=== PATIENT | male | born 1970 | race Caucasian/White ===

== ENCOUNTER 2021-06-11 11:45 | Inpatient (IN) | payer OTHER ==
[2021-06-11] MEDS ORDERED: SODIUM CHLORIDE 0.9% 500 ML 500 ML IV ONE (11:49)
[2021-06-11] MEDS ORDERED: DEXAMETHASONE SOD PHOSPHATE 10 MG/ML 1 ML VIAL IV STA (11:49)
--- NOTE | 2021-06-11 11:55 | ED ---
General Adult HPI - General Stated complaint: covid+, increased SOB Time Seen by Provider: 06/11/21 11:48 Source: patient, EMS, RN notes reviewed, old records reviewed - History of Present Illness Initial comments: 50-year-old male presenting with hypoxia, confusion. Patient's family members have tested positive for coronavirus. He is been sick for approximately 7 days. He was found by EMS with initial oxygenation of 50% on room air. He was cyanotic and confused. He did have improved mentation with nonrebreather during transport. Patient has not been vaccinated against coronavirus. - Related Data Allergies Allergy/AdvReac Type Severity Reaction Status Date / Time No Known Allergies Allergy Verified 06/11/21 11:56 Review of Systems ROS Statement: Those systems with pertinent positive or pertinent negative responses have been documented in the HPI. ROS Other: All systems not noted in ROS Statement are negative. General Exam General appearance: alert, in distress Head exam: Present: atraumatic, normocephalic Eye exam: Present: normal appearance, PERRL ENT exam: Present: mucous membranes dry Neck exam: Present: normal inspection. Absent: tenderness, meningismus Respiratory exam: Present: respiratory distress, rales, rhonchi, decreased breath sounds Cardiovascular Exam: Present: normal rhythm, tachycardia GI/Abdominal exam: Present: soft. Absent: distended, tenderness, guarding Extremities exam: Present: normal inspection, normal capillary refill. Absent: pedal edema Neurological exam: Present: alert, oriented X3 (slow to Respond), CN II-XII intact. Absent: motor sensory deficit Psychiatric exam: Present: anxious Skin exam: Present: warm, dry Course Vital Signs 06/11/21 06/11/21 06/11/21 11:46 11:55 12:07 Temperature 100.5 F H Pulse Rate 125 H 121 H Respiratory 36 H 36 H 36 H Rate Blood Pressure 113/63 113/76 O2 Sat by Pulse 77 L 91 L Oximetry 06/11/21 12:10 Temperature Pulse Rate 120 H Respiratory 37 H Rate Blood Pressure 113/76 O2 Sat by Pulse 93 L Oximetry EKG Findings - EKG Comments: EKG Findings:: EKG: Sinus tachycardia with PAC, LVH, rate of 126, ND interval 132, QRS duration 86, QTC 469 Medical Decision Making - Medical Decision Making 50-year-old male presenting with severe respiratory distress, hypoxia in the 50s. History is concerning for coronavirus pneumonia with hypoxia. He does test positive for coronavirus. He has lab abnormalities consistent with severe Covid. Chest x-ray showed multifocal pneumonia. He is placed on high flow nasal cannula and a nonrebreather his oxygenation does improve to 92% in the emergency department with improved work of breathing. He is evaluated by the pulmonary director process Dr. Amezcua and will be admitted to the ICU. Case discussed with the [facility] Dr. Rodriguez, who will admit. - Lab Data Result diagrams: 06/11/21 11:47 06/11/21 11:47 Lab Results 06/11/21 06/11/21 06/11/21 Range/Units 11:47 11:47 11:47 WBC 17.4 H (3.8-10.6) k/uL RBC 4.88 (4.30-5.90) m/uL Hgb 15.0 (13.0-17.5) gm/dL Hct 42.2 (39.0-53.0) % MCV 86.5 (80.0-100.0) fL MCH 30.7 (25.0-35.0) pg MCHC 35.5 (31.0-37.0) g/dL RDW 13.7 (11.5-15.5) % Plt Count 374 (150-450) k/uL MPV 8.8 Neutrophils % 91 % Lymphocytes % 3 % Monocytes % 4 % Eosinophils % 0 % Basophils % 1 % Neutrophils # 15.9 H (1.3-7.7) k/uL Lymphocytes # 0.5 L (1.0-4.8) k/uL Monocytes # 0.7 (0-1.0) k/uL Eosinophils # 0.0 (0-0.7) k/uL Basophils # 0.1 (0-0.2) k/uL Hyperchromasia Slight Sodium 130 L (137-145) mmol/L Potassium 3.6 (3.5-5.1) mmol/L Chloride 89 L (98-107) mmol/L Carbon Dioxide 28 (22-30) mmol/L Anion Gap 13 mmol/L BUN 33 H (9-20) mg/dL Creatinine 1.16 (0.66-1.25) mg/dL Est GFR (CKD-EPI)AfAm 85 (>60 ml/min/1.73 sqM) Est GFR (CKD-EPI)NonAf 73 (>60 ml/min/1.73 sqM) Glucose 208 H (74-99) mg/dL Plasma Lactic Acid Mauro 3.4 H* (0.7-2.0) mmol/L Calcium 8.3 L (8.4-10.2) mg/dL Magnesium 2.1 (1.6-2.3) mg/dL Total Bilirubin 1.0 (0.2-1.3) mg/dL AST 52 (17-59) U/L ALT 33 (4-49) U/L Alkaline Phosphatase 62 (38-126) U/L Lactate Dehydrogenase 2098 H (313-618) U/L C-Reactive Protein 20.0 H (<1.0) mg/dL Total Protein 6.2 L (6.3-8.2) g/dL Albumin 3.3 L (3.5-5.0) g/dL Coronavirus (PCR) (Not Detectd) 06/11/21 Range/Units 11:58 WBC (3.8-10.6) k/uL RBC (4.30-5.90) m/uL Hgb (13.0-17.5) gm/dL Hct (39.0-53.0) % MCV (80.0-100.0) fL MCH (25.0-35.0) pg MCHC (31.0-37.0) g/dL RDW (11.5-15.5) % Plt Count (150-450) k/uL MPV Neutrophils % % Lymphocytes % % Monocytes % % Eosinophils % % Basophils % % Neutrophils # (1.3-7.7) k/uL Lymphocytes # (1.0-4.8) k/uL Monocytes # (0-1.0) k/uL Eosinophils # (0-0.7) k/uL Basophils # (0-0.2) k/uL Hyperchromasia Sodium (137-145) mmol/L Potassium (3.5-5.1) mmol/L Chloride (98-107) mmol/L Carbon Dioxide (22-30) mmol/L Anion Gap mmol/L BUN (9-20) mg/dL Creatinine (0.66-1.25) mg/dL Est GFR (CKD-EPI)AfAm (>60 ml/min/1.73 sqM) Est GFR (CKD-EPI)NonAf (>60 ml/min/1.73 sqM) Glucose (74-99) mg/dL Plasma Lactic Acid Mauro (0.7-2.0) mmol/L Calcium (8.4-10.2) mg/dL Magnesium (1.6-2.3) mg/dL Total Bilirubin (0.2-1.3) mg/dL AST (17-59) U/L ALT (4-49) U/L Alkaline Phosphatase (38-126) U/L Lactate Dehydrogenase (313-618) U/L C-Reactive Protein (<1.0) mg/dL Total Protein (6.3-8.2) g/dL Albumin (3.5-5.0) g/dL Coronavirus (PCR) Detected A (Not Detectd) Critical Care Time Critical Care Time: Yes Total Critical Care Time: 35 Disposition Clinical Impression: Pneumonia due to COVID-19 virus, Hypoxia Disposition: ADMITTED IP TO THIS [facility] Condition: Serious Is patient prescribed a controlled substance at d/c from ED?: No Referrals: None,Stated [Primary Care Provider] - 1-2 days Decision to Admit Reason: Admit from EC Decision Date: 06/11/21 Decision Time: 12:36
[2021-06-11] MEDS ORDERED: ACETAMINOPHEN TAB 500 MG TAB PO STA (11:58)
[2021-06-11] MEDS: SODIUM CHLORIDE 0.9% 1,000 ML IV SCH ×2 (12:03→19:53)
[2021-06-11 12:06] LABS: Basophils # (A) 0.1 k/uL (0-0.2); Basophils % (A) 1 %; Eosinophils % (A) 0 %; HCT 42.2 % (39.0-53.0); Hyperchromasia Slight; Lymphocytes # (A) 0.5 k/uL (1.0-4.8); Lymphocytes % (A) 3 %; MCH 30.7 pg (25.0-35.0); MCHC 35.5 g/dL (31.0-37.0); MCV 86.5 fL (80.0-100.0); Mean Platelet Volume 8.8; Monocytes # (A) 0.7 k/uL (0-1.0); Monocytes % (A) 4 %; Neutrophils # (A) 15.9 k/uL (1.3-7.7); Neutrophils % (A) 91 %; Platelet Count 374 k/uL (150-450); RBC 4.88 m/uL (4.30-5.90); RDW 13.7 % (11.5-15.5); WBC 17.4 k/uL (3.8-10.6)
[2021-06-11 12:18] LABS: Albumin 3.3 g/dL (3.5-5.0); Calcium 8.3 mg/dL (8.4-10.2); Magnesium 2.1 mg/dL (1.6-2.3); Potassium 3.6 mmol/L (3.5-5.1); Total Protein 6.2 g/dL (6.3-8.2)
--- NOTE | 2021-06-11 12:31 | XR ---
EXAMINATION TYPE: XR chest 1V portable DATE OF EXAM: 06/11/2021 COMPARISON: NONE HISTORY: ROXI. TECHNIQUE: Single AP portable frontal view of the chest is obtained. FINDINGS: There are bilateral multifocal and confluent opacities with relative sparing of the upper lungs. Low lung volumes redemonstrated. The cardiac silhouette size is within normal limits. The o sseous structures are intact. Overlying EKG leads. IMPRESSION: Low lung volumes with bilateral multifocal and confluent opacities relatively sparing th e upper lungs consistent with suspected covid-19 infection.
[2021-06-11] MEDS ORDERED: NALOXONE 0.4 MG/ML 1 ML VIAL IV PRN (12:33)
[2021-06-11 12:37] LABS: INR 1.1 (<1.2); Prothrombin Time 11.6 sec (9.0-12.0)
[2021-06-11 12:55] LABS: Partial Thromboplastin Time 21.1 sec (22.0-30.0)
--- NOTE | 2021-06-11 13:19 | P.CNPUL ---
History of Present Illness Consult date: 06/11/21 Requesting physician: Tamir Rodriguez Reason for consult: dyspnea, cough, hypoxemia, pneumonia, abnormal CXR/CT Chief complaint: Shortness of breath. History of present illness: Pulmonary consult dated 06/11/2021. 50-year-old male, who presents to the emergency department, complaining of incr easing shortness of breath. The patient has been sick for 2 weeks. He told the ER physician 1 week, but his exit been much longer. Apparently, other family members are sick with coronavirus, and he tested positive. He has not yet been vaccinated. The patient's currently in the ER, in trauma 1 room, on AIRVO, at 60 L/m with an FiO2 of 92%, and also a nonrebreather mask. He is not getting any IV fluids. Again he is not been previously vaccinated. Chest x-ray shows diffuse bilateral right greater than left infiltrates. The patient does not have a family doctor. The patient states he takes no medications at home on a regular basis. He also denies all past medical history. I evaluate the patient and determined that he should go to the intensive care unit. I did that the charge nurse in the ICU know. White count 17.4, hemoglobin 15, hematocrit 42.2, and platelet count 374,000. PTT was 21.1. Sodium 1:30, potassium 3.6, chlorides 89, CO2 28, anion gap 13, BUN 33, and creatinine 1.16. Lactic acid was 3.4 glucose 208 LDH 2098 C-reactive protein 20 and testing for coronavirus w as positive. Review of Systems REVIEW OF SYSTEMS: CONSTITUTIONAL: Weakness. NEUROLOGIC: [ Negative.] HEENT: [ Negative.] CARDIAC: [Negative.] PULMONARY: Shortness of breath, cough, progressive in nature. Also chest congestion. GI: [Negative.] : [Negative.] RHEUMATOLOGIC: [ Negative.] IMMUNOLOGIC: [ Negative.] ENDOCRINE: [Negative. ] DERMATOLOGIC: [Negative.] Past Medical History Past Medical History: Hypertension History of Any Multi-Drug Resistant Organisms: None Reported Past Surgical History: Orthopedic Surgery Past Psychological History: No Psychological Hx Reported Smoking Status: Never smoker Past Alcohol Use History: None Reported Medications and Allergies Home Medications Medication Instructions Recorded Confirmed Type No Known Home Medications 06/11/21 06/11/21 History Allergies Allergy/AdvReac Type Severity Reaction Status Date / Time No Known Allergies Allergy Verified 06/11/21 12:43 Physical Exam Osteopathic Statement: *. No significant issues noted on an osteopathic structural exam other than those noted in the History and Physical/Consult. Vitals: Vital Signs Temp Pulse Resp BP Pulse Ox 06/11/21 12:10 120 H 37 H 113/76 93 L 06/11/21 12:07 121 H 36 H 113/76 91 L 06/11/21 11:55 36 H 06/11/21 11:46 100.5 F H 125 H 36 H 113/63 77 L Intake and Output 06/10/21 06/11/21 06/11/21 22:59 06:59 14:59 Other: Weight 117.934 kg Conversational dyspnea, with use of accessory muscles. No audible wheezing. Th e patient currently has a AIRVO and place, plus a nonrebreather mask. HEENT examination is grossly unremarkable. Neck supple. Full range of motion. No adenopathy thyromegaly or neck vein distention. Cardiovascular examination reveals regular rhythm rate. S1-S2 normal. No S3 or S4. No discernible murmur noted. Heart rate 120. Heart sounds are distant. Lungs reveal diffuse coarse rhonchi. Diffuse bilateral crackles. No wheezes. Breath sounds equal bilaterally but diminished throughout. Abdomen soft bowel sounds are heard. No masses or tenderness. Abdomen obese. Extremities are intact. No cyanosis clubbing or edema. Skin is without rash or lesion. Neurologic examination is brief but nonfocal. Results - Laboratory Findings CBC and BMP: 06/11/21 11:47 06/11/21 11:47 PT/INR, D-dimer PT 11.6 sec (9.0-12.0) 06/11/21 11:47 INR 1.1 (<1.2) 06/11/21 11:47 Abnormal lab findings: Abnormal Labs 06/11/21 06/11/21 06/11/21 11:47 11:47 11:47 WBC 17.4 H Neutrophils # 15.9 H Lymphocytes # 0.5 L APTT 21.1 L Sodium 130 L Chloride 89 L BUN 33 H Glucose 208 H Plasma Lactic Acid Mauro Calcium 8.3 L Lactate Dehydrogenase 2098 H C-Reactive Protein 20.0 H Total Protein 6.2 L Albumin 3.3 L Coronavirus (PCR) 06/11/21 06/11/21 11:47 11:58 WBC Neutrophils # Lymphocytes # APTT Sodium Chloride BUN Glucose Plasma Lactic Acid Mauro 3.4 H* Calcium Lactate Dehydrogenase C-Reactive Protein Total Protein Albumin Coronavirus (PCR) Detected A - Diagnostic Findings Chest x-ray: image reviewed Assessment and Plan Assessment: Acute hypoxemic respiratory failure secondary to coronavirus associated pneumonia. Elevated inflammatory marker secondary to coronavirus infection. Obesity. Plan: Plan dated 06/11/2021. The patient will be admitted to the intensive care unit. The patient will be placed on Lovenox, Decadron, and vitamins. He is not a candidate for REM. He is a candidate for Baricitinib. Additional recommendations and suggestions are forthcoming. The patient will have daily labs and chest x-rays. The patient may worsen and require intubation and mechanical ventilation. We will continue to follow and make recommendations where appropriate. Prognosis is guarded. Time with Patient: Greater than 30
[2021-06-11] MEDS ORDERED: LORazepam 2 MG/ML INJ IV PRN (14:34)
[2021-06-11] MEDS ORDERED: ONDANSETRON 4 MG/2 ML VIAL IVP PRN (14:34)
[2021-06-11] MEDS ORDERED: IBUPROFEN 400 MG TAB PO PRN (14:34)
[2021-06-11] MEDS ORDERED: bisacodyL 5 MG TABLET.DR PO PRN (14:34)
[2021-06-11] MEDS ORDERED: ACETAMINOPHEN TAB 325 MG TAB PO PRN (14:34)
--- NOTE | 2021-06-11 14:34 | P.HPIM ---
History of Present Illness H&P Date: 06/11/21 Chief Complaint: decreased responsiveness Patient is a 50-year-old male who presented with confusion and low oxygen status, was found to be by EMS to have an oxygen saturation of 50%. On arrival to the ER he had a temperature of 100.5, pulse 125, respirations 36, and he was satting 77% on a 15 L nonrebreather. In the ER he was found to have a white blood cell count of 17.4, sodium 130, glucose 208, lactic acid 3.4, LDH 2098, and CRP 20. His COVID test came back positive. Chest x-ray showed lateral multifocal opacities right greater than left is reviewed by myself. He was started on aerosol. He was given 1 L bolus and 10 mg of Decadron. He was seen by pulmonary critical care and arrangements were made for admission to the ICU. Patient seen and examined in the emergency department. He reports that his Covid symptoms started 10-14 days ago. His tested positive about 7 days ago. He has 3 teenage children at home, he states they're asymptomatic. He r eports cough with chest congestion, no runny, stuffy nose. He has had diarrhea 1 week. He reports low appetite with decreased oral intake. He reports easy fatigue ability. He states that he remembers going to sleep on the couch yesterday in the next thing he remembers was waking up with EMS at his side with a popsicle in his mouth. He has not been vaccinated. Pertinent positives and negatives as discussed in HPI, a complete review of systems was performed and all other systems are negative. General: non toxic, no distress, appears at stated age Derm: warm, dry Head: atraumatic, normocephalic, symmetric Eyes: EOMI, no lid lag, anicteric sclera, pupils equal round reactive to light ENT: Nose and ears atraumatic, no thrush, no pharyngeal erythema Neck: No thyromegaly, no cervical lymphadenopathy, trachea midline, supple Mouth: no lip lesion, mucus membranes moist Cardiovascular: S1S2 reg, no murmur, positive posterior tibial pulse bilateral, no edema, capillary refill less than 2 seconds Lungs: clear to ascultation bilateral, no ronchi, no rales, no wheeze, no accessory muscle use Abdominal: soft, nontender to palpation, no guarding, no appreciable organomegaly, normal bowel sounds Ext: no gross muscle atrophy, muscle strength muscle strength 5 out of 5 in all 4 extremities, no contractures Neuro: CN II-XI grossly intact, light touch intact all 4 extremities, finger to nose within normal limits, Psych: Alert, oriented, appropriate affect COVID-19 pneumonitis in an unvaccinated individual Acute hypoxic respiratory failure Altered mentation due to hypoxia, resolved - Patient is out of the for remdesivir - decadron - Vit D, Vit C, Zinc - Follow inflammatory labs - pulm hygiene Hyponatremia - careful IV fluids as currently requiring NRB and maxed out AirVo - repeat blood work in 4-6 hours. HTN - hold lisinopril - follow BP Lactic acidosis - IVF - repeat lactic acid obesity with BMI 38.4 - structured outpatient weight loss attempted to call Pat X 3 without answer. The patient is admitted with an anticipated greater than 2 midnight stay for evaluation of COVID-19 pneumonitis. Surrogate decision-maker: CODE STATUS:Full DVT prophylaxis: Lovenox Discussed with: patient, nursing, ED physicians Anticipated discharge date: undetermined Anticipated discharge place: undetermined A total of 75 minutes was spent on the care of this complex patient more than 50% of the time was spent in counseling and care coordination. Past Medical History Past Medical History: Hypertension History of Any Multi-Drug Resistant Organisms: None Reported Past Surgical History: Orthopedic Surgery Additional Past Surgical History / Comment(s): left knee scope Past Psychological History: No Psychological Hx Reported Smoking Status: Never smoker Past Alcohol Use History: None Reported Additional History: no assisstive devices - Past Family History Mother Family Medical History: No Reported History Medications and Allergies Home Medications Medication Instructions Recorded Confirmed Type No Known Home Medications 06/11/21 06/11/21 History Allergies Allergy/AdvReac Type Severity Reaction Status Date / Time No Known Allergies Allergy Verified 06/11/21 12:43 Physical Exam Osteopathic Statement: *. No significant issues noted on an osteopathic structural exam other than those noted in the History and Physical/Consult. Vitals: Vital Signs Temp Pulse Resp BP Pulse Ox 06/11/21 13:00 107 H 32 H 109/69 92 L 06/11/21 12:10 120 H 37 H 113/76 93 L 06/11/21 12:07 121 H 36 H 113/76 91 L 06/11/21 11:55 36 H 06/11/21 11:46 100.5 F H 125 H 36 H 113/63 77 L Intake and Output 06/10/21 06/11/21 06/11/21 22:59 06:59 14:59 Other: Weight 117.934 kg Results CBC & Chem 7: 06/11/21 11:47 06/11/21 11:47 Labs: Abnormal Lab Results - Last 24 Hours (Table) 06/11/21 06/11/21 06/11/21 Range/Units 11:47 11:47 11:47 WBC 17.4 H (3.8-10.6) k/uL Neutrophils # 15.9 H (1.3-7.7) k/uL Lymphocytes # 0.5 L (1.0-4.8) k/uL APTT 21.1 L (22.0-30.0) sec Sodium 130 L (137-145) mmol/L Chloride 89 L (98-107) mmol/L BUN 33 H (9-20) mg/dL Glucose 208 H (74-99) mg/dL Plasma Lactic Acid Mauro (0.7-2.0) mmol/L Calcium 8.3 L (8.4-10.2) mg/dL Lactate Dehydrogenase 2098 H (313-618) U/L C-Reactive Protein 20.0 H (<1.0) mg/dL Total Protein 6.2 L (6.3-8.2) g/dL Albumin 3.3 L (3.5-5.0) g/dL Coronavirus (PCR) (Not Detectd) 06/11/21 06/11/21 Range/Units 11:47 11:58 WBC (3.8-10.6) k/uL Neutrophils # (1.3-7.7) k/uL Lymphocytes # (1.0-4.8) k/uL APTT (22.0-30.0) sec Sodium (137-145) mmol/L Chloride (98-107) mmol/L BUN (9-20) mg/dL Glucose (74-99) mg/dL Plasma Lactic Acid Mauro 3.4 H* (0.7-2.0) mmol/L Calcium (8.4-10.2) mg/dL Lactate Dehydrogenase (313-618) U/L C-Reactive Protein (<1.0) mg/dL Total Protein (6.3-8.2) g/dL Albumin (3.5-5.0) g/dL Coronavirus (PCR) Detected A (Not Detectd)
[2021-06-11 14:39] LABS: Glucose,Whole Blood 187 mg/dL (75-99)
[2021-06-11 19:41] LABS: Glucose,Whole Blood 176 mg/dL (75-99)
[2021-06-11] MEDS: INSULIN ASPART (NovoLOG) 100 UNIT/ML VIAL SQ SCH (19:53)
[2021-06-11] MEDS: DEXMEDETOMIDINE/0.9% NACL(PMX) 400 MCG in EMPTY BAG 1 BAG IV SCH (22:39)
[2021-06-12 03:29] LABS: HGB 13.5 gm/dL (13.0-17.5); MCH 30.3 pg (25.0-35.0); MCHC 34.5 g/dL (31.0-37.0); MCV 87.9 fL (80.0-100.0); Mean Platelet Volume 8.7; Platelet Count 303 k/uL (150-450); RBC 4.44 m/uL (4.30-5.90); RDW 13.1 % (11.5-15.5); WBC 17.7 k/uL (3.8-10.6)
[2021-06-12 03:48] LABS: ALT 27 U/L (4-49); AST 44 U/L (17-59); African American GFR (CKD) >90 (>60 ml/min/1.73 sqM); Alkaline Phosphatase 73 U/L (38-126); Anion Gap 8 mmol/L; Blood Urea Nitrogen 29 mg/dL (9-20); Calcium 8.1 mg/dL (8.4-10.2); Carbon Dioxide 32 mmol/L (22-30); Chloride 95 mmol/L (98-107); Glucose 145 mg/dL (74-99); Magnesium 2.4 mg/dL (1.6-2.3); Non-African American GFR(CKD) >90 (>60 ml/min/1.73 sqM); Potassium 3.4 mmol/L (3.5-5.1); Sodium 135 mmol/L (137-145); Total Bilirubin 0.6 mg/dL (0.2-1.3); Total Protein 5.8 g/dL (6.3-8.2)
[2021-06-12 04:00] LABS: LDH 2002 U/L (313-618)
[2021-06-12] MEDS ORDERED: Potassium Replacement Protocol 1 EACH MISC MISCELLANE PRN (04:03)
[2021-06-12] MEDS: DEXMEDETOMIDINE/0.9% NACL(PMX) 400 MCG in EMPTY BAG 1 BAG IV SCH (04:38)
[2021-06-12] MEDS: POTASSIUM CHLORIDE ER 20 MEQ TAB.ER PO SCH ×2 (04:38→06:20)
[2021-06-12] MEDS: INSULIN ASPART (NovoLOG) 100 UNIT/ML VIAL SQ SCH ×3 (06:20→18:20)
[2021-06-12] MEDS ORDERED: propofoL 100 ML IV ONE (06:24)
[2021-06-12] MEDS ORDERED: CISATRACURIUM 2 MG/ML 5 ML VIAL IV ONE ×2 (06:59→07:00)
[2021-06-12] MEDS: CISATRACURIUM 200 MG in SODIUM CHLORIDE 0.9% 180 ML IV SCH ×2 (07:10→23:58)
[2021-06-12] MEDS: ARTIFICIAL TEARS-HYPROMELLOSE DROPS 15 ML BTL BOTH EYES SCH ×5 (07:11→23:59)
--- NOTE | 2021-06-12 07:28 | XR ---
EXAMINATION TYPE: XR chest 1V portable DATE OF EXAM: 06/12/2021 Comparison: 06/12/2021 Clinical History: 50-year-old male Tube placement Findings: ET and NG tubes are satisfactory. Heart borderline enlarged. Diffuse bilateral groundglass airspace d isease has become slightly more opaque. No pleural effusion. Impression: Slightly more consolidative appearance to the bilateral diffuse groundglass disease.
[2021-06-12 08:03] LABS: ABG HCO3 32 mmol/L (21-25); ABG Oxygen Saturation 86.6 % (94-97); ABG PCO2 50 mmHg (35-45); ABG PH 7.42 (7.35-7.45); ABG TCO2 34 mmol/L (19-24); Allen Test Performed? Yes
[2021-06-12 08:05] LABS: ABG PO2 56 mmHg (83-108)
--- NOTE | 2021-06-12 08:21 | XR ---
EXAMINATION TYPE: XR chest 1V portable DATE OF EXAM: 06/12/2021 HISTORY: Shortness of breath. COMPARISON: 06/12/2021 TECHNIQUE: Single view of the chest is submitted. FINDINGS: Demonstrated are scattered senescent parenchymal change. Patchy perihilar and basilar infiltrates persist although appear to be improving. Endotracheal tube a nd NG tube have been removed. The heart is stable. Hilar and mediastinal structures are within normal limits. Degenerative changes are seen of the dorsal spine. IMPRESSION: 1. Patchy perihilar and basilar infiltrates persist although appear to be improving.
[2021-06-12] MEDS: CHLORHEXIDINE GLUCONATE 15 ML CUP MUCOUS MEM SCH ×2 (08:57→19:55)
[2021-06-12] MEDS: CHOLECALCIFEROL 25 MCG (1000 IU) TABLET PO SCH (08:57)
[2021-06-12] MEDS: ASCORBIC ACID 500 MG TAB PO SCH (08:57)
[2021-06-12] MEDS: ZINC SULFATE 220 MG CAP PO SCH (08:57)
[2021-06-12] MEDS: ENOXAPARIN 100 MG/ML SYRINGE SQ SCH ×2 (08:58→21:17)
[2021-06-12] MEDS ORDERED: ENOXAPARIN 40 MG/0.4 ML SYRINGE SQ SCH (09:00)
[2021-06-12] MEDS: DEXAMETHASONE SOD PHOSPHATE 10 MG/ML 1 ML VIAL IVP SCH (09:03)
--- NOTE | 2021-06-12 10:08 | XR ---
EXAMINATION TYPE: XR chest 1V confirm line plcga DATE OF EXAM: 06/12/2021 HISTORY: Shortness of breath. COMPARISON: 06/12/2021 TECHNIQUE: Single view of the chest is submitted. FINDINGS: Endotracheal tube and NG tube are in place. Left IJ central venous line with its distal tip overlying the SVC. No evidence for pneumothorax. Patchy perihilar and basilar infiltrates. The heart is stable. Hilar and mediastinal structures are within normal limits. Degenerative changes are seen of the dorsal spine. IMPRESSION: 1. Stable pneumonia. Left IJ central venous line as noted.
--- NOTE | 2021-06-12 10:31 | PCN ---
PROCEDURE NOTE PLACEMENT OF LEFT INTERNAL JUGULAR TRIPLE-LUMEN CATHETER: OPERATORS: 1. Dr. Amezcua. 2. Dr. Hicks. PREOPERATIVE DIAGNOSIS: Administration of fluids and pressors. POSTOPERATIVE DIAGNOSIS: Administration of fluids and pressors. PROCEDURE DESCRIPTION: A time-out was completed verifying correct patient, procedure, site, positioning, and implant(s) or special equipment if applicable. The patient was placed in a dependent position appropriate for triple-lumen catheter placement based on the vein to be cannulated. The patient's left neck was prepped and draped in sterile fashion. 1% Lidocaine was used to anesthetize the surrounding skin area. A triple-lumen 9F Cordis catheter was introduced into the left internal jugular vein using Seldinger technique. We did the posterior approach. The catheter was threaded smoothly over the guide wire and appropriate blood return was obtained. There was good blood return from all 3 ports. Each lumen of the catheter was evacuated of air and flushed with sterile saline. The catheter was then sutured in place to the skin and a sterile dressing applied by a nurse. Perfusion to the extremity distal to the point of catheter insertion was checked and found to be adequate. A chest x-ray was done that showed the catheter in the area of the right atrium. The patient tolerated the procedure well. Sterile dressing was applied by the nurse. There was no immediate complication. PLACEMENT OF RIGHT RADIAL ARTERIAL LINE: PREOPERATIVE DIAGNOSIS: Frequent blood draws and blood gas monitoring. POSTOPERATIVE DIAGNOSIS: Frequent blood draws and blood gas monitoring. OPERATORS: 1. Dr. Amezcua. 2. Dr. Hicks. PROCEDURE DESCRIPTION: A time-out was completed verifying correct patient, procedure, site, positioning, and implant(s) or special equipment if applicable. Mike's test was performed to ensure adequate perfusion. The patient's right wrist was prepped and draped in sterile fashion. 1% Lidocaine was used to anesthetize the area. An 18G Arrow arterial line was introduced into the right radial artery. The catheter was threaded over the guidewire and the needle was removed with appropriate pulsatile blood return. Blood loss was minimal. The catheter was then sutured in place to the skin and a sterile dressing applied by the nurse. Perfusion to the extremity distal to the point of catheter insertion was checked and found to be adequate. The patient tolerated the procedure well and there was no immediate complication. Again, there was good blood return and waveform. MMODL / IJN: [id number] /
--- NOTE | 2021-06-12 11:12 | CT ---
EXAMINATION TYPE: CT angio chest DATE OF EXAM: 06/12/2021 COMPARISON: None HISTORY: Elev. D dimer CT DLP: 1311.4 mGycm CONTRAST: CT chest with contrast and 3D reconstruction with MIP imaging is performed with IV Contrast, patient injected with 100 mL of Isovue 370. Contrast-enhanced CT of the chest was performed through the course of the pulmonary arteries with wilton g and mediastinal window settings submitted. 3D reconstruction with MIP imaging was also performed. PULMONARY ARTERIES: Small of filling defect suggested within the right upper lobe for reference image 57 of 152 as well as 54 of 152. Small pulmonary embolism difficult to exclude. No evidence for sagit lacho component. No additional filling defects are present. LUNGS: Large areas of perihilar and basilar infiltrates with pleural effusions compatible with underl kayleigh pneumonia. Endotracheal tube is appropriately positioned. MEDIASTINUM: Thoracic aorta is of normal caliber,however, evaluation is limited given timing of the contrast bolus. If there is concern for thoracic aortic pathology consider MATTY. Correlate clinicall y . The heart is not enlarged. No evidence for mediastinal mass. No mediastinal lymph nodes greater than 1cm. HILAR STRUCTURES: No evidence for mass. No hilar lymph nodes greater than 1 cm. UPPER ABDOMEN: NG tube is seen coursing into the stomach. IMPRESSION: 1. Small pulmonary emboli right upper lobe difficult to exclude. 2. Findings compatible with the underlying pneumonia.
[2021-06-12] MEDS ORDERED: SODIUM CHLORIDE 0.9% 2,000 ML IV ONE (11:13)
--- NOTE | 2021-06-12 11:33 | P.PN ---
Subjective Progress Note Date: 06/12/21 Principal diagnosis: Respiratory failure. Pulmonary consult dated 06/11/2021. 50-year-old male, who presents to the emergency department, complaining of increasing shortness of breath. The patient has been sick for 2 weeks. He told the ER physician 1 week, but his exit been much longer. Apparently, other family members are sick with coronavirus, and he tested positive. He has not yet been vaccinated. The patient's currently in the ER, in trauma 1 room, on AIRVO, at 60 L/m with an FiO2 of 92%, and also a nonrebreather mask. He is not getting any IV fluids. Again he is not been previously vaccinated. Chest x-ray shows diffuse bilateral right greater than left infiltrates. The patient does not have a family doctor. The patient states he takes no medications at home on a regular basis. He also denies all past medical history. I evaluate the patient and determined that he should go to the intensive care unit. I did that the charge nurse in the ICU know. White count 17.4, hemoglobin 15, hematocrit 42.2, and platelet count 374,000. PTT was 21.1. Sodium 1:30, potassium 3.6, chlorides 89, CO2 28, anion gap 13, BUN 33, and creatinine 1.16. Lactic acid w as 3.4 glucose 208 LDH 2098 C-reactive protein 20 and testing for coronavirus was positive. Progress note dated 06/12/2021. 50-year-old male with no significant past medical history, that we saw in the emergency department yesterday. Patient had been sick for 2 weeks, and did test positive for coronavirus. Early this morning, for worsening hypoxemic respiratory failure, the patient was intubated and mechanically ventilated by anesthesia. Subsequent to that, we placed a right radial art line, and also a left internal jugular triple-lumen catheter. The patient remains on the ventilator. Ventilator settings include the volume assist control, rate 26, tidal volume 450, FiO2 100%, and PEEP of 10. Blood gases showed a pO2 of 56, pCO2 of 50, and a pH is 7.42. The patient's PEEP was increased to 15. In addition to the radial art line and central line, we ordered a CT angiogram, which suggested the possibility of pulmonary embolism. We also will start tube feeds, and keep the patient on saline at 75 mL an hour, propofol at 40 mics per kilogram per minute, and Nimbex at 1 mcg/kg/m. We added Dilaudid for pain when necessary. White count 17.7, hemoglobin 13.5, hematocrit 39, and platelet count 303,000. D-dimer was greater than 34.10. Sodium 135, potassium 3.4, chlorides 95, CO2 32, anion gap 8, BUN 29, and creatinine 0.83. In addition, LDH was 2002, and C-reactive protein was 18. Influenza studies were negative. Chest x- ray showed patchy bilateral infiltrates. Objective - Vital Signs Vital signs: Vital Signs Temp 98.2 F 06/12/21 08:00 Pulse 68 06/12/21 11:00 Resp 26 H 06/12/21 11:00 BP 93/68 06/12/21 11:00 Pulse Ox 92 L 06/12/21 11:00 Intake & Output 06/11/21 06/12/21 06/12/21 18:59 06:59 18:59 Intake Total 375 1081.818 213.835 Output Total 1150 650 100 Balance -775 431.818 113.835 Weight 117.934 kg 111.6 kg 111.6 kg Intake: IV 675 150 Sodium Chloride 0.9% 1, 675 150 000 ml @ 75 mls/hr IV . [id number] [facility] Rx#:[id number] Intake, IV Titration 375 286.818 63.835 Amount Dexmedetomidine/0.9% NaCl 61.818 (Pmx) 400 mcg In Empty Bag 1 bag @ 0.2 MCG/KG/HR 5.897 mls/hr IV .[id number] [facility] Rx#:[id number] Sodium Chloride 0.9% 1, 375 225 000 ml @ 75 mls/hr IV . [id number] [facility] Rx#:[id number] propofoL 1,000 mg In 63.835 Empty Bag 1 bag @ Titrate IV .Q0M [facility] Rx#: [id number] Oral 120 Output: Urine 1150 650 100 Other: Voiding Method Indwelling Catheter ABP, PAP, CO, CI - Last Documented Arterial Blood Pressure 64/40 - Exam No acute distress, sedated and paralyzed. The patient has an orally placed endotracheal tube and NG tube. HEENT examination is grossly unremarkable. Neck supple. Full range of motion. No adenopathy thyromegaly or neck vein distention. Cardiovascular examination reveals regular rhythm rate. S1-S2 normal. No S3 or S4. No discernible murmur noted. Heart sounds are distant. Heart rate 68 bpm. Lungs reveal diffuse bilateral rhonchi. No wheezes or crackles. Breath sounds are equal bilaterally. Saturations are 92%. Abdomen soft bowel sounds are heard. No masses or tenderness. Extremities are intact. No cyanosis clubbing or edema. Skin is without rash or lesion. Neurologic examination cannot be assessed at this time given the sedation and paralysis. - Labs CBC & Chem 7: 06/12/21 02:48 06/12/21 02:48 Labs: Abnormal Lab Results - Last 24 Hours (Table) 06/11/21 06/11/21 06/11/21 Range/Units 11:47 11:47 11:47 WBC 17.4 H (3.8-10.6) k/uL Neutrophils # 15.9 H (1.3-7.7) k/uL Lymphocytes # 0.5 L (1.0-4.8) k/uL APTT 21.1 L (22.0-30.0) sec D-Dimer (<0.60) mg/L FEU ABG pCO2 (35-45) mmHg ABG pO2 (83-108) mmHg ABG HCO3 (21-25) mmol/L ABG Total CO2 (19-24) mmol/L ABG O2 Saturation (94-97) % Sodium 130 L (137-145) mmol/L Potassium (3.5-5.1) mmol/L Chloride 89 L (98-107) mmol/L Carbon Dioxide (22-30) mmol/L BUN 33 H (9-20) mg/dL Glucose 208 H (74-99) mg/dL POC Glucose (mg/dL) (75-99) mg/dL Plasma Lactic Acid Mauro (0.7-2.0) mmol/L Calcium 8.3 L (8.4-10.2) mg/dL Magnesium (1.6-2.3) mg/dL Ferritin 1873.0 H (22.0-322.0) ng/mL Lactate Dehydrogenase 2098 H (313-618) U/L C-Reactive Protein 20.0 H (<1.0) mg/dL Total Protein 6.2 L (6.3-8.2) g/dL Albumin 3.3 L (3.5-5.0) g/dL Procalcitonin (0.02-0.09) ng/mL Coronavirus (PCR) (Not Detectd) 06/11/21 06/11/21 06/11/21 Range/Units 11:47 11:47 11:58 WBC (3.8-10.6) k/uL Neutrophils # (1.3-7.7) k/uL Lymphocytes # (1.0-4.8) k/uL APTT (22.0-30.0) sec D-Dimer (<0.60) mg/L FEU ABG pCO2 (35-45) mmHg ABG pO2 (83-108) mmHg ABG HCO3 (21-25) mmol/L ABG Total CO2 (19-24) mmol/L ABG O2 Saturation (94-97) % Sodium (137-145) mmol/L Potassium (3.5-5.1) mmol/L Chloride (98-107) mmol/L Carbon Dioxide (22-30) mmol/L BUN (9-20) mg/dL Glucose (74-99) mg/dL POC Glucose (mg/dL) (75-99) mg/dL Plasma Lactic Acid Mauro 3.4 H* (0.7-2.0) mmol/L Calcium (8.4-10.2) mg/dL Magnesium (1.6-2.3) mg/dL Ferritin (22.0-322.0) ng/mL Lactate Dehydrogenase (313-618) U/L C-Reactive Protein (<1.0) mg/dL Total Protein (6.3-8.2) g/dL Albumin (3.5-5.0) g/dL Procalcitonin 0.41 H (0.02-0.09) ng/mL Coronavirus (PCR) Detected A (Not Detectd) 06/11/21 06/11/21 06/12/21 Range/Units 14:37 19:40 02:48 WBC 17.7 H (3.8-10.6) k/uL Neutrophils # (1.3-7.7) k/uL Lymphocytes # (1.0-4.8) k/uL APTT (22.0-30.0) sec D-Dimer (<0.60) mg/L FEU ABG pCO2 (35-45) mmHg ABG pO2 (83-108) mmHg ABG HCO3 (21-25) mmol/L ABG Total CO2 (19-24) mmol/L ABG O2 Saturation (94-97) % Sodium (137-145) mmol/L Potassium (3.5-5.1) mmol/L Chloride (98-107) mmol/L Carbon Dioxide (22-30) mmol/L BUN (9-20) mg/dL Glucose (74-99) mg/dL POC Glucose (mg/dL) 187 H 176 H (75-99) mg/dL Plasma Lactic Acid Mauro (0.7-2.0) mmol/L Calcium (8.4-10.2) mg/dL Magnesium (1.6-2.3) mg/dL Ferritin (22.0-322.0) ng/mL Lactate Dehydrogenase (313-618) U/L C-Reactive Protein (<1.0) mg/dL Total Protein (6.3-8.2) g/dL Albumin (3.5-5.0) g/dL Procalcitonin (0.02-0.09) ng/mL Coronavirus (PCR) (Not Detectd) 06/12/21 06/12/21 06/12/21 Range/Units 02:48 02:48 07:59 WBC (3.8-10.6) k/uL Neutrophils # (1.3-7.7) k/uL Lymphocytes # (1.0-4.8) k/uL APTT (22.0-30.0) sec D-Dimer >34.10 H (<0.60) mg/L FEU ABG pCO2 50 H (35-45) mmHg ABG pO2 56 L* (83-108) mmHg ABG HCO3 32 H (21-25) mmol/L ABG Total CO2 34 H (19-24) mmol/L ABG O2 Saturation 86.6 L (94-97) % Sodium 135 L (137-145) mmol/L Potassium 3.4 L (3.5-5.1) mmol/L Chloride 95 L (98-107) mmol/L Carbon Dioxide 32 H (22-30) mmol/L BUN 29 H (9-20) mg/dL Glucose 145 H (74-99) mg/dL POC Glucose (mg/dL) (75-99) mg/dL Plasma Lactic Acid Mauro (0.7-2.0) mmol/L Calcium 8.1 L (8.4-10.2) mg/dL Magnesium 2.4 H (1.6-2.3) mg/dL Ferritin (22.0-322.0) ng/mL Lactate Dehydrogenase 2002 H (313-618) U/L C-Reactive Protein 18.0 H (<1.0) mg/dL Total Protein 5.8 L (6.3-8.2) g/dL Albumin 3.0 L (3.5-5.0) g/dL Procalcitonin (0.02-0.09) ng/mL Coronavirus (PCR) (Not Detectd) Assessment and Plan Assessment: Acute hypoxemic respiratory failure secondary to coronavirus associated pneumonia, with worsening hypoxemic respiratory failure, and need for intubation and mechanical ventilation on the morning of June 12. Elevated inflammatory marker secondary to coronavirus infection. Probable/possible pulmonary embolism, as seen on CT angiogram. Obesity. Plan: Plan dated 06/11/2021. The patient will be admitted to the intensive care unit. The patient will be placed on Lovenox, Decadron, and vitamins. He is not a candidate for REM. He is a candidate for Baricitinib. Additional recommendations and suggestions are forthcoming. The patient will have daily labs and chest x-rays. The patient m ay worsen and require intubation and mechanical ventilation. We will continue to follow and make recommendations where appropriate. Prognosis is guarded. Plan dated 06/12/2021. The patient was intubated this morning. The patient remains on the mechanical ventilator. The patient is currently on propofol and Nimbex. We will start tube feeds today. CT angiogram suggested the possibility of pulmonary embolism. The patient remains on therapeutic doses of Lovenox. In addition, a right radial art line was placed as well as a left internal jugular triple-lumen catheter. We will continue to follow and make recommendations where appropriate. The patient remains on vitamin C, vitamin D3, and zinc. In addition, the patient is on Decadron, and also should be on JEANNINE. Time with Patient: Greater than 30
[2021-06-12 12:41] LABS: Glucose,Whole Blood 131 mg/dL (75-99)
[2021-06-12] MEDS: MORPHINE SULFATE 4 MG/ML SYRINGE IV PRN (17:33)
[2021-06-12 17:47] LABS: Glucose,Whole Blood 177 mg/dL (75-99)
[2021-06-12] MEDS: SODIUM CHLORIDE 0.9% 1,000 ML IV SCH (17:54)
[2021-06-12] MEDS: CLEVIDIPINE BUTYRATE 25 MG in EMPTY BAG 1 BAG IV SCH ×2 (18:41→19:55)
[2021-06-12] MEDS: HYDROmorphone 0.5 MG/0.5 ML SYRINGE IVP PRN (19:55)
--- NOTE | 2021-06-12 20:09 | P.PN ---
Subjective Progress Note Date: 06/12/21 (delayed charting seen at 1230) Principal diagnosis: shortness of breath Patient is a 50-year-old male who presented with confusion and low oxygen status, was found to be by EMS to have an oxygen saturation of 50%. On arrival to the ER he had a temperature of 100.5, pulse 125, respirations 36, and he was satting 77% on a 15 L nonrebreather. In the ER he was found to have a white blood cell count of 17.4, sodium 130, glucose 208, lactic acid 3.4, LDH 2098, and CRP 20. His COVID test came back positive. Chest x-ray showed lateral multifocal opacities right greater than left is reviewed by myself. He was started on AirVo and NRB. He was given 1 L bolus and 10 mg of Decadron. He was seen by pulmonary critical care and arrangements were made for admission to the ICU. His breathing worsening overnight and he required intubaion on 06/12. His d-dimer was >34 and he was started on full dose lovenox. He was taken for CT chest which could not rule out right upper lobe PE. Patient seen and examined at bedside. He is sedated and Paralysed on the vent. General: ill appearing, moderate distress, appears at stated age Derm: warm, diaphoretic Head: atraumatic, normocephalic, symmetric Eyes: EOMI, no lid lag, anicteric sclera Mouth: no lip lesion, mucus membranes moist Cardiovascular: S1S2 reg, no murmur, positive posterior tibial pulse bilateral, Lungs: Course bs bilateral, no rhonchi, no rales , no accessory muscle use Abdominal: soft, nontender to palpation, no guarding, no appreciable organomegaly Ext: no gross muscle atrophy, no edema, no contractures Neuro: No withdrawal to pain, not breathing over the vent Psych: sedated on vent COVID-19 pneumonitis in an unvaccinated individual Acute hypoxic respiratory failure Toxic encephalopthy due to hypoxia, resolved Right upper lobw pulmonar embolism - decadron - Vit D, Vit C, Zinc - Follow inflammatory labs - pulm hygiene - pulm recs - Consider Sarilumab Hyponatremia, improving Hypokalemia - due to dehydration - careful IV fluids - replaced K+ and recheck HTN - hold lisinopril - follow BP Lactic acidosis, resolved obesity with BMI 38.4 - structured outpatient weight loss Updated Pat DVT prophylaxis: Lovenox Discussed with: patient, nursing Anticipated discharge date: undetermined Anticipated discharge place: undetermined A total of 35 minutes was spent on the care of this complex patient more than 50% of the time was spent in counseling and care coordination. Active Medications Generic Name Dose Route Start Last Admin Trade Name Freq PRN Reason Stop Dose Admin Artificial Tears 2 drops 06/12/21 08:00 06/12/21 19:55 Artificial Tears-Hypromellose Drops 15 Ml Btl BOTH EYES 2 drops Q4HR [facility] Administration Ascorbic Acid 1,000 mg 06/12/21 09:00 06/12/21 08:57 Ascorbic Acid 500 Mg Tab PO 1,000 mg DAILY [facility] Administration Bisacodyl 5 mg 06/11/21 14:34 Bisacodyl 5 Mg Tablet.Dr PO DAILY PRN Constipation Chlorhexidine Gluconate 15 ml 06/12/21 09:00 06/12/21 19:55 Chlorhexidine Gluconate 15 Ml Cup MUCOUS MEM 15 ml BID [facility] Administration Cholecalciferol 100 mcg 06/12/21 09:00 06/12/21 08:57 Cholecalciferol 25 Mcg (1000 Iu) Tablet PO 100 mcg DAILY [facility] Administration Dexamethasone Sodium Phosphate 6 mg 06/12/21 09:00 06/12/21 09:03 Dexamethasone Sod Phosphate 10 Mg/Ml 1 Ml Vial IVP 6 mg DAILY [facility] Administration Enoxaparin Sodium 100 mg 06/12/21 09:00 06/12/21 08:58 Enoxaparin 100 Mg/Ml Syringe SQ 100 mg Q12HR [facility] Administration Hydromorphone HCl 0.5 mg 06/12/21 09:51 06/12/21 19:55 Hydromorphone 0.5 Mg/0.5 Ml Syringe IVP 0.5 mg Q4HR PRN Administration Moderate Pain Sodium Chloride 1,000 mls @ 75 mls/hr 06/11/21 12:00 06/12/21 17:54 Saline 0.9% IV 75 mls/hr .[id number] [facility] Administration Cisatracurium Besylate 200 mg/ 200 mls @ 6.696 mls/hr 06/12/21 07:15 06/12/21 19:27 Sodium Chloride IV 1.75 mcg/kg/min .Q24H [facility] 11.718 mls/hr Titration Protocol 1 MCG/KG/MIN Propofol 1,000 mg/ IV Solution 100 mls @ 0 mls/hr 06/12/21 07:37 06/12/21 18 :41 IV 50 mcg/kg/min .Q0M [facility] 33.48 mls/hr Administration Protocol Titrate Clevidipine 25 mg/ IV Solution 50 mls @ 2 mls/hr 06/12/21 18:15 06/12/21 19:55 IV 4 mg/hr .Q24H [facility] 8 mls/hr Administration Protocol 1 MG/HR Insulin Aspart 0 unit 06/12/21 12:00 06/12/21 18:20 Insulin Aspart (Novolog) 100 Unit/Ml Vial SQ 4 unit Q6H [facility] Administration Protocol Miscellaneous Information 1 each 06/12/21 04:03 Potassium Replacement Protocol 1 Each Misc MISCELLANE DAILY PRN Per Protocol Protocol Morphine Sulfate 4 mg 06/11/21 14:34 06/12/21 17:33 Morphine Sulfate 4 Mg/Ml Syringe IV 4 mg Q4HR PRN Administration Severe Pain Naloxone HCl 0.2 mg 06/11/21 12:33 Naloxone 0.4 Mg/Ml 1 Ml Vial IV Q2M PRN Opioid Reversal Ondansetron HCl 4 mg 06/11/21 14:34 Ondansetron 4 Mg/2 Ml Vial IVP Q8HR PRN Nausea And Vomiting Zinc Sulfate 220 mg 06/12/21 09:00 06/12/21 08:57 Zinc Sulfate 220 Mg Cap PO 220 mg DAILY [facility] Administration Objective - Vital Signs Vital signs: Vital Signs Temp 98.7 F 06/12/21 16:00 Pulse 140 H 06/12/21 19:00 Resp 0 L 06/12/21 19:00 BP 111/72 06/12/21 14:00 Pulse Ox 93 L 06/12/21 19:00 Intake & Output 06/12/21 06/12/21 06/13/21 06:59 18:59 06:59 Intake Total 2338.197 9205.409 99.338 Output Total 650 1110 125 Balance 945.113 6698.409 -25.662 Weight 111.6 kg 111.6 kg Intake: IV 675 825 75 Sodium Chloride 0.9% 1, 675 825 75 000 ml @ 75 mls/hr IV . [id number] [facility] Rx#:[id number] Intake, IV Titration 371.439 6487.409 24.338 Amount Cisatracurium 200 mg In 72.345 16.405 Sodium Chloride 0.9% 180 ml @ 1 MCG/KG/MIN 6.696 mls/hr IV .Q24H [facility] Rx#: [id number] Clevidipine Butyrate 25 0.133 7.933 mg In Empty Bag 1 bag @ 1 MG/HR 2 mls/hr IV .Q24H [facility] Rx#:[id number] Dexmedetomidine/0.9% NaCl 61.818 (Pmx) 400 mcg In Empty Bag 1 bag @ 0.2 MCG/KG/HR 5.897 mls/hr IV .[id number] [facility] Rx#:[id number] Sodium Chloride 0.9% 1, 225 000 ml @ 75 mls/hr IV . [id number] [facility] Rx#:[id number] Sodium Chloride 0.9% 2, 2000 000 ml @ 999 mls/hr IV . Q2H1M [facility] Rx#:[id number] propofoL 1,000 mg In 134.931 Empty Bag 1 bag @ Titrate IV .Q0M [facility] Rx#: [id number] Oral 120 Tube Feeding 100 Other 30 Output: Urine 650 1110 125 Other: Voiding Method Indwelling Catheter ABP, PAP, CO, CI - Last Documented Arterial Blood Pressure 158/65 - Labs CBC & Chem 7: 06/12/21 02:48 06/12/21 02:48 Labs: Abnormal Lab Results - Last 24 Hours (Table) 06/11/21 06/11/21 06/12/21 Range/Units 11:47 11:47 02:48 WBC 17.7 H (3.8-10.6) k/uL D-Dimer (<0.60) mg/L FEU ABG pCO2 (35-45) mmHg ABG pO2 (83-108) mmHg ABG HCO3 (21-25) mmol/L ABG Total CO2 (19-24) mmol/L ABG O2 Saturation (94-97) % Sodium (137-145) mmol/L Potassium (3.5-5.1) mmol/L Chloride (98-107) mmol/L Carbon Dioxide (22-30) mmol/L BUN (9-20) mg/dL Glucose (74-99) mg/dL POC Glucose (mg/dL) (75-99) mg/dL Calcium (8.4-10.2) mg/dL Magnesium (1.6-2.3) mg/dL Ferritin 1873.0 H (22.0-322.0) ng/mL Lactate Dehydrogenase (313-618) U/L C-Reactive Protein (<1.0) mg/dL Total Protein (6.3-8.2) g/dL Albumin (3.5-5.0) g/dL Procalcitonin 0.41 H (0.02-0.09) ng/mL 06/12/21 06/12/21 06/12/21 Range/Units 02:48 02:48 07:59 WBC (3.8-10.6) k/uL D-Dimer >34.10 H (<0.60) mg/L FEU ABG pCO2 50 H (35-45) mmHg ABG pO2 56 L* (83-108) mmHg ABG HCO3 32 H (21-25) mmol/L ABG Total CO2 34 H (19-24) mmol/L ABG O2 Saturation 86.6 L (94-97) % Sodium 135 L (137-145) mmol/L Potassium 3.4 L (3.5-5.1) mmol/L Chloride 95 L (98-107) mmol/L Carbon Dioxide 32 H (22-30) mmol/L BUN 29 H (9-20) mg/dL Glucose 145 H (74-99) mg/dL POC Glucose (mg/dL) (75-99) mg/dL Calcium 8.1 L (8.4-10.2) mg/dL Magnesium 2.4 H (1.6-2.3) mg/dL Ferritin (22.0-322.0) ng/mL Lactate Dehydrogenase 2002 H (313-618) U/L C-Reactive Protein 18.0 H (<1.0) mg/dL Total Protein 5.8 L (6.3-8.2) g/dL Albumin 3.0 L (3.5-5.0) g/dL Procalcitonin (0.02-0.09) ng/mL 06/12/21 06/12/21 Range/Units 12:39 17:45 WBC (3.8-10.6) k/uL D-Dimer (<0.60) mg/L FEU ABG pCO2 (35-45) mmHg ABG pO2 (83-108) mmHg ABG HCO3 (21-25) mmol/L ABG Total CO2 (19-24) mmol/L ABG O2 Saturation (94-97) % Sodium (137-145) mmol/L Potassium (3.5-5.1) mmol/L Chloride (98-107) mmol/L Carbon Dioxide (22-30) mmol/L BUN (9-20) mg/dL Glucose (74-99) mg/dL POC Glucose (mg/dL) 131 H 177 H (75-99) mg/dL Calcium (8.4-10.2) mg/dL Magnesium (1.6-2.3) mg/dL Ferritin (22.0-322.0) ng/mL Lactate Dehydrogenase (313-618) U/L C-Reactive Protein (<1.0) mg/dL Total Protein (6.3-8.2) g/dL Albumin (3.5-5.0) g/dL Procalcitonin (0.02-0.09) ng/mL
[2021-06-13 00:03] LABS: Glucose,Whole Blood 203 mg/dL (75-99)
[2021-06-13] MEDS: INSULIN ASPART (NovoLOG) 100 UNIT/ML VIAL SQ SCH ×5 (00:03→23:32)
[2021-06-13] MEDS: CLEVIDIPINE BUTYRATE 25 MG in EMPTY BAG 1 BAG IV SCH ×6 (01:51→20:05)
[2021-06-13] MEDS: HYDROmorphone 0.5 MG/0.5 ML SYRINGE IVP PRN ×3 (02:50→23:32)
[2021-06-13] MEDS: SODIUM CHLORIDE 0.9% 1,000 ML IV SCH ×2 (04:13→13:43)
[2021-06-13] MEDS: ARTIFICIAL TEARS-HYPROMELLOSE DROPS 15 ML BTL BOTH EYES SCH ×6 (04:14→23:32)
[2021-06-13 04:31] LABS: HGB 13.8 gm/dL (13.0-17.5); MCH 31.9 pg (25.0-35.0); MCHC 36.3 g/dL (31.0-37.0); MCV 87.9 fL (80.0-100.0); Mean Platelet Volume 8.2; Platelet Count 291 k/uL (150-450); RBC 4.32 m/uL (4.30-5.90); RDW 13.9 % (11.5-15.5); WBC 21.5 k/uL (3.8-10.6)
[2021-06-13 04:59] LABS: ALT 27 U/L (4-49); AST 35 U/L (17-59); African American GFR (CKD) >90 (>60 ml/min/1.73 sqM); Alkaline Phosphatase 110 U/L (38-126); Anion Gap 4 mmol/L; Blood Urea Nitrogen 21 mg/dL (9-20); Calcium 8.2 mg/dL (8.4-10.2); Carbon Dioxide 35 mmol/L (22-30); Chloride 99 mmol/L (98-107); Glucose 189 mg/dL (74-99); Non-African American GFR(CKD) >90 (>60 ml/min/1.73 sqM); Potassium 3.4 mmol/L (3.5-5.1); Sodium 138 mmol/L (137-145); Total Bilirubin 0.8 mg/dL (0.2-1.3); Total Protein 5.9 g/dL (6.3-8.2)
[2021-06-13 05:42] LABS: C Reactive Protein 18.6 mg/dL (<1.0)
[2021-06-13 05:47] LABS: ABG Base Excess 12.4 mmol/L; ABG HCO3 38 mmol/L (21-25); ABG Oxygen Saturation 94.9 % (94-97); ABG PCO2 65 mmHg (35-45); ABG PH 7.37 (7.35-7.45); ABG PO2 79 mmHg (83-108); ABG TCO2 40 mmol/L (19-24)
[2021-06-13] MEDS: POTASSIUM BICARBONATE/CIT AC 20 MEQ TABLET.EFF NG-TUBE SCH ×2 (06:29→07:58)
[2021-06-13 06:31] LABS: Allen Test Performed? no
--- NOTE | 2021-06-13 07:13 | XR ---
EXAMINATION TYPE: XR chest 1V portable DATE OF EXAM: 06/13/2021 CLINICAL HISTORY: Difficulty breathing progress study. TECHNIQUE: Single AP portable semiupright view of the chest is obtained. COMPARISON: Chest x-ray and CTA chest from one day earlier. FINDINGS: Stable endotracheal and orogastric tubes. Stable left internal jugular central venous cath eter. Bilateral multifocal and confluent opacities with relative sparing of the upper lungs redemonstrated. Cardiac silhouette size stable and within normal limits. Osseous structures are intact. IMPRESSION: Bilateral multifocal and confluent opacities relatively consistent with known covid-19 in fection. No significant change from one day earlier.
[2021-06-13] MEDS: ASCORBIC ACID 500 MG TAB PO SCH (07:57)
[2021-06-13] MEDS: CHOLECALCIFEROL 25 MCG (1000 IU) TABLET PO SCH (07:57)
[2021-06-13] MEDS: CHLORHEXIDINE GLUCONATE 15 ML CUP MUCOUS MEM SCH ×2 (07:57→19:29)
[2021-06-13] MEDS: DEXAMETHASONE SOD PHOSPHATE 10 MG/ML 1 ML VIAL IVP SCH (07:58)
[2021-06-13] MEDS: ZINC SULFATE 220 MG CAP PO SCH (07:58)
[2021-06-13] MEDS: ENOXAPARIN 100 MG/ML SYRINGE SQ SCH ×2 (07:58→20:09)
--- NOTE | 2021-06-13 11:17 | P.PN ---
Subjective Progress Note Date: 06/13/21 Principal diagnosis: Respiratory failure. Pulmonary consult dated 06/11/2021. 50-year-old male, who presents to the emergency department, complaining of increasing shortness of breath. The patient has been sick for 2 weeks. He told the ER physician 1 week, but his exit been much longer. Apparently, other family members are sick with coronavirus, and he tested positive. He has not yet been vaccinated. The patient's currently in the ER, in trauma 1 room, on AIRVO, at 60 L/m with an FiO2 of 92%, and also a nonrebreather mask. He is not getting any IV fluids. Again he is not been previously vaccinated. Chest x-ray shows diffuse bilateral right greater than left infiltrates. The patient does not have a family doctor. The patient states he takes no medications at home on a regular basis. He also denies all past medical history. I evaluate the patient and determined that he should go to the intensive care unit. I did that the charge nurse in the ICU know. White count 17.4, hemoglobin 15, hematocrit 42.2, and platelet count 374,000. PTT was 21.1. Sodium 1:30, potassium 3.6, chlorides 89, CO2 28, anion gap 13, BUN 33, and creatinine 1.16. Lactic acid w as 3.4 glucose 208 LDH 2098 C-reactive protein 20 and testing for coronavirus was positive. Progress note dated 06/12/2021. 50-year-old male with no significant past medical history, that we saw in the emergency department yesterday. Patient had been sick for 2 weeks, and did test positive for coronavirus. Early this morning, for worsening hypoxemic respiratory failure, the patient was intubated and mechanically ventilated by anesthesia. Subsequent to that, we placed a right radial art line, and also a left internal jugular triple-lumen catheter. The patient remains on the ventilator. Ventilator settings include the volume assist control, rate 26, tidal volume 450, FiO2 100%, and PEEP of 10. Blood gases showed a pO2 of 56, pCO2 of 50, and a pH is 7.42. The patient's PEEP was increased to 15. In addition to the radial art line and central line, we ordered a CT angiogram, which suggested the possibility of pulmonary embolism. We also will start tube feeds, and keep the patient on saline at 75 mL an hour, propofol at 40 mics per kilogram per minute, and Nimbex at 1 mcg/kg/m. We added Dilaudid for pain when necessary. White count 17.7, hemoglobin 13.5, hematocrit 39, and platelet count 303,000. D-dimer was greater than 34.10. Sodium 135, potassium 3.4, chlorides 95, CO2 32, anion gap 8, BUN 29, and creatinine 0.83. In addition, LDH was 2002, and C-reactive protein was 18. Influenza studies were negative. Chest x- ray showed patchy bilateral infiltrates. Progress note dated 06/13/2021. 50-year-old male who is again seen in the ICU, room 266. He remains on the mechanical ventilator. He is on the volume assist control mode, rate 26, tidal volume 450, FiO2 100%, and PEEP of 15. Blood gases show a PaO2 of 79, a pCO2 of 65, and a pH of 7.37. The patient remains on propofol at 50 mcg/kg/m, saline at 75 mL an hour, Nimbex at 1 mcg/kg/m, Cleveprex at 12 mg an hour, and vital AF at 36 mL an hour, which is goal. White count 21.5, hemoglobin 13.8, and platelet count 291,000. Sodium 138, potassium 3.4, chlorides 99, CO2 35, anion gap 4, BUN 21, and creatinine 0.65. C-reactive protein is 18.6. Chest x-ray shows diffuse bilateral infiltrates, consistent with coronavirus pneumonia. Objective - Vital Signs Vital signs: Vital Signs Temp 97.9 F 06/13/21 08:00 Pulse 109 H 06/13/21 09:00 Resp 26 H 06/13/21 09:00 BP 136/81 06/13/21 07:00 Pulse Ox 93 L 06/13/21 09:00 Intake & Output 06/12/21 06/13/21 06/13/21 18:59 06:59 18:59 Intake Total 3162.409 1915.431 381.751 Output Total 1110 1965 175 Balance 2052.409 -49.569 206.751 Weight 111.6 kg Intake: IV 825 975 75 Sodium Chloride 0.9% 1, 825 975 75 000 ml @ 75 mls/hr IV . [id number] [facility] Rx#:[id number] Intake, IV Titration 2207.409 540.431 140.751 Amount Cisatracurium 200 mg In 72.345 79.096 Sodium Chloride 0.9% 180 ml @ 1 MCG/KG/MIN 6.696 mls/hr IV .Q24H [facility] Rx#: [id number] Clevidipine Butyrate 25 0.133 99.633 45.333 mg In Empty Bag 1 bag @ 1 MG/HR 2 mls/hr IV .Q24H [facility] Rx#:[id number] Sodium Chloride 0.9% 2, 2000 000 ml @ 999 mls/hr IV . Q2H1M [facility] Rx#:[id number] propofoL 1,000 mg In 134.931 361.702 95.418 Empty Bag 1 bag @ Titrate IV .Q0M [facility] Rx#: [id number] Oral 100 Tube Feeding 100 310 36 Other 30 90 30 Output: Urine 1110 1965 175 Other: Voiding Method Indwelling Catheter Indwelling Catheter ABP, PAP, CO, CI - Last Documented Arterial Blood Pressure 131/59 - Exam No acute distress, sedated and paralyzed. The patient has an orally placed endotracheal tube and NG tube. HEENT examination is grossly unremarkable. Neck supple. Full range of motion. No adenopathy thyromegaly or neck vein distention. Cardiovascular examination reveals regular rhythm rate. S1-S2 normal. No S3 or S4. No discernible murmur noted. Heart sounds are distant. Heart rate 109 bpm. Lungs reveal diffuse bilateral rhonchi. No wheezes or crackles. Breath sounds are equal bilaterally. Saturations are 94%. Abdomen soft bowel sounds are heard. No masses or tenderness. Extremities are intact. No cyanosis clubbing or edema. Skin is without rash or lesion. Neurologic examination cannot be assessed at this time given the sedation and paralysis. - Labs CBC & Chem 7: 06/13/21 04:22 06/13/21 04:22 Labs: Abnormal Lab Results - Last 24 Hours (Table) 06/12/21 06/12/21 06/13/21 Range/Units 12:39 17:45 00:01 WBC (3.8-10.6) k/uL Hct (39.0-53.0) % ABG pCO2 (35-45) mmHg ABG pO2 (83-108) mmHg ABG HCO3 (21-25) mmol/L ABG Total CO2 (19-24) mmol/L Potassium (3.5-5.1) mmol/L Carbon Dioxide (22-30) mmol/L BUN (9-20) mg/dL Creatinine (0.66-1.25) mg/dL Glucose (74-99) mg/dL POC Glucose (mg/dL) 131 H 177 H 203 H (75-99) mg/dL Calcium (8.4-10.2) mg/dL C-Reactive Protein (<1.0) mg/dL Total Protein (6.3-8.2) g/dL Albumin (3.5-5.0) g/dL 06/13/21 06/13/21 06/13/21 Range/Units 04:22 04:22 05:44 WBC 21.5 H (3.8-10.6) k/uL Hct 38.0 L (39.0-53.0) % ABG pCO2 65 H (35-45) mmHg ABG pO2 79 L (83-108) mmHg ABG HCO3 38 H (21-25) mmol/L ABG Total CO2 40 H (19-24) mmol/L Potassium 3.4 L (3.5-5.1) mmol/L Carbon Dioxide 35 H (22-30) mmol/L BUN 21 H (9-20) mg/dL Creatinine 0.65 L (0.66-1.25) mg/dL Glucose 189 H (74-99) mg/dL POC Glucose (mg/dL) (75-99) mg/dL Calcium 8.2 L (8.4-10.2) mg/dL C-Reactive Protein 18.6 H (<1.0) mg/dL Total Protein 5.9 L (6.3-8.2) g/dL Albumin 3.0 L (3.5-5.0) g/dL Microbiology - Last 24 Hours (Table) 06/12/21 12:45 Gram Stain - Preliminary Sputum Sputum Culture - Preliminary Assessment and Plan Assessment: Acute hypoxemic respiratory failure secondary to coronavirus associated pneumonia, with worsening hypoxemic respiratory failure, and need for intubation and mechanical ventilation on the morning of June 12. Elevated inflammatory marker secondary to coronavirus infection. Probable/possible pulmonary embolism, as seen on CT angiogram. Obesity. Plan: Plan dated 06/11/2021. The patient will be admitted to the intensive care unit. The patient will be placed on Lovenox, Decadron, and vitamins. He is not a candidate for REM. He is a candidate for Baricitinib. Additional recommendations and suggestions are forthcoming. The patient will have daily labs and chest x-rays. The patient may worsen and require intubation and mechanical ventilation. We will continue to follow and make recommendations where appropriate. Prognosis is guarded. Plan dated 06/12/2021. The patient was intubated this morning. The patient remains on the mechanical ventilator. The patient is currently on propofol and Nimbex. We will start tube feeds today. CT angiogram suggested the possibility of pulmonary embolism. The patient remains on therapeutic doses of Lovenox. In addition, a right radial art line was placed as well as a left internal jugular triple-lumen catheter. We will continue to follow and make recommendations where appropriate. The patient remains on vitamin C, vitamin D3, and zinc. In add ition, the patient is on Decadron, and also should be on JEANNINE. Plan dated 06/13/2021. The patient remains on the mechanical ventilator. Labs and x-rays are reviewed. I'm going to increase the PEEP up to 20, try to reduce the FiO2. The patient continues on tube feeds. He is on Cleveprex to control his blood pressure. He remains on propofol and Nimbex. He also remains on vitamin C, vitamin D3, and zinc. He remains on Decadron. He is also on therapeutic doses of Lovenox given the pulmonary embolism finding on CT angiogram. Prognosis remains guarded. We will continue to follow make recommendations where appropriate. Time with Patient: Greater than 30
[2021-06-13 13:14] LABS: Glucose,Whole Blood 202 mg/dL (75-99)
--- NOTE | 2021-06-13 17:09 | P.PN ---
Subjective Progress Note Date: 06/13/21 Principal diagnosis: shortness of breath Patient is a 50-year-old male who presented with confusion and low oxygen status, was found to be by EMS to have an oxygen saturation of 50%. On arrival to the ER he had a temperature of 100.5, pulse 125, respirations 36, and he was satting 77% on a 15 L nonrebreather. In the ER he was found to have a white blood cell count of 17.4, sodium 130, glucose 208, lactic acid 3.4, LDH 2098, and CRP 20. His COVID test came back positive. Chest x-ray showed lateral multifocal opacities right greater than left is reviewed by myself. He was started on AirVo and NRB. He was given 1 L bolus and 10 mg of Decadron. He was seen by pulmonary critical care and arrangements were made for admission to the ICU. His breathing worsening overnight and he required intubation on 06/12. His d-dimer was >34 and he was started on full dose lovenox. He was taken for CT chest which could not rule out right upper lobe PE. He did require paralytic. Patient seen and examined at bedside. He is sedated and Paralysed on the vent. General: ill appearing, moderate distress, appears at stated age Derm: warm, diaphoretic Head: atraumatic, normocephalic, symmetric Eyes: EOMI, no lid lag, anicteric sclera Mouth: no lip lesion, mucus membranes moist Cardiovascular: S1S2 reg, no murmur, positive posterior tibial pulse bilateral, Lungs: Course bs bilateral, no rhonchi, no rales , no accessory muscle use Abdominal: soft, nontender to palpation, no guarding, no appreciable organomegaly Ext: no gross muscle atrophy, no edema, no contractures Neuro: No withdrawal to pain, not breathing over the vent Psych: sedated on vent COVID-19 pneumonitis in an unvaccinated individual Acute hypoxic respiratory failure Toxic encephalopthy due to hypoxia, resolved Right upper lobe pulmonary embolism - decadron - Vit D, Vit C, Zinc - Follow inflammatory labs - pulm hygiene - pulm recs Hypokalemia - replaced K+ and recheck HTN, accelerated - on cleveprix due to HTN - resume lisinopril - follow BP obesity with BMI 38.4 - structured outpatient weight loss Hyponatremia, resolved Lactic acidosis, resolved DVT prophylaxis: Lovenox Discussed with: patient, nursing Anticipated discharge date: undetermined Anticipated discharge place: undetermined A total of 35 minutes was spent on the care of this complex patient more than 50% of the time was spent in counseling and care coordination. Objective - Vital Signs Vital signs: Vital Signs Temp 97.8 F 06/13/21 12:00 Pulse 110 H 06/13/21 15:00 Resp 7 L 06/13/21 15:00 BP 136/81 06/13/21 07:00 Pulse Ox 93 L 06/13/21 15:00 Intake & Output 06/12/21 06/13/21 06/13/21 18:59 06:59 18:59 Intake Total 3162.409 3286.701 7897.247 Output Total 1110 1965 695 Balance 2052.409 -49.569 512.247 Weight 111.6 kg Intake: IV 825 975 450 Sodium Chloride 0.9% 1, 825 975 450 000 ml @ 75 mls/hr IV . [id number] [facility] Rx#:[id number] Intake, IV Titration 2207.409 540.431 411.247 Amount Cisatracurium 200 mg In 72.345 79.096 Sodium Chloride 0.9% 180 ml @ 1 MCG/KG/MIN 6.696 mls/hr IV .Q24H [facility] Rx#: [id number] Clevidipine Butyrate 25 0.133 99.633 141.733 mg In Empty Bag 1 bag @ 1 MG/HR 2 mls/hr IV .Q24H [facility] Rx#:[id number] Sodium Chloride 0.9% 2, 2000 000 ml @ 999 mls/hr IV . Q2H1M [facility] Rx#:[id number] propofoL 1,000 mg In 134.931 361.702 269.514 Empty Bag 1 bag @ Titrate IV .Q0M [facility] Rx#: [id number] Oral 100 Tube Feeding 100 310 216 Other 30 90 30 Output: Urine 1110 1965 695 Other: Voiding Method Indwelling Catheter Indwelling Catheter Indwelling Catheter ABP, PAP, CO, CI - Last Documented Arterial Blood Pressure 110/54 - Labs CBC & Chem 7: 06/13/21 04:22 06/13/21 04:22 Labs: Abnormal Lab Results - Last 24 Hours (Table) 06/12/21 06/13/21 06/13/21 Range/Units 17:45 00:01 04:22 WBC 21.5 H (3.8-10.6) k/uL Hct 38.0 L (39.0-53.0) % ABG pCO2 (35-45) mmHg ABG pO2 (83-108) mmHg ABG HCO3 (21-25) mmol/L ABG Total CO2 (19-24) mmol/L Potassium (3.5-5.1) mmol/L Carbon Dioxide (22-30) mmol/L BUN (9-20) mg/dL Creatinine (0.66-1.25) mg/dL Glucose (74-99) mg/dL POC Glucose (mg/dL) 177 H 203 H (75-99) mg/dL Calcium (8.4-10.2) mg/dL C-Reactive Protein (<1.0) mg/dL Total Protein (6.3-8.2) g/dL Albumin (3.5-5.0) g/dL 06/13/21 06/13/21 06/13/21 Range/Units 04:22 05:44 13:11 WBC (3.8-10.6) k/uL Hct (39.0-53.0) % ABG pCO2 65 H (35-45) mmHg ABG pO2 79 L (83-108) mmHg ABG HCO3 38 H (21-25) mmol/L ABG Total CO2 40 H (19-24) mmol/L Potassium 3.4 L (3.5-5.1) mmol/L Carbon Dioxide 35 H (22-30) mmol/L BUN 21 H (9-20) mg/dL Creatinine 0.65 L (0.66-1.25) mg/dL Glucose 189 H (74-99) mg/dL POC Glucose (mg/dL) 202 H (75-99) mg/dL Calcium 8.2 L (8.4-10.2) mg/dL C-Reactive Protein 18.6 H (<1.0) mg/dL Total Protein 5.9 L (6.3-8.2) g/dL Albumin 3.0 L (3.5-5.0) g/dL Microbiology - Last 24 Hours (Table) 06/12/21 12:45 Gram Stain - Preliminary Sputum Sputum Culture - Preliminary
[2021-06-13 19:29] LABS: Glucose,Whole Blood 209 mg/dL (75-99)
[2021-06-13 23:24] LABS: Glucose,Whole Blood 186 mg/dL (75-99)
[2021-06-14] MEDS: MORPHINE SULFATE 4 MG/ML SYRINGE IV PRN ×2 (00:54→21:53)
[2021-06-14] MEDS: CLEVIDIPINE BUTYRATE 25 MG in EMPTY BAG 1 BAG IV SCH ×3 (00:55→11:58)
[2021-06-14] MEDS: HYDROmorphone 0.5 MG/0.5 ML SYRINGE IVP PRN ×2 (04:02→09:20)
[2021-06-14] MEDS: ARTIFICIAL TEARS-HYPROMELLOSE DROPS 15 ML BTL BOTH EYES SCH ×5 (04:03→19:53)
[2021-06-14 04:35] LABS: HCT 41.4 % (39.0-53.0); HGB 14.1 gm/dL (13.0-17.5); MCH 30.5 pg (25.0-35.0); MCV 89.6 fL (80.0-100.0); Mean Platelet Volume 8.3; Platelet Count 330 k/uL (150-450); RBC 4.62 m/uL (4.30-5.90); WBC 19.7 k/uL (3.8-10.6)
[2021-06-14 04:52] LABS: ALT 22 U/L (4-49); AST 23 U/L (17-59); African American GFR (CKD) >90 (>60 ml/min/1.73 sqM); Albumin 2.7 g/dL (3.5-5.0); Alkaline Phosphatase 101 U/L (38-126); Anion Gap 3 mmol/L; Blood Urea Nitrogen 26 mg/dL (9-20); Calcium 8.7 mg/dL (8.4-10.2); Carbon Dioxide 36 mmol/L (22-30); Chloride 100 mmol/L (98-107); Glucose 158 mg/dL (74-99); Magnesium 2.3 mg/dL (1.6-2.3); Non-African American GFR(CKD) >90 (>60 ml/min/1.73 sqM); Potassium 3.6 mmol/L (3.5-5.1); Sodium 139 mmol/L (137-145); Total Bilirubin 0.5 mg/dL (0.2-1.3); Total Protein 5.5 g/dL (6.3-8.2)
[2021-06-14 05:09] LABS: C Reactive Protein 14.5 mg/dL (<1.0)
[2021-06-14 05:48] LABS: Glucose,Whole Blood 172 mg/dL (75-99)
[2021-06-14 05:54] LABS: ABG Base Excess 13.8 mmol/L; ABG HCO3 38 mmol/L (21-25); ABG Oxygen Saturation 91.6 % (94-97); ABG PCO2 57 mmHg (35-45); ABG PH 7.44 (7.35-7.45); ABG PO2 61 mmHg (83-108); ABG TCO2 40 mmol/L (19-24); Allen Test Performed? Yes
[2021-06-14] MEDS: CISATRACURIUM 200 MG in SODIUM CHLORIDE 0.9% 180 ML IV SCH ×2 (05:54→22:59)
[2021-06-14] MEDS: INSULIN ASPART (NovoLOG) 100 UNIT/ML VIAL SQ SCH ×3 (05:54→18:21)
[2021-06-14] MEDS ORDERED: POTASSIUM BICARBONATE/CIT AC 20 MEQ TABLET.EFF NG-TUBE SCH (06:00)
--- NOTE | 2021-06-14 08:32 | XR ---
EXAMINATION TYPE: XR chest 1V portable DATE OF EXAM: 06/14/2021 Comparison: 06/13/2021 Clinical History: 50-year-old male Tube placement Findings: ET and NG tubes are satisfactory. Left CVC tip upper right atrium. Heart upper limits of normal in si ze. Bilateral diffuse groundglass opacities and patchy confluent opacities mid and lower lungs persis t. These have slightly worsened in the interval. Impression: Slight worsening in bilateral mid and lower lung predominant airspace disease.
[2021-06-14] MEDS: ZINC SULFATE 220 MG CAP PO SCH (09:18)
[2021-06-14] MEDS: CHOLECALCIFEROL 25 MCG (1000 IU) TABLET PO SCH (09:18)
[2021-06-14] MEDS: DEXAMETHASONE SOD PHOSPHATE 10 MG/ML 1 ML VIAL IVP SCH (09:19)
[2021-06-14] MEDS: ASCORBIC ACID 500 MG TAB PO SCH (09:19)
[2021-06-14] MEDS: CHLORHEXIDINE GLUCONATE 15 ML CUP MUCOUS MEM SCH ×2 (09:19→19:52)
[2021-06-14] MEDS: ENOXAPARIN 100 MG/ML SYRINGE SQ SCH ×2 (09:23→19:52)
[2021-06-14] MEDS: SODIUM CHLORIDE 0.9% 1,000 ML IV SCH ×2 (09:46→19:52)
--- NOTE | 2021-06-14 09:47 | P.PN ---
Subjective Progress Note Date: 06/14/21 Principal diagnosis: shortness of breath Patient is a 50-year-old male who presented with confusion and low oxygen status, was found to be by EMS to have an oxygen saturation of 50%. On arrival to the ER he had a temperature of 100.5, pulse 125, respirations 36, and he was satting 77% on a 15 L nonrebreather. In the ER he was found to have a white blood cell count of 17.4, sodium 130, glucose 208, lactic acid 3.4, LDH 2098, and CRP 20. His COVID test came back positive. Chest x-ray showed lateral multifocal opacities right greater than left is reviewed by myself. He was started on AirVo and NRB. He was given 1 L bolus and 10 mg of Decadron. He was seen by pulmonary critical care and arrangements were made for admission to the ICU. His breathing worsening overnight and he required intubation on 06/12. His d-dimer was >34 and he was started on full dose lovenox. He was taken for CT chest which could not rule out right upper lobe PE. He did require paralytic. His FiO2 was able to be decreased to 90%. Patient seen and examined at bedside. He is sedated and Paralysed on the vent. No acute events overnight. General: ill appearing, moderate distress, appears at stated age Derm: warm, diaphoretic Head: atraumatic, normocephalic, symmetric Eyes: EOMI, no lid lag, anicteric sclera Mouth: no lip lesion, mucus membranes moist Cardiovascular: S1S2 reg, no murmur, positive posterior tibial pulse bilateral, Lungs: Course bs bilateral, no rhonchi, no rales , no accessory muscle use Abdominal: soft, nontender to palpation, no guarding, no appreciable organom egaly Ext: no gross muscle atrophy, no edema, no contractures Neuro: No withdrawal to pain, not breathing over the vent Psych: sedated on vent COVID-19 pneumonitis in an unvaccinated individual Acute hypoxic respiratory failure Toxic encephalopthy due to hypoxia, resolved Right upper lobe pulmonary embolism - decadron - Vit D, Vit C, Zinc - Follow inflammatory labs - pulm hygiene - pulm recs HTN, accelerated - on cleveprix due to HTN - resume lisinopril - follow BP obesity with BMI 38.4 - structured outpatient weight loss Hyponatremia, resolved Lactic acidosis, resolved Hypokalemia, resolved DVT prophylaxis: Lovenox Discussed with: patient, nursing Anticipated discharge date: undetermined Anticipated discharge place: undetermined A total of 35 minutes was spent on the care of this complex patient more than 50% of the time was spent in counseling and care coordination. Objective - Vital Signs Vital signs: Vital Signs Temp 97.7 F 06/14/21 04:00 Pulse 114 H 06/14/21 07:00 Resp 21 06/14/21 07:00 BP 114/71 06/14/21 07:00 Pulse Ox 92 L 06/14/21 07:00 Intake & Output 06/13/21 06/14/21 06/14/21 18:59 06:59 18:59 Intake Total 0095.896 2452.063 183.54 Output Total 1220 810 100 Balance 969.973 1380.063 83.54 Weight 114 kg Intake: IV 825 900 75 Sodium Chloride 0.9% 1, 825 900 75 000 ml @ 75 mls/hr IV . [id number] [facility] Rx#:[id number] Intake, IV Titration 511.247 484.063 72.54 Amount Cisatracurium 200 mg In 181.796 Sodium Chloride 0.9% 180 ml @ 1 MCG/KG/MIN 6.696 mls/hr IV .Q24H [facility] Rx#: [id number] Clevidipine Butyrate 25 141.733 102.267 mg In Empty Bag 1 bag @ 1 MG/HR 2 mls/hr IV .Q24H [facility] Rx#:[id number] propofoL 1,000 mg In 369.514 200 72.54 Empty Bag 1 bag @ Titrate IV .Q0M [facility] Rx#: [id number] Oral 100 Tube Feeding 396 432 36 Other 30 90 Output: Urine 1220 810 100 Other: Voiding Method Indwelling Catheter Indwelling Catheter ABP, PAP, CO, CI - Last Documented Arterial Blood Pressure 146/62 - Labs CBC & Chem 7: 06/14/21 04:15 06/14/21 04:15 Labs: Abnormal Lab Results - Last 24 Hours (Table) 06/13/21 06/13/21 06/13/21 Range/Units 13:11 19:28 23:22 WBC (3.8-10.6) k/uL ABG pCO2 (35-45) mmHg ABG pO2 (83-108) mmHg ABG HCO3 (21-25) mmol/L ABG Total CO2 (19-24) mmol/L ABG O2 Saturation (94-97) % Carbon Dioxide (22-30) mmol/L BUN (9-20) mg/dL Glucose (74-99) mg/dL POC Glucose (mg/dL) 202 H 209 H 186 H (75-99) mg/dL C-Reactive Protein (<1.0) mg/dL Total Protein (6.3-8.2) g/dL Albumin (3.5-5.0) g/dL 06/14/21 06/14/21 06/14/21 Range/Units 04:15 04:15 05:46 WBC 19.7 H (3.8-10.6) k/uL ABG pCO2 (35-45) mmHg ABG pO2 (83-108) mmHg ABG HCO3 (21-25) mmol/L ABG Total CO2 (19-24) mmol/L ABG O2 Saturation (94-97) % Carbon Dioxide 36 H (22-30) mmol/L BUN 26 H (9-20) mg/dL Glucose 158 H (74-99) mg/dL POC Glucose (mg/dL) 172 H (75-99) mg/dL C-Reactive Protein 14.5 H (<1.0) mg/dL Total Protein 5.5 L (6.3-8.2) g/dL Albumin 2.7 L (3.5-5.0) g/dL 06/14/21 Range/Units 05:50 WBC (3.8-10.6) k/uL ABG pCO2 57 H (35-45) mmHg ABG pO2 61 L (83-108) mmHg ABG HCO3 38 H (21-25) mmol/L ABG Total CO2 40 H (19-24) mmol/L ABG O2 Saturation 91.6 L (94-97) % Carbon Dioxide (22-30) mmol/L BUN (9-20) mg/dL Glucose (74-99) mg/dL POC Glucose (mg/dL) (75-99) mg/dL C-Reactive Protein (<1.0) mg/dL Total Protein (6.3-8.2) g/dL Albumin (3.5-5.0) g/dL Microbiology - Last 24 Hours (Table) 06/12/21 12:45 Gram Stain - Final Sputum Sputum Culture - Final
[2021-06-14 11:33] LABS: Glucose,Whole Blood 245 mg/dL (75-99)
[2021-06-14] MEDS: HYDROmorphone 1 MG/ML 1 ML SYRINGE IVP PRN ×4 (11:48→19:52)
--- NOTE | 2021-06-14 14:09 | P.PN ---
Subjective Progress Note Date: 06/14/21 Principal diagnosis: Respiratory failure. Pulmonary consult dated 06/11/2021. 50-year-old male, who presents to the emergency department, complaining of increasing shortness of breath. The patient has been sick for 2 weeks. He told the ER physician 1 week, but his exit been much longer. Apparently, other family members are sick with coronavirus, and he tested positive. He has not yet been vaccinated. The patient's currently in the ER, in trauma 1 room, on AIRVO, at 60 L/m with an FiO2 of 92%, and also a nonrebreather mask. He is not getting any IV fluids. Again he is not been previously vaccinated. Chest x-ray shows diffuse bilateral right greater than left infiltrates. The patient does not have a family doctor. The patient states he takes no medications at home on a regular basis. He also denies all past medical history. I evaluate the patient and determined that he should go to the intensive care unit. I did that the charge nurse in the ICU know. White count 17.4, hemoglobin 15, hematocrit 42.2, and platelet count 374,000. PTT was 21.1. Sodium 1:30, potassium 3.6, chlorides 89, CO2 28, anion gap 13, BUN 33, and creatinine 1.16. Lactic acid w as 3.4 glucose 208 LDH 2098 C-reactive protein 20 and testing for coronavirus was positive. Progress note dated 06/12/2021. 50-year-old male with no significant past medical history, that we saw in the emergency department yesterday. Patient had been sick for 2 weeks, and did test positive for coronavirus. Early this morning, for worsening hypoxemic respiratory failure, the patient was intubated and mechanically ventilated by anesthesia. Subsequent to that, we placed a right radial art line, and also a left internal jugular triple-lumen catheter. The patient remains on the ventilator. Ventilator settings include the volume assist control, rate 26, tidal volume 450, FiO2 100%, and PEEP of 10. Blood gases showed a pO2 of 56, pCO2 of 50, and a pH is 7.42. The patient's PEEP was increased to 15. In addition to the radial art line and central line, we ordered a CT angiogram, which suggested the possibility of pulmonary embolism. We also will start tube feeds, and keep the patient on saline at 75 mL an hour, propofol at 40 mics per kilogram per minute, and Nimbex at 1 mcg/kg/m. We added Dilaudid for pain when necessary. White count 17.7, hemoglobin 13.5, hematocrit 39, and platelet count 303,000. D-dimer was greater than 34.10. Sodium 135, potassium 3.4, chlorides 95, CO2 32, anion gap 8, BUN 29, and creatinine 0.83. In addition, LDH was 2002, and C-reactive protein was 18. Influenza studies were negative. Chest x- ray showed patchy bilateral infiltrates. Progress note dated 06/13/2021. 50-year-old male who is again seen in the ICU, room 266. He remains on the mechanical ventilator. He is on the volume assist control mode, rate 26, tidal volume 450, FiO2 100%, and PEEP of 15. Blood gases show a PaO2 of 79, a pCO2 of 65, and a pH of 7.37. The patient remains on propofol at 50 mcg/kg/m, saline at 75 mL an hour, Nimbex at 1 mcg/kg/m, Cleveprex at 12 mg an hour, and vital AF at 36 mL an hour, which is goal. White count 21.5, hemoglobin 13.8, and platelet count 291,000. Sodium 138, potassium 3.4, chlorides 99, CO2 35, anion gap 4, BUN 21, and creatinine 0.65. C-reactive protein is 18.6. Chest x-ray shows diffuse bilateral infiltrates, consistent with coronavirus pneumonia. Progress note dated 06/14/2021. 50-year-old male seen again in the ICU, room 266. He remains on the breathing machine. He is on the volume assist control mode, rate 26, tidal volume 450, FiO2 90%, and PEEP of 15. Blood gases show a PaO2 of 61, pCO2 of 57, and pH is 7.44. The patient is currently on Nimbex at 2 mcg/kg/m, propofol at 50 mcg/kg/m, and Cleveprex at 10 mg an hour. The patient is also getting saline at 75 mL an hour, and vital AF 1.2, at 10 mL. White count 19.7, hemoglobin 14.1, hematocrit 41.4, platelet count 330,000. Sodium 139, potassium 3.6, chlorides 100, CO2 36, anion gap 3, BUN 26, and creatinine 0.71. C-reactive protein is 14.5. Chest x-ray shows a worsening of the patient's some bilateral infiltrates. Objective - Vital Signs Vital signs: Vital Signs Temp 98.6 F 06/14/21 12:00 Pulse 106 H 06/14/21 12:00 Resp 26 H 06/14/21 12:00 BP 146/76 06/14/21 12:00 Pulse Ox 88 L 06/14/21 12:00 Intake & Output 06/13/21 06/14/21 06/14/21 18:59 06:59 18:59 Intake Total 4645.134 0236.063 1001.776 Output Total 1220 810 600 Balance 891.980 4129.063 401.776 Weight 114 kg 114 kg Intake: IV 825 900 450 Sodium Chloride 0.9% 1, 825 900 450 000 ml @ 75 mls/hr IV . [id number] [facility] Rx#:[id number] Intake, IV Titration 511.247 484.063 267.776 Amount Cisatracurium 200 mg In 181.796 58.479 Sodium Chloride 0.9% 180 ml @ 1 MCG/KG/MIN 6.696 mls/hr IV .Q24H [facility] Rx#: [id number] Clevidipine Butyrate 25 141.733 102.267 50.267 mg In Empty Bag 1 bag @ 1 MG/HR 2 mls/hr IV .Q24H [facility] Rx#:[id number] propofoL 1,000 mg In 369.514 200 159.03 Empty Bag 1 bag @ Titrate IV .Q0M [facility] Rx#: [id number] Oral 100 Tube Feeding 396 432 164 Other 30 90 120 Output: Urine 1220 810 600 Other: Voiding Method Indwelling Catheter Indwelling Catheter Indwelling Catheter ABP, PAP, CO, CI - Last Documented Arterial Blood Pressure 77/40 - Exam No acute distress, sedated and paralyzed. The patient has an orally placed endotracheal tube and NG tube. HEENT examination is grossly unremarkable. Neck supple. Full range of motion. No adenopathy thyromegaly or neck vein distention. Cardiovascular examination reveals regular rhythm rate. S1-S2 normal. No S3 or S4. No discernible murmur noted. Heart sounds are distant. Heart rate 106 bpm. Lungs reveal diffuse bilateral rhonchi. No wheezes or crackles. Breath sounds are equal bilaterally. Saturations are 88 %. Abdomen soft bowel sounds are heard. No masses or tenderness. Extremities are intact. No cyanosis clubbing or edema. Skin is without rash or lesion. Neurologic examination cannot be assessed at this time given the sedation and paralysis. - Labs CBC & Chem 7: 06/14/21 04:15 06/14/21 04:15 Labs: Abnormal Lab Results - Last 24 Hours (Table) 06/13/21 06/13/21 06/14/21 Range/Units 19:28 23:22 04:15 WBC 19.7 H (3.8-10.6) k/uL ABG pCO2 (35-45) mmHg ABG pO2 (83-108) mmHg ABG HCO3 (21-25) mmol/L ABG Total CO2 (19-24) mmol/L ABG O2 Saturation (94-97) % Carbon Dioxide (22-30) mmol/L BUN (9-20) mg/dL Glucose (74-99) mg/dL POC Glucose (mg/dL) 209 H 186 H (75-99) mg/dL C-Reactive Protein (<1.0) mg/dL Total Protein (6.3-8.2) g/dL Albumin (3.5-5.0) g/dL 06/14/21 06/14/21 06/14/21 Range/Units 04:15 05:46 05:50 WBC (3.8-10.6) k/uL ABG pCO2 57 H (35-45) mmHg ABG pO2 61 L (83-108) mmHg ABG HCO3 38 H (21-25) mmol/L ABG Total CO2 40 H (19-24) mmol/L ABG O2 Saturation 91.6 L (94-97) % Carbon Dioxide 36 H (22-30) mmol/L BUN 26 H (9-20) mg/dL Glucose 158 H (74-99) mg/dL POC Glucose (mg/dL) 172 H (75-99) mg/dL C-Reactive Protein 14.5 H (<1.0) mg/dL Total Protein 5.5 L (6.3-8.2) g/dL Albumin 2.7 L (3.5-5.0) g/dL 06/14/21 Range/Units 11:31 WBC (3.8-10.6) k/uL ABG pCO2 (35-45) mmHg ABG pO2 (83-108) mmHg ABG HCO3 (21-25) mmol/L ABG Total CO2 (19-24) mmol/L ABG O2 Saturation (94-97) % Carbon Dioxide (22-30) mmol/L BUN (9-20) mg/dL Glucose (74-99) mg/dL POC Glucose (mg/dL) 245 H (75-99) mg/dL C-Reactive Protein (<1.0) mg/dL Total Protein (6.3-8.2) g/dL Albumin (3.5-5.0) g/dL Microbiology - Last 24 Hours (Table) 06/12/21 12:45 Gram Stain - Final Sputum Sputum Culture - Final Assessment and Plan Assessment: Acute hypoxemic respiratory failure secondary to coronavirus associated pneumonia, with worsening hypoxemic respiratory failure, and need for intubation and mechanical ventilation on the morning of June 12. Elevated inflammatory marker secondary to coronavirus infection. Probable/possible pulmonary embolism, as seen on CT angiogram. Obesity. Plan: Plan dated 06/11/2021. The patient will be admitted to the intensive care unit. The patient will be placed on Lovenox, Decadron, and vitamins. He is not a candidate for REM. He is a candidate for Baricitinib. Additional recommendations and suggestions are forthcoming. The patient will have daily labs and chest x-rays. The patient may worsen and require intubation and mechanical ventilation. We will continue to follow and make recommendations where appropriate. Prognosis is guarded. Plan dated 06/12/2021. The patient was intubated this morning. The patient remains on the mechanical ventilator. The patient is currently on propofol and Nimbex. We will start tube feeds today. CT angiogram suggested the possibility of pulmonary embolism. The patient remains on therapeutic doses of Lovenox. In addition, a right radial art line was placed as well as a left internal jugular triple-lumen catheter. We will continue to follow and make recommendations where appropriate. The patient remains on vitamin C, vitamin D3, and zinc. In addition, the patient is on Decadron, and also should be on JEANNINE. Plan dated 06/13/2021. The patient remains on the mechanical ventilator. Labs and x-rays are reviewed. I'm going to increase the PEEP up to 20, try to reduce the FiO2. The patient continues on tube feeds. He is on Cleveprex to control his blood pressure. He remains on propofol and Nimbex. He also remains on vitamin C, vitamin D3, and z inc. He remains on Decadron. He is also on therapeutic doses of Lovenox given the pulmonary embolism finding on CT angiogram. Prognosis remains guarded. We will continue to follow make recommendations where appropriate. Plan dated 06/14/2021. The patient remains on mechanical ventilator. The patient will have his PEEP increased to 20 cm water. We'll try to reduce the FiO2. The patient continues on tube feeds. The patient remains on Cleveprex, propofol, and Nimbex. Prognosis is guarded. The patient is also on vitamin C, vitamin D3, and zinc. In addition, the patient is on Decadron, and therapeutic doses of Lovenox, for possible pulmonary embolism. We will continue to follow the patient and make recommendations where appropriate. Time with Patient: Greater than 30
[2021-06-14 18:08] LABS: Glucose,Whole Blood 147 mg/dL (75-99)
[2021-06-15] MEDS: ARTIFICIAL TEARS-HYPROMELLOSE DROPS 15 ML BTL BOTH EYES SCH ×7 (00:05→23:52)
[2021-06-15] MEDS: INSULIN ASPART (NovoLOG) 100 UNIT/ML VIAL SQ SCH ×5 (00:18→23:52)
[2021-06-15 00:19] LABS: Glucose,Whole Blood 113 mg/dL (75-99)
[2021-06-15] MEDS: HYDROmorphone 1 MG/ML 1 ML SYRINGE IVP PRN ×8 (00:20→23:54)
[2021-06-15 04:22] LABS: HCT 39.5 % (39.0-53.0); HGB 13.1 gm/dL (13.0-17.5); MCH 30.1 pg (25.0-35.0); MCHC 33.1 g/dL (31.0-37.0); MCV 90.8 fL (80.0-100.0); Mean Platelet Volume 8.6; Platelet Count 277 k/uL (150-450); RBC 4.35 m/uL (4.30-5.90); RDW 13.8 % (11.5-15.5); WBC 24.6 k/uL (3.8-10.6)
[2021-06-15 04:46] LABS: ALT 37 U/L (4-49); AST 46 U/L (17-59); African American GFR (CKD) >90 (>60 ml/min/1.73 sqM); Albumin 2.6 g/dL (3.5-5.0); Alkaline Phosphatase 78 U/L (38-126); Anion Gap 4 mmol/L; Blood Urea Nitrogen 32 mg/dL (9-20); Calcium 8.3 mg/dL (8.4-10.2); Carbon Dioxide 35 mmol/L (22-30); Chloride 103 mmol/L (98-107); Glucose 146 mg/dL (74-99); LDH 1399 U/L (313-618); Non-African American GFR(CKD) >90 (>60 ml/min/1.73 sqM); Potassium 4.1 mmol/L (3.5-5.1); Sodium 142 mmol/L (137-145); Total Bilirubin 0.6 mg/dL (0.2-1.3); Total Protein 5.4 g/dL (6.3-8.2)
[2021-06-15 05:40] LABS: Glucose,Whole Blood 164 mg/dL (75-99)
[2021-06-15 06:14] LABS: ABG HCO3 35 mmol/L (21-25); ABG Oxygen Saturation 96.6 % (94-97); ABG PCO2 69 mmHg (35-45); ABG PH 7.33 (7.35-7.45); ABG PO2 86 mmHg (83-108)
[2021-06-15 07:07] LABS: C Reactive Protein 33.2 mg/dL (<1.0)
--- NOTE | 2021-06-15 07:10 | XR ---
EXAMINATION TYPE: XR chest 1V portable DATE OF EXAM: 06/15/2021 CLINICAL HISTORY: Difficulty breathing progress study. TECHNIQUE: Single AP portable semiupright view of the chest is obtained. COMPARISON: Chest x-ray from one day earlier and older studies FINDINGS: Stable endotracheal and orogastric tubes. Stable left internal jugular central venous cath eter. Bilateral multifocal and confluent reticulonodular opacities show interval improvement bilaterally fr om one day earlier. Cardiac silhouette size stable and within normal limits. Osseous structures are i ntact. IMPRESSION: Improving Bilateral multifocal and confluent opacities consistent with improving or resol ving covid-19 infection.
[2021-06-15] MEDS: CHOLECALCIFEROL 25 MCG (1000 IU) TABLET PO SCH (08:03)
[2021-06-15] MEDS: DEXAMETHASONE SOD PHOSPHATE 10 MG/ML 1 ML VIAL IVP SCH (08:04)
[2021-06-15] MEDS: ASCORBIC ACID 500 MG TAB PO SCH (08:04)
[2021-06-15] MEDS: CHLORHEXIDINE GLUCONATE 15 ML CUP MUCOUS MEM SCH ×2 (08:04→20:00)
[2021-06-15] MEDS: ZINC SULFATE 220 MG CAP PO SCH (08:04)
[2021-06-15] MEDS: ENOXAPARIN 100 MG/ML SYRINGE SQ SCH ×2 (08:04→20:16)
[2021-06-15] MEDS: SODIUM CHLORIDE 0.9% 1,000 ML IV SCH ×2 (09:16→20:55)
[2021-06-15 11:29] LABS: Glucose,Whole Blood 150 mg/dL (75-99)
--- NOTE | 2021-06-15 11:58 | P.PN ---
Subjective Progress Note Date: 06/15/21 Principal diagnosis: Respiratory failure. Pulmonary consult dated 06/11/2021. 50-year-old male, who presents to the emergency department, complaining of increasing shortness of breath. The patient has been sick for 2 weeks. He told the ER physician 1 week, but his exit been much longer. Apparently, other family members are sick with coronavirus, and he tested positive. He has not yet been vaccinated. The patient's currently in the ER, in trauma 1 room, on AIRVO, at 60 L/m with an FiO2 of 92%, and also a nonrebreather mask. He is not getting any IV fluids. Again he is not been previously vaccinated. Chest x-ray shows diffuse bilateral right greater than left infiltrates. The patient does not have a family doctor. The patient states he takes no medications at home on a regular basis. He also denies all past medical history. I evaluate the patient and determined that he should go to the intensive care unit. I did that the charge nurse in the ICU know. White count 17.4, hemoglobin 15, hematocrit 42.2, and platelet count 374,000. PTT was 21.1. Sodium 1:30, potassium 3.6, chlorides 89, CO2 28, anion gap 13, BUN 33, and creatinine 1.16. Lactic acid w as 3.4 glucose 208 LDH 2098 C-reactive protein 20 and testing for coronavirus was positive. Progress note dated 06/12/2021. 50-year-old male with no significant past medical history, that we saw in the emergency department yesterday. Patient had been sick for 2 weeks, and did test positive for coronavirus. Early this morning, for worsening hypoxemic respiratory failure, the patient was intubated and mechanically ventilated by anesthesia. Subsequent to that, we placed a right radial art line, and also a left internal jugular triple-lumen catheter. The patient remains on the ventilator. Ventilator settings include the volume assist control, rate 26, tidal volume 450, FiO2 100%, and PEEP of 10. Blood gases showed a pO2 of 56, pCO2 of 50, and a pH is 7.42. The patient's PEEP was increased to 15. In addition to the radial art line and central line, we ordered a CT angiogram, which suggested the possibility of pulmonary embolism. We also will start tube feeds, and keep the patient on saline at 75 mL an hour, propofol at 40 mics per kilogram per minute, and Nimbex at 1 mcg/kg/m. We added Dilaudid for pain when necessary. White count 17.7, hemoglobin 13.5, hematocrit 39, and platelet count 303,000. D-dimer was greater than 34.10. Sodium 135, potassium 3.4, chlorides 95, CO2 32, anion gap 8, BUN 29, and creatinine 0.83. In addition, LDH was 2002, and C-reactive protein was 18. Influenza studies were negative. Chest x- ray showed patchy bilateral infiltrates. Progress note dated 06/13/2021. 50-year-old male who is again seen in the ICU, room 266. He remains on the mechanical ventilator. He is on the volume assist control mode, rate 26, tidal volume 450, FiO2 100%, and PEEP of 15. Blood gases show a PaO2 of 79, a pCO2 of 65, and a pH of 7.37. The patient remains on propofol at 50 mcg/kg/m, saline at 75 mL an hour, Nimbex at 1 mcg/kg/m, Cleveprex at 12 mg an hour, and vital AF at 36 mL an hour, which is goal. White count 21.5, hemoglobin 13.8, and platelet count 291,000. Sodium 138, potassium 3.4, chlorides 99, CO2 35, anion gap 4, BUN 21, and creatinine 0.65. C-reactive protein is 18.6. Chest x-ray shows diffuse bilateral infiltrates, consistent with coronavirus pneumonia. Progress note dated 06/14/2021. 50-year-old male seen again in the ICU, room 266. He remains on the breathing machine. He is on the volume assist control mode, rate 26, tidal volume 450, FiO2 90%, and PEEP of 15. Blood gases show a PaO2 of 61, pCO2 of 57, and pH is 7.44. The patient is currently on Nimbex at 2 mcg/kg/m, propofol at 50 mcg/kg/m, and Cleveprex at 10 mg an hour. The patient is also getting saline at 75 mL an hour, and vital AF 1.2, at 10 mL. White count 19.7, hemoglobin 14.1, hematocrit 41.4, platelet count 330,000. Sodium 139, potassium 3.6, chlorides 100, CO2 36, anion gap 3, BUN 26, and creatinine 0.71. C-reactive protein is 14.5. Chest x-ray shows a worsening of the patient's some bilateral infiltrates. Progress note dated 06/15/2021. 50-year-old male, seen again in the ICU, room 266. He remains on the mechanical ventilator. He is on the volume assist control mode, rate 26, tidal volume 450, FiO2 70%, and PEEP of 20. Blood gases are PaO2 86, pCO2 69, and pH 7.33. The FiO2 will be decreased to 60%. Currently, the patient is on saline at 75 mL an hour, propofol at 50 mcg/kg/m, Nimbex at 2 mcg/kg/m, and vital 1.2 at 10 mL an hour, which is goal. Microbiology is negative. White count 24.6, hemoglobin 13.1, hematocrit 39.5, and platelet count 277,000. D-dimer is 1.78. Sodium 142, potassium 4.1, chlorides 103, CO2 35, anion gap 4, BUN 32, and creatinine 0.87. LDH is 1399. C-reactive protein is 33.2. Chest x-ray shows bilateral infiltrates, which may be a bit improved. Objective - Vital Signs Vital signs: Vital Signs Temp 98.8 F 06/15/21 08:00 Pulse 110 H 06/15/21 11:00 Resp 26 H 06/15/21 11:00 BP 93/59 06/15/21 11:00 Pulse Ox 96 06/15/21 11:00 Intake & Output 06/14/21 06/15/21 06/15/21 18:59 06:59 18:59 Intake Total 2302.498 0153.087 627.882 Output Total 860 450 220 Balance 612.309 9114.087 407.882 Weight 114 kg 115 kg Intake: IV 975 891 408 Pressure bags 66 33 Sodium Chloride 0.9% 1, 975 825 375 000 ml @ 75 mls/hr IV . [id number] [facility] Rx#:[id number] Intake, IV Titration 367.776 451.087 99.882 Amount Cisatracurium 200 mg In 58.479 80.017 Sodium Chloride 0.9% 180 ml @ 1 MCG/KG/MIN 6.696 mls/hr IV .Q24H [facility] Rx#: [id number] Clevidipine Butyrate 25 50.267 mg In Empty Bag 1 bag @ 1 MG/HR 2 mls/hr IV .Q24H [facility] Rx#:[id number] propofoL 1,000 mg In 259.03 371.070 99.882 Empty Bag 1 bag @ Titrate IV .Q0M [facility] Rx#: [id number] Tube Feeding 234 90 50 Other 150 90 70 Output: Urine 860 450 220 Other: Voiding Method Indwelling Catheter Indwelling Catheter Indwelling Catheter ABP, PAP, CO, CI - Last Documented Arterial Blood Pressure 102/55 - Exam No acute distress, sedated and paralyzed. The patient has an orally placed endotracheal tube and NG tube. HEENT examination is grossly unremarkable. Neck supple. Full range of motion. No adenopathy thyromegaly or neck vein distention. Cardiovascular examination reveals regular rhythm rate. S1-S2 normal. No S3 or S4. No discernible murmur noted. Heart sounds are distant. Heart rate 110 bpm. Lungs reveal diffuse bilateral rhonchi. No wheezes or crackles. Breath sounds are equal bilaterally. Saturations are 96 %. Abdomen soft bowel sounds are heard. No masses or tenderness. Extremities are intact. No cyanosis clubbing or edema. Skin is without rash or lesion. Neurologic examination cannot be assessed at this time given the sedation and paralysis. - Labs CBC & Chem 7: 06/15/21 04:10 06/15/21 04:10 Labs: Abnormal Lab Results - Last 24 Hours (Table) 06/14/21 06/15/21 06/15/21 Range/Units 18:06 00:17 04:10 WBC 24.6 H (3.8-10.6) k/uL D-Dimer (<0.60) mg/L FEU ABG pH (7.35-7.45) ABG pCO2 (35-45) mmHg ABG HCO3 (21-25) mmol/L Carbon Dioxide (22-30) mmol/L BUN (9-20) mg/dL Glucose (74-99) mg/dL POC Glucose (mg/dL) 147 H 113 H (75-99) mg/dL Calcium (8.4-10.2) mg/dL Lactate Dehydrogenase (313-618) U/L C-Reactive Protein (<1.0) mg/dL Total Protein (6.3-8.2) g/dL Albumin (3.5-5.0) g/dL 06/15/21 06/15/21 06/15/21 Range/Units 04:10 04:10 05:35 WBC (3.8-10.6) k/uL D-Dimer 1.78 H (<0.60) mg/L FEU ABG pH (7.35-7.45) ABG pCO2 (35-45) mmHg ABG HCO3 (21-25) mmol/L Carbon Dioxide 35 H (22-30) mmol/L BUN 32 H (9-20) mg/dL Glucose 146 H (74-99) mg/dL POC Glucose (mg/dL) 164 H (75-99) mg/dL Calcium 8.3 L (8.4-10.2) mg/dL Lactate Dehydrogenase 1399 H (313-618) U/L C-Reactive Protein 33.2 H (<1.0) mg/dL Total Protein 5.4 L (6.3-8.2) g/dL Albumin 2.6 L (3.5-5.0) g/dL 06/15/21 06/15/21 Range/Units 06:15 11:27 WBC (3.8-10.6) k/uL D-Dimer (<0.60) mg/L FEU ABG pH 7.33 L (7.35-7.45) ABG pCO2 69 H (35-45) mmHg ABG HCO3 35 H (21-25) mmol/L Carbon Dioxide (22-30) mmol/L BUN (9-20) mg/dL Glucose (74-99) mg/dL POC Glucose (mg/dL) 150 H (75-99) mg/dL Calcium (8.4-10.2) mg/dL Lactate Dehydrogenase (313-618) U/L C-Reactive Protein (<1.0) mg/dL Total Protein (6.3-8.2) g/dL Albumin (3.5-5.0) g/dL Microbiology - Last 24 Hours (Table) 06/12/21 12:45 Gram Stain - Final Sputum Sputum Culture - Final Assessment and Plan Assessment: Acute hypoxemic respiratory failure secondary to coronavirus associated pneumonia, with worsening hypoxemic respiratory failure, and need for intubation and mechanical ventilation on the morning of June 12. Elevated inflammatory marker secondary to coronavirus infection. Probable/possible pulmonary embolism, as seen on CT angiogram. Obesity. Plan: Plan dated 06/11/2021. The patient will be admitted to the intensive care unit. The patient will be placed on Lovenox, Decadron, and vitamins. He is not a candidate for REM. He is a candidate for Baricitinib. Additional recommendations and suggestions are forthcoming. The patient will have daily labs and chest x-rays. The patient may worsen and require intubation and mechanical ventilation. We will continue to follow and make recommendations where appropriate. Prognosis is guarded. Plan dated 06/12/2021. The patient was intubated this morning. The patient remains on the mechanical ventilator. The patient is currently on propofol and Nimbex. We will start tube feeds today. CT angiogram suggested the possibility of pulmonary embolism. The patient remains on therapeutic doses of Lovenox. In addition, a right radial art line was placed as well as a left internal jugular triple-lumen catheter. We will continue to follow and make recommendations where appropriate. The patient remains on vitamin C, vitamin D3, and zinc. In addition, the patient is on Decadron, and also should be on JEANNINE. Plan dated 06/13/2021. The patient remains on the mechanical ventilator. Labs and x-rays are reviewed. I'm going to increase the PEEP up to 20, try to reduce the FiO2. The patient continues on tube feeds. He is on Cleveprex to control his blood pressure. He remains on propofol and Nimbex. He also remains on vitamin C, vitamin D3, and zinc. He remains on Decadron. He is also on therapeutic doses of Lovenox given the pulmonary embolism finding on CT angiogram. Prognosis remains guarded. We will continue to follow make recommendations where appropriate. Plan dated 06/14/2021. The patient remains on mechanical ventilator. The patient will have his PEEP increased to 20 cm water. We'll try to reduce the FiO2. The patient continues on tube feeds. The patient remains on Cleveprex, propofol, and Nimbex. Prognosis is guarded. The patient is also on vitamin C, vitamin D3, and zinc. In addition, the patient is on Decadron, and therapeutic doses of Lovenox, for possible pulmonary embolism. We will continue to follow the patient and make recommendations where appropriate. Plan dated 06/15/2021. The patient remains on mechanical ventilator. The patient's FiO2 will be decreased down to 60%. The patient continues on tube feeds. The patient continues on Nimbex, and all. In addition, the patient's on vitamin C, vitamin D3, and zinc. The patient is also on Decadron, and therapeutic doses of Lovenox for possible pulmonary embolism. We will continue to follow make recommendations were appropriate. Prognosis is guarded. His chest x-ray is a bit improved. His FiO2 can be reduced to 60%. Time with Patient: Greater than 30
[2021-06-15] MEDS: CISATRACURIUM 200 MG in SODIUM CHLORIDE 0.9% 180 ML IV SCH (13:52)
--- NOTE | 2021-06-15 14:38 | P.PN ---
Subjective Progress Note Date: 06/15/21 (delayed charting seen at 1045) Patient is a 50-year-old male who presented with confusion and low oxygen status, was found to be by EMS to have an oxygen saturation of 50%. On arrival to the ER he had a temperature of 100.5, pulse 125, respirations 36, and he was satting 77% on a 15 L nonrebreather. In the ER he was found to have a white blood cell count of 17.4, sodium 130, glucose 208, lactic acid 3.4, LDH 2098, and CRP 20. His COVID test came back positive. Chest x-ray showed lateral multifocal opacities right greater than left is reviewed by myself. He was started on AirVo and NRB. He was given 1 L bolus and 10 mg of Decadron. He was seen by pulmonary critical care and arrangements were made for admission to the ICU. His breathing worsening overnight and he required intubation on 06/12. His d-dimer was >34 and he was started on full dose lovenox. He was taken for CT chest which could not rule out right upper lobe PE. He did require paralytic. His FiO2 was able to be decreased to 90%. His peep was increased and his FiO2 was weaned to 60%. Patient seen and examined at bedside. He is sedated and Paralysed on the vent. per nursing no acute events overnight. General: ill appearing, no distress, appears at stated age Derm: warm, diaphoretic Head: atraumatic, normocephalic, symmetric Eyes: EOMI, no lid lag, anicteric sclera Mouth: no lip lesion, mucus membranes moist Cardiovascular: S1S2 reg, no murmur, positive posterior tibial pulse bilateral, Lungs: Course bs bilateral, no rhonchi, no rales , no accessory muscle use Abdominal: soft, nontender to palpation, no guarding, no appreciable organomegaly Ext: no gross muscle atrophy, no edema, no contractures Neuro: No withdrawal to pain, not breathing over the vent Psych: sedated on vent COVID-19 pneumonitis in an unvaccinated individual Acute hypoxic respiratory failure Toxic encephalopthy due to hypoxia, resolved Right upper lobe pulmonary embolism - decadron - Vit D, Vit C, Zinc - Follow inflammatory labs - pulm hygiene - pulm recs - lovenox HTN - cleveprix off 06/14 - follow BP Leukocytosis - likely due to steroids - follow CBC - Monitor for fevers obesity with BMI 38.4 - structured outpatient weight loss Hyponatremia, resolved Lactic acidosis, resolved Hypokalemia, resolved DVT prophylaxis: Lovenox Discussed with: patient, nursing, over phone Anticipated discharge date: undetermined Anticipated discharge place: undetermined A total of 35 minutes was spent on the care of this complex patient more than 50% of the time was spent in counseling and care coordination. Objective - Vital Signs Vital signs: Vital Signs Temp 98.6 F 06/15/21 12:00 Pulse 111 H 06/15/21 14:00 Resp 26 H 06/15/21 14:00 BP 98/59 06/15/21 14:00 Pulse Ox 96 06/15/21 14:00 Intake & Output 06/14/21 06/15/21 06/15/21 18:59 06:59 18:59 Intake Total 0613.472 5096.087 1212.405 Output Total 860 450 340 Balance 180.518 7019.087 872.405 Weight 114 kg 115 kg Intake: IV 975 891 651 Pressure bags 66 51 Sodium Chloride 0.9% 1, 975 825 600 000 ml @ 75 mls/hr IV . [id number] [facility] Rx#:[id number] Intake, IV Titration 367.776 451.087 371.405 Amount Cisatracurium 200 mg In 58.479 80.017 182.801 Sodium Chloride 0.9% 180 ml @ 1 MCG/KG/MIN 6.696 mls/hr IV .Q24H [facility] Rx#: [id number] Clevidipine Butyrate 25 50.267 mg In Empty Bag 1 bag @ 1 MG/HR 2 mls/hr IV .Q24H [facility] Rx#:[id number] propofoL 1,000 mg In 259.03 371.070 188.604 Empty Bag 1 bag @ Titrate IV .Q0M [facility] Rx#: [id number] Tube Feeding 234 90 90 Other 150 90 100 Output: Urine 860 450 340 Other: Voiding Method Indwelling Catheter Indwelling Catheter Indwelling Catheter ABP, PAP, CO, CI - Last Documented Arterial Blood Pressure 136/69 - Labs CBC & Chem 7: 06/15/21 04:10 06/15/21 04:10 Labs: Abnormal Lab Results - Last 24 Hours (Table) 06/14/21 06/15/21 06/15/21 Range/Units 18:06 00:17 04:10 WBC 24.6 H (3.8-10.6) k/uL D-Dimer (<0.60) mg/L FEU ABG pH (7.35-7.45) ABG pCO2 (35-45) mmHg ABG HCO3 (21-25) mmol/L Carbon Dioxide (22-30) mmol/L BUN (9-20) mg/dL Glucose (74-99) mg/dL POC Glucose (mg/dL) 147 H 113 H (75-99) mg/dL Calcium (8.4-10.2) mg/dL Ferritin (22.0-322.0) ng/mL Lactate Dehydrogenase (313-618) U/L C-Reactive Protein (<1.0) mg/dL Total Protein (6.3-8.2) g/dL Albumin (3.5-5.0) g/dL 06/15/21 06/15/21 06/15/21 Range/Units 04:10 04:10 05:35 WBC (3.8-10.6) k/uL D-Dimer 1.78 H (<0.60) mg/L FEU ABG pH (7.35-7.45) ABG pCO2 (35-45) mmHg ABG HCO3 (21-25) mmol/L Carbon Dioxide 35 H (22-30) mmol/L BUN 32 H (9-20) mg/dL Glucose 146 H (74-99) mg/dL POC Glucose (mg/dL) 164 H (75-99) mg/dL Calcium 8.3 L (8.4-10.2) mg/dL Ferritin 1056.0 H (22.0-322.0) ng/mL Lactate Dehydrogenase 1399 H (313-618) U/L C-Reactive Protein 33.2 H (<1.0) mg/dL Total Protein 5.4 L (6.3-8.2) g/dL Albumin 2.6 L (3.5-5.0) g/dL 06/15/21 06/15/21 Range/Units 06:15 11:27 WBC (3.8-10.6) k/uL D-Dimer (<0.60) mg/L FEU ABG pH 7.33 L (7.35-7.45) ABG pCO2 69 H (35-45) mmHg ABG HCO3 35 H (21-25) mmol/L Carbon Dioxide (22-30) mmol/L BUN (9-20) mg/dL Glucose (74-99) mg/dL POC Glucose (mg/dL) 150 H (75-99) mg/dL Calcium (8.4-10.2) mg/dL Ferritin (22.0-322.0) ng/mL Lactate Dehydrogenase (313-618) U/L C-Reactive Protein (<1.0) mg/dL Total Protein (6.3-8.2) g/dL Albumin (3.5-5.0) g/dL
[2021-06-15 18:42] LABS: Glucose,Whole Blood 135 mg/dL (75-99)
[2021-06-15 23:50] LABS: Glucose,Whole Blood 112 mg/dL (75-99)
[2021-06-16] MEDS: MORPHINE SULFATE 4 MG/ML SYRINGE IV PRN (01:09)
[2021-06-16] MEDS: HYDROmorphone 1 MG/ML 1 ML SYRINGE IVP PRN ×6 (01:53→16:07)
[2021-06-16] MEDS: CISATRACURIUM 200 MG in SODIUM CHLORIDE 0.9% 180 ML IV SCH ×2 (03:00→15:29)
[2021-06-16] MEDS: ARTIFICIAL TEARS-HYPROMELLOSE DROPS 15 ML BTL BOTH EYES SCH ×6 (03:01→23:43)
[2021-06-16 04:39] LABS: African American GFR (CKD) >90 (>60 ml/min/1.73 sqM); Anion Gap 5 mmol/L; Blood Urea Nitrogen 39 mg/dL (9-20); Calcium 8.3 mg/dL (8.4-10.2); Carbon Dioxide 34 mmol/L (22-30); Chloride 105 mmol/L (98-107); Glucose 120 mg/dL (74-99); Magnesium 2.7 mg/dL (1.6-2.3); Non-African American GFR(CKD) 82 (>60 ml/min/1.73 sqM); Potassium 4.5 mmol/L (3.5-5.1); Sodium 144 mmol/L (137-145)
[2021-06-16 04:49] LABS: HCT 36.8 % (39.0-53.0); HGB 12.3 gm/dL (13.0-17.5); MCH 31.1 pg (25.0-35.0); MCHC 33.5 g/dL (31.0-37.0); MCV 92.9 fL (80.0-100.0); Mean Platelet Volume 8.6; Platelet Count 271 k/uL (150-450); RBC 3.97 m/uL (4.30-5.90); RDW 14.2 % (11.5-15.5); WBC 16.5 k/uL (3.8-10.6)
[2021-06-16 05:38] LABS: Glucose,Whole Blood 120 mg/dL (75-99)
[2021-06-16] MEDS: INSULIN ASPART (NovoLOG) 100 UNIT/ML VIAL SQ SCH ×3 (05:40→18:54)
[2021-06-16 06:19] LABS: ABG HCO3 37 mmol/L (21-25); ABG Oxygen Saturation 93.3 % (94-97); ABG PCO2 64 mmHg (35-45); ABG PH 7.38 (7.35-7.45); ABG PO2 68 mmHg (83-108); ABG TCO2 39 mmol/L (19-24); Allen Test Performed? Yes
[2021-06-16] MEDS: CHLORHEXIDINE GLUCONATE 15 ML CUP MUCOUS MEM SCH ×2 (08:00→21:24)
[2021-06-16] MEDS: ENOXAPARIN 100 MG/ML SYRINGE SQ SCH ×2 (08:00→21:25)
[2021-06-16] MEDS: ASCORBIC ACID 500 MG TAB PO SCH (08:00)
[2021-06-16] MEDS: DEXAMETHASONE SOD PHOSPHATE 10 MG/ML 1 ML VIAL IVP SCH (08:00)
[2021-06-16] MEDS: CHOLECALCIFEROL 25 MCG (1000 IU) TABLET PO SCH (08:01)
[2021-06-16] MEDS: ZINC SULFATE 220 MG CAP PO SCH (08:01)
[2021-06-16 08:04] LABS: Band Neutrophils % 2 %; Eosinophils # (M) 0.17 k/uL (0-0.7); Lymphocytes # (M) 1.16 k/uL (1.0-4.8); Metamyelocytes # (M) 0.17 k/uL (0); Metamyelocytes % 1 %; Monocytes # (M) 0.99 k/uL (0-1.0); Myelocytes # (M) 0.33 k/uL (0); Myelocytes % 2 %; Neutrophils % (M) 83 %; Nucleated Red Blood Cells 0 /100 WBC (0-0); Total Cells Counted 200
[2021-06-16] MEDS: SODIUM CHLORIDE 0.9% 1,000 ML IV SCH (09:06)
[2021-06-16] MEDS: ACETAMINOPHEN TAB 325 MG TAB OG-TUBE PRN (10:51)
--- NOTE | 2021-06-16 10:56 | XR ---
EXAMINATION TYPE: XR chest 1V portable DATE OF EXAM: 06/16/2021 COMPARISON: 06/15/2021 HISTORY: 50 years Male. STUDY INDICATION GIVEN: Tube placement . TECHNIQUE: AP chest radiograph IMPRESSION: Endotracheal tube, left CVC and tubes are stable in positions. Scattered bilateral left greater than right patchy and interstitial opacities are not significantly c hanged in appearance. Normal cardiomediastinal silhouette. No pneumothorax or large effusion. Stable osseous structures.
[2021-06-16 11:39] LABS: Glucose,Whole Blood 161 mg/dL (75-99)
--- NOTE | 2021-06-16 12:50 | P.PN ---
Subjective Progress Note Date: 06/16/21 Principal diagnosis: Respiratory failure. Pulmonary consult dated 06/11/2021. 50-year-old male, who presents to the emergency department, complaining of increasing shortness of breath. The patient has been sick for 2 weeks. He told the ER physician 1 week, but his exit been much longer. Apparently, other family members are sick with coronavirus, and he tested positive. He has not yet been vaccinated. The patient's currently in the ER, in trauma 1 room, on AIRVO, at 60 L/m with an FiO2 of 92%, and also a nonrebreather mask. He is not getting any IV fluids. Again he is not been previously vaccinated. Chest x-ray shows diffuse bilateral right greater than left infiltrates. The patient does not have a family doctor. The patient states he takes no medications at home on a regular basis. He also denies all past medical history. I evaluate the patient and determined that he should go to the intensive care unit. I did that the charge nurse in the ICU know. White count 17.4, hemoglobin 15, hematocrit 42.2, and platelet count 374,000. PTT was 21.1. Sodium 1:30, potassium 3.6, chlorides 89, CO2 28, anion gap 13, BUN 33, and creatinine 1.16. Lactic acid w as 3.4 glucose 208 LDH 2098 C-reactive protein 20 and testing for coronavirus was positive. Progress note dated 06/12/2021. 50-year-old male with no significant past medical history, that we saw in the emergency department yesterday. Patient had been sick for 2 weeks, and did test positive for coronavirus. Early this morning, for worsening hypoxemic respiratory failure, the patient was intubated and mechanically ventilated by anesthesia. Subsequent to that, we placed a right radial art line, and also a left internal jugular triple-lumen catheter. The patient remains on the ventilator. Ventilator settings include the volume assist control, rate 26, tidal volume 450, FiO2 100%, and PEEP of 10. Blood gases showed a pO2 of 56, pCO2 of 50, and a pH is 7.42. The patient's PEEP was increased to 15. In addition to the radial art line and central line, we ordered a CT angiogram, which suggested the possibility of pulmonary embolism. We also will start tube feeds, and keep the patient on saline at 75 mL an hour, propofol at 40 mics per kilogram per minute, and Nimbex at 1 mcg/kg/m. We added Dilaudid for pain when necessary. White count 17.7, hemoglobin 13.5, hematocrit 39, and platelet count 303,000. D-dimer was greater than 34.10. Sodium 135, potassium 3.4, chlorides 95, CO2 32, anion gap 8, BUN 29, and creatinine 0.83. In addition, LDH was 2002, and C-reactive protein was 18. Influenza studies were negative. Chest x- ray showed patchy bilateral infiltrates. Progress note dated 06/13/2021. 50-year-old male who is again seen in the ICU, room 266. He remains on the mechanical ventilator. He is on the volume assist control mode, rate 26, tidal volume 450, FiO2 100%, and PEEP of 15. Blood gases show a PaO2 of 79, a pCO2 of 65, and a pH of 7.37. The patient remains on propofol at 50 mcg/kg/m, saline at 75 mL an hour, Nimbex at 1 mcg/kg/m, Cleveprex at 12 mg an hour, and vital AF at 36 mL an hour, which is goal. White count 21.5, hemoglobin 13.8, and platelet count 291,000. Sodium 138, potassium 3.4, chlorides 99, CO2 35, anion gap 4, BUN 21, and creatinine 0.65. C-reactive protein is 18.6. Chest x-ray shows diffuse bilateral infiltrates, consistent with coronavirus pneumonia. Progress note dated 06/14/2021. 50-year-old male seen again in the ICU, room 266. He remains on the breathing machine. He is on the volume assist control mode, rate 26, tidal volume 450, FiO2 90%, and PEEP of 15. Blood gases show a PaO2 of 61, pCO2 of 57, and pH is 7.44. The patient is currently on Nimbex at 2 mcg/kg/m, propofol at 50 mcg/kg/m, and Cleveprex at 10 mg an hour. The patient is also getting saline at 75 mL an hour, and vital AF 1.2, at 10 mL. White count 19.7, hemoglobin 14.1, hematocrit 41.4, platelet count 330,000. Sodium 139, potassium 3.6, chlorides 100, CO2 36, anion gap 3, BUN 26, and creatinine 0.71. C-reactive protein is 14.5. Chest x-ray shows a worsening of the patient's some bilateral infiltrates. Progress note dated 06/15/2021. 50-year-old male, seen again in the ICU, room 266. He remains on the mechanical ventilator. He is on the volume assist control mode, rate 26, tidal volume 450, FiO2 70%, and PEEP of 20. Blood gases are PaO2 86, pCO2 69, and pH 7.33. The FiO2 will be decreased to 60%. Currently, the patient is on saline at 75 mL an hour, propofol at 50 mcg/kg/m, Nimbex at 2 mcg/kg/m, and vital 1.2 at 10 mL an hour, which is goal. Microbiology is negative. White count 24.6, hemoglobin 13.1, hematocrit 39.5, and platelet count 277,000. D-dimer is 1.78. Sodium 142, potassium 4.1, chlorides 103, CO2 35, anion gap 4, BUN 32, and creatinine 0.87. LDH is 1399. C-reactive protein is 33.2. Chest x-ray shows bilateral infiltrates, which may be a bit improved. Progress note dated 06/16/2021. 50-year-old male, again seen in the intensive care unit, room 266. He remains on the mechanical ventilator. His settings include the volume assist control mode, rate 26, tidal volume 450, FiO2 50%, and PEEP of 20. On those settings, his gases show a PaO2 of 68, pCO2 64, and pH 7.38. The patient is getting saline at 75 mL an hour, propofol at 60 mcg/kg/m, Nimbex at 2 mcg/kg/m, and vital 1.2 at 10 mL an hour, which is goal. White count 16.5, hemoglobin 12.3, hematocrit 36.8, platelet count 271,000. Sodium 144, potassium 4.5, chlorides 105, CO2 34, anion gap 5, BUN 39, creatinine 1.05. Chest x-ray shows the endotracheal tube to be in good position. There are patchy bilateral left greater than right infiltrates, unchanged. Objective - Vital Signs Vital signs: Vital Signs Temp 100.8 F H 06/16/21 12:00 Pulse 112 H 06/16/21 12:00 Resp 26 H 06/16/21 12:00 BP 118/75 06/16/21 12:00 Pulse Ox 93 L 06/16/21 12:00 Intake & Output 06/15/21 06/16/21 06/16/21 18:59 06:59 18:59 Intake Total 5073.698 4815.802 808.244 Output Total 595 820 415 Balance 1181.341 881.802 393.244 Weight 117.5 kg Intake: IV 972 972 405 Pressure bags 72 72 30 Sodium Chloride 0.9% 1, 900 900 375 000 ml @ 75 mls/hr IV . [id number] [facility] Rx#:[id number] Intake, IV Titration 534.341 509.802 233.244 Amount Cisatracurium 200 mg In 182.801 175.882 Sodium Chloride 0.9% 180 ml @ 1 MCG/KG/MIN 6.696 mls/hr IV .Q24H [facility] Rx#: [id number] propofoL 1,000 mg In 351.540 333.920 233.244 Empty Bag 1 bag @ Titrate IV .Q0M [facility] Rx#: [id number] Tube Feeding 140 130 60 Other 130 90 110 Output: Urine 595 820 415 Other: Voiding Method Indwelling Catheter Indwelling Catheter Indwelling Catheter ABP, PAP, CO, CI - Last Documented Arterial Blood Pressure 143/64 - Exam No acute distress, sedated and paralyzed. The patient has an orally placed endotracheal tube and NG tube. HEENT examination is grossly unremarkable. Neck supple. Full range of motion. No adenopathy thyromegaly or neck vein distention. Cardiovascular examination reveals regular rhythm rate. S1-S2 normal. No S3 or S4. No discernible murmur noted. Heart sounds are distant. Heart rate 112 bpm. Lungs reveal diffuse bilateral rhonchi. No wheezes or crackles. Breath sounds are equal bilaterally. Saturations are 93 %. Abdomen soft bowel sounds are heard. No masses or tenderness. Extremities are intact. No cyanosis clubbing or edema. Skin is without rash or lesion. Neurologic examination cannot be assessed at this time given the sedation and paralysis. - Labs CBC & Chem 7: 06/16/21 03:45 06/16/21 03:45 Labs: Abnormal Lab Results - Last 24 Hours (Table) 06/15/21 06/15/21 06/16/21 Range/Units 18:40 23:48 03:45 WBC 16.5 H (3.8-10.6) k/uL RBC 3.97 L (4.30-5.90) m/uL Hgb 12.3 L (13.0-17.5) gm/dL Hct 36.8 L (39.0-53.0) % Neutrophils # (Manual) 14.00 H (1.3-7.7) k/uL Metamyelocytes # (Man) 0.17 H (0) k/uL Myelocytes # (Manual) 0.33 H (0) k/uL ABG pCO2 (35-45) mmHg ABG pO2 (83-108) mmHg ABG HCO3 (21-25) mmol/L ABG Total CO2 (19-24) mmol/L ABG O2 Saturation (94-97) % Carbon Dioxide (22-30) mmol/L BUN (9-20) mg/dL Glucose (74-99) mg/dL POC Glucose (mg/dL) 135 H 112 H (75-99) mg/dL Calcium (8.4-10.2) mg/dL Magnesium (1.6-2.3) mg/dL Creatine Kinase (55-170) U/L 06/16/21 06/16/21 06/16/21 Range/Units 03:45 03:45 05:36 WBC (3.8-10.6) k/uL RBC (4.30-5.90) m/uL Hgb (13.0-17.5) gm/dL Hct (39.0-53.0) % Neutrophils # (Manual) (1.3-7.7) k/uL Metamyelocytes # (Man) (0) k/uL Myelocytes # (Manual) (0) k/uL ABG pCO2 (35-45) mmHg ABG pO2 (83-108) mmHg ABG HCO3 (21-25) mmol/L ABG Total CO2 (19-24) mmol/L ABG O2 Saturation (94-97) % Carbon Dioxide 34 H (22-30) mmol/L BUN 39 H (9-20) mg/dL Glucose 120 H (74-99) mg/dL POC Glucose (mg/dL) 120 H (75-99) mg/dL Calcium 8.3 L (8.4-10.2) mg/dL Magnesium 2.7 H (1.6-2.3) mg/dL Creatine Kinase <20 L (55-170) U/L 06/16/21 06/16/21 Range/Units 06:15 11:38 WBC (3.8-10.6) k/uL RBC (4.30-5.90) m/uL Hgb (13.0-17.5) gm/dL Hct (39.0-53.0) % Neutrophils # (Manual) (1.3-7.7) k/uL Metamyelocytes # (Man) (0) k/uL Myelocytes # (Manual) (0) k/uL ABG pCO2 64 H (35-45) mmHg ABG pO2 68 L (83-108) mmHg ABG HCO3 37 H (21-25) mmol/L ABG Total CO2 39 H (19-24) mmol/L ABG O2 Saturation 93.3 L (94-97) % Carbon Dioxide (22-30) mmol/L BUN (9-20) mg/dL Glucose (74-99) mg/dL POC Glucose (mg/dL) 161 H (75-99) mg/dL Calcium (8.4-10.2) mg/dL Magnesium (1.6-2.3) mg/dL Creatine Kinase (55-170) U/L Assessment and Plan Assessment: Acute hypoxemic respiratory failure secondary to coronavirus associated pneum onia, with worsening hypoxemic respiratory failure, and need for intubation and mechanical ventilation on the morning of June 12, 2021. Elevated inflammatory marker secondary to coronavirus infection. Probable/possible pulmonary embolism, as seen on CT angiogram. Obesity. Plan: Plan dated 06/11/2021. The patient will be admitted to the intensive care unit. The patient will be placed on Lovenox, Decadron, and vitamins. He is not a candidate for REM. He is a candidate for Baricitinib. Additional recommendations and suggestions are forthcoming. The patient will have daily labs and chest x-rays. The patient may worsen and require intubation and mechanical ventilation. We will continue to follow and make recommendations where appropriate. Prognosis is guarded. Plan dated 06/12/2021. The patient was intubated this morning. The patient remains on the mechanical ventilator. The patient is currently on propofol and Nimbex. We will start tube feeds today. CT angiogram suggested the possibility of pulmonary embolism. The patient remains on therapeutic doses of Lovenox. In addition, a right radial art line was placed as well as a left internal jugular triple-lumen catheter. We will continue to follow and make recommendations where appropriate. The patient remains on vitamin C, vitamin D3, and zinc. In addition, the patient is on Decadron, and also should be on JEANNINE. Plan dated 06/13/2021. The patient remains on the mechanical ventilator. Labs and x-rays are reviewed. I'm going to increase the PEEP up to 20, try to reduce the FiO2. The patient continues on tube feeds. He is on Cleveprex to control his blood pressure. He remains on propofol and Nimbex. He also remains on vitamin C, vitamin D3, and zinc. He remains on Decadron. He is also on therapeutic doses of Lovenox given the pulmonary embolism finding on CT angiogram. Prognosis remains guarded. We will continue to follow make recommendations where appropriate. Plan dated 06/14/2021. The patient remains on mechanical ventilator. The patient will have his PEEP increased to 20 cm water. We'll try to reduce the FiO2. The patient continues on tube feeds. The patient remains on Cleveprex, propofol, and Nimbex. Prognosis is guarded. The patient is also on vitamin C, vitamin D3, and zinc. In addition, the patient is on Decadron, and therapeutic doses of Lovenox, for possible pulmonary embolism. We will continue to follow the patient and make recommendations where appropriate. Plan dated 06/15/2021. The patient remains on mechanical ventilator. The patient's FiO2 will be decreased down to 60%. The patient continues on tube feeds. The patient continues on Nimbex, and all. In addition, the patient's on vitamin C, vitamin D3, and zinc. The patient is also on Decadron, and therapeutic doses of Lovenox for possible pulmonary embolism. We will continue to follow make recommendations were appropriate. Prognosis is guarded. His chest x-ray is a bit improved. His FiO2 can be reduced to 60%. Plan dated 06/16/2021. The patient remains on the mechanical ventilator. The patient's FiO2 is been decreased to 50%. He still on PEEP 20. We can probably start making some PEEP changes in the next day or so. The patient continues on tube feeds. The patient continues on propofol and Nimbex. The patient also is on vitamin C, vitamin D3, and zinc, as well as Decadron, and Lovenox at therapeutic doses for possible PE. We will continue to follow make recommendations where appropriate. Prognosis is guarded. Chest x-ray in my opinion is a bit improved. Time with Patient: Greater than 30
[2021-06-16 14:16] LABS: Amorphous Sediment,Urine Few /hpf; Appearance,Urine Cloudy (Clear); Bilirubin,Urine Negative (Negative); Blood,Urine Small (Negative); Color,Urine Yellow; Glucose,Urine (UA) Negative (Negative); Ketones,Urine 1+ (Negative); Leukocyte Esterase,Urine Negative (Negative); Mucus,Urine Rare /hpf; Nitrite,Urine Negative (Negative); PH, Urine 5.5 (5.0-8.0); Protein,Urine 1+ (Negative); RBC,Urine 15 /hpf (0-5); Specific Gravity,Urine 1.025 (1.001-1.035); Squamous Epithelial Cell,Urine <1 /hpf (0-4); WBC,Urine 4 /hpf (0-5)
--- NOTE | 2021-06-16 17:04 | P.PN ---
Subjective Progress Note Date: 06/16/21 (delayed charting seen at 0930) Principal diagnosis: shortness of breath Patient is a 50-year-old male who presented with confusion and low oxygen status, was found to be by EMS to have an oxygen saturation of 50%. On arrival to the ER he had a temperature of 100.5, pulse 125, respirations 36, and he was satting 77% on a 15 L nonrebreather. In the ER he was found to have a white blood cell count of 17.4, sodium 130, glucose 208, lactic acid 3.4, LDH 2098, and CRP 20. His COVID test came back positive. Chest x-ray showed lateral multifocal opacities right greater than left is reviewed by myself. He was started on AirVo and NRB. He was given 1 L bolus and 10 mg of Decadron. He was seen by pulmonary critical care and arrangements were made for admission to the ICU. His breathing worsening overnight and he required intubation on 06/12. His d-dimer was >34 and he was started on full dose lovenox. He was taken for CT chest which could not rule out right upper lobe PE. He did require paralytic. His FiO2 was able to be decreased to 90%. His peep was increased and his FiO2 was weaned. He spiked fevers on 06/16 and cultures were sent Procalcitonin remained low. Patient seen and examined at bedside. He is sedated and Paralysed on the vent. per nursing no acute events overnight. General: ill appearing, no distress, appears at stated age Derm: warm, diaphoretic Head: atraumatic, normocephalic, symmetric Eyes: no lid lesion, pupils pinpoint anicteric sclera Mouth: no lip lesion, mucus membranes dry Cardiovascular: S1S2 reg, no murmur, positive posterior tibial pulse bilateral, Lungs: Course bs bilateral, no rhonchi, no rales , no accessory muscle use Abdominal: soft, nontender to palpation, no guarding, no appreciable organomegaly Ext: no gross muscle atrophy, no edema, no contractures Neuro: No withdrawal to pain, not breathing over the vent Psych: sedated on vent COVID-19 pneumonitis in an unvaccinated individual Acute hypoxic respiratory failure Toxic encephalopthy due to hypoxia Right upper lobe pulmonary embolism - decadron - Vit D, Vit C, Zinc - Follow inflammatory labs - pulm hygiene - pulm recs - lovenox Pyrexia - follow procalcitonin - await sputum and blood cultures - UA negative. HTN - cleveprix off 06/14 - follow BP Leukocytosis - likely due to steroids - follow CBC - Monitor for fevers obesity with BMI 38.4 - structured outpatient weight loss Hyponatremia, resolved Lactic acidosis, resolved Hypokalemia, resolved DVT prophylaxis: Lovenox Discussed with: patient, nursing, over phone Anticipated discharge date: undetermined Anticipated discharge place: undetermined A total of 37 minutes was spent on the care of this complex patient more than 50% of the time was spent in counseling and care coordination. Objective - Vital Signs Vital signs: Vital Signs Temp 99.9 F H 06/16/21 15:00 Pulse 109 H 06/16/21 15:00 Resp 26 H 06/16/21 15:00 BP 118/73 06/16/21 15:00 Pulse Ox 94 L 06/16/21 15:00 Intake & Output 06/15/21 06/16/21 06/16/21 18:59 06:59 18:59 Intake Total 3535.178 0783.802 1469.280 Output Total 595 820 690 Balance 1181.341 881.802 779.280 Weight 117.5 kg Intake: IV 972 972 729 Pressure bags 72 72 54 Sodium Chloride 0.9% 1, 900 900 675 000 ml @ 75 mls/hr IV . [id number] [facility] Rx#:[id number] Intake, IV Titration 534.341 509.802 520.280 Amount Cisatracurium 200 mg In 182.801 175.882 167.177 Sodium Chloride 0.9% 180 ml @ 1 MCG/KG/MIN 6.696 mls/hr IV .Q24H [facility] Rx#: [id number] propofoL 1,000 mg In 351.540 333.920 353.103 Empty Bag 1 bag @ Titrate IV .Q0M [facility] Rx#: [id number] Tube Feeding 140 130 110 Other 130 90 110 Output: Urine 595 820 690 Other: Voiding Method Indwelling Catheter Indwelling Catheter Indwelling Catheter ABP, PAP, CO, CI - Last Documented Arterial Blood Pressure 113/59 - Labs CBC & Chem 7: 06/16/21 03:45 06/16/21 03:45 Labs: Abnormal Lab Results - Last 24 Hours (Table) 06/15/21 06/15/21 06/16/21 Range/Units 18:40 23:48 03:45 WBC 16.5 H (3.8-10.6) k/uL RBC 3.97 L (4.30-5.90) m/uL Hgb 12.3 L (13.0-17.5) gm/dL Hct 36.8 L (39.0-53.0) % Neutrophils # (Manual) 14.00 H (1.3-7.7) k/uL Metamyelocytes # (Man) 0.17 H (0) k/uL Myelocytes # (Manual) 0.33 H (0) k/uL ABG pCO2 (35-45) mmHg ABG pO2 (83-108) mmHg ABG HCO3 (21-25) mmol/L ABG Total CO2 (19-24) mmol/L ABG O2 Saturation (94-97) % Carbon Dioxide (22-30) mmol/L BUN (9-20) mg/dL Glucose (74-99) mg/dL POC Glucose (mg/dL) 135 H 112 H (75-99) mg/dL Calcium (8.4-10.2) mg/dL Magnesium (1.6-2.3) mg/dL Creatine Kinase (55-170) U/L Procalcitonin (0.02-0.09) ng/mL Urine Protein (Negative) Urine Ketones (Negative) Urine Blood (Negative) Urine RBC (0-5) /hpf Amorphous Sediment (None) /hpf Urine Mucus (None) /hpf 06/16/21 06/16/21 06/16/21 Range/Units 03:45 03:45 03:45 WBC (3.8-10.6) k/uL RBC (4.30-5.90) m/uL Hgb (13.0-17.5) gm/dL Hct (39.0-53.0) % Neutrophils # (Manual) (1.3-7.7) k/uL Metamyelocytes # (Man) (0) k/uL Myelocytes # (Manual) (0) k/uL ABG pCO2 (35-45) mmHg ABG pO2 (83-108) mmHg ABG HCO3 (21-25) mmol/L ABG Total CO2 (19-24) mmol/L ABG O2 Saturation (94-97) % Carbon Dioxide 34 H (22-30) mmol/L BUN 39 H (9-20) mg/dL Glucose 120 H (74-99) mg/dL POC Glucose (mg/dL) (75-99) mg/dL Calcium 8.3 L (8.4-10.2) mg/dL Magnesium 2.7 H (1.6-2.3) mg/dL Creatine Kinase <20 L (55-170) U/L Procalcitonin 0.78 H (0.02-0.09) ng/mL Urine Protein (Negative) Urine Ketones (Negative) Urine Blood (Negative) Urine RBC (0-5) /hpf Amorphous Sediment (None) /hpf Urine Mucus (None) /hpf 06/16/21 06/16/21 06/16/21 Range/Units 05:36 06:15 11:38 WBC (3.8-10.6) k/uL RBC (4.30-5.90) m/uL Hgb (13.0-17.5) gm/dL Hct (39.0-53.0) % Neutrophils # (Manual) (1.3-7.7) k/uL Metamyelocytes # (Man) (0) k/uL Myelocytes # (Manual) (0) k/uL ABG pCO2 64 H (35-45) mmHg ABG pO2 68 L (83-108) mmHg ABG HCO3 37 H (21-25) mmol/L ABG Total CO2 39 H (19-24) mmol/L ABG O2 Saturation 93.3 L (94-97) % Carbon Dioxide (22-30) mmol/L BUN (9-20) mg/dL Glucose (74-99) mg/dL POC Glucose (mg/dL) 120 H 161 H (75-99) mg/dL Calcium (8.4-10.2) mg/dL Magnesium (1.6-2.3) mg/dL Creatine Kinase (55-170) U/L Procalcitonin (0.02-0.09) ng/mL Urine Protein (Negative) Urine Ketones (Negative) Urine Blood (Negative) Urine RBC (0-5) /hpf Amorphous Sediment (None) /hpf Urine Mucus (None) /hpf 06/16/21 Range/Units 12:35 WBC (3.8-10.6) k/uL RBC (4.30-5.90) m/uL Hgb (13.0-17.5) gm/dL Hct (39.0-53.0) % Neutrophils # (Manual) (1.3-7.7) k/uL Metamyelocytes # (Man) (0) k/uL Myelocytes # (Manual) (0) k/uL ABG pCO2 (35-45) mmHg ABG pO2 (83-108) mmHg ABG HCO3 (21-25) mmol/L ABG Total CO2 (19-24) mmol/L ABG O2 Saturation (94-97) % Carbon Dioxide (22-30) mmol/L BUN (9-20) mg/dL Glucose (74-99) mg/dL POC Glucose (mg/dL) (75-99) mg/dL Calcium (8.4-10.2) mg/dL Magnesium (1.6-2.3) mg/dL Creatine Kinase (55-170) U/L Procalcitonin (0.02-0.09) ng/mL Urine Protein 1+ H (Negative) Urine Ketones 1+ H (Negative) Urine Blood Small H (Negative) Urine RBC 15 H (0-5) /hpf Amorphous Sediment Few H (None) /hpf Urine Mucus Rare H (None) /hpf
[2021-06-16 17:22] LABS: Glucose,Whole Blood 139 mg/dL (75-99)
[2021-06-16 23:48] LABS: Glucose,Whole Blood 117 mg/dL (75-99)
[2021-06-17] MEDS: INSULIN ASPART (NovoLOG) 100 UNIT/ML VIAL SQ SCH ×4 (00:03→18:38)
[2021-06-17] MEDS: HYDROmorphone 1 MG/ML 1 ML SYRINGE IVP PRN ×4 (01:59→10:43)
[2021-06-17 03:58] LABS: HCT 34.7 % (39.0-53.0); HGB 11.4 gm/dL (13.0-17.5); MCH 30.1 pg (25.0-35.0); MCHC 32.9 g/dL (31.0-37.0); MCV 91.6 fL (80.0-100.0); Mean Platelet Volume 8.9; Platelet Count 278 k/uL (150-450); RBC 3.79 m/uL (4.30-5.90); RDW 13.8 % (11.5-15.5); WBC 15.6 k/uL (3.8-10.6)
[2021-06-17 04:16] LABS: Band Neutrophils % 16 %; Lymphocytes # (M) 0.62 k/uL (1.0-4.8); Metamyelocytes # (M) 0.47 k/uL (0); Metamyelocytes % 3 %; Monocytes # (M) 1.25 k/uL (0-1.0); Myelocytes # (M) 0.31 k/uL (0); Myelocytes % 2 %; Neutrophils % (M) 67 %; Nucleated Red Blood Cells 0 /100 WBC (0-0)
[2021-06-17 04:17] LABS: Eosinophils # (M) 0.16 k/uL (0-0.7); Total Cells Counted 200
[2021-06-17 04:18] LABS: Toxic Granulation Present
[2021-06-17 04:46] LABS: ALT 43 U/L (4-49); AST 35 U/L (17-59); African American GFR (CKD) >90 (>60 ml/min/1.73 sqM); Albumin 2.5 g/dL (3.5-5.0); Alkaline Phosphatase 76 U/L (38-126); Anion Gap 4 mmol/L; Blood Urea Nitrogen 45 mg/dL (9-20); Calcium 8.3 mg/dL (8.4-10.2); Carbon Dioxide 32 mmol/L (22-30); Chloride 110 mmol/L (98-107); Glucose 132 mg/dL (74-99); LDH 1369 U/L (313-618); Magnesium 2.7 mg/dL (1.6-2.3); Non-African American GFR(CKD) 82 (>60 ml/min/1.73 sqM); Phosphorus 4.4 mg/dL (2.5-4.5); Potassium 4.8 mmol/L (3.5-5.1); Sodium 146 mmol/L (137-145); Total Bilirubin 0.4 mg/dL (0.2-1.3); Total Protein 5.3 g/dL (6.3-8.2)
[2021-06-17] MEDS: ARTIFICIAL TEARS-HYPROMELLOSE DROPS 15 ML BTL BOTH EYES SCH ×5 (05:02→21:00)
[2021-06-17 05:06] LABS: C Reactive Protein 24.9 mg/dL (<1.0)
[2021-06-17 06:06] LABS: ABG Base Excess 10.3 mmol/L; ABG HCO3 35 mmol/L (21-25); ABG Oxygen Saturation 95.9 % (94-97); ABG PCO2 57 mmHg (35-45); ABG PO2 79 mmHg (83-108); ABG TCO2 37 mmol/L (19-24); Allen Test Performed? Yes
[2021-06-17 06:13] LABS: Glucose,Whole Blood 130 mg/dL (75-99)
--- NOTE | 2021-06-17 08:45 | XR ---
EXAMINATION TYPE: XR chest 1V portable DATE OF EXAM: 06/17/2021 COMPARISON: 06/16/2021 INDICATION: Tube placement TECHNIQUE: Single frontal view of the chest is obtained. FINDINGS: The heart size is normal. The pulmonary vasculature is normal. Scattered mild infiltrates are present diffusely through the bilateral lung loredo. Endotracheal tube tip is above the felix. Nasogastric tube transverses the thorax. IMPRESSION: 1. Mild bilateral lung infiltrates scattered diffusely, mildly increased from comparison.
--- NOTE | 2021-06-17 09:29 | P.PN ---
Subjective Progress Note Date: 06/17/21 50-year-old male patient presented to the ED for worsening shortness of breath of 2 weeks' duration and the patient was found to be quite hypoxic. Confirmed to be COVID-19 positive with secondary pneumonia. The patient is not vaccinated. In the ED, the patient was placed on high flow oxygen at 60 L with an FiO2 of 90% in addition to a nonrebreather facemask. Chest x-ray showed diffuse bilateral pulmonary infiltrates right more than left. He did not have a family physician. LDH level was 2098 and a CRP level was 20. Within 24 hours, the patient developed worsening respiratory distress and hypoxemia and the patient had to be intubated and was placed on a mechanical ventilator and the patient has been on mechanical ventilator since 06/11/2021. For now, the patient remains sedated and paralyzed. For now, the patient is on Prop at 60 mics/kilogram per minute and the patient is also Nimbex at 2 mcg/kg per minute and the patient is quite successful mechanical ventilator. He remains an a ssist-control mode on a mechanical ventilator with a rate of 26, tidal volume of 450, FiO2 50% with a PEEP of 20. Chest x-ray showed diffuse breath pulmonary infiltrates. ET tube is in a good location. The patient special by the pulmonary infiltrates left more than right and his chest x-ray findings remain unchanged. The peak and static pressures were noted. The peak airway pressure currently is at 38. The static pressure is 36. The chest x-ray from today is showing by the pulmonary infiltrates. ET tube needs to be pushed in by around 1 cm. The patient has a left subclavian triple-lumen catheter in place. The chest x-ray was noted. The d-dimer was elevated at 34 and the patient underwent a CT angiogram on 06/12/2021 showing small filling defects in the right upper lobe suspicious for pulmonary embolism. There was large areas of perihilar and basilar pulmonary infiltrates consistent with pneumonia. Based on all this, the patient is currently on Decadron 6 mg IV every 24 hours, therapeutic dose of Lovenox 100 mg subcu every 12 hours in addition to normal saline at the rate of 75 mL an hour. Patient is also on clevidipine for blood pressure control. This morning, the patient is off the clevidipine drip. He is maintaining a decent blood pressure. The pH is at 7.4 with a pCO2 57 and pO2 of 79 on the above- mentioned ventilator setting. The LDH level is at 1369 with a CRP level of 5.3. There that fluid balance has been positive over the past several days and the p atient is +1.8 L over the past 24 hours. His weight is up by at least 6 kg. Objective - Vital Signs Vital signs: Vital Signs Temp 99.9 F H 06/17/21 04:00 Pulse 108 H 06/17/21 06:00 Resp 26 H 06/17/21 06:00 BP 156/97 06/17/21 06:00 Pulse Ox 94 L 06/17/21 06:00 Intake & Output 06/16/21 06/17/21 06/17/21 18:59 06:59 18:59 Intake Total 6513.911 5922.556 212 Output Total 875 795 275 Balance 986.293 894.556 -63 Weight 116.8 kg Intake: IV 972 972 162 Pressure bags 72 72 12 Sodium Chloride 0.9% 1, 900 900 150 000 ml @ 75 mls/hr IV . [id number] [facility] Rx#:[id number] Intake, IV Titration 599.293 507.556 Amount Cisatracurium 200 mg In 167.177 Sodium Chloride 0.9% 180 ml @ 1 MCG/KG/MIN 6.696 mls/hr IV .Q24H [facility] Rx#: [id number] propofoL 1,000 mg In 432.116 507.556 Empty Bag 1 bag @ Titrate IV .Q0M [facility] Rx#: [id number] Tube Feeding 150 120 20 Other 140 90 30 Output: Urine 875 795 275 Other: Voiding Method Indwelling Catheter Indwelling Catheter ABP, PAP, CO, CI - Last Documented Arterial Blood Pressure 176/77 - Exam Gen. appearance No acute distress, sedated and paralyzed. The patient has an orally placed endotracheal tube and NG tube. HEENT examination is grossly unremarkable. Neck supple. Full range of motion. No adenopathy thyromegaly or neck vein distention. Cardiovascular examination reveals regular rhythm rate. S1-S2 normal. No S3 or S4. No discernible murmur noted. Heart sounds are distant. Heart rate 112 bpm. Lungs reveal diffuse bilateral rhonchi. No wheezes or crackles. Breath sounds are equal bilaterally. Abdominal exam revealed normal bowel sounds. The abdomen was soft, non-tender, and without masses, organomegaly, or appreciable enlargement of the abdominal aorta. Extremities are intact. No cyanosis clubbing or edema. Examination of the skin revealed no evidence of significant rashes, suspicious appearing nevi or other concerning lesions. Neurologic examination cannot be assessed at this time given the sedation and paralysis. - Labs CBC & Chem 7: 06/17/21 03:35 06/17/21 03:35 Labs: Abnormal Lab Results - Last 24 Hours (Table) 06/16/21 06/16/21 06/16/21 Range/Units 03:45 03:45 11:38 WBC (3.8-10.6) k/uL RBC (4.30-5.90) m/uL Hgb (13.0-17.5) gm/dL Hct (39.0-53.0) % Neutrophils # (Manual) (1.3-7.7) k/uL Lymphocytes # (Manual) (1.0-4.8) k/uL Monocytes # (Manual) (0-1.0) k/uL Metamyelocytes # (Man) (0) k/uL Myelocytes # (Manual) (0) k/uL D-Dimer (<0.60) mg/L FEU ABG pCO2 (35-45) mmHg ABG pO2 (83-108) mmHg ABG HCO3 (21-25) mmol/L ABG Total CO2 (19-24) mmol/L Sodium (137-145) mmol/L Chloride (98-107) mmol/L Carbon Dioxide (22-30) mmol/L BUN (9-20) mg/dL Glucose (74-99) mg/dL POC Glucose (mg/dL) 161 H (75-99) mg/dL Calcium (8.4-10.2) mg/dL Magnesium (1.6-2.3) mg/dL Lactate Dehydrogenase (313-618) U/L Creatine Kinase <20 L (55-170) U/L C-Reactive Protein (<1.0) mg/dL Total Protein (6.3-8.2) g/dL Albumin (3.5-5.0) g/dL Procalcitonin 0.78 H (0.02-0.09) ng/mL Urine Protein (Negative) Urine Ketones (Negative) Urine Blood (Negative) Urine RBC (0-5) /hpf Amorphous Sediment (None) /hpf Urine Mucus (None) /hpf 06/16/21 06/16/21 06/16/21 Range/Units 12:35 17:20 23:46 WBC (3.8-10.6) k/uL RBC (4.30-5.90) m/uL Hgb (13.0-17.5) gm/dL Hct (39.0-53.0) % Neutrophils # (Manual) (1.3-7.7) k/uL Lymphocytes # (Manual) (1.0-4.8) k/uL Monocytes # (Manual) (0-1.0) k/uL Metamyelocytes # (Man) (0) k/uL Myelocytes # (Manual) (0) k/uL D-Dimer (<0.60) mg/L FEU ABG pCO2 (35-45) mmHg ABG pO2 (83-108) mmHg ABG HCO3 (21-25) mmol/L ABG Total CO2 (19-24) mmol/L Sodium (137-145) mmol/L Chloride (98-107) mmol/L Carbon Dioxide (22-30) mmol/L BUN (9-20) mg/dL Glucose (74-99) mg/dL POC Glucose (mg/dL) 139 H 117 H (75-99) mg/dL Calcium (8.4-10.2) mg/dL Magnesium (1.6-2.3) mg/dL Lactate Dehydrogenase (313-618) U/L Creatine Kinase (55-170) U/L C-Reactive Protein (<1.0) mg/dL Total Protein (6.3-8.2) g/dL Albumin (3.5-5.0) g/dL Procalcitonin (0.02-0.09) ng/mL Urine Protein 1+ H (Negative) Urine Ketones 1+ H (Negative) Urine Blood Small H (Negative) Urine RBC 15 H (0-5) /hpf Amorphous Sediment Few H (None) /hpf Urine Mucus Rare H (None) /hpf 06/17/21 06/17/21 06/17/21 Range/Units 03:35 03:35 03:35 WBC 15.6 H (3.8-10.6) k/uL RBC 3.79 L (4.30-5.90) m/uL Hgb 11.4 L (13.0-17.5) gm/dL Hct 34.7 L (39.0-53.0) % Neutrophils # (Manual) 12.90 H (1.3-7.7) k/uL Lymphocytes # (Manual) 0.62 L (1.0-4.8) k/uL Monocytes # (Manual) 1.25 H (0-1.0) k/uL Metamyelocytes # (Man) 0.47 H (0) k/uL Myelocytes # (Manual) 0.31 H (0) k/uL D-Dimer 1.45 H (<0.60) mg/L FEU ABG pCO2 (35-45) mmHg ABG pO2 (83-108) mmHg ABG HCO3 (21-25) mmol/L ABG Total CO2 (19-24) mmol/L Sodium 146 H (137-145) mmol/L Chloride 110 H (98-107) mmol/L Carbon Dioxide 32 H (22-30) mmol/L BUN 45 H (9-20) mg/dL Glucose 132 H (74-99) mg/dL POC Glucose (mg/dL) (75-99) mg/dL Calcium 8.3 L (8.4-10.2) mg/dL Magnesium 2.7 H (1.6-2.3) mg/dL Lactate Dehydrogenase 1369 H (313-618) U/L Creatine Kinase (55-170) U/L C-Reactive Protein 24.9 H (<1.0) mg/dL Total Protein 5.3 L (6.3-8.2) g/dL Albumin 2.5 L (3.5-5.0) g/dL Procalcitonin (0.02-0.09) ng/mL Urine Protein (Negative) Urine Ketones (Negative) Urine Blood (Negative) Urine RBC (0-5) /hpf Amorphous Sediment (None) /hpf Urine Mucus (None) /hpf 06/17/21 06/17/21 Range/Units 06:03 06:11 WBC (3.8-10.6) k/uL RBC (4.30-5.90) m/uL Hgb (13.0-17.5) gm/dL Hct (39.0-53.0) % Neutrophils # (Manual) (1.3-7.7) k/uL Lymphocytes # (Manual) (1.0-4.8) k/uL Monocytes # (Manual) (0-1.0) k/uL Metamyelocytes # (Man) (0) k/uL Myelocytes # (Manual) (0) k/uL D-Dimer (<0.60) mg/L FEU ABG pCO2 57 H (35-45) mmHg ABG pO2 79 L (83-108) mmHg ABG HCO3 35 H (21-25) mmol/L ABG Total CO2 37 H (19-24) mmol/L Sodium (137-145) mmol/L Chloride (98-107) mmol/L Carbon Dioxide (22-30) mmol/L BUN (9-20) mg/dL Glucose (74-99) mg/dL POC Glucose (mg/dL) 130 H (75-99) mg/dL Calcium (8.4-10.2) mg/dL Magnesium (1.6-2.3) mg/dL Lactate Dehydrogenase (313-618) U/L Creatine Kinase (55-170) U/L C-Reactive Protein (<1.0) mg/dL Total Protein (6.3-8.2) g/dL Albumin (3.5-5.0) g/dL Procalcitonin (0.02-0.09) ng/mL Urine Protein (Negative) Urine Ketones (Negative) Urine Blood (Negative) Urine RBC (0-5) /hpf Amorphous Sediment (None) /hpf Urine Mucus (None) /hpf Assessment and Plan Plan: 1 Acute hypoxemic respiratory failure secondary to coronavirus associated pneumonia, with worsening hypoxemic respiratory failure, and need for intubation and mechanical ventilation on the morning of 06/12/2021 and the patient has been intubated and sedated and paralyzed since. The patient that she has bilateral pulmonary infiltrates with a CT angiogram that was done showed a suspicious area pulmonary artery embolism in the right upper lobe and for that reason the patient is currently on therapeutic dose of Lovenox. The patient remains on Decadron. The chest x-ray was noted. The patient's remains on Decadron and therapeutic dose of Lovenox. Peak/ static pressure remains quite elevated. 2 acute pulmonary embolism, suspicious areas of filling defect in the right upper lobe with elevated d-dimer of above 30 for currently on Lovenox, therapeutic doses 3 ARDS with diffuse bilateral pulmonary infiltrates secondary to COVID-19 related to pneumonia 4 Elevated inflammatory marker secondary to coronavirus infection. 5 Obesity 6 hypertension currently on clevidipine drip for blood pressure control Plan: Continue ventilator support, the other tidal volume down to 400s Keep the patient Decadron 6 mg IV every 24 hours Continue therapeutic dose of Lovenox 100 mg subcu every 12 hours Keep the patient sedated with propofol Nimbex on paralytics IV fluids will be cut down to KVO, and the patient will be given a dose of Lasix Enteral feeding for nutritional support Discontinue clevidipine drip for blood pressure control Obtain Doppler of the lower extremities Monitor inflammatory markers and repeat levels in a.m. Condition is critical and this critically care evaluation was done more than 30 minutes Time with Patient: Greater than 30
[2021-06-17] MEDS ORDERED: FUROSEMIDE 10 MG/ML 4 ML VIAL IV STA (09:30)
[2021-06-17] MEDS: DEXAMETHASONE SOD PHOSPHATE 10 MG/ML 1 ML VIAL IVP SCH (10:00)
[2021-06-17] MEDS: ASCORBIC ACID 500 MG TAB PO SCH (10:01)
[2021-06-17] MEDS: CHLORHEXIDINE GLUCONATE 15 ML CUP MUCOUS MEM SCH ×2 (10:01→21:01)
[2021-06-17] MEDS: ZINC SULFATE 220 MG CAP PO SCH (10:01)
[2021-06-17] MEDS: CHOLECALCIFEROL 25 MCG (1000 IU) TABLET PO SCH (10:01)
[2021-06-17] MEDS: ENOXAPARIN 100 MG/ML SYRINGE SQ SCH ×2 (10:02→21:18)
--- NOTE | 2021-06-17 10:24 | US ---
EXAMINATION TYPE: US venous doppler duplex LE BI DATE OF EXAM: 06/17/2021 10:09 AM COMPARISON: NONE CLINICAL HISTORY: elevated d-dimer. elevated D-dimer. intubated ICU patient. COVID +. Technical limit ations due to patient's body habitus SIDE PERFORMED: Bilateral TECHNIQUE: The lower extremity deep venous system is examined utilizing real time linear array sonog jorgito with graded compression, doppler sonography and color-flow sonography. VESSELS IMAGED: Common Femoral Vein Deep Femoral Vein Greater Saphenous Vein * Femoral Vein Popliteal Vein Small Saphenous Vein * Proximal Calf Veins (* superficial vessels) Right Leg: no evidence of DVT as visualized. limited evaluation of popliteal vein, patient unable to rotate leg into adequate position Left Leg: no evidence of DVT as visualized IMPRESSION: 1. No ultrasound evidence of deep venous thrombosis. 2. There is some limitation on the right leg discussed above.
[2021-06-17] MEDS: SODIUM CHLORIDE 0.9% 1,000 ML IV SCH ×2 (10:46→11:18)
[2021-06-17] MEDS: fentaNYL (PF). 1,000 MCG in SODIUM CHLORIDE 0.9% 80 ML IV SCH ×2 (11:17→16:11)
[2021-06-17] MEDS: CISATRACURIUM 200 MG in SODIUM CHLORIDE 0.9% 180 ML IV SCH (11:21)
[2021-06-17 11:26] LABS: Glucose,Whole Blood 155 mg/dL (75-99)
[2021-06-17] MEDS ORDERED: VANCOMYCIN IV PER PHARMACY 1 EACH MISC MISCELLANE PRN (12:34)
--- NOTE | 2021-06-17 13:28 | P.PN ---
Subjective Progress Note Date: 06/17/21 Principal diagnosis: shortness of breath Patient is a 50-year-old male who presented with confusion and low oxygen status, was found to be by EMS to have an oxygen saturation of 50%. On arrival to the ER he had a temperature of 100.5, pulse 125, respirations 36, and he was satting 77% on a 15 L nonrebreather. In the ER he was found to have a white blood cell count of 17.4, sodium 130, glucose 208, lactic acid 3.4, LDH 2098, and CRP 20. His COVID test came back positive. Chest x-ray showed lateral multifocal opacities right greater than left is reviewed by myself. He was started on AirVo and NRB. He was given 1 L bolus and 10 mg of Decadron. He was seen by pulmonary critical care and arrangements were made for admission to the ICU. His breathing worsening overnight and he required intubation on 06/12. His d-dimer was >34 and he was started on full dose lovenox. He was taken for CT chest which could not rule out right upper lobe PE. He did require paralytic. His FiO2 was able to be decreased to 90%. His peep was increased and his FiO2 was weaned. He spiked fevers on 06/16 and cultures were sent Procalcitonin remained low. His blood cultures became positive on 06/17 and he was started on vanco Patient seen and examined at bedside. He is sedated and Paralysed on the vent. per nursing no acute events overnight. General: ill appearing, no distress, appears at stated age Derm: warm, diaphoretic Head: atraumatic, normocephalic, symmetric Eyes: no lid lesion, pupils pinpoint anicteric sclera Mouth: no lip lesion, mucus membranes dry Cardiovascular: S1S2 reg, no murmur, positive posterior tibial pulse bilateral, Lungs: Course bs bilateral, no rhonchi, no rales , no accessory muscle use Abdominal: soft, nontender to palpation, no guarding, no appreciable organomegaly Ext: no gross muscle atrophy, no edema, no contractures Neuro: No withdrawal to pain, not breathing over the vent Psych: sedated on vent COVID-19 pneumonitis in an unvaccinated individual Acute hypoxic respiratory failure Toxic encephalopthy due to hypoxia Right upper lobe pulmonary embolism - decadron - Vit D, Vit C, Zinc - Follow inflammatory labs - pulm hygiene - pulm recs - lovenox Gram positive bacteremia - Vanco - await final culture HTN - cleveprix off 06/14 - follow BP Leukocytosis - likely due to steroids - follow CBC - Monitor for fevers obesity with BMI 38.4 - structured outpatient weight loss Hyponatremia, resolved Lactic acidosis, resolved Hypokalemia, resolved DVT prophylaxis: Lovenox Discussed with: nursing Anticipated discharge date: undetermined Anticipated discharge place: undetermined A total of 42 minutes was spent on the care of this complex patient more than 50% of the time was spent in counseling and care coordination. Active Medications Generic Name Dose Route Start Last Admin Trade Name Freq PRN Reason Stop Dose Admin Acetaminophen 650 mg 06/16/21 10:18 06/16/21 10:51 Acetaminophen Tab 325 Mg Tab OG-TUBE 650 mg Q6HR PRN Administration Fever and/ or Pain Artificial Tears 2 drops 06/12/21 08:00 06/17/21 11:18 Artificial Tears-Hypromellose Drops 15 Ml Btl BOTH EYES 2 drops Q4HR APPLE Administration Ascorbic Acid 1,000 mg 06/12/21 09:00 06/17/21 10:01 Ascorbic Acid 500 Mg Tab PO 1,000 mg DAILY APPLE Administration Bisacodyl 5 mg 06/11/21 14:34 Bisacodyl 5 Mg Tablet.Dr PO DAILY PRN Constipation Chlorhexidine Gluconate 15 ml 06/12/21 09:00 06/17/21 10:01 Chlorhexidine Gluconate 15 Ml Cup MUCOUS MEM 15 ml BID APPLE Administration Cholecalciferol 100 mcg 06/12/21 09:00 06/17/21 10:01 Cholecalciferol 25 Mcg (1000 Iu) Tablet PO 100 mcg DAILY APPLE Administration Dexamethasone Sodium Phosphate 6 mg 06/12/21 09:00 06/17/21 10:00 Dexamethasone Sod Phosphate 10 Mg/Ml 1 Ml Vial IVP 6 mg DAILY APPLE Administration Enoxaparin Sodium 100 mg 06/12/21 09:00 06/17/21 10:02 Enoxaparin 100 Mg/Ml Syringe SQ 100 mg Q12HR APPLE Administration Hydromorphone HCl 2 mg 06/14/21 11:21 06/17/21 10:43 Hydromorphone 1 Mg/Ml 1 Ml Syringe IVP 2 mg Q2H PRN Administration Severe Pain Hydromorphone HCl 1 mg 06/14/21 11:21 06/16/21 03:53 Hydromorphone 1 Mg/Ml 1 Ml Syringe IVP 1 mg Q2H PRN Administration Moderate Pain Sodium Chloride 1,000 mls @ 20 mls/hr 06/11/21 12:00 06/17/21 11:18 Saline 0.9% IV 20 mls/hr .Q24H APPLE Administration Cisatracurium Besylate 200 mg/ 200 mls @ 6.696 mls/hr 06/12/21 07:15 06/17/21 11:21 Sodium Chloride IV 1 mcg/kg/min .Q24H APPLE 6.696 mls/hr Administration Protocol 1 MCG/KG/MIN Propofol 1,000 mg/ IV Solution 100 mls @ 0 mls/hr 06/12/21 07:37 06/17/21 10:45 IV 60 mcg/kg/min .Q0M APPLE 40.176 mls/hr Administration Protocol Titrate Clevidipine 25 mg/ IV Solution 50 mls @ 2 mls/hr 06/12/21 18:15 06/14/21 12:0 0 IV 0 mg/hr .Q24H APPLE 0 mls/hr Titration Protocol 1 MG/HR Fentanyl Citrate 1,000 mcg/ 100 mls @ 5.84 mls/hr 06/17/21 11:45 06/17/21 11:29 Sodium Chloride IV 1 mcg/kg/hr .Q17H8M APPLE 11.68 mls/hr Titration Protocol 0.5 MCG/KG/HR Vancomycin HCl 2,250 mg/ 500 mls @ 167 mls/hr 06/17/21 13:30 Sodium Chloride IVPB 06/17/21 16:29 ONCE ONE Vancomycin HCl 2,250 mg/ 500 mls @ 167 mls/hr 06/18/21 00:00 Sodium Chloride IVPB Q12H APPLE Insulin Aspart 0 unit 06/12/21 12:00 06/17/21 11:26 Insulin Aspart (Novolog) 100 Unit/Ml Vial SQ 2 unit Q6H APPLE Administration Protocol Miscellaneous Information 1 each 06/12/21 04:03 Potassium Replacement Protocol 1 Each Misc MISCELLANE DAILY PRN Per Protocol Protocol Naloxone HCl 0.2 mg 06/11/21 12:33 Naloxone 0.4 Mg/Ml 1 Ml Vial IV Q2M PRN Opioid Reversal Zinc Sulfate 220 mg 06/12/21 09:00 06/17/21 10:01 Zinc Sulfate 220 Mg Cap PO 220 mg DAILY APPLE Administration Objective - Vital Signs Vital signs: Vital Signs Temp 99.0 F 06/17/21 12:00 Pulse 130 H 06/17/21 12:00 Resp 18 06/17/21 12:00 BP 156/97 06/17/21 06:00 Pulse Ox 89 L 06/17/21 12:00 Intake & Output 06/16/21 06/17/21 06/17/21 18:59 06:59 18:59 Intake Total 8351.578 5017.556 742.168 Output Total 321 629 7710 Balance 986.293 894.556 -407.832 Weight 116.8 kg 116.8 kg Intake: IV 972 972 321 Pressure bags 72 72 36 Sodium Chloride 0.9% 1, 900 900 285 000 ml @ 20 mls/hr IV . Q24H APPLE Rx#:[id number] Intake, IV Titration 599.293 507.556 301.168 Amount Cisatracurium 200 mg In 167.177 200 Sodium Chloride 0.9% 180 ml @ 1 MCG/KG/MIN 6.696 mls/hr IV .Q24H APPLE Rx#: [id number] fentaNYL (PF). 1,000 mcg 1.168 In Sodium Chloride 0.9% 80 ml @ 0.5 MCG/KG/HR 5. 84 mls/hr IV .Q17H8M APPLE Rx#:[id number] propofoL 1,000 mg In 432.116 507.556 100 Empty Bag 1 bag @ Titrate IV .Q0M APPLE Rx#: [id number] Tube Feeding 150 120 60 Other 140 90 60 Output: Urine 950 206 1731 Other: Voiding Method Indwelling Catheter Indwelling Catheter Indwelling Catheter ABP, PAP, CO, CI - Last Documented Arterial Blood Pressure 153/70 - Labs CBC & Chem 7: 06/17/21 03:35 06/17/21 03:35 Labs: Abnormal Lab Results - Last 24 Hours (Table) 06/16/21 06/16/21 06/16/21 Range/Units 03:45 12:35 17:20 WBC (3.8-10.6) k/uL RBC (4.30-5.90) m/uL Hgb (13.0-17.5) gm/dL Hct (39.0-53.0) % Neutrophils # (Manual) (1.3-7.7) k/uL Lymphocytes # (Manual) (1.0-4.8) k/uL Monocytes # (Manual) (0-1.0) k/uL Metamyelocytes # (Man) (0) k/uL Myelocytes # (Manual) (0) k/uL D-Dimer (<0.60) mg/L FEU ABG pCO2 (35-45) mmHg ABG pO2 (83-108) mmHg ABG HCO3 (21-25) mmol/L ABG Total CO2 (19-24) mmol/L Sodium (137-145) mmol/L Chloride (98-107) mmol/L Carbon Dioxide (22-30) mmol/L BUN (9-20) mg/dL Glucose (74-99) mg/dL POC Glucose (mg/dL) 139 H (75-99) mg/dL Calcium (8.4-10.2) mg/dL Magnesium (1.6-2.3) mg/dL Ferritin (22.0-322.0) ng/mL Lactate Dehydrogenase (313-618) U/L C-Reactive Protein (<1.0) mg/dL Total Protein (6.3-8.2) g/dL Albumin (3.5-5.0) g/dL Procalcitonin 0.78 H (0.02-0.09) ng/mL Urine Protein 1+ H (Negative) Urine Ketones 1+ H (Negative) Urine Blood Small H (Negative) Urine RBC 15 H (0-5) /hpf Amorphous Sediment Few H (None) /hpf Urine Mucus Rare H (None) /hpf 06/16/21 06/17/21 06/17/21 Range/Units 23:46 03:35 03:35 WBC 15.6 H (3.8-10.6) k/uL RBC 3.79 L (4.30-5.90) m/uL Hgb 11.4 L (13.0-17.5) gm/dL Hct 34.7 L (39.0-53.0) % Neutrophils # (Manual) 12.90 H (1.3-7.7) k/uL Lymphocytes # (Manual) 0.62 L (1.0-4.8) k/uL Monocytes # (Manual) 1.25 H (0-1.0) k/uL Metamyelocytes # (Man) 0.47 H (0) k/uL Myelocytes # (Manual) 0.31 H (0) k/uL D-Dimer (<0.60) mg/L FEU ABG pCO2 (35-45) mmHg ABG pO2 (83-108) mmHg ABG HCO3 (21-25) mmol/L ABG Total CO2 (19-24) mmol/L Sodium (137-145) mmol/L Chloride (98-107) mmol/L Carbon Dioxide (22-30) mmol/L BUN (9-20) mg/dL Glucose (74-99) mg/dL POC Glucose (mg/dL) 117 H (75-99) mg/dL Calcium (8.4-10.2) mg/dL Magnesium (1.6-2.3) mg/dL Ferritin (22.0-322.0) ng/mL Lactate Dehydrogenase (313-618) U/L C-Reactive Protein (<1.0) mg/dL Total Protein (6.3-8.2) g/dL Albumin (3.5-5.0) g/dL Procalcitonin 0.80 H (0.02-0.09) ng/mL Urine Protein (Negative) Urine Ketones (Negative) Urine Blood (Negative) Urine RBC (0-5) /hpf Amorphous Sediment (None) /hpf Urine Mucus (None) /hpf 06/17/21 06/17/21 06/17/21 Range/Units 03:35 03:35 06:03 WBC (3.8-10.6) k/uL RBC (4.30-5.90) m/uL Hgb (13.0-17.5) gm/dL Hct (39.0-53.0) % Neutrophils # (Manual) (1.3-7.7) k/uL Lymphocytes # (Manual) (1.0-4.8) k/uL Monocytes # (Manual) (0-1.0) k/uL Metamyelocytes # (Man) (0) k/uL Myelocytes # (Manual) (0) k/uL D-Dimer 1.45 H (<0.60) mg/L FEU ABG pCO2 57 H (35-45) mmHg ABG pO2 79 L (83-108) mmHg ABG HCO3 35 H (21-25) mmol/L ABG Total CO2 37 H (19-24) mmol/L Sodium 146 H (137-145) mmol/L Chloride 110 H (98-107) mmol/L Carbon Dioxide 32 H (22-30) mmol/L BUN 45 H (9-20) mg/dL Glucose 132 H (74-99) mg/dL POC Glucose (mg/dL) (75-99) mg/dL Calcium 8.3 L (8.4-10.2) mg/dL Magnesium 2.7 H (1.6-2.3) mg/dL Ferritin 1300.0 H (22.0-322.0) ng/mL Lactate Dehydrogenase 1369 H (313-618) U/L C-Reactive Protein 24.9 H (<1.0) mg/dL Total Protein 5.3 L (6.3-8.2) g/dL Albumin 2.5 L (3.5-5.0) g/dL Procalcitonin (0.02-0.09) ng/mL Urine Protein (Negative) Urine Ketones (Negative) Urine Blood (Negative) Urine RBC (0-5) /hpf Amorphous Sediment (None) /hpf Urine Mucus (None) /hpf 06/17/21 06/17/21 Range/Units 06:11 11:25 WBC (3.8-10.6) k/uL RBC (4.30-5.90) m/uL Hgb (13.0-17.5) gm/dL Hct (39.0-53.0) % Neutrophils # (Manual) (1.3-7.7) k/uL Lymphocytes # (Manual) (1.0-4.8) k/uL Monocytes # (Manual) (0-1.0) k/uL Metamyelocytes # (Man) (0) k/uL Myelocytes # (Manual) (0) k/uL D-Dimer (<0.60) mg/L FEU ABG pCO2 (35-45) mmHg ABG pO2 (83-108) mmHg ABG HCO3 (21-25) mmol/L ABG Total CO2 (19-24) mmol/L Sodium (137-145) mmol/L Chloride (98-107) mmol/L Carbon Dioxide (22-30) mmol/L BUN (9-20) mg/dL Glucose (74-99) mg/dL POC Glucose (mg/dL) 130 H 155 H (75-99) mg/dL Calcium (8.4-10.2) mg/dL Magnesium (1.6-2.3) mg/dL Ferritin (22.0-322.0) ng/mL Lactate Dehydrogenase (313-618) U/L C-Reactive Protein (<1.0) mg/dL Total Protein (6.3-8.2) g/dL Albumin (3.5-5.0) g/dL Procalcitonin (0.02-0.09) ng/mL Urine Protein (Negative) Urine Ketones (Negative) Urine Blood (Negative) Urine RBC (0-5) /hpf Amorphous Sediment (None) /hpf Urine Mucus (None) /hpf Microbiology - Last 24 Hours (Table) 06/16/21 19:04 Blood Culture Gram Stain - Preliminary Blood 06/16/21 19:04 Blood Culture - Final Blood
[2021-06-17] MEDS: VANCOMYCIN 2,250 MG in SODIUM CHLORIDE 0.9% 500 ML 500 ML IVPB ONE ×2 (14:30→15:05)
[2021-06-17 18:36] LABS: Glucose,Whole Blood 180 mg/dL (75-99)
[2021-06-17] MEDS: CLEVIDIPINE BUTYRATE 25 MG in EMPTY BAG 1 BAG IV SCH (18:51)
[2021-06-17] MEDS: fentaNYL (PF) 2,500 MCG in SODIUM CHLORIDE 0.9% 200 ML IV SCH (19:58)
[2021-06-18] MEDS ORDERED: VANCOMYCIN 2,250 MG in SODIUM CHLORIDE 0.9% 500 ML 500 ML IVPB SCH ×2
[2021-06-18 00:40] LABS: Glucose,Whole Blood 140 mg/dL (75-99)
[2021-06-18] MEDS: INSULIN ASPART (NovoLOG) 100 UNIT/ML VIAL SQ SCH ×4 (00:44→17:54)
[2021-06-18] MEDS: ARTIFICIAL TEARS-HYPROMELLOSE DROPS 15 ML BTL BOTH EYES SCH ×7 (00:44→23:39)
[2021-06-18] MEDS: fentaNYL (PF) 2,500 MCG in SODIUM CHLORIDE 0.9% 200 ML IV SCH ×4 (01:29→18:45)
[2021-06-18 05:04] LABS: ABG Base Excess 8.5 mmol/L; ABG HCO3 36 mmol/L (21-25); ABG Oxygen Saturation 92.7 % (94-97); ABG PH 7.24 (7.35-7.45); ABG PO2 71 mmHg (83-108); ABG TCO2 38 mmol/L (19-24)
[2021-06-18 05:21] LABS: Glucose,Whole Blood 155 mg/dL (75-99)
[2021-06-18 05:26] LABS: ABG PCO2 83 mmHg (35-45); Allen Test Performed? no
[2021-06-18 05:41] LABS: HCT 37.3 % (39.0-53.0); HGB 11.9 gm/dL (13.0-17.5); Hypochromasia Slight; MCH 30.2 pg (25.0-35.0); MCV 94.3 fL (80.0-100.0); Mean Platelet Volume 8.6; Platelet Count 327 k/uL (150-450); RBC 3.96 m/uL (4.30-5.90); WBC 29.1 k/uL (3.8-10.6)
[2021-06-18 06:24] LABS: Albumin 2.5 g/dL (3.5-5.0); Calcium 8.5 mg/dL (8.4-10.2); Potassium 5.2 mmol/L (3.5-5.1); Total Bilirubin 0.7 mg/dL (0.2-1.3); Total Protein 5.6 g/dL (6.3-8.2)
--- NOTE | 2021-06-18 07:44 | XR ---
EXAMINATION TYPE: XR chest 1V portable DATE OF EXAM: 06/18/2021 CLINICAL HISTORY: Difficulty breathing progress study. TECHNIQUE: Single AP portable semiupright view of the chest is obtained. COMPARISON: Chest x-ray from one day earlier and older studies FINDINGS: Stable endotracheal and orogastric tubes. Stable left internal jugular central venous cath eter. Bilateral multifocal and confluent reticulonodular opacities redemonstrated. Bilateral perihilar cons olidations. Cardiac silhouette size stable and within normal limits. Osseous structures are intact. IMPRESSION: Bilateral multifocal and confluent opacities consistent with covid-19 infection. No signi ficant change from one day earlier.
[2021-06-18] MEDS ORDERED: ACETAMINOPHEN IV (For NPO) 1,000 MG in EMPTY BAG 1 BAG IVPB STA (08:00)
[2021-06-18] MEDS: DEXAMETHASONE SOD PHOSPHATE 10 MG/ML 1 ML VIAL IVP SCH (08:08)
[2021-06-18] MEDS: CHLORHEXIDINE GLUCONATE 15 ML CUP MUCOUS MEM SCH ×2 (08:10→20:39)
[2021-06-18] MEDS: CHOLECALCIFEROL 25 MCG (1000 IU) TABLET PO SCH (08:11)
[2021-06-18] MEDS: ZINC SULFATE 220 MG CAP PO SCH (08:11)
[2021-06-18] MEDS: ASCORBIC ACID 500 MG TAB PO SCH (08:11)
[2021-06-18] MEDS: ENOXAPARIN 100 MG/ML SYRINGE SQ SCH ×2 (09:02→20:42)
[2021-06-18] MEDS ORDERED: DEXTROSE 5% IN WATER 1,000 ML IV ONE (10:17)
--- NOTE | 2021-06-18 10:17 | P.PN ---
Subjective Progress Note Date: 06/18/21 50-year-old male patient presented to the ED for worsening shortness of breath of 2 weeks' duration and the patient was found to be quite hypoxic. Confirmed to be COVID-19 positive with secondary pneumonia. The patient is not vaccinated. In the ED, the patient was placed on high flow oxygen at 60 L with an FiO2 of 90% in addition to a nonrebreather facemask. Chest x-ray showed diffuse bilateral pulmonary infiltrates right more than left. He did not have a family physician. LDH level was 2098 and a CRP level was 20. Within 24 hours, the patient developed worsening respiratory distress and hypoxemia and the patient had to be intubated and was placed on a mechanical ventilator and the patient has been on mechanical ventilator since 06/11/2021. For now, the patient remains sedated and paralyzed. For now, the patient is on Prop at 60 mics/kilogram per minute and the patient is also Nimbex at 2 mcg/kg per minute and the patient is quite successful mechanical ventilator. He remains an a ssist-control mode on a mechanical ventilator with a rate of 26, tidal volume of 450, FiO2 50% with a PEEP of 20. Chest x-ray showed diffuse breath pulmonary infiltrates. ET tube is in a good location. The patient special by the pulmonary infiltrates left more than right and his chest x-ray findings remain unchanged. The peak and static pressures were noted. The peak airway pressure currently is at 38. The static pressure is 36. The chest x-ray from today is showing by the pulmonary infiltrates. ET tube needs to be pushed in by around 1 cm. The patient has a left subclavian triple-lumen catheter in place. The chest x-ray was noted. The d-dimer was elevated at 34 and the patient underwent a CT angiogram on 06/12/2021 showing small filling defects in the right upper lobe suspicious for pulmonary embolism. There was large areas of perihilar and basilar pulmonary infiltrates consistent with pneumonia. Based on all this, the patient is currently on Decadron 6 mg IV every 24 hours, therapeutic dose of Lovenox 100 mg subcu every 12 hours in addition to normal saline at the rate of 75 mL an hour. Patient is also on clevidipine for blood pressure control. This morning, the patient is off the clevidipine drip. He is maintaining a decent blood pressure. The pH is at 7.4 with a pCO2 57 and pO2 of 79 on the above- mentioned ventilator setting. The LDH level is at 1369 with a CRP level of 5.3. There that fluid balance has been positive over the past several days and the p atient is +1.8 L over the past 24 hours. His weight is up by at least 6 kg. On today's evaluation of 06/18/2021, the patient is being seen for a follow-up. The patient is a subcortical-related pneumonia with secondary respiratory failure, currently intubated on a mechanical ventilator. The patient remains sedated and paralyzed. The patient was intubated on 06/11/2021. For now, the patient is on propofol running at 60 mcg/kg per minute and the patient is also sent and are running at 4 mcg/kg/h and Nimbex running at 1 mcg/kg per minute. The patient remains on a mechanical ventilator. The patient remains on assist control mode at a rate of 26, tidal volume of 400, FiO2 of 50% with a PEEP of 20. The peak airway pressure is 36. The diet The chest x-ray from today shows right perihilar and lower lobe pulmonary infiltrate. There is also a left lower lobe pulmonary infiltrate. ET tube is in a good location. Comparing this chest x-ray to the one that was done yesterday showed interval worsening of the pulmonary infiltrates especially on the right. Meanwhile, the patient has deve loped some leukocytosis. White cell count is up to 29. The pro-calcitonin level was minimally elevated at 0.8 from yesterday. The patient is febrile with a temperature of 103 max and currently is running a temperature 102.7. The patient was given a dose of vancomycin for the staph epidermidis in his blood culture which is probably a contaminant. This was only present in 1 out of 2 blood cultures. Nevertheless, the concern for an infection. Infection is highly likely knowing that the patient is still afebrile and the patient is developing new infiltration of the right lower lobe. The same time, the patient developed an acute kidney injury. Creatinine is up to 1.6 which is higher comp ared to yesterday. Potassium level is up to 5.2 and the sodium level is at 146. Note that the patient was given Lasix yesterday for significant fluid overload. He did have a adequate urine output and his negative fluid balance as mentioned negative over the past 24 hours. Nevertheless, his overall body weight is still up and the patient continues to be edematous in all 4 extremities. The patient is receiving enteral feeding for nutritional support. Currently is on vital AF at the rate of 28 mL an hour. The inflammatory markers were not checked today. Levels from yesterday was noted. The patient remains on Decadron 6 mg IV every 24 hours. Objective - Vital Signs Vital signs: Vital Signs Temp 102.7 F H 06/18/21 09:00 Pulse 131 H 06/18/21 09:00 Resp 26 H 06/18/21 09:00 BP 96/61 06/18/21 09:00 Pulse Ox 90 L 06/18/21 09:00 Intake & Output 06/17/21 06/18/21 06/18/21 18:59 06:59 18:59 Intake Total 8259.276 4289.979 197.808 Output Total 2900 950 45 Balance -8670.506 9443.979 152.808 Weight 116.8 kg 120 kg Intake: IV 503 616 46 Pressure bags 78 36 6 Sodium Chloride 0.9% 1, 425 80 40 000 ml @ 20 mls/hr IV . Q24H [facility] Rx#:[id number] Vancomycin 2,250 mg In 500 Sodium Chloride 0.9% 500 ml 500 ml @ 167 mls/hr IVPB Q12H [facility] Rx#: [id number] Intake, IV Titration 912.123 3034.979 95.808 Amount Cisatracurium 200 mg In 231.136 Sodium Chloride 0.9% 180 ml @ 1 MCG/KG/MIN 6.696 mls/hr IV .Q24H [facility] Rx#: [id number] fentaNYL (PF) 2,500 mcg 482.821 In Sodium Chloride 0.9% 200 ml @ 3 MCG/KG/HR 35. 04 mls/hr IV .Q7H9M [facility] Rx#:[id number] fentaNYL (PF). 1,000 mcg 56.843 78.645 In Sodium Chloride 0.9% 80 ml @ 0.5 MCG/KG/HR 5. 84 mls/hr IV .Q17H8M [facility] Rx#:[id number] propofoL 1,000 mg In 300 447.513 95.808 Empty Bag 1 bag @ Titrate IV .Q0M [facility] Rx#: [id number] Tube Feeding 202 336 56 Other 90 90 Output: Urine 2900 950 45 Other: Voiding Method Indwelling Catheter Indwelling Catheter ABP, PAP, CO, CI - Last Documented Arterial Blood Pressure 119/53 - Exam Gen. appearance No acute distress, sedated and paralyzed. The patient has an orally placed endotracheal tube and NG tube. HEENT examination is grossly unremarkable. Neck supple. Full range of motion. No adenopathy thyromegaly or neck vein distention. Cardiovascular examination reveals regular rhythm rate. S1-S2 normal. No S3 or S4. No discernible murmur noted. Heart sounds are distant. Heart rate 112 bpm. Lungs reveal diffuse bilateral rhonchi. No wheezes or crackles. Breath sounds are equal bilaterally. Abdominal exam revealed normal bowel sounds. The abdomen was soft, non-tender, and without masses, organomegaly, or appreciable enlargement of the abdominal aorta. Extremities are intact. No cyanosis clubbing or edema. Examination of the skin revealed no evidence of significant rashes, suspicious appearing nevi or other concerning lesions. Neurologic examination cannot be assessed at this time given the sedation and paralysis. - Labs CBC & Chem 7: 06/18/21 05:20 06/18/21 05:20 Labs: Abnormal Lab Results - Last 24 Hours (Table) 06/17/21 06/17/21 06/17/21 Range/Units 03:35 03:35 11:25 WBC (3.8-10.6) k/uL RBC (4.30-5.90) m/uL Hgb (13.0-17.5) gm/dL Hct (39.0-53.0) % ABG pH (7.35-7.45) ABG pCO2 (35-45) mmHg ABG pO2 (83-108) mmHg ABG HCO3 (21-25) mmol/L ABG Total CO2 (19-24) mmol/L ABG O2 Saturation (94-97) % Sodium (137-145) mmol/L Potassium (3.5-5.1) mmol/L Chloride (98-107) mmol/L Carbon Dioxide (22-30) mmol/L BUN (9-20) mg/dL Creatinine (0.66-1.25) mg/dL Glucose (74-99) mg/dL POC Glucose (mg/dL) 155 H (75-99) mg/dL Ferritin 1300.0 H (22.0-322.0) ng/mL Total Protein (6.3-8.2) g/dL Albumin (3.5-5.0) g/dL Procalcitonin 0.80 H (0.02-0.09) ng/mL 06/17/21 06/18/21 06/18/21 Range/Units 18:34 00:38 05:00 WBC (3.8-10.6) k/uL RBC (4.30-5.90) m/uL Hgb (13.0-17.5) gm/dL Hct (39.0-53.0) % ABG pH 7.24 L (7.35-7.45) ABG pCO2 83 H* (35-45) mmHg ABG pO2 71 L (83-108) mmHg ABG HCO3 36 H (21-25) mmol/L ABG Total CO2 38 H (19-24) mmol/L ABG O2 Saturation 92.7 L (94-97) % Sodium (137-145) mmol/L Potassium (3.5-5.1) mmol/L Chloride (98-107) mmol/L Carbon Dioxide (22-30) mmol/L BUN (9-20) mg/dL Creatinine (0.66-1.25) mg/dL Glucose (74-99) mg/dL POC Glucose (mg/dL) 180 H 140 H (75-99) mg/dL Ferritin (22.0-322.0) ng/mL Total Protein (6.3-8.2) g/dL Albumin (3.5-5.0) g/dL Procalcitonin (0.02-0.09) ng/mL 06/18/21 06/18/21 06/18/21 Range/Units 05:20 05:20 05:20 WBC 29.1 H (3.8-10.6) k/uL RBC 3.96 L (4.30-5.90) m/uL Hgb 11.9 L (13.0-17.5) gm/dL Hct 37.3 L (39.0-53.0) % ABG pH (7.35-7.45) ABG pCO2 (35-45) mmHg ABG pO2 (83-108) mmHg ABG HCO3 (21-25) mmol/L ABG Total CO2 (19-24) mmol/L ABG O2 Saturation (94-97) % Sodium 146 H (137-145) mmol/L Potassium 5.2 H (3.5-5.1) mmol/L Chloride 109 H (98-107) mmol/L Carbon Dioxide 35 H (22-30) mmol/L BUN 50 H (9-20) mg/dL Creatinine 1.68 H (0.66-1.25) mg/dL Glucose 160 H (74-99) mg/dL POC Glucose (mg/dL) 155 H (75-99) mg/dL Ferritin (22.0-322.0) ng/mL Total Protein 5.6 L (6.3-8.2) g/dL Albumin 2.5 L (3.5-5.0) g/dL Procalcitonin (0.02-0.09) ng/mL Microbiology - Last 24 Hours (Table) 06/16/21 19:04 Blood Culture Gram Stain - Preliminary Blood Blood Culture - Preliminary Staphylococcus epidermidis 06/16/21 19:04 Blood Culture - Final Blood Assessment and Plan Plan: 1 Acute hypoxemic respiratory failure secondary to coronavirus associated pneumonia, with worsening hypoxemic respiratory failure, and need for intubation and mechanical ventilation on the morning of 06/12/2021 and the patient has been intubated and sedated and paralyzed since. The patient that she has bilateral pulmonary infiltrates with a CT angiogram that was done showed a suspicious area pulmonary artery embolism in the right upper lobe and for that reason the patient is currently on therapeutic dose of Lovenox. The patient remains on Decadron. The chest x-ray was noted. The patient's remains on Decadron and therapeutic dose of Lovenox. Peak/ static pressure remains quite elevated. The patient continues to be in the same condition as of yesterday. Chest x-ray from today and the blood gases was noted. There is obviously a concern of a right lower lobe pneumonia. The patient is developing fever and new infiltration of the right lower lobe in Addition to leukocytosis. As such, the patient will be covered with empiric antibiotics. 2 acute pulmonary embolism, suspicious areas of filling defect in the right upper lobe with elevated d-dimer of above 30 for currently on Lovenox, therapeutic doses 3 ARDS with diffuse bilateral pulmonary infiltrates secondary to COVID-19 related to pneumonia 4 Elevated inflammatory marker secondary to coronavirus infection. 5 Obesity 6 hypertension currently off clevidipine drip 7 acute leukocytosis 8 fever 9 staph epidermidis in the blood, likely contaminant 10 acute kidney injury 11 hypernatremia Plan: Continue ventilator support, no ventilator changes for today, currently on a combination of propofol and fentanyl for sedation and Nimbex for paralytics. *The patient on D5 water at the rate of 75 Yasmin hour. Noted some mild hypernatremia and acute kidney injury Sputum Gram stain and culture Repeat another set of blood cultures Cover the patient with IV cefepime 2 g every 12 hours and keep the vancomycin on hold Monitor renal function and avoid diuretics today Keep the patient Decadron 6 mg IV every 24 hours Continue therapeutic dose of Lovenox 100 mg subcu every 12 hours Keep the patient sedated with propofol Nimbex on paralytics IV fluids will be cut down to KVO, and the patient will be given a dose of Lasix Enteral feeding for nutritional support Obtain Doppler of the lower extremities was completed and was negative for DVT Monitor inflammatory markers and repeat levels in a.m. Condition is critical and this critically care evaluation was done more than 30 minutes Time with Patient: Greater than 30 Time with Patient: Greater than 30
[2021-06-18] MEDS ORDERED: bisacodyL 10 MG SUPP RECTAL STA (10:20)
[2021-06-18] MEDS ORDERED: CEFEPIME 2 GM in SODIUM CHLORIDE 0.9% 100 ML IVPB ONE (10:45)
[2021-06-18 11:32] LABS: Glucose,Whole Blood 184 mg/dL (75-99)
--- NOTE | 2021-06-18 12:10 | P.PN ---
Subjective Progress Note Date: 06/18/21 Principal diagnosis: shortness of breath Patient is a 50-year-old male who presented with confusion and low oxygen status, was found to be by EMS to have an oxygen saturation of 50%. On arrival to the ER he had a temperature of 100.5, pulse 125, respirations 36, and he was satting 77% on a 15 L nonrebreather. In the ER he was found to have a white blood cell count of 17.4, sodium 130, glucose 208, lactic acid 3.4, LDH 2098, and CRP 20. His COVID test came back positive. Chest x-ray showed lateral multifocal opacities right greater than left is reviewed by myself. He was started on AirVo and NRB. He was given 1 L bolus and 10 mg of Decadron. He was seen by pulmonary critical care and arrangements were made for admission to the ICU. His breathing worsening overnight and he required intubation on 06/12. His d-dimer was >34 and he was started on full dose lovenox. He was taken for CT chest which could not rule out right upper lobe PE. He did require paralytic. His FiO2 was able to be decreased to 90%. His peep was increased and his FiO2 was weaned. He spiked fevers on 06/16 and cultures were sent Procalcitonin remained low. His blood cultures became positive on 06/17 and he was started on vanco, culture came back staph epi and vanco was discontinued. He continued to spike fevers and was started on cefepime and hensley culture was ordered X 2 on 05/21 and 06/18 when fevers had not abated. Patient seen and examined at bedside. He is sedated and Paralysed on the vent. + Worsening fevers overnight. General: ill appearing, no distress, appears at stated age Derm: warm, diaphoretic Head: atraumatic, normocephalic, symmetric Eyes: no lid lesion, pupils pinpoint anicteric sclera Mouth: no lip lesion, mucus membranes dry Cardiovascular: S1S2 reg, no murmur, positive posterior tibial pulse bilateral, Lungs: Course bs bilateral, no rhonchi, no rales , no accessory muscle use Abdominal: soft, nontender to palpation, no guarding, no appreciable organomegaly Ext: no gross muscle atrophy, no edema, no contractures Neuro: No withdrawal to pain, not breathing over the vent Psych: sedated on vent COVID-19 pneumonitis in an unvaccinated individual Acute hypoxic respiratory failure Toxic encephalopthy due to hypoxia Right upper lobe pulmonary embolism - decadron - Vit D, Vit C, Zinc - Follow inflammatory labs - pulm hygiene - pulm recs - lovenox Staph epi on blood culture - likely contaminant - repeat blood cultures HTN - cleveprix off 06/14 - follow BP Leukocytosis with pyrexia - UA neg on 06/16, repeat - Sputum culture ordered 06/16 and unable to collect due to no secretions. - Cefepime - Less likely MH- check UA and CPK obesity with BMI 38.4 - structured outpatient weight loss Hyponatremia, resolved Lactic acidosis, resolved Hypokalemia, resolved updated over the phone DVT prophylaxis: Lovenox Discussed with: nursing Anticipated discharge date: undetermined Anticipated discharge place: undetermined A total of 36 minutes was spent on the care of this complex patient more than 50% of the time was spent in counseling and care coordination. Objective - Vital Signs Vital signs: Vital Signs Temp 102.7 F H 06/18/21 09:00 Pulse 126 H 06/18/21 10:00 Resp 26 H 06/18/21 10:00 BP 96/61 06/18/21 09:00 Pulse Ox 89 L 06/18/21 10:00 Intake & Output 06/17/21 06/18/21 06/18/21 18:59 06:59 18:59 Intake Total 4286.985 2524.979 347.239 Output Total 2900 950 55 Balance -7862.023 6319.979 292.239 Weight 116.8 kg 120 kg Intake: IV 503 616 69 Pressure bags 78 36 9 Sodium Chloride 0.9% 1, 425 80 60 000 ml @ 20 mls/hr IV . Q24H [facility] Rx#:[id number] Vancomycin 2,250 mg In 500 Sodium Chloride 0.9% 500 ml 500 ml @ 167 mls/hr IVPB Q12H [facility] Rx#: [id number] Intake, IV Titration 335.594 4694.979 194.239 Amount Cisatracurium 200 mg In 231.136 Sodium Chloride 0.9% 180 ml @ 1 MCG/KG/MIN 6.696 mls/hr IV .Q24H [facility] Rx#: [id number] fentaNYL (PF) 2,500 mcg 482.821 In Sodium Chloride 0.9% 200 ml @ 3 MCG/KG/HR 35. 04 mls/hr IV .Q7H9M [facility] Rx#:[id number] fentaNYL (PF). 1,000 mcg 56.843 78.645 In Sodium Chloride 0.9% 80 ml @ 0.5 MCG/KG/HR 5. 84 mls/hr IV .Q17H8M [facility] Rx#:[id number] propofoL 1,000 mg In 300 447.513 194.239 Empty Bag 1 bag @ Titrate IV .Q0M [facility] Rx#: [id number] Tube Feeding 202 336 84 Other 90 90 Output: Urine 2900 950 55 Other: Voiding Method Indwelling Catheter Indwelling Catheter ABP, PAP, CO, CI - Last Documented Arterial Blood Pressure 119/55 - Labs CBC & Chem 7: 06/18/21 05:20 06/18/21 05:20 Labs: Abnormal Lab Results - Last 24 Hours (Table) 06/17/21 06/18/21 06/18/21 Range/Units 18:34 00:38 05:00 WBC (3.8-10.6) k/uL RBC (4.30-5.90) m/uL Hgb (13.0-17.5) gm/dL Hct (39.0-53.0) % ABG pH 7.24 L (7.35-7.45) ABG pCO2 83 H* (35-45) mmHg ABG pO2 71 L (83-108) mmHg ABG HCO3 36 H (21-25) mmol/L ABG Total CO2 38 H (19-24) mmol/L ABG O2 Saturation 92.7 L (94-97) % Sodium (137-145) mmol/L Potassium (3.5-5.1) mmol/L Chloride (98-107) mmol/L Carbon Dioxide (22-30) mmol/L BUN (9-20) mg/dL Creatinine (0.66-1.25) mg/dL Glucose (74-99) mg/dL POC Glucose (mg/dL) 180 H 140 H (75-99) mg/dL Total Protein (6.3-8.2) g/dL Albumin (3.5-5.0) g/dL 06/18/21 06/18/2106/18/21 Range/Units 05:20 05:20 05:20 WBC 29.1 H (3.8-10.6) k/uL RBC 3.96 L (4.30-5.90) m/uL Hgb 11.9 L (13.0-17.5) gm/dL Hct 37.3 L (39.0-53.0) % ABG pH (7.35-7.45) ABG pCO2 (35-45) mmHg ABG pO2 (83-108) mmHg ABG HCO3 (21-25) mmol/L ABG Total CO2 (19-24) mmol/L ABG O2 Saturation (94-97) % Sodium 146 H (137-145) mmol/L Potassium 5.2 H (3.5-5.1) mmol/L Chloride 109 H (98-107) mmol/L Carbon Dioxide 35 H (22-30) mmol/L BUN 50 H (9-20) mg/dL Creatinine 1.68 H (0.66-1.25) mg/dL Glucose 160 H (74-99) mg/dL POC Glucose (mg/dL) 155 H (75-99) mg/dL Total Protein 5.6 L (6.3-8.2) g/dL Albumin 2.5 L (3.5-5.0) g/dL 06/18/21 Range/Units 11:30 WBC (3.8-10.6) k/uL RBC (4.30-5.90) m/uL Hgb (13.0-17.5) gm/dL Hct (39.0-53.0) % ABG pH (7.35-7.45) ABG pCO2 (35-45) mmHg ABG pO2 (83-108) mmHg ABG HCO3 (21-25) mmol/L ABG Total CO2 (19-24) mmol/L ABG O2 Saturation (94-97) % Sodium (137-145) mmol/L Potassium (3.5-5.1) mmol/L Chloride (98-107) mmol/L Carbon Dioxide (22-30) mmol/L BUN (9-20) mg/dL Creatinine (0.66-1.25) mg/dL Glucose (74-99) mg/dL POC Glucose (mg/dL) 184 H (75-99) mg/dL Total Protein (6.3-8.2) g/dL Albumin (3.5-5.0) g/dL Microbiology - Last 24 Hours (Table) 06/16/21 19:04 Blood Culture Gram Stain - Preliminary Blood Blood Culture - Preliminary Staphylococcus epidermidis 06/16/21 19:04 Blood Culture - Final Blood
[2021-06-18] MEDS: ACETAMINOPHEN TAB 325 MG TAB OG-TUBE PRN (13:12)
[2021-06-18 16:25] LABS: Glucose,Whole Blood 163 mg/dL (75-99)
[2021-06-18 17:36] LABS: Glucose,Whole Blood 145 mg/dL (75-99)
[2021-06-18] MEDS: CLEVIDIPINE BUTYRATE 25 MG in EMPTY BAG 1 BAG IV SCH (17:57)
[2021-06-18] MEDS: CISATRACURIUM 200 MG in SODIUM CHLORIDE 0.9% 180 ML IV SCH (20:21)
[2021-06-18] MEDS: CEFEPIME 2 GM in SODIUM CHLORIDE 0.9% 100 ML IVPB SCH (20:40)
[2021-06-18 22:28] LABS: Albumin 2.4 g/dL (3.5-5.0); Calcium 8.3 mg/dL (8.4-10.2); Potassium 5.5 mmol/L (3.5-5.1); Total Protein 5.5 g/dL (6.3-8.2)
[2021-06-18 22:37] LABS: Total Bilirubin 0.4 mg/dL (0.2-1.3)
[2021-06-18] MEDS ORDERED: SODIUM BICARB 8.4% 50 ML SYR (1 MEQ/ML) IV STA (23:13)
[2021-06-19 00:12] LABS: Glucose,Whole Blood 109 mg/dL (75-99)
[2021-06-19] MEDS: INSULIN ASPART (NovoLOG) 100 UNIT/ML VIAL SQ SCH ×4 (00:53→19:00)
[2021-06-19] MEDS: fentaNYL (PF) 2,500 MCG in SODIUM CHLORIDE 0.9% 200 ML IV SCH ×3 (03:00→18:59)
[2021-06-19] MEDS: ARTIFICIAL TEARS-HYPROMELLOSE DROPS 15 ML BTL BOTH EYES SCH ×4 (04:37→15:34)
[2021-06-19 05:00] LABS: HCT 30.5 % (39.0-53.0); HGB 10.5 gm/dL (13.0-17.5); MCH 32.6 pg (25.0-35.0); MCHC 34.6 g/dL (31.0-37.0); MCV 94.4 fL (80.0-100.0); Mean Platelet Volume 8.7; Platelet Count 287 k/uL (150-450); RBC 3.23 m/uL (4.30-5.90); RDW 14.6 % (11.5-15.5); WBC 24.3 k/uL (3.8-10.6)
[2021-06-19 06:04] LABS: Albumin 2.3 g/dL (3.5-5.0); Calcium 8.9 mg/dL (8.4-10.2); Potassium 5.8 mmol/L (3.5-5.1); Total Bilirubin 0.5 mg/dL (0.2-1.3); Total Protein 5.2 g/dL (6.3-8.2)
[2021-06-19 06:09] LABS: Glucose,Whole Blood 127 mg/dL (75-99)
[2021-06-19 06:24] LABS: ABG Base Excess 6.9 mmol/L; ABG HCO3 34 mmol/L (21-25); ABG PH 7.27 (7.35-7.45); ABG PO2 81 mmHg (83-108); ABG TCO2 36 mmol/L (19-24)
[2021-06-19 06:27] LABS: ABG PCO2 73 mmHg (35-45); Allen Test Performed? no
[2021-06-19] MEDS ORDERED: INSULIN REGULAR 100 UNIT/ML VIAL (IV) IV ONE (08:50)
[2021-06-19] MEDS ORDERED: DEXTROSE 50% SYRINGE 50 ML IVP STA (08:50)
[2021-06-19] MEDS ORDERED: SODIUM CHLORIDE 0.9% 500 ML 500 ML IV ONE (08:50)
[2021-06-19] MEDS ORDERED: SODIUM CHLORIDE 0.9% 500 ML 1,000 ML IV ONE (09:05)
[2021-06-19] MEDS ORDERED: HEPARIN SODIUM 1,000 UN/ML (10ML VL) IV PRN (09:06)
[2021-06-19 09:09] LABS: C Reactive Protein 25.9 mg/dL (<1.0)
--- NOTE | 2021-06-19 09:25 | P.PN ---
Subjective Progress Note Date: 06/19/21 50-year-old male patient presented to the ED for worsening shortness of breath of 2 weeks' duration and the patient was found to be quite hypoxic. Confirmed to be COVID-19 positive with secondary pneumonia. The patient is not vaccinated. In the ED, the patient was placed on high flow oxygen at 60 L with an FiO2 of 90% in addition to a nonrebreather facemask. Chest x-ray showed diffuse bilateral pulmonary infiltrates right more than left. He did not have a family physician. LDH level was 2098 and a CRP level was 20. Within 24 hours, the patient developed worsening respiratory distress and hypoxemia and the patient had to be intubated and was placed on a mechanical ventilator and the patient has been on mechanical ventilator since 06/11/2021. For now, the patient remains sedated and paralyzed. For now, the patient is on Prop at 60 mics/kilogram per minute and the patient is also Nimbex at 2 mcg/kg per minute and the patient is quite successful mechanical ventilator. He remains an ass ist-control mode on a mechanical ventilator with a rate of 26, tidal volume of 450, FiO2 50% with a PEEP of 20. Chest x-ray showed diffuse breath pulmonary infiltrates. ET tube is in a good location. The patient special by the pulmonary infiltrates left more than right and his chest x-ray findings remain unchanged. The peak and static pressures were noted. The peak airway pressure currently is at 38. The static pressure is 36. The chest x-ray from today is showing by the pulmonary infiltrates. ET tube needs to be pushed in by around 1 cm. The patient has a left subclavian triple-lumen catheter in place. The chest x-ray was noted. The d-dimer was elevated at 34 and the patient underwent a CT angiogram on 06/12/2021 showing small filling defects in the right upper lobe suspicious for pulmonary embolism. There was large areas of perihilar and basilar pulmonary infiltrates consistent with pneumonia. Based on all this, the patient is currently on Decadron 6 mg IV every 24 hours, therapeutic dose of Lovenox 100 mg subcu every 12 hours in addition to normal saline at the rate of 75 mL an hour. Patient is also on clevidipine for blood pressure control. This morning, the patient is off the clevidipine drip. He is maintaining a decent blood pressure. The pH is at 7.4 with a pCO2 57 and pO2 of 79 on the above- mentioned ventilator setting. The LDH level is at 1369 with a CRP level of 5.3. There that fluid balance has been positive over the past several days and the patient is +1.8 L over the past 24 hours. His weight is up by at least 6 kg. On today's evaluation of 06/18/2021, the patient is being seen for a follow-up. The patient is a subcortical-related pneumonia with secondary respiratory failure, currently intubated on a mechanical ventilator. The patient remains sedated and paralyzed. The patient was intubated on 06/11/2021. For now, the patient is on propofol running at 60 mcg/kg per minute and the patient is also sent and are running at 4 mcg/kg/h and Nimbex running at 1 mcg/kg per minute. The patient remains on a mechanical ventilator. The patient remains on assist control mode at a rate of 26, tidal volume of 400, FiO2 of 50% with a PEEP of 20. The peak airway pressure is 36. The diet The chest x-ray from today shows right perihilar and lower lobe pulmonary infiltrate. There is also a left lower lobe pulmonary infiltrate. ET tube is in a good location. Comparing this chest x-ray to the one that was done yesterday showed interval worsening of the pulmonary infiltrates especially on the right. Meanwhile, the patient has developed some leukocytosis. White cell count is up to 29. The pro-calcitonin level was minimally elevated at 0.8 from yesterday. The patient is febrile with a temperature of 103 max and currently is running a temperature 102.7. The patient was given a dose of vancomycin for the staph epidermidis in his blood culture which is probably a contaminant. This was only present in 1 out of 2 blood cultures. Nevertheless, the concern for an infection. Infection is highly likely knowing that the patient is still afebrile and the patient is developing new infiltration of the right lower lobe. The same time, the patient developed an acute kidney injury. Creatinine is up to 1.6 which is higher compared to yesterday. Potassium level is up to 5.2 and the sodium level is at 146. Note that the patient was given Lasix yesterday for significant fluid overload. He did have a adequate urine output and his negative fluid balance as mentioned negative over the past 24 hours. Nevertheless, his overall body weight is still up and the patient continues to be edematous in all 4 extremities. The patient is receiving enteral feeding for nutritional support. Currently is on vital AF at the rate of 28 mL an hour. The inflammatory markers were not checked today. Levels from yesterday was noted. The patient remains on Decadron 6 mg IV every 24 hours. On 06/19/2021 patient seen in follow-up in the intensive care unit. He remains sedated and paralyzed and intubated on mechanical ventilator, current vent settings are assist control with a rate of 26, tidal 400, FiO2 of 50% and PEEP of 20, this morning's blood gas shows pO2 of 81, pCO2 of 73, and pH is 7.27, this was done on above-mentioned vent settings and FiO2 of 50%, O2 saturations are at 93%. Peak airway pressure is 33, and plateau pressure is 32. Hemodynamically patient is stable, not requiring any vasopressor support, he is currently on Diprivan at 40 mics per kilo per minute, sentinel is at 3 mics per kilo per minute, Nimbex is at 2 mics per kilo per minute, and maintenance IV fluids with D5W at 75 ML per hour, in sinus mechanism, slightly tachycardic with a rate of 107 BPM. Patient is tolerating tube feedings, currently on vital AF at a rate of 21 with a goal of 21, and standard water flushes with 30 mL every 4 hours, his labs 7 reviewed, white blood cell count slightly improved and is down to 24.3, hemoglobin is 10.5, d-dimer is 1.76, patient was found to have a new acute pulmonary embolism in the right upper lobe, and is currently on therapeutic doses of Lovenox at 100 mg twice daily, serum sodium has normalized and is down to 144, potassium is 5.8, chloride is 108, CO2 is 31, renal function has worsened, BUN is 70 and creatinine is up to 3.9 to LFTs are within normal limits, inflammatory markers are relatively stable, LDH is 1335, not if, changed since yesterday his last CRP was improving couple days ago and was down to 24.9, his pro-calcitonin level on yesterday's labs was at 1.48, and there was a susp icion for underlying bacterial infection and patient was covered with a combination of cefepime and vancomycin. In addition patient was developing a new airspace disease in the right lower lobe with the possibility of bacterial infection. Baricitinib was discontinued. Patient continues on Decadron 6 mg daily Blood culture from 06/18/2021 showed Staphylococcus epidermidis, urine culture was sent and is pending, urinalysis showed no clear evidence of infection. Sputum culture is yet to be sent. Overnight patient's urine output has dropped to 10-15 ML per hour, nephrology has been consulted. Objective - Vital Signs Vital signs: Vital Signs Temp 98.9 F 06/19/21 08:00 Pulse 107 H 06/19/21 09:00 Resp 27 H 06/19/21 09:00 BP 117/61 06/18/21 21:00 Pulse Ox 94 L 06/19/21 09:00 Intake & Output 06/18/21 06/19/21 06/19/21 18:59 06:59 18:59 Intake Total 2156.959 2021.578 326 Output Total 190 170 35 Balance 3360.062 5416.578 291 Weight 120 kg 120.5 kg Intake: IV 93 1042 284 Cefepime 2 gm In Sodium 100 Chloride 0.9% 100 ml @ 25 mls/hr IVPB Q12HR [facility] Rx #:[id number] Dextrose 5% in Water 1, 825 225 000 ml @ 75 mls/hr IV . [id number] [facility] Rx#:[id number] Pressure bags 33 36 9 Sodium Chloride 0.9% 1, 60 81 50 000 ml @ 20 mls/hr IV . Q24H [facility] Rx#:[id number] Intake, IV Titration 1751.959 607.578 Amount Cefepime 2 gm In Sodium 100 Chloride 0.9% 100 ml @ 200 mls/hr IVPB ONCE [facility] Rx#:[id number] Cisatracurium 200 mg In 168.864 Sodium Chloride 0.9% 180 ml @ 1 MCG/KG/MIN 6.696 mls/hr IV .Q24H [facility] Rx#: [id number] Dextrose 5% in Water 1, 600 75 000 ml @ 75 mls/hr IV . [id number] [facility] Rx#:[id number] fentaNYL (PF) 2,500 mcg 488.856 250 In Sodium Chloride 0.9% 200 ml @ 3 MCG/KG/HR 35. 04 mls/hr IV .Q7H9M [facility] Rx#:[id number] propofoL 1,000 mg In 394.239 282.578 Empty Bag 1 bag @ Titrate IV .Q0M [facility] Rx#: [id number] Tube Feeding 252 252 42 Other 60 120 Output: Urine 190 170 35 Other: Voiding Method Indwelling Catheter Indwelling Catheter ABP, PAP, CO, CI - Last Documented Arterial Blood Pressure 132/55 - Exam GENERAL EXAM: Sedated, intubated, paralyzed, obese 50-year-old white male, on assist control mode of ventilation with FiO2 of 50% and PEEP of 20, comfortable in no apparent distress. HEAD: Normocephalic/atraumatic. EYES: Normal reaction of pupils, equal size. Conjunctiva pink, sclera white. NOSE: Clear with pink turbinates. THROAT: No erythema or exudates. NECK: No masses, no JVD, no thyroid enlargement, no adenopathy. CHEST: No chest wall deformity. Symmetrical expansion. LUNGS: Equal air entry with no crackles, wheeze, rhonchi or dullness. CVS: Regular rate and rhythm, normal S1 and S2, no gallops, no murmurs, no rubs ABDOMEN: Soft, obese, nontender. No hepatosplenomegaly, normal bowel sounds, no guarding or rigidity. EXTREMITIES: No clubbing, no edema, no cyanosis, 2+ pulses and upper and lower extremities. MUSCULOSKELETAL: Muscle strength and tone normal. SPINE: No scoliosis or deformity SKIN: No rashes CENTRAL NERVOUS SYSTEM: Sedated, paralyzed and intubated No focal deficits, tone is normal in all 4 extremities. - Labs CBC & Chem 7: 06/19/21 04:15 06/19/21 04:15 Labs: Abnormal Lab Results - Last 24 Hours (Table) 06/18/21 06/18/21 06/18/21 Range/Units 05:20 11: 16:23 WBC (3.8-10.6) k/uL RBC (4.30-5.90) m/uL Hgb (13.0-17.5) gm/dL Hct (39.0-53.0) % D-Dimer (<0.60) mg/L FEU ABG pH (7.35-7.45) ABG pCO2 (35-45) mmHg ABG pO2 (83-108) mmHg ABG HCO3 (21-25) mmol/L ABG Total CO2 (19-24) mmol/L Potassium (3.5-5.1) mmol/L Chloride (98-107) mmol/L Carbon Dioxide (22-30) mmol/L BUN (9-20) mg/dL Creatinine (0.66-1.25) mg/dL Glucose (74-99) mg/dL POC Glucose (mg/dL) 184 H 163 H (75-99) mg/dL Calcium (8.4-10.2) mg/dL Lactate Dehydrogenase (313-618) U/L Creatine Kinase (55-170) U/L C-Reactive Protein (<1.0) mg/dL Total Protein (6.3-8.2) g/dL Albumin (3.5-5.0) g/dL Procalcitonin 1.48 H (0.02-0.09) ng/mL 06/18/21 06/18/21 06/18/21 Range/Units 17:33 21:15 21:15 WBC (3.8-10.6) k/uL RBC (4.30-5.90) m/uL Hgb (13.0-17.5) gm/dL Hct (39.0-53.0) % D-Dimer (<0.60) mg/L FEU ABG pH (7.35-7.45) ABG pCO2 (35-45) mmHg ABG pO2 (83-108) mmHg ABG HCO3 (21-25) mmol/L ABG Total CO2 (19-24) mmol/L Potassium 5.5 H (3.5-5.1) mmol/L Chloride (98-107) mmol/L Carbon Dioxide (22-30) mmol/L BUN 67 H (9-20) mg/dL Creatinine 3.30 H (0.66-1.25) mg/dL Glucose 132 H (74-99) mg/dL POC Glucose (mg/dL) 145 H (75-99) mg/dL Calcium 8.3 L (8.4-10.2) mg/dL Lactate Dehydrogenase (313-618) U/L Creatine Kinase <20 L (55-170) U/L C-Reactive Protein (<1.0) mg/dL Total Protein 5.5 L (6.3-8.2) g/dL Albumin 2.4 L (3.5-5.0) g/dL Procalcitonin (0.02-0.09) ng/mL 06/19/21 06/19/21 06/19/21 Range/Units 00:10 04:15 04:15 WBC 24.3 H (3.8-10.6) k/uL RBC 3.23 L (4.30-5.90) m/uL Hgb 10.5 L (13.0-17.5) gm/dL Hct 30.5 L (39.0-53.0) % D-Dimer 1.76 H (<0.60) mg/L FEU ABG pH (7.35-7.45) ABG pCO2 (35-45) mmHg ABG pO2 (83-108) mmHg ABG HCO3 (21-25) mmol/L ABG Total CO2 (19-24) mmol/L Potassium (3.5-5.1) mmol/L Chloride (98-107) mmol/L Carbon Dioxide (22-30) mmol/L BUN (9-20) mg/dL Creatinine (0.66-1.25) mg/dL Glucose (74-99) mg/dL POC Glucose (mg/dL) 109 H (75-99) mg/dL Calcium (8.4-10.2) mg/dL Lactate Dehydrogenase (313-618) U/L Creatine Kinase (55-170) U/L C-Reactive Protein (<1.0) mg/dL Total Protein (6.3-8.2) g/dL Albumin (3.5-5.0) g/dL Procalcitonin (0.02-0.09) ng/mL 06/19/21 06/19/21 06/19/21 Range/Units 04:15 06:08 06:21 WBC (3.8-10.6) k/uL RBC (4.30-5.90) m/uL Hgb (13.0-17.5) gm/dL Hct (39.0-53.0) % D-Dimer (<0.60) mg/L FEU ABG pH 7.27 L (7.35-7.45) ABG pCO2 73 H* (35-45) mmHg ABG pO2 81 L (83-108) mmHg ABG HCO3 34 H (21-25) mmol/L ABG Total CO2 36 H (19-24) mmol/L Potassium 5.8 H (3.5-5.1) mmol/L Chloride 108 H (98-107) mmol/L Carbon Dioxide 31 H (22-30) mmol/L BUN 70 H (9-20) mg/dL Creatinine 3.92 H (0.66-1.25) mg/dL Glucose 133 H (74-99) mg/dL POC Glucose (mg/dL) 127 H (75-99) mg/dL Calcium (8.4-10.2) mg/dL Lactate Dehydrogenase 1335 H (313-618) U/L Creatine Kinase (55-170) U/L C-Reactive Protein 25.9 H (<1.0) mg/dL Total Protein 5.2 L (6.3-8.2) g/dL Albumin 2.3 L (3.5-5.0) g/dL Procalcitonin (0.02-0.09) ng/mL Microbiology - Last 24 Hours (Table) 06/18/21 13:00 Urine Culture - Preliminary Urine,Catheterized Assessment and Plan Plan: #1. Acute hypoxemic respiratory failure secondary to coronavirus associated pneumonia, with worsening hypoxemic respiratory failure, and need for intubation and mechanical ventilation on the morning of 06/12/2021 and the patient has been intubated and sedated and paralyzed since. The patient that she has bilateral pulmonary infiltrates with a CT angiogram that was done showed a suspicious area pulmonary artery embolism in the right upper lobe and for that reason the patient is currently on therapeutic dose of Lovenox. The patient remains on Decadron. The chest x-ray was noted. The patient's remains on Decadron and therapeutic dose of Lovenox. Peak/ static pressure remains quite elevated. The patient continues to be in the same condition as of yesterday. Chest x-ray from today and the blood gases was noted. There is obviously a concern of a right lower lobe pneumonia. The patient is developing fever and new infiltration of the right lower lobe in Addition to leukocytosis. As such, the patient will be covered with empiric antibiotics, on combination of cefepime and vancomycin #2. Acute pulmonary embolism, suspicious areas of filling defect in the right upper lobe with elevated d-dimer of above 30 for currently on Lovenox, therapeutic doses #3. ARDS with diffuse bilateral pulmonary infiltrates secondary to COVID-19 related to pneumonia #4. Elevated inflammatory marker secondary to coronavirus infection. #5. Obesity #6. Hypertension currently off clevidipine drip #7. Acute leukocytosis, #8. Fever #9. Staph epidermidis in the blood, likely contaminant #10. Acute kidney injury, worsened #11. Hypernatremia, resolved Plan: Continue same ventilator settings We will attempt paralytic holiday today Continue Diprivan and fentanyl infusions Kidney function continues to worsen Nephrology has been consulted The patient 1 L IV fluid bolus, changed IV fluids 0.9 normal saline at a rate of 75 ML per hour, obtain CVP reading, send lactate level If no improvement in the urine outputs will give a dose of IV Lasix 60 mg Patient will likely need hemodialysis catheter insertion Switch Lovenox to IV heparin for newly diagnosed pulmonary embolism Continue current antibiotic coverage We'll send follow blood cultures and sputum culture Urinalysis shows no clear evidence of infection Today's chest x-ray is still pending Continue Decadron Baricitinib has been discontinued Continue tube feeding for nutritional support Overall prognosis is guarded I performed a history & physical examination of the patient and discussed their management with my nurse practitioner, Robyn Luciano. I reviewed the nurse practitioner's note and agree with the documented findings and plan of care. Lung sounds are positive for diminished breath sounds throughout the lung loredo. The findings and the impression was discussed with the patient. I attest to the documentation by the nurse practitioner. Time with Patient: Greater than 30
--- NOTE | 2021-06-19 09:45 | XR ---
EXAMINATION TYPE: XR chest 1V DATE OF EXAM: 06/19/2021 COMPARISON: 06/18/21 HISTORY: SOB, Follow Up FINDINGS: Indwelling tubes and catheters are unchanged. Diffuse bilateral infiltrates persist unchanged. Stable appearance of the cardio-mediastinal structures at this time. Pleural effusion unchanged. IMPRESSION: 1. Diffuse bilateral infiltrates persist unchanged. Clinical correlation and follow up until resolu tion is recommended.
[2021-06-19] MEDS: CHLORHEXIDINE GLUCONATE 15 ML CUP MUCOUS MEM SCH ×2 (10:01→22:10)
[2021-06-19] MEDS: ZINC SULFATE 220 MG CAP PO SCH (10:01)
[2021-06-19] MEDS: CHOLECALCIFEROL 25 MCG (1000 IU) TABLET PO SCH (10:01)
[2021-06-19] MEDS: ASCORBIC ACID 500 MG TAB PO SCH (10:01)
[2021-06-19] MEDS: CEFEPIME 2 GM in SODIUM CHLORIDE 0.9% 100 ML IVPB SCH (10:02)
[2021-06-19] MEDS: DEXAMETHASONE SOD PHOSPHATE 10 MG/ML 1 ML VIAL IVP SCH (10:02)
[2021-06-19] MEDS: SODIUM CHLORIDE 0.9% 1,000 ML IV SCH (10:03)
[2021-06-19 10:23] LABS: INR 0.9 (<1.2); Partial Thromboplastin Time 29.5 sec (22.0-30.0); Prothrombin Time 10.2 sec (9.0-12.0)
[2021-06-19 12:21] LABS: Glucose,Whole Blood 138 mg/dL (75-99)
[2021-06-19] MEDS: PANTOPRAZOLE 40 MG/10 ML VIAL IVP SCH (15:34)
--- NOTE | 2021-06-19 16:27 | CONS ---
CONSULTATION REASON FOR CONSULT: Renal failure, hyperkalemia. HISTORY OF PRESENT ILLNESS: The patient is a 50-year-old male who is being treated for Covid pneumonia. He was initially admitted on June 11 with decreased responsiveness and acute hypoxic respiratory failure. The patient has been on the vent. His renal function has deteriorated over the last 2-3 days with serum creatinine going up from around 1.0 on June 17 to 3.92 today. Blood pressure was low initially on admission, especially on 06/18/2021, but most recently it has not been low with systolic around 120-130 mmHg. Heart rate about 117-108 per minute. Patient did receive IV contrast for chest CTA on 06/12/2021. He had small pulmonary emboli in the right upper lobe. Urine output dropped to about 15 to 0 mL an hour last night. The patient was given 500 mL bolus and another 500 mL bolus this morning and his urine output seems to have picked up now. He did receive Lasix about 2 days ago. Chest x-ray shows mostly pneumonia. Patient's FiO2 is at main is maintained at 50% and he has been fairly stable. Potassium was 5.8, CO2 was 31 today. PAST MEDICAL HISTORY: Significant for hypertension. PAST SURGICAL HISTORY: Left knee arthroscopy. SOCIAL HISTORY: Negative for smoking, drug abuse or alcohol abuse. MEDICATIONS: Medications at home none. ALLERGIES: None. EXAMINATION: Patient is currently sedated. He is on the vent. Blood pressure 98/50. Heart rate 108 per minute. He is afebrile. Examination shows trace edema bilaterally. Abdomen is soft, nontender. Lungs and heart are not examined. [employer] exam cannot be performed as patient is sedated. LAB: Show sodium 144, potassium 5.8, chloride 108, CO2 is 31, BUN 70, creatinine 3.9, hemoglobin 10.5 g/dL. ASSESSMENT: 1. Acute kidney injury, acute tubular necrosis, currently oliguric, but with improved urine output post fluid bolus. We will continue with the IV hydration for now. 2. Hyperkalemia associated with acute kidney injury. Expect improvement with improved urine output. We will treat with IV glucose and insulin for now. Adjust tube feeds to Nepro. 3. Acute hypoxic respiratory failure secondary to COVID pneumonia. 4. Coivd pneumonia, maintained on treatment. Also being treated for possible superimposed bacterial pneumonia. His blood cultures grew Staph epi. PLAN: Repeat potassium later on today. Continue with IV hydration. Avoid nephrotoxic agents. MMODL / IJN: [id number] /
[2021-06-19] MEDS: HEPARIN SOD,PORK IN 0.45% NACL 25,000 UNIT in 0.45% NACL 1 250ML.BAG IV SCH (17:20)
[2021-06-19 17:25] LABS: Glucose,Whole Blood 169 mg/dL (75-99)
--- NOTE | 2021-06-19 18:02 | P.PN ---
Subjective Progress Note Date: 06/19/21 Patient is a 50-year-old male who presented with confusion and low oxygen status, was found to be by EMS to have an oxygen saturation of 50%. On arrival to the ER he had a temperature of 100.5, pulse 125, respirations 36, and he was satting 77% on a 15 L nonrebreather. In the ER he was found to have a white blood cell count of 17.4, sodium 130, glucose 208, lactic acid 3.4, LDH 2098, and CRP 20. His COVID test came back positive. Chest x-ray showed lateral multifocal opacities right greater than left is reviewed by myself. He was started on AirVo and NRB. He was given 1 L bolus and 10 mg of Decadron. He was seen by pulmonary critical care and arrangements were made for admission to the ICU. His breathing worsening overnight and he required intubation on 06/12. His d-dimer was >34 and he was started on full dose lovenox. He was taken for CT chest which could not rule out right upper lobe PE. He did require paralytic. His FiO2 was able to be decreased to 90%. His peep was increased and his FiO2 was weaned. He spiked fevers on 06/16 and cultures were sent Procalcitonin remained low. His blood cultures became positive on 06/17 and he was started on vanco, culture came back staph epi and vanco was discontinued. He continued to spike fevers and was started on cefepime and hensley culture was ordered X 2 on 06/16 and 06/18 when fevers had not abated. Patient remains intubated and sedated. Patient's renal function is worsening. Objective - Vital Signs Vital signs: Vital Signs Temp 98.9 F 06/19/21 16:00 Pulse 101 H 06/19/21 17:00 Resp 16 06/19/21 17:00 BP 117/61 06/18/21 21:00 Pulse Ox 95 06/19/21 17:00 Intake & Output 06/18/21 06/19/21 06/19/21 18:59 06:59 18:59 Intake Total 2156.959 2021.578 1589.2 Output Total 190 170 160 Balance 5614.835 4723.578 1429.2 Weight 120 kg 120.5 kg Intake: IV 93 1042 1178 Cefepime 2 gm In Sodium 100 Chloride 0.9% 100 ml @ 25 mls/hr IVPB Q12HR [facility] Rx #:[id number] Dextrose 5% in Water 1, 825 375 000 ml @ 75 mls/hr IV . [id number] [facility] Rx#:[id number] Pressure bags 33 36 33 Sodium Chloride 0.9% 1, 60 81 770 000 ml @ 20 mls/hr IV . Q24H [facility] Rx#:[id number] Intake, IV Titration 1751.959 607.578 248.2 Amount Cefepime 2 gm In Sodium 100 Chloride 0.9% 100 ml @ 200 mls/hr IVPB [facility] Rx#:[id number] Cisatracurium 200 mg In 168.864 Sodium Chloride 0.9% 180 ml @ 1 MCG/KG/MIN 6.696 mls/hr IV .Q24H [facility] Rx#: [id number] Dextrose 5% in Water 1, 600 75 000 ml @ 75 mls/hr IV . [id number] [facility] Rx#:[id number] fentaNYL (PF) 2,500 mcg 488.856 250 248.2 In Sodium Chloride 0.9% 200 ml @ 3 MCG/KG/HR 35. 04 mls/hr IV .Q7H9M [facility] Rx#:[id number] propofoL 1,000 mg In 394.239 282.578 Empty Bag 1 bag @ Titrate IV .Q0M [facility] Rx#: [id number] Oral 100 Tube Feeding 252 252 63 Other 60 120 Output: Urine 190 170 160 Other: Voiding Method Indwelling Catheter Indwelling Catheter Indwelling Catheter ABP, PAP, CO, CI - Last Documented Arterial Blood Pressure 147/60 - Exam General examination - intubated and sedated Heart - + S1S2 no murmurs Lungs - diminished breath sounds Abdomen soft NT ND +ve BS Extremities - +2 pitting edema in bilateral lower extremities [employer]IST - unable to assess Psych - unable to assess - Labs CBC & Chem 7: 06/19/21 04:15 06/19/21 13:11 Labs: Abnormal Lab Results - Last 24 Hours (Table) 06/18/21 06/18/21 06/19/21 Range/Units 21:15 21:15 00:10 WBC (3.8-10.6) k/uL RBC (4.30-5.90) m/uL Hgb (13.0-17.5) gm/dL Hct (39.0-53.0) % D-Dimer (<0.60) mg/L FEU ABG pH (7.35-7.45) ABG pCO2 (35-45) mmHg ABG pO2 (83-108) mmHg ABG HCO3 (21-25) mmol/L ABG Total CO2 (19-24) mmol/L ABG Lactic Acid (0.5-1.6) mmol/L Potassium 5.5 H (3.5-5.1) mmol/L Chloride (98-107) mmol/L Carbon Dioxide (22-30) mmol/L BUN 67 H (9-20) mg/dL Creatinine 3.30 H (0.66-1.25) mg/dL Glucose 132 H (74-99) mg/dL POC Glucose (mg/dL) 109 H (75-99) mg/dL Calcium 8.3 L (8.4-10.2) mg/dL Lactate Dehydrogenase (313-618) U/L Creatine Kinase <20 L (55-170) U/L C-Reactive Protein (<1.0) mg/dL Total Protein 5.5 L (6.3-8.2) g/dL Albumin 2.4 L (3.5-5.0) g/dL 06/19/21 06/19/21 06/19/21 Range/Units 04:15 04:15 04:15 WBC 24.3 H (3.8-10.6) k/uL RBC 3.23 L (4.30-5.90) m/uL Hgb 10.5 L (13.0-17.5) gm/dL Hct 30.5 L (39.0-53.0) % D-Dimer 1.76 H (<0.60) mg/L FEU ABG pH (7.35-7.45) ABG pCO2 (35-45) mmHg ABG pO2 (83-108) mmHg ABG HCO3 (21-25) mmol/L ABG Total CO2 (19-24) mmol/L ABG Lactic Acid (0.5-1.6) mmol/L Potassium 5.8 H (3.5-5.1) mmol/L Chloride 108 H (98-107) mmol/L Carbon Dioxide 31 H (22-30) mmol/L BUN 70 H (9-20) mg/dL Creatinine 3.92 H (0.66-1.25) mg/dL Glucose 133 H (74-99) mg/dL POC Glucose (mg/dL) (75-99) mg/dL Calcium (8.4-10.2) mg/dL Lactate Dehydrogenase 1335 H (313-618) U/L Creatine Kinase (55-170) U/L C-Reactive Protein 25.9 H (<1.0) mg/dL Total Protein 5.2 L (6.3-8.2) g/dL Albumin 2.3 L (3.5-5.0) g/dL 06/19/21 06/19/21 06/19/21 Range/Units 06:08 06:21 08:54 WBC (3.8-10.6) k/uL RBC (4.30-5.90) m/uL Hgb (13.0-17.5) gm/dL Hct (39.0-53.0) % D-Dimer (<0.60) mg/L FEU ABG pH 7.27 L (7.35-7.45) ABG pCO2 73 H* (35-45) mmHg ABG pO2 81 L (83-108) mmHg ABG HCO3 34 H (21-25) mmol/L ABG Total CO2 36 H (19-24) mmol/L ABG Lactic Acid <0.5 L (0.5-1.6) mmol/L Potassium (3.5-5.1) mmol/L Chloride (98-107) mmol/L Carbon Dioxide (22-30) mmol/L BUN (9-20) mg/dL Creatinine (0.66-1.25) mg/dL Glucose (74-99) mg/dL POC Glucose (mg/dL) 127 H (75-99) mg/dL Calcium (8.4-10.2) mg/dL Lactate Dehydrogenase (313-618) U/L Creatine Kinase (55-170) U/L C-Reactive Protein (<1.0) mg/dL Total Protein (6.3-8.2) g/dL Albumin (3.5-5.0) g/dL 06/19/21 06/19/2121 Range/Units 12:19 13:11 17:24 WBC (3.8-10.6) k/uL RBC (4.30-5.90) m/uL Hgb (13.0-17.5) gm/dL Hct (39.0-53.0) % D-Dimer (<0.60) mg/L FEU ABG pH (7.35-7.45) ABG pCO2 (35-45) mmHg ABG pO2 (83-108) mmHg ABG HCO3 (21-25) mmol/L ABG Total CO2 (19-24) mmol/L ABG Lactic Acid (0.5-1.6) mmol/L Potassium 5.4 H (3.5-5.1) mmol/L Chloride (98-107) mmol/L Carbon Dioxide (22-30) mmol/L BUN (9-20) mg/dL Creatinine (0.66-1.25) mg/dL Glucose (74-99) mg/dL POC Glucose (mg/dL) 138 H 169 H (75-99) mg/dL Calcium (8.4-10.2) mg/dL Lactate Dehydrogenase (313-618) U/L Creatine Kinase (55-170) U/L C-Reactive Protein (<1.0) mg/dL Total Protein (6.3-8.2) g/dL Albumin (3.5-5.0) g/dL Microbiology - Last 24 Hours (Table) 06/18/21 13:00 Urine Culture - Final Urine,Catheterized 06/18/21 13:00 Blood Culture - Preliminary Blood No Growth after 24 hours 06/16/21 19:04 Blood Culture Gram Stain - Final Blood Blood Culture - Final Staphylococcus epidermidis Coagulase Negative Staph Assessment and Plan Assessment: COVID-19 pneumonitis in an unvaccinated individual Acute hypoxic respiratory failure Toxic encephalopthy due to hypoxia Right upper lobe pulmonary embolism Right lower lobe pneumonia - decadron - Vit D, Vit C, Zinc - Follow inflammatory labs - pulm hygiene - pulm recs - lovenox -Patient started on vancomycin and cefepime Acute kidney injury -Nephrology consult Staph epi on blood culture - likely contaminant - repeat blood cultures HTN - cleveprix off 06/14 - follow BP obesity with BMI 38.4 - structured outpatient weight loss Hyponatremia, resolved Lactic acidosis, resolved Hypokalemia, resolved Prognosis is guarded DVT prophylaxis: Lovenox Discussed with: nursing Anticipated discharge date: undetermined Anticipated discharge place: undetermined
[2021-06-19] MEDS ORDERED: FUROSEMIDE 10 MG/ML 10 ML VIAL IV STA (18:54)
[2021-06-19] MEDS: CEFEPIME 1 GM in SODIUM CHLORIDE 0.9% 50 ML IVPB SCH (22:10)
[2021-06-19 23:42] LABS: Glucose,Whole Blood 108 mg/dL (75-99)
[2021-06-20] MEDS: INSULIN ASPART (NovoLOG) 100 UNIT/ML VIAL SQ SCH ×4 (00:07→18:09)
[2021-06-20] MEDS: ARTIFICIAL TEARS-HYPROMELLOSE DROPS 15 ML BTL BOTH EYES SCH ×7 (00:08→21:13)
[2021-06-20] MEDS: fentaNYL (PF) 2,500 MCG in SODIUM CHLORIDE 0.9% 200 ML IV SCH ×3 (01:28→18:55)
[2021-06-20] MEDS: HEPARIN SOD,PORK IN 0.45% NACL 25,000 UNIT in 0.45% NACL 1 250ML.BAG IV SCH ×2 (01:29→15:04)
[2021-06-20 05:16] LABS: Glucose,Whole Blood 110 mg/dL (75-99)
[2021-06-20 05:28] LABS: Basophils # (A) 0.1 k/uL (0-0.2); Basophils % (A) 0 %; Eosinophils # (A) 0.3 k/uL (0-0.7); Eosinophils % (A) 1 %; HCT 31.7 % (39.0-53.0); HGB 10.3 gm/dL (13.0-17.5); Lymphocytes # (A) 0.7 k/uL (1.0-4.8); Lymphocytes % (A) 3 %; MCH 30.1 pg (25.0-35.0); MCHC 32.5 g/dL (31.0-37.0); MCV 92.4 fL (80.0-100.0); Mean Platelet Volume 9.3; Monocytes # (A) 0.8 k/uL (0-1.0); Monocytes % (A) 4 %; Neutrophils # (A) 21.3 k/uL (1.3-7.7); Neutrophils % (A) 91 %; Platelet Count 253 k/uL (150-450); RBC 3.43 m/uL (4.30-5.90); WBC 23.4 k/uL (3.8-10.6)
[2021-06-20 05:35] LABS: ABG Base Excess 2.2 mmol/L; ABG HCO3 29 mmol/L (21-25); ABG Oxygen Saturation 96.9 % (94-97); ABG PCO2 58 mmHg (35-45); ABG PO2 89 mmHg (83-108); ABG TCO2 30 mmol/L (19-24); Allen Test Performed? Yes
[2021-06-20 06:36] LABS: Albumin 2.5 g/dL (3.5-5.0); Calcium 8.5 mg/dL (8.4-10.2); Potassium 5.2 mmol/L (3.5-5.1); Total Bilirubin 0.5 mg/dL (0.2-1.3); Total Protein 5.6 g/dL (6.3-8.2)
--- NOTE | 2021-06-20 06:49 | XR ---
EXAMINATION TYPE: XR chest 1V DATE OF EXAM: 06/20/2021 CLINICAL HISTORY: Difficulty breathing and covid progress study. TECHNIQUE: Single AP portable semiupright view of the chest is obtained. COMPARISON: Chest x-ray from one day earlier and older studies. FINDINGS: Stable endotracheal and orogastric tubes. Stable left internal jugular central venous cath eter. Bilateral multifocal and confluent reticulonodular opacities redemonstrated. Bilateral perihilar cons olidations. Cardiac silhouette size stable and within normal limits. Osseous structures are intact. IMPRESSION: Bilateral multifocal and confluent opacities consistent with covid-19 infection. No signi ficant change from one day earlier.
[2021-06-20 06:52] LABS: C Reactive Protein 18.9 mg/dL (<1.0)
[2021-06-20] MEDS: CHOLECALCIFEROL 25 MCG (1000 IU) TABLET PO SCH (08:47)
[2021-06-20] MEDS: ASCORBIC ACID 500 MG TAB PO SCH (08:47)
[2021-06-20] MEDS: CHLORHEXIDINE GLUCONATE 15 ML CUP MUCOUS MEM SCH ×2 (08:47→21:27)
[2021-06-20] MEDS: DEXAMETHASONE SOD PHOSPHATE 10 MG/ML 1 ML VIAL IVP SCH (08:49)
[2021-06-20] MEDS: PANTOPRAZOLE 40 MG/10 ML VIAL IVP SCH (08:49)
[2021-06-20] MEDS: ZINC SULFATE 220 MG CAP PO SCH (08:50)
--- NOTE | 2021-06-20 10:26 | P.PN ---
Subjective Progress Note Date: 06/20/21 50-year-old male patient presented to the ED for worsening shortness of breath of 2 weeks' duration and the patient was found to be quite hypoxic. Confirmed to be COVID-19 positive with secondary pneumonia. 06/20/2021, the patient is being seen for a follow-up. This is a topical with activities pneumonia with pulmonary embolism and secondary respiratory failure. For now, the patient is off paralytics. The patient was also taken off the fentanyl drip this morning. Propofol still running at the rate of 50 mcg/kg per minute. Patient remains on a mechanical ventilator. On today's evaluation, he remains on a PEEP of 20 with an FiO2 of 50% tidal volume of 400 with refills any 6. PH is at 7.3 with a pCO2 of 58 and pO2 of 89. Peak airway pressure was around 34. I dropped his PEEP down to 18. The chest x-ray still showing bilateral lower lobe pulmonary infiltrates, stable, probably slightly improved compared to yesterday. He is afebrile. The blood cultures resulted in to staph epidermidis and the patient is currently hemodynamically stable on no pressors. Urine output is in order of 30 mL an hour. Creatinine today is at 5.66 and the potassium level is currently at 5.2. As such, no plans for dialysis at this point in time. The patient is on no pressors for now. Afebrile. He is on enteral feeding with the vital AF at the rate of 28 mL an hour which is goal. He remains on Decadron. Blood work from today shows a white cell count of 23 with a hemoglobin of 10.3 and a platelet count of 253. Rest of the blood work shows a d-dimer level of 1.76, PTT therapeutic at 40.8 while being on IV heparin. BUN of 84 with a creatinine of 5.6. Serum bicarb is a 27. As far as inflammatory markers, the LDH level is at 1406 and a CRP level is at 18.9. He remains on IV cefepime and this is an empiric antibiotic coverage due to concern of superinfection. Objective - Vital Signs Vital signs: Vital Signs Temp 98.9 F 06/20/21 04:00 Pulse 104 H 06/20/21 07:00 Resp 262 H 06/20/21 07:00 BP 117/61 06/18/21 21:00 Pulse Ox 92 L 06/20/21 07:00 Intake & Output 06/19/21 06/20/21 06/20/21 18:59 06:59 18:59 Intake Total 2042.2 2690.075 234 Output Total 175 540 30 Balance 1867.2 2150.075 204 Weight 123 kg Intake: IV 1281 1591 113 Cefepime 1 gm In Sodium 50 Chloride 0.9% 50 ml @ 12. 5 mls/hr IVPB Q12HR [facility] Rx#:[id number] Dextrose 5% in Water 1, 375 225 000 ml @ 75 mls/hr IV . [id number] [facility] Rx#:[id number] Pressure bags 36 36 3 Sodium Chloride 0.9% 1, 1160 110 000 ml @ 125 mls/hr IV . Q8H [facility] Rx#:[id number] Sodium Chloride 0.9% 1, 870 120 000 ml @ 20 mls/hr IV . Q24H [facility] Rx#:[id number] Intake, IV Titration 598.2 757.075 100 Amount Heparin Sod,Pork in 0.45% 281.248 NaCl 25,000 unit In 0.45 % NaCl 1 250ml.bag @ 18 UNITS/KG/HR 21.69 mls/hr IV .[id number] [facility] Rx#: [id number] fentaNYL (PF) 2,500 mcg 498.2 227.176 In Sodium Chloride 0.9% 200 ml @ 3 MCG/KG/HR 35. 04 mls/hr IV .Q7H9M [facility] Rx#:[id number] propofoL 1,000 mg In 100 248.651 100 Empty Bag 1 bag @ Titrate IV .Q0M [facility] Rx#: [id number] Oral 100 Tube Feeding 63 252 21 Other 90 Output: Urine 175 540 30 Other: Voiding Method Indwelling Catheter Indwelling Catheter ABP, PAP, CO, CI - Last Documented Arterial Blood Pressure 168/64 - Exam Gen. appearance No acute distress, sedated and paralyzed. The patient has an o rally placed endotracheal tube and NG tube. HEENT examination is grossly unremarkable. Neck supple. Full range of motion. No adenopathy thyromegaly or neck vein distention. Cardiovascular examination reveals regular rhythm rate. S1-S2 normal. No S3 or S4. No discernible murmur noted. Heart sounds are distant. Heart rate 112 bpm. Lungs reveal diffuse bilateral rhonchi. No wheezes or crackles. Breath sounds are equal bilaterally. Abdominal exam revealed normal bowel sounds. The abdomen was soft, non-tender, and without masses, organomegaly, or appreciable enlargement of the abdominal aorta. Extremities are intact. No cyanosis clubbing or edema. Examination of the skin revealed no evidence of significant rashes, suspicious appearing nevi or other concerning lesions. Neurologic examination cannot be assessed at this time given the sedation and paralysis. - Labs CBC & Chem 7: 06/20/21 05:00 06/20/21 05:00 Labs: Abnormal Lab Results - Last 24 Hours (Table) 06/19/21 06/19/21 06/19/21 Range/Units 12:19 13:11 17:24 WBC (3.8-10.6) k/uL RBC (4.30-5.90) m/uL Hgb (13.0-17.5) gm/dL Hct (39.0-53.0) % Neutrophils # (1.3-7.7) k/uL Lymphocytes # (1.0-4.8) k/uL APTT (22.0-30.0) sec ABG pH (7.35-7.45) ABG pCO2 (35-45) mmHg ABG HCO3 (21-25) mmol/L ABG Total CO2 (19-24) mmol/L Potassium 5.4 H (3.5-5.1) mmol/L BUN (9-20) mg/dL Creatinine (0.66-1.25) mg/dL Glucose (74-99) mg/dL POC Glucose (mg/dL) 138 H 169 H (75-99) mg/dL Lactate Dehydrogenase (313-618) U/L C-Reactive Protein (<1.0) mg/dL Total Protein (6.3-8.2) g/dL Albumin (3.5-5.0) g/dL Procalcitonin (0.02-0.09) ng/mL 06/19/21 06/19/21 06/20/21 Range/Units 23:35 23:40 05:00 WBC (3.8-10.6) k/uL RBC (4.30-5.90) m/uL Hgb (13.0-17.5) gm/dL Hct (39.0-53.0) % Neutrophils # (1.3-7.7) k/uL Lymphocytes # (1.0-4.8) k/uL APTT 45.2 H (22.0-30.0) sec ABG pH (7.35-7.45) ABG pCO2 (35-45) mmHg ABG HCO3 (21-25) mmol/L ABG Total CO2 (19-24) mmol/L Potassium (3.5-5.1) mmol/L BUN (9-20) mg/dL Creatinine (0.66-1.25) mg/dL Glucose (74-99) mg/dL POC Glucose (mg/dL) 108 H (75-99) mg/dL Lactate Dehydrogenase (313-618) U/L C-Reactive Protein (<1.0) mg/dL Total Protein (6.3-8.2) g/dL Albumin (3.5-5.0) g/dL Procalcitonin 2.38 H (0.02-0.09) ng/mL 06/20/21 06/20/21 06/20/21 Range/Units 05:00 05:00 05:00 WBC 23.4 H (3.8-10.6) k/uL RBC 3.43 L (4.30-5.90) m/uL Hgb 10.3 L (13.0-17.5) gm/dL Hct 31.7 L (39.0-53.0) % Neutrophils # 21.3 H (1.3-7.7) k/uL Lymphocytes # 0.7 L (1.0-4.8) k/uL APTT 40.8 H (22.0-30.0) sec ABG pH (7.35-7.45) ABG pCO2 (35-45) mmHg ABG HCO3 (21-25) mmol/L ABG Total CO2 (19-24) mmol/L Potassium 5.2 H (3.5-5.1) mmol/L BUN 84 H (9-20) mg/dL Creatinine 5.66 H (0.66-1.25) mg/dL Glucose 104 H (74-99) mg/dL POC Glucose (mg/dL) (75-99) mg/dL Lactate Dehydrogenase 1416 H (313-618) U/L C-Reactive Protein 18.9 H (<1.0) mg/dL Total Protein 5.6 L (6.3-8.2) g/dL Albumin 2.5 L (3.5-5.0) g/dL Procalcitonin (0.02-0.09) ng/mL 06/20/21 06/20/21 Range/Units 05:14 05:33 WBC (3.8-10.6) k/uL RBC (4.30-5.90) m/uL Hgb (13.0-17.5) gm/dL Hct (39.0-53.0) % Neutrophils # (1.3-7.7) k/uL Lymphocytes # (1.0-4.8) k/uL APTT (22.0-30.0) sec ABG pH 7.30 L (7.35-7.45) ABG pCO2 58 H (35-45) mmHg ABG HCO3 29 H (21-25) mmol/L ABG Total CO2 30 H (19-24) mmol/L Potassium (3.5-5.1) mmol/L BUN (9-20) mg/dL Creatinine (0.66-1.25) mg/dL Glucose (74-99) mg/dL POC Glucose (mg/dL) 110 H (75-99) mg/dL Lactate Dehydrogenase (313-618) U/L C-Reactive Protein (<1.0) mg/dL Total Protein (6.3-8.2) g/dL Albumin (3.5-5.0) g/dL Procalcitonin (0.02-0.09) ng/mL Microbiology - Last 24 Hours (Table) 06/16/21 19:04 Blood Culture Gram Stain - Final Blood Blood Culture - Final Staphylococcus epidermidis Coagulase Negative Staph 06/20/21 03:38 Sputum Culture - Preliminary Sputum 06/18/21 13:00 Urine Culture - Final Urine,Catheterized 06/18/21 13:00 Blood Culture - Preliminary Blood No Growth after 24 hours Assessment and Plan Plan: 1 Acute hypoxemic respiratory failure secondary to coronavirus associated pneumonia, with worsening hypoxemic respiratory failure, and need for intubation and mechanical ventilation on the morning of 06/12/2021 and the patient has been intubated and sedated and paralyzed since. The patient that she has bilateral pulmonary infiltrates with a CT angiogram that was done showed a suspicious area pulmonary artery embolism in the right upper lobe and for that reason the patient is currently on therapeutic dose of Lovenox. The patient remains on Decadron. The chest x-ray was noted. The patient's remains on Decadron and therapeutic dose of Lovenox. Peak/ static pressure remains quite elevated. The patient continues to be in the same condition as of yesterday. Chest x-ray from today and the blood gases was noted. There is obviously a concern of a right lower lobe pneumonia. The patient is developing fever and new infiltration of the right lower lobe in Addition to leukocytosis. As such, the patient will be covered with empiric antibiotics. For now, the patient is on IV cefepime. White cell count remains elevated. Hemodynamically stable on no pressors. Blood culture came back positive for staph epidermidis. 2 acute pulmonary embolism, suspicious areas of filling defect in the right upper lobe with elevated d-dimer of above 30 for currently on Lovenox, th erapeutic doses note that the patient d-dimer is improved and the patient remains on IV heparin. 3 ARDS with diffuse bilateral pulmonary infiltrates secondary to COVID-19 related to pneumonia 4 Elevated inflammatory marker secondary to coronavirus infection. 5 Obesity 6 hypertension currently off clevidipine drip 7 acute leukocytosis 8 fever 9 staph epidermidis in the blood, likely contaminant 10 acute kidney injury, and the creatinine is up to 5.66. The patient received a dose of Lasix 80 mg IV and the urine output improved slightly with subsequent drop. Nephrology is on the case.Her acidosis. No significant electrode disturbance and the potassium level is at 5.2 Plan: Continue ventilator support, drop PEEP to 18 and change to VC plus mode, TV 375 Sputum Gram stain and culture , pending Repeat another set of blood cultures, pending IV cefepime 2 g every 12 hours and keep the vancomycin on hold Monitor renal function Keep the patient Decadron 6 mg IV every 24 hours Continue IV heparin Keep the patient sedated with propofol, off fentanul and off Nimbex IV fluids will be cut down to KVO Enteral feeding for nutritional support Obtain Doppler of the lower extremities was completed and was negative for DVT Monitor inflammatory markers and repeat levels in a.m. Condition is critical and this critically care evaluation was done more than 30 minutes Time with Patient: Greater than 30 Time with Patient: Greater than 30
--- NOTE | 2021-06-20 11:11 | P.PN ---
Subjective Progress Note Date: 06/20/21 Patient is having good urine output. There is no plans for dialysis today. Patient also has maroon-colored urine output. His hemoglobin is stable this morning. Patient is not on any pressors. He remains intubated and sedated. He is on FiO2 of 50%. Objective - Vital Signs Vital signs: Vital Signs Temp 98.9 F 06/20/21 04:00 Pulse 104 H 06/20/21 07:00 Resp 262 H 06/20/21 07:00 BP 117/61 06/18/21 21:00 Pulse Ox 92 L 06/20/21 07:00 Intake & Output 06/19/21 06/20/21 06/20/21 18:59 06:59 18:59 Intake Total 2042.2 2690.075 234 Output Total 175 540 30 Balance 1867.2 2150.075 204 Weight 123 kg Intake: IV 1281 1591 113 Cefepime 1 gm In Sodium 50 Chloride 0.9% 50 ml @ 12. 5 mls/hr IVPB Q12HR COUNT INCLUDES THE [facility] Rx#:[id number] Dextrose 5% in Water 1, 375 225 000 ml @ 75 mls/hr IV . [id number] [facility] Rx#:[id number] Pressure bags 36 36 3 Sodium Chloride 0.9% 1, 1160 110 000 ml @ 125 mls/hr IV . Q8H COUNT INCLUDES THE [facility] Rx#:[id number] Sodium Chloride 0.9% 1, 870 120 000 ml @ 20 mls/hr IV . Q24H COUNT INCLUDES THE [facility] Rx#:[id number] Intake, IV Titration 598.2 757.075 100 Amount Heparin Sod,Pork in 0.45% 281.248 NaCl 25,000 unit In 0.45 % NaCl 1 250ml.bag @ 18 UNITS/KG/HR 21.69 mls/hr IV .[id number] [facility] Rx#: [id number] fentaNYL (PF) 2,500 mcg 498.2 227.176 In Sodium Chloride 0.9% 200 ml @ 3 MCG/KG/HR 35. 04 mls/hr IV .Q7H9M COUNT INCLUDES THE [facility] Rx#:[id number] propofoL 1,000 mg In 100 248.651 100 Empty Bag 1 bag @ Titrate IV .Q0M COUNT INCLUDES THE [facility] Rx#: [id number] Oral 100 Tube Feeding 63 252 21 Other 90 Output: Urine 175 540 30 Other: Voiding Method Indwelling Catheter Indwelling Catheter ABP, PAP, CO, CI - Last Documented Arterial Blood Pressure 168/64 - Exam General examination - intubated and sedated Heart - + S1S2 no murmurs Lungs - diminished breath sounds Abdomen soft NT ND +ve BS Extremities - +2 pitting edema in bilateral lower extremities 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 Psych - unable to assess - Labs CBC & Chem 7: 06/20/21 05:00 06/20/21 05:00 Labs: Abnormal Lab Results - Last 24 Hours (Table) 06/19/21 06/19/21 06/19/21 Range/Units 12:19 13:11 17:24 WBC (3.8-10.6) k/uL RBC (4.30-5.90) m/uL Hgb (13.0-17.5) gm/dL Hct (39.0-53.0) % Neutrophils # (1.3-7.7) k/uL Lymphocytes # (1.0-4.8) k/uL APTT (22.0-30.0) sec ABG pH (7.35-7.45) ABG pCO2 (35-45) mmHg ABG HCO3 (21-25) mmol/L ABG Total CO2 (19-24) mmol/L Potassium 5.4 H (3.5-5.1) mmol/L BUN (9-20) mg/dL Creatinine (0.66-1.25) mg/dL Glucose (74-99) mg/dL POC Glucose (mg/dL) 138 H 169 H (75-99) mg/dL Lactate Dehydrogenase (313-618) U/L C-Reactive Protein (<1.0) mg/dL Total Protein (6.3-8.2) g/dL Albumin (3.5-5.0) g/dL Procalcitonin (0.02-0.09) ng/mL 06/19/21 06/19/21 06/20/21 Range/Units 23:35 23:40 05:00 WBC (3.8-10.6) k/uL RBC (4.30-5.90) m/uL Hgb (13.0-17.5) gm/dL Hct (39.0-53.0) % Neutrophils # (1.3-7.7) k/uL Lymphocytes # (1.0-4.8) k/uL APTT 45.2 H (22.0-30.0) sec ABG pH (7.35-7.45) ABG pCO2 (35-45) mmHg ABG HCO3 (21-25) mmol/L ABG Total CO2 (19-24) mmol/L Potassium (3.5-5.1) mmol/L BUN (9-20) mg/dL Creatinine (0.66-1.25) mg/dL Glucose (74-99) mg/dL POC Glucose (mg/dL) 108 H (75-99) mg/dL Lactate Dehydrogenase (313-618) U/L C-Reactive Protein (<1.0) mg/dL Total Protein (6.3-8.2) g/dL Albumin (3.5-5.0) g/dL Procalcitonin 2.38 H (0.02-0.09) ng/mL 06/20/21 06/20/21 06/20/21 Range/Units 05:00 05:00 05:00 WBC 23.4 H (3.8-10.6) k/uL RBC 3.43 L (4.30-5.90) m/uL Hgb 10.3 L (13.0-17.5) gm/dL Hct 31.7 L (39.0-53.0) % Neutrophils # 21.3 H (1.3-7.7) k/uL Lymphocytes # 0.7 L (1.0-4.8) k/uL APTT 40.8 H (22.0-30.0) sec ABG pH (7.35-7.45) ABG pCO2 (35-45) mmHg ABG HCO3 (21-25) mmol/L ABG Total CO2 (19-24) mmol/L Potassium 5.2 H (3.5-5.1) mmol/L BUN 84 H (9-20) mg/dL Creatinine 5.66 H (0.66-1.25) mg/dL Glucose 104 H (74-99) mg/dL POC Glucose (mg/dL) (75-99) mg/dL Lactate Dehydrogenase 1416 H (313-618) U/L C-Reactive Protein 18.9 H (<1.0) mg/dL Total Protein 5.6 L (6.3-8.2) g/dL Albumin 2.5 L (3.5-5.0) g/dL Procalcitonin (0.02-0.09) ng/mL 06/20/21 06/20/21 Range/Units 05:14 05:33 WBC (3.8-10.6) k/uL RBC (4.30-5.90) m/uL Hgb (13.0-17.5) gm/dL Hct (39.0-53.0) % Neutrophils # (1.3-7.7) k/uL Lymphocytes # (1.0-4.8) k/uL APTT (22.0-30.0) sec ABG pH 7.30 L (7.35-7.45) ABG pCO2 58 H (35-45) mmHg ABG HCO3 29 H (21-25) mmol/L ABG Total CO2 30 H (19-24) mmol/L Potassium (3.5-5.1) mmol/L BUN (9-20) mg/dL Creatinine (0.66-1.25) mg/dL Glucose (74-99) mg/dL POC Glucose (mg/dL) 110 H (75-99) mg/dL Lactate Dehydrogenase (313-618) U/L C-Reactive Protein (<1.0) mg/dL Total Protein (6.3-8.2) g/dL Albumin (3.5-5.0) g/dL Procalcitonin (0.02-0.09) ng/mL Microbiology - Last 24 Hours (Table) 06/16/21 19:04 Blood Culture Gram Stain - Final Blood Blood Culture - Final Staphylococcus epidermidis Coagulase Negative Staph 06/20/21 03:38 Sputum Culture - Preliminary Sputum 06/18/21 13:00 Urine Culture - Final Urine,Catheterized 06/18/21 13:00 Blood Culture - Preliminary Blood No Growth after 24 hours Assessment and Plan Assessment: COVID-19 pneumonitis in an unvaccinated individual Acute hypoxic respiratory failure/ventilator dependent respiratory failure Toxic encephalopthy due to hypoxia Right upper lobe pulmonary embolism Right lower lobe pneumonia - decadron - Vit D, Vit C, Zinc - Follow inflammatory labs - pulm hygiene - pulm recs - Heparin drip -Pie Icer Machine to manage vent -Patient started on vancomycin and cefepime Hematuria -Resume heparin drip for now. Monitor hemoglobin closely. Acute kidney injury -Nephrology consult Staph epi on blood culture - likely contaminant - repeat blood cultures -> blood cultures from 06/18 are negative to date HTN - cleveprix off 06/14 - follow BP obesity with BMI 38.4 - structured outpatient weight loss Hyponatremia, resolved Lactic acidosis, resolved Hypokalemia, resolved Prognosis is guarded DVT prophylaxis: Lovenox Discussed with: nursing Anticipated discharge date: undetermined Anticipated discharge place: undetermined
[2021-06-20] MEDS: CEFEPIME 1 GM in SODIUM CHLORIDE 0.9% 50 ML IVPB SCH ×2 (11:20→21:27)
[2021-06-20] MEDS: SODIUM CHLORIDE 0.9% 1,000 ML IV SCH ×2 (11:50→18:01)
[2021-06-20] MEDS: HYDROmorphone 1 MG/ML 1 ML SYRINGE IVP PRN ×4 (11:51→23:18)
[2021-06-20] MEDS: CLEVIDIPINE BUTYRATE 25 MG in EMPTY BAG 1 BAG IV SCH ×3 (12:45→21:07)
[2021-06-20 13:17] LABS: Glucose,Whole Blood 154 mg/dL (75-99)
--- NOTE | 2021-06-20 14:42 | PN ---
PROGRESS NOTE Patient is seen for followup for acute kidney injury and hyperkalemia. The patient's serum creatinine has worsened to about 5.6 today. His urine output is staying at about 20-30 mL an hour. Patient remains on the vent. FiO2 is at 50%. Given the significant jump in his serum creatinine, he will likely need renal replacement therapy in the next 1-2 days. We will proceed with placement of dialysis catheter. On examination today, the patient the vital signs are reviewed. Blood pressure 168/64, heart rate 104 per minute. Patient is not examined, discussed with the nursing staff. FiO2 is at 50%. Urine output 30-40 mL an hour. The patient is being started on Cleviprex drip as his blood pressure is high. He is maintained on propofol. LABS: Reviewed. Sodium 141, potassium 5.2, chloride 106, BUN 84, creatinine 5.6, hemoglobin 10.3. ASSESSMENT: 1. Acute kidney injury, ATN, currently nonoliguric but given the significant increase in his creatinine since yesterday, patient will likely need renal replacement therapy in the next 24-48 hours. We will proceed with dialysis catheter placement. 2. Hyperkalemia associated with acute kidney injury. Continue to monitor for now. Potassium is 5.2 today. 3. Acute hypoxic respiratory failure. 4. COVID pneumonia maintained on the vent, FiO2 at 50%. O2 sats 92-95%. 5. Hypertension, being started on Cleviprex drip. PLAN: Proceed with dialysis catheter placement. Will repeat labs in a.m. Possible dialysis tomorrow based on labs. MMODL / IJN: [id number] /
--- NOTE | 2021-06-20 16:47 | P.GSCN ---
History of Present Illness History of present illness: 50-year-old white male, patient was seen and to square unit patient has been intubated with covert positive I was consulted. For placement of dialysis catheter. Patient began is 84 creatinine 5.6 potassium 5.2 on examination patient has been intubated Neck is supple chest crackles bilateral Abdomen protuberant no peritoneal sign Femorals are palpable bilateral plan is placement dialysis catheter risk and complication discussed Past Medical History Past Medical History: Hypertension History of Any Multi-Drug Resistant Organisms: None Reported Past Surgical History: Orthopedic Surgery Additional Past Surgical History / Comment(s): left knee scope Past Anesthesia/Blood Transfusion Reactions: No Reported Reaction Past Psychological History: No Psychological Hx Reported Smoking Status: Never smoker Past Alcohol Use History: None Reported - Past Family History Mother Family Medical History: No Reported History Medications and Allergies Home Medications Medication Instructions Recorded Confirmed Type No Known Home Medications 06/11/21 06/11/21 History Allergies Allergy/AdvReac Type Severity Reaction Status Date / Time No Known Allergies Allergy Verified 06/11/21 12:43 Surgical - Exam Vital Signs Temp Pulse Resp BP Pulse Ox 100.5 F H 125 H 36 H 113/63 77 L 06/11/21 11:46 06/11/21 11:46 06/11/21 11:46 06/11/21 11:46 06/11/21 11:46 Results - Labs 06/20/21 05:00 06/20/21 05:00 Abnormal Lab Results - Last 24 Hours (Table) 06/19/21 06/19/21 06/19/21 Range/Units 13:11 17:24 23:35 WBC (3.8-10.6) k/uL RBC (4.30-5.90) m/uL Hgb (13.0-17.5) gm/dL Hct (39.0-53.0) % Neutrophils # (1.3-7.7) k/uL Lymphocytes # (1.0-4.8) k/uL APTT 45.2 H (22.0-30.0) sec ABG pH (7.35-7.45) ABG pCO2 (35-45) mmHg ABG HCO3 (21-25) mmol/L ABG Total CO2 (19-24) mmol/L Potassium 5.4 H (3.5-5.1) mmol/L BUN (9-20) mg/dL Creatinine (0.66-1.25) mg/dL Glucose (74-99) mg/dL POC Glucose (mg/dL) 169 H (75-99) mg/dL Lactate Dehydrogenase (313-618) U/L C-Reactive Protein (<1.0) mg/dL Total Protein (6.3-8.2) g/dL Albumin (3.5-5.0) g/dL Procalcitonin (0.02-0.09) ng/mL 06/19/21 06/20/21 06/20/21 Range/Units 23:40 05:00 05:00 WBC (3.8-10.6) k/uL RBC (4.30-5.90) m/uL Hgb (13.0-17.5) gm/dL Hct (39.0-53.0) % Neutrophils # (1.3-7.7) k/uL Lymphocytes # (1.0-4.8) k/uL APTT (22.0-30.0) sec ABG pH (7.35-7.45) ABG pCO2 (35-45) mmHg ABG HCO3 (21-25) mmol/L ABG Total CO2 (19-24) mmol/L Potassium 5.2 H (3.5-5.1) mmol/L BUN 84 H (9-20) mg/dL Creatinine 5.66 H (0.66-1.25) mg/dL Glucose 104 H (74-99) mg/dL POC Glucose (mg/dL) 108 H (75-99) mg/dL Lactate Dehydrogenase 1416 H (313-618) U/L C-Reactive Protein 18.9 H (<1.0) mg/dL Total Protein 5.6 L (6.3-8.2) g/dL Albumin 2.5 L (3.5-5.0) g/dL Procalcitonin 2.38 H (0.02-0.09) ng/mL 06/20/21 06/20/21 06/20/21 Range/Units 05:00 05:00 05:14 WBC 23.4 H (3.8-10.6) k/uL RBC 3.43 L (4.30-5.90) m/uL Hgb 10.3 L (13.0-17.5) gm/dL Hct 31.7 L (39.0-53.0) % Neutrophils # 21.3 H (1.3-7.7) k/uL Lymphocytes # 0.7 L (1.0-4.8) k/uL APTT 40.8 H (22.0-30.0) sec ABG pH (7.35-7.45) ABG pCO2 (35-45) mmHg ABG HCO3 (21-25) mmol/L ABG Total CO2 (19-24) mmol/L Potassium (3.5-5.1) mmol/L BUN (9-20) mg/dL Creatinine (0.66-1.25) mg/dL Glucose (74-99) mg/dL POC Glucose (mg/dL) 110 H (75-99) mg/dL Lactate Dehydrogenase (313-618) U/L C-Reactive Protein (<1.0) mg/dL Total Protein (6.3-8.2) g/dL Albumin (3.5-5.0) g/dL Procalcitonin (0.02-0.09) ng/mL 06/20/21 06/20/21 06/20/21 Range/Units 05:33 12:30 13:16 WBC (3.8-10.6) k/uL RBC (4.30-5.90) m/uL Hgb (13.0-17.5) gm/dL Hct (39.0-53.0) % Neutrophils # (1.3-7.7) k/uL Lymphocytes # (1.0-4.8) k/uL APTT 54.2 H (22.0-30.0) sec ABG pH 7.30 L (7.35-7.45) ABG pCO2 58 H (35-45) mmHg ABG HCO3 29 H (21-25) mmol/L ABG Total CO2 30 H (19-24) mmol/L Potassium (3.5-5.1) mmol/L BUN (9-20) mg/dL Creatinine (0.66-1.25) mg/dL Glucose (74-99) mg/dL POC Glucose (mg/dL) 154 H (75-99) mg/dL Lactate Dehydrogenase (313-618) U/L C-Reactive Protein (<1.0) mg/dL Total Protein (6.3-8.2) g/dL Albumin (3.5-5.0) g/dL Procalcitonin (0.02-0.09) ng/mL Microbiology - Last 24 Hours (Table) 06/18/21 13:00 Blood Culture - Preliminary Blood No Growth after 48 hours 06/19/21 09:31 Blood Culture - Preliminary Blood No Growth after 24 hours 06/19/21 09:31 Blood Culture - Preliminary Blood No Growth after 24 hours 06/16/21 19:04 Blood Culture Gram Stain - Final Blood Blood Culture - Final Staphylococcus epidermidis Coagulase Negative Staph 06/20/21 03:38 Sputum Culture - Preliminary Sputum 06/18/21 13:00 Urine Culture - Final Urine,Catheterized Diabetes panel 06/19/21 06/20/21 Range/Units 13:11 05:00 Sodium 141 (137-145) mmol/L Potassium 5.4 H 5.2 H (3.5-5.1) mmol/L Chloride 106 (98-107) mmol/L Carbon Dioxide 27 (22-30) mmol/L BUN 84 H (9-20) mg/dL Creatinine 5.66 H (0.66-1.25) mg/dL Glucose 104 H (74-99) mg/dL Calcium 8.5 (8.4-10.2) mg/dL AST 29 (17-59) U/L ALT 26 (4-49) U/L Alkaline Phosphatase 104 (38-126) U/L Total Protein 5.6 L (6.3-8.2) g/dL Albumin 2.5 L (3.5-5.0) g/dL Calcium panel 06/20/21 Range/Units 05:00 Calcium 8.5 (8.4-10.2) mg/dL Albumin 2.5 L (3.5-5.0) g/dL Pituitary panel 06/19/21 06/20/21 Range/Units 13:11 05:00 Sodium 141 (137-145) mmol/L Potassium 5.4 H 5.2 H (3.5-5.1) mmol/L Chloride 106 (98-107) mmol/L Carbon Dioxide 27 (22-30) mmol/L BUN 84 H (9-20) mg/dL Creatinine 5.66 H (0.66-1.25) mg/dL Glucose 104 H (74-99) mg/dL Calcium 8.5 (8.4-10.2) mg/dL Adrenal panel 06/19/21 06/20/21 Range/Units 13:11 05:00 Sodium 141 (137-145) mmol/L Potassium 5.4 H 5.2 H (3.5-5.1) mmol/L Chloride 106 (98-107) mmol/L Carbon Dioxide 27 (22-30) mmol/L BUN 84 H (9-20) mg/dL Creatinine 5.66 H (0.66-1.25) mg/dL Glucose 104 H (74-99) mg/dL Calcium 8.5 (8.4-10.2) mg/dL Total Bilirubin 0.5 (0.2-1.3) mg/dL AST 29 (17-59) U/L ALT 26 (4-49) U/L Alkaline Phosphatase 104 (38-126) U/L Total Protein 5.6 L (6.3-8.2) g/dL Albumin 2.5 L (3.5-5.0) g/dL
--- NOTE | 2021-06-20 16:48 | P.PCN ---
Description of Procedure: Preoperative diagnoses acute renal failure potassium is 5.2 and creatinine 5.6. An 84: Positive intubated Posterior same Procedure right groin was prepped and draped applied sterile manner ultrasound- guided micropuncture and the right femoral vein micropuncture guidewire was passed. And 4-[place] dilator advanced. The guidewire. We placed a regular guidewire without any resistance dilator was advanced on the top the guidewire then we placed a dialysis catheter on the top the guidewire flushed with heparin saline and Hep-Lock secured with 3-0 nylon dressing applied patient are to the procedure well
[2021-06-20 18:08] LABS: Glucose,Whole Blood 135 mg/dL (75-99)
[2021-06-20] MEDS ORDERED: DEXMEDETOMIDINE/0.9% NACL(PMX) 400 MCG in EMPTY BAG 1 BAG IV SCH (20:35)
--- NOTE | 2021-06-20 22:37 | XR ---
EXAMINATION TYPE: XR chest 1V portable DATE OF EXAM: 06/20/2021 COMPARISON: Today HISTORY: Respiratory failure TECHNIQUE: FINDINGS: There is endotracheal tube 4.5 cm from the felix. There is nasogastric tube in the stomach . There is bilateral patchy pulmonary airspace edema. There is left jugular catheter with tip in the superior vena cava. There are chest leads. No pneumothorax. Heart size is normal. IMPRESSION: There is pulmonary interstitial and airspace edema without change compared to exam this sally castellano.
[2021-06-20] MEDS: CISATRACURIUM 200 MG in SODIUM CHLORIDE 0.9% 180 ML IV SCH (23:05)
[2021-06-20 23:43] LABS: Glucose,Whole Blood 112 mg/dL (75-99)
[2021-06-21] MEDS: ARTIFICIAL TEARS-HYPROMELLOSE DROPS 15 ML BTL BOTH EYES SCH ×7 (00:55→23:44)
[2021-06-21] MEDS: INSULIN ASPART (NovoLOG) 100 UNIT/ML VIAL SQ SCH ×4 (02:22→18:51)
[2021-06-21] MEDS: HEPARIN SOD,PORK IN 0.45% NACL 25,000 UNIT in 0.45% NACL 1 250ML.BAG IV SCH ×3 (02:23→21:40)
[2021-06-21] MEDS: fentaNYL (PF) 2,500 MCG in SODIUM CHLORIDE 0.9% 200 ML IV SCH ×3 (02:26→14:03)
[2021-06-21] MEDS ORDERED: SODIUM CHLORIDE 0.9% 500 ML 250 ML IV ONE (04:00)
[2021-06-21 04:28] LABS: Basophils # (A) 0.3 k/uL (0-0.2); Basophils % (A) 1 %; Eosinophils # (A) 0.1 k/uL (0-0.7); Eosinophils % (A) 0 %; HCT 37.6 % (39.0-53.0); HGB 12.1 gm/dL (13.0-17.5); Lymphocytes # (A) 0.2 k/uL (1.0-4.8); Lymphocytes % (A) 0 %; MCH 30.7 pg (25.0-35.0); MCHC 32.2 g/dL (31.0-37.0); MCV 95.2 fL (80.0-100.0); Mean Platelet Volume 9.1; Monocytes # (A) 0.8 k/uL (0-1.0); Monocytes % (A) 2 %; Neutrophils # (A) 40.2 k/uL (1.3-7.7); Neutrophils % (A) 96 %; Platelet Count 399 k/uL (150-450); RBC 3.94 m/uL (4.30-5.90); RDW 14.2 % (11.5-15.5); WBC 41.8 k/uL (3.8-10.6)
[2021-06-21 05:10] LABS: Albumin 2.5 g/dL (3.5-5.0); Potassium 5.7 mmol/L (3.5-5.1); Total Bilirubin 0.5 mg/dL (0.2-1.3); Total Protein 5.6 g/dL (6.3-8.2)
[2021-06-21] MEDS: NOREPINEPHRINE 8 MG in SODIUM CHLORIDE 0.9% 250 ML IV SCH (05:20)
[2021-06-21 05:40] LABS: Glucose,Whole Blood 159 mg/dL (75-99)
[2021-06-21 05:51] LABS: ABG Base Excess -4.1 mmol/L; ABG HCO3 26 mmol/L (21-25); ABG Oxygen Saturation 91.3 % (94-97); ABG PO2 78 mmHg (83-108); ABG TCO2 29 mmol/L (19-24); Allen Test Performed? Yes
[2021-06-21 05:53] LABS: ABG PCO2 87 mmHg (35-45); ABG PH 7.08 (7.35-7.45)
[2021-06-21] MEDS ORDERED: INSULIN REGULAR 100 UNIT/ML VIAL (IV) IV ONE (07:01)
[2021-06-21] MEDS ORDERED: DEXTROSE 50% SYRINGE 50 ML IVP ONE (07:01)
--- NOTE | 2021-06-21 07:44 | XR ---
EXAMINATION TYPE: XR chest 1V DATE OF EXAM: 06/21/2021 COMPARISON: 06/20/2021 INDICATION: Covid TECHNIQUE: Single frontal view of the chest is obtained. FINDINGS: The heart size is normal. The pulmonary vasculature is normal. Diffuse patchy infiltrate is present through the bilateral lung loredo Endotracheal tube tip is above the felix. Nasogastric tube transverses the thorax left central venou s catheter tips in the proximal right atrium. IMPRESSION: 1. Worsening bilateral patchy infiltrates and BE compatible with atypical pneumonia.
[2021-06-21] MEDS: PANTOPRAZOLE 40 MG/10 ML VIAL IVP SCH (08:01)
[2021-06-21] MEDS: CHLORHEXIDINE GLUCONATE 15 ML CUP MUCOUS MEM SCH ×2 (08:01→21:33)
[2021-06-21] MEDS: ASCORBIC ACID 500 MG TAB PO SCH (08:01)
[2021-06-21] MEDS: CHOLECALCIFEROL 25 MCG (1000 IU) TABLET PO SCH (08:01)
[2021-06-21] MEDS: CEFEPIME 1 GM in SODIUM CHLORIDE 0.9% 50 ML IVPB SCH (08:02)
[2021-06-21] MEDS: DEXAMETHASONE SOD PHOSPHATE 10 MG/ML 1 ML VIAL IVP SCH (08:02)
[2021-06-21] MEDS: ZINC SULFATE 220 MG CAP PO SCH (08:02)
--- NOTE | 2021-06-21 09:42 | P.PN ---
Subjective Progress Note Date: 06/21/21 Patient remains intubated and sedated. Patient also on pressors. Objective - Vital Signs Vital signs: Vital Signs Temp 97.7 F 06/21/21 04:00 Pulse 103 H 06/21/21 07:00 Resp 26 H 06/21/21 07:00 BP 91/56 06/21/21 06:15 Pulse Ox 91 L 06/21/21 07:00 Intake & Output 06/20/21 06/21/21 06/21/21 18:59 06:59 18:59 Intake Total 174.470 2935.105 135.495 Output Total 375 210 5 Balance 419.426 923.105 130.495 Weight 123 kg Intake: IV 346 276 23 Pressure bags 36 36 3 Sodium Chloride 0.9% 1, 310 240 20 000 ml @ 20 mls/hr IV . Q24H [facility] Rx#:[id number] Intake, IV Titration 385.426 815.105 112.495 Amount Cisatracurium 200 mg In 23.985 Sodium Chloride 0.9% 180 ml @ 1 MCG/KG/MIN 7.38 mls/hr IV .Q24H [facility] Rx#: [id number] Clevidipine Butyrate 25 39.9 67.500 mg In Empty Bag 1 bag @ 1 MG/HR 2 mls/hr IV .Q24H [facility] Rx#:[id number] Dexmedetomidine/0.9% NaCl 2.768 (Pmx) 400 mcg In Empty Bag 1 bag @ 0.2 MCG/KG/HR 6.15 mls/hr IV .[id number] [facility] Rx#:[id number] Heparin Sod,Pork in 0.45% 145.526 250 NaCl 25,000 unit In 0.45 % NaCl 1 250ml.bag @ 18 UNITS/KG/HR 21.69 mls/hr IV .[id number] [facility] Rx#: [id number] Norepinephrine 8 mg In 11.940 12.495 Sodium Chloride 0.9% 250 ml @ 0.05 MCG/KG/MIN 11.9 mls/hr IV .[id number] [facility] Rx#:[id number] propofoL 1,000 mg In 200 458.912 100 Empty Bag 1 bag @ Titrate IV .Q0M [facility] Rx#: [id number] Tube Feeding 63 42 Output: Urine 375 210 5 Other: Voiding Method Indwelling Catheter Indwelling Catheter ABP, PAP, CO, CI - Last Documented Arterial Blood Pressure 105/46 - Exam General examination - intubated and sedated Heart - + S1S2 no murmurs Lungs - diminished breath sounds Abdomen soft NT ND +ve BS Extremities - +2 pitting edema in bilateral lower extremities 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 - unable to assess Psych - unable to assess - Labs CBC & Chem 7: 06/21/21 03:49 06/21/21 03:49 Labs: Abnormal Lab Results - Last 24 Hours (Table) 06/20/21 06/20/21 06/20/21 Range/Units 05:00 12:30 13:16 WBC (3.8-10.6) k/uL RBC (4.30-5.90) m/uL Hgb (13.0-17.5) gm/dL Hct (39.0-53.0) % Neutrophils # (1.3-7.7) k/uL Lymphocytes # (1.0-4.8) k/uL Basophils # (0-0.2) k/uL APTT 54.2 H (22.0-30.0) sec ABG pH (7.35-7.45) ABG pCO2 (35-45) mmHg ABG pO2 (83-108) mmHg ABG HCO3 (21-25) mmol/L ABG Total CO2 (19-24) mmol/L ABG O2 Saturation (94-97) % Potassium (3.5-5.1) mmol/L Carbon Dioxide (22-30) mmol/L BUN (9-20) mg/dL Creatinine (0.66-1.25) mg/dL Glucose (74-99) mg/dL POC Glucose (mg/dL) 154 H (75-99) mg/dL Calcium (8.4-10.2) mg/dL Total Protein (6.3-8.2) g/dL Albumin (3.5-5.0) g/dL Procalcitonin 2.38 H (0.02-0.09) ng/mL 06/20/21 06/20/21 06/21/21 Range/Units 18:06 23:41 03:49 WBC 41.8 H (3.8-10.6) k/uL RBC 3.94 L (4.30-5.90) m/uL Hgb 12.1 L (13.0-17.5) gm/dL Hct 37.6 L (39.0-53.0) % Neutrophils # 40.2 H (1.3-7.7) k/uL Lymphocytes # 0.2 L (1.0-4.8) k/uL Basophils # 0.3 H (0-0.2) k/uL APTT (22.0-30.0) sec ABG pH (7.35-7.45) ABG pCO2 (35-45) mmHg ABG pO2 (83-108) mmHg ABG HCO3 (21-25) mmol/L ABG Total CO2 (19-24) mmol/L ABG O2 Saturation (94-97) % Potassium (3.5-5.1) mmol/L Carbon Dioxide (22-30) mmol/L BUN (9-20) mg/dL Creatinine (0.66-1.25) mg/dL Glucose (74-99) mg/dL POC Glucose (mg/dL) 135 H 112 H (75-99) mg/dL Calcium (8.4-10.2) mg/dL Total Protein (6.3-8.2) g/dL Albumin (3.5-5.0) g/dL Procalcitonin (0.02-0.09) ng/mL 06/21/21 06/21/21 06/21/21 Range/Units 03:49 03:49 05:38 WBC (3.8-10.6) k/uL RBC (4.30-5.90) m/uL Hgb (13.0-17.5) gm/dL Hct (39.0-53.0) % Neutrophils # (1.3-7.7) k/uL Lymphocytes # (1.0-4.8) k/uL Basophils # (0-0.2) k/uL APTT 48.0 H (22.0-30.0) sec ABG pH (7.35-7.45) ABG pCO2 (35-45) mmHg ABG pO2 (83-108) mmHg ABG HCO3 (21-25) mmol/L ABG Total CO2 (19-24) mmol/L ABG O2 Saturation (94-97) % Potassium 5.7 H (3.5-5.1) mmol/L Carbon Dioxide 21 L (22-30) mmol/L BUN 94 H (9-20) mg/dL Creatinine 6.08 H (0.66-1.25) mg/dL Glucose 159 H (74-99) mg/dL POC Glucose (mg/dL) 159 H (75-99) mg/dL Calcium 8.0 L (8.4-10.2) mg/dL Total Protein 5.6 L (6.3-8.2) g/dL Albumin 2.5 L (3.5-5.0) g/dL Procalcitonin (0.02-0.09) ng/mL 06/21/21 Range/Units 05:48 WBC (3.8-10.6) k/uL RBC (4.30-5.90) m/uL Hgb (13.0-17.5) gm/dL Hct (39.0-53.0) % Neutrophils # (1.3-7.7) k/uL Lymphocytes # (1.0-4.8) k/uL Basophils # (0-0.2) k/uL APTT (22.0-30.0) sec ABG pH 7.08 L* (7.35-7.45) ABG pCO2 87 H* (35-45) mmHg ABG pO2 78 L (83-108) mmHg ABG HCO3 26 H (21-25) mmol/L ABG Total CO2 29 H (19-24) mmol/L ABG O2 Saturation 91.3 L (94-97) % Potassium (3.5-5.1) mmol/L Carbon Dioxide (22-30) mmol/L BUN (9-20) mg/dL Creatinine (0.66-1.25) mg/dL Glucose (74-99) mg/dL POC Glucose (mg/dL) (75-99) mg/dL Calcium (8.4-10.2) mg/dL Total Protein (6.3-8.2) g/dL Albumin (3.5-5.0) g/dL Procalcitonin (0.02-0.09) ng/mL Microbiology - Last 24 Hours (Table) 06/20/21 03:38 Gram Stain - Preliminary Sputum Sputum Culture - Preliminary 06/18/21 13:00 Blood Culture - Preliminary Blood No Growth after 48 hours 06/19/21 09:31 Blood Culture - Preliminary Blood No Growth after 24 hours 06/19/21 09:31 Blood Culture - Preliminary Blood No Growth after 24 hours 06/16/21 19:04 Blood Culture Gram Stain - Final Blood Blood Culture - Final Staphylococcus epidermidis Coagulase Negative Staph Assessment and Plan Assessment: COVID-19 pneumonitis in an unvaccinated individual Acute hypoxic respiratory failure/ventilator dependent respiratory failure Toxic encephalopthy due to hypoxia Right upper lobe pulmonary embolism Right lower lobe pneumonia - decadron - Vit D, Vit C, Zinc - Follow inflammatory labs - pulm hygiene - pulm recs - Heparin drip -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
[2021-06-21] MEDS ORDERED: VANCOMYCIN IV PER PHARMACY 1 EACH MISC MISCELLANE PRN (10:02)
--- NOTE | 2021-06-21 10:05 | CDI ---
Documentation Clarification Form Date: 06/25/2021 09:43:51 AM From: Otilia Lynch RN CCDS Admit Date: 06/11/2021 12:33:00 PM Patient Name: Stevo Flores Visit Number: [id number] Discharge Date: ATTENTION: The Clinical Documentation Specialists (CDI) and [facility] Coding Staff appreciate your assistance in clarifying documentation. Please respond to the clarification below the line at the bottom and electronically sign. The CDI & [facility] Coding staff will review the response and follow-up if needed. Please note: Queries are made part of the Legal Health Record. If you have any questions, please contact the author of this message via ITS. Dr. Anne Jolley MD The patient presented with the following clinical indicators. Additional clarification regarding the etiology/cause of the clinical indicators is requested. History/Risk Factors: 50-year-old male presents to the ED via EMS the patient had an oxygen saturation of 50%. The patient is positive for COVID. Medical history: HTN. 06/11 / H&P. Clinical Indicators: WBC: 06/11 17.4 Lactic acid: 06/11 3.4 LDH: 06/11 2098; CRP: 20.0; Procalcitonin 0.41; Coronavirus PCR: Detected A CXR: 06/11 Low lung volumes with bilateral and confluent opacities relatively sparing the upper lungs. Vitals signs: 06/11 B/P 113/63, HR 125, Temp 100.5 F Oral, RR 36, SpO2 77% 15L Non rebreather. Pulmonary Progress Note 06/21 thru 06/23: HTN currently hypotensive secondary to sepsis. Acute leukocytosis on pressors, secondary to hypotension, sepsis. Nephrology Progress notes 06/24 -06/25: "Acute kidney injury secondary to ATN secondary to septic shock and cardiopulmonary arrest." Treatment: 06/11 Decadron 10mg IV x 1, 06/12 to current Vitamin C 1,000mg po daily, 06/12 to current Vitamin D3 100mcg po daily, 06/12 to current Decadron 6mg IVP Daily Pulmonary Consult: Acute hypoxic resp failure secondary to coronavirus associated pneumonia. Elevated inflammatory marker secondary to coronavirus infection. IV Bolus: 06/11 0.9NS 500cc bolus x 1, 06/12 0.9NS 2L bolus x 1. In your professional opinion, please clarify if these findings signify one of the following conditions: [ ] Sepsis POA [ X ] Sepsis Not POA [ ] SIRS, without underlying infectious process [ ] Other, please specify [ ] Unable to determine SIRS Criteria: 2 or more of the following may indicate SIRS -Temperature < 96.8F (36C) or > 101.0F (38.3C) -Heart Rate > 90 bpm -Respiratory Rate > 20 breaths/min or PaCO2 < 32 mmHg -White Blood Cell Count > 12,000 or < 4,000 cells/mm3 or > 10% bands (Template Last Reviewed: August 2020) [ X ] Sepsis Not POA MTDD
--- NOTE | 2021-06-21 10:06 | P.PN ---
Subjective Progress Note Date: 06/21/21 50-year-old male patient presented to the ED for worsening shortness of breath of 2 weeks' duration and the patient was found to be quite hypoxic. Confirmed to be COVID-19 positive with secondary pneumonia. 06/20/2021, the patient is being seen for a follow-up. This is a topical with activities pneumonia with pulmonary embolism and secondary respiratory failure. For now, the patient is off paralytics. The patient was also taken off the fentanyl drip this morning. Propofol still running at the rate of 50 mcg/kg per minute. Patient remains on a mechanical ventilator. On today's evaluation, he remains on a PEEP of 20 with an FiO2 of 50% tidal volume of 400 with refills any 6. PH is at 7.3 with a pCO2 of 58 and pO2 of 89. Peak airway pressure was around 34. I dropped his PEEP down to 18. The chest x-ray still showing bilateral lower lobe pulmonary infiltrates, stable, probably slightly improved compared to yesterday. He is afebrile. The blood cultures resulted in to staph epidermidis and the patient is currently hemodynamically stable on no pressors. Urine output is in order of 30 mL an hour. Creatinine today is at 5.66 and the potassium level is currently at 5.2. As such, no plans for dialysis at this point in time. The patient is on no pressors for now. Afebrile. He is on enteral feeding with the vital AF at the rate of 28 mL an hour which is goal. He remains on Decadron. Blood work from today shows a white cell count of 23 with a hemoglobin of 10.3 and a platelet count of 253. Rest of the blood work shows a d-dimer level of 1.76, PTT therapeutic at 40.8 while being on IV heparin. BUN of 84 with a creatinine of 5.6. Serum bicarb is a 27. As far as inflammatory markers, the LDH level is at 1406 and a CRP level is at 18.9. He remains on IV cefepime and this is an empiric antibiotic coverage due to concern of superinfection. 06/21/2021, the patient is being seen for follow-up. The patient's condition is progressively deteriorating and this worsening occurred over the past 24-48 hours. I do suspect that the patient is getting a superinfection with bilateral pneumonia development of tolerance overnight he related pneumonia. For now, the patient is on a combination of sedation and paralytics. The patient is on propofol running at 50 mcg/kg per minute and the patient is also Nimbex at 1.5 mcg/kg per minute. He is adequately sedated and paralyzed. He remains on a mechanical ventilator. He is an assist-control mode of mechanical ventilation with a tidal volume of 375, FiO2 of 80%, PEEP of 18 with a respiratory rate of 28. Peak airway pressure is 34. Static pressure is 31. Chest x-ray showing diffuse bilateral pulmonary infiltrates and consolidation consistent with pneumonia and there is progressive interval worsening in his chest x-ray findings. This was noted and the patient was getting progressively more septic. His white cell count was on the rise and the white cell count is currently up to 41. The patient has already received 2 sets of blood cultures both negative. He was placed on IV cefepime on 06/19/2021. This sputum cultures still pending. The blood culture on 06/16/2021 showed staph epidermidis. At the same time, the patient has become hypotensive. He was given IV fluids yesterday and the patient is currently on pressors with confusion running 0.08 mcg/kg per minute. At the same time, the patient has developed an acute kidney injury. Urine output is low and order of 5 mL an hour and the patient is having a rise in the creatinine. Creatinine is up to 6.08. Potassium level is up to 5.7. His dialysis catheter was inserted yesterday and it will be started today and the patient will receive his first session of hemodialysis. At the same time, the patient remains on IV heparin for inflammatory markers, the patient's LDH level was 1416 from yesterday with a CRP level of 18.6. His overall net fluid balance over the past 24 hours has been in the order of 4 L positive. The patient is receiving enteral feeding for nutritional support. Currently is on vital AF at the rate of 21 mL an hour which is goal. Note that the Doppler of the lower extremities were negative. He has a dialysis catheter currently in his right femoral vein. He also has a triple catheter in the left subclavian t hat was inserted on 06/12/2021. Objective - Vital Signs Vital signs: Vital Signs Temp 97.7 F 06/21/21 04:00 Pulse 103 H 06/21/21 07:00 Resp 26 H 06/21/21 07:00 BP 91/56 06/21/21 06:15 Pulse Ox 91 L 06/21/21 07:00 Intake & Output 06/20/21 06/21/21 06/21/21 18:59 06:59 18:59 Intake Total 569.142 8800.105 388.495 Output Total 375 210 5 Balance 419.426 923.105 383.495 Weight 123 kg Intake: IV 346 276 74.0 Cefepime 1 gm In Sodium 25.0 Chloride 0.9% 50 ml @ 12. 5 mls/hr IVPB Q12HR [facility] Rx#:[id number] Pressure bags 36 36 9 Sodium Chloride 0.9% 1, 310 240 40 000 ml @ 20 mls/hr IV . Q24H [facility] Rx#:[id number] Intake, IV Titration 385.426 815.105 112.495 Amount Cisatracurium 200 mg In 23.985 Sodium Chloride 0.9% 180 ml @ 1 MCG/KG/MIN 7.38 mls/hr IV .Q24H [facility] Rx#: [id number] Clevidipine Butyrate 25 39.9 67.500 mg In Empty Bag 1 bag @ 1 MG/HR 2 mls/hr IV .Q24H [facility] Rx#:[id number] Dexmedetomidine/0.9% NaCl 2.768 (Pmx) 400 mcg In Empty Bag 1 bag @ 0.2 MCG/KG/HR 6.15 mls/hr IV .[id number] [facility] Rx#:[id number] Heparin Sod,Pork in 0.45% 145.526 250 NaCl 25,000 unit In 0.45 % NaCl 1 250ml.bag @ 18 UNITS/KG/HR 21.69 mls/hr IV .[id number] [facility] Rx#: [id number] Norepinephrine 8 mg In 11.940 12.495 Sodium Chloride 0.9% 250 ml @ 0.05 MCG/KG/MIN 11.9 mls/hr IV .[id number] [facility] Rx#:[id number] propofoL 1,000 mg In 200 458.912 100 Empty Bag 1 bag @ Titrate IV .Q0M [facility] Rx#: [id number] Oral 100 Tube Feeding 63 42 42 Other 60 Output: Urine 375 210 5 Other: Voiding Method Indwelling Catheter Indwelling Catheter ABP, PAP, CO, CI - Last Documented Arterial Blood Pressure 105/46 - Exam Gen. appearance No acute distress, sedated and paralyzed. The patient has an orally placed endotracheal tube and NG tube. HEENT examination is grossly unremarkable. Neck supple. Full range of motion. No adenopathy thyromegaly or neck vein distention. Cardiovascular examination reveals regular rhythm rate. S1-S2 normal. No S3 or S4. No discernible murmur noted. Heart sounds are distant. Lungs reveal diffuse bilateral rhonchi. No wheezes or crackles. Breath sounds are equal bilaterally. Abdominal exam revealed normal bowel sounds. The abdomen was soft, non-tender, and without masses, organomegaly, or appreciable enlargement of the abdominal aorta. Extremities are intact. No cyanosis clubbing or edema. Examination of the skin revealed no evidence of significant rashes, suspicious appearing nevi or other concerning lesions. Neurologic examination cannot be assessed at this time given the sedation and paralysis. - Labs CBC & Chem 7: 06/21/21 03:49 06/21/21 03:49 Labs: Abnormal Lab Results - Last 24 Hours (Table) 06/20/21 06/20/21 06/20/21 Range/Units 05:00 12:30 13:16 WBC (3.8-10.6) k/uL RBC (4.30-5.90) m/uL Hgb (13.0-17.5) gm/dL Hct (39.0-53.0) % Neutrophils # (1.3-7.7) k/uL Lymphocytes # (1.0-4.8) k/uL Basophils # (0-0.2) k/uL APTT 54.2 H (22.0-30.0) sec ABG pH (7.35-7.45) ABG pCO2 (35-45) mmHg ABG pO2 (83-108) mmHg ABG HCO3 (21-25) mmol/L ABG Total CO2 (19-24) mmol/L ABG O2 Saturation (94-97) % Potassium (3.5-5.1) mmol/L Carbon Dioxide (22-30) mmol/L BUN (9-20) mg/dL Creatinine (0.66-1.25) mg/dL Glucose (74-99) mg/dL POC Glucose (mg/dL) 154 H (75-99) mg/dL Calcium (8.4-10.2) mg/dL Total Protein (6.3-8.2) g/dL Albumin (3.5-5.0) g/dL Procalcitonin 2.38 H (0.02-0.09) ng/mL 06/20/21 06/20/21 06/21/21 Range/Units 18:06 23:41 03:49 WBC 41.8 H (3.8-10.6) k/uL RBC 3.94 L (4.30-5.90) m/uL Hgb 12.1 L (13.0-17.5) gm/dL Hct 37.6 L (39.0-53.0) % Neutrophils # 40.2 H (1.3-7.7) k/uL Lymphocytes # 0.2 L (1.0-4.8) k/uL Basophils # 0.3 H (0-0.2) k/uL APTT (22.0-30.0) sec ABG pH (7.35-7.45) ABG pCO2 (35-45) mmHg ABG pO2 (83-108) mmHg ABG HCO3 (21-25) mmol/L ABG Total CO2 (19-24) mmol/L ABG O2 Saturation (94-97) % Potassium (3.5-5.1) mmol/L Carbon Dioxide (22-30) mmol/L BUN (9-20) mg/dL Creatinine (0.66-1.25) mg/dL Glucose (74-99) mg/dL POC Glucose (mg/dL) 135 H 112 H (75-99) mg/dL Calcium (8.4-10.2) mg/dL Total Protein (6.3-8.2) g/dL Albumin (3.5-5.0) g/dL Procalcitonin (0.02-0.09) ng/mL 06/21/21 06/21/21 06/21/21 Range/Units 03:49 03:49 05:38 WBC (3.8-10.6) k/uL RBC (4.30-5.90) m/uL Hgb (13.0-17.5) gm/dL Hct (39.0-53.0) % Neutrophils # (1.3-7.7) k/uL Lymphocytes # (1.0-4.8) k/uL Basophils # (0-0.2) k/uL APTT 48.0 H (22.0-30.0) sec ABG pH (7.35-7.45) ABG pCO2 (35-45) mmHg ABG pO2 (83-108) mmHg ABG HCO3 (21-25) mmol/L ABG Total CO2 (19-24) mmol/L ABG O2 Saturation (94-97) % Potassium 5.7 H (3.5-5.1) mmol/L Carbon Dioxide 21 L (22-30) mmol/L BUN 94 H (9-20) mg/dL Creatinine 6.08 H (0.66-1.25) mg/dL Glucose 159 H (74-99) mg/dL POC Glucose (mg/dL) 159 H (75-99) mg/dL Calcium 8.0 L (8.4-10.2) mg/dL Total Protein 5.6 L (6.3-8.2) g/dL Albumin 2.5 L (3.5-5.0) g/dL Procalcitonin (0.02-0.09) ng/mL 06/21/21 Range/Units 05:48 WBC (3.8-10.6) k/uL RBC (4.30-5.90) m/uL Hgb (13.0-17.5) gm/dL Hct (39.0-53.0) % Neutrophils # (1.3-7.7) k/uL Lymphocytes # (1.0-4.8) k/uL Basophils # (0-0.2) k/uL APTT (22.0-30.0) sec ABG pH 7.08 L* (7.35-7.45) ABG pCO2 87 H* (35-45) mmHg ABG pO2 78 L (83-108) mmHg ABG HCO3 26 H (21-25) mmol/L ABG Total CO2 29 H (19-24) mmol/L ABG O2 Saturation 91.3 L (94-97) % Potassium (3.5-5.1) mmol/L Carbon Dioxide (22-30) mmol/L BUN (9-20) mg/dL Creatinine (0.66-1.25) mg/dL Glucose (74-99) mg/dL POC Glucose (mg/dL) (75-99) mg/dL Calcium (8.4-10.2) mg/dL Total Protein (6.3-8.2) g/dL Albumin (3.5-5.0) g/dL Procalcitonin (0.02-0.09) ng/mL Microbiology - Last 24 Hours (Table) 06/20/21 03:38 Gram Stain - Preliminary Sputum Sputum Culture - Preliminary 06/18/21 13:00 Blood Culture - Preliminary Blood No Growth after 48 hours 06/19/21 09:31 Blood Culture - Preliminary Blood No Growth after 24 hours 06/19/21 09:31 Blood Culture - Preliminary Blood No Growth after 24 hours 06/16/21 19:04 Blood Culture Gram Stain - Final Blood Blood Culture - Final Staphylococcus epidermidis Coagulase Negative Staph Assessment and Plan Plan: 1 Acute hypoxemic respiratory failure secondary to coronavirus associated pneumonia, with worsening hypoxemic respiratory failure, and need for intubation and mechanical ventilation on the morning of 06/12/2021 and the patient has been intubated and sedated and paralyzed since. The patient that she has bilateral pulmonary infiltrates with a CT angiogram that was done showed a suspicious area pulmonary artery embolism in the right upper lobe and for that reason the patient is currently on therapeutic dose of Lovenox. The patient remains on Decadron. The chest x-ray was noted. The patient's remains on Decadron and therapeutic dose of Lovenox. Peak/ static pressure remains quite elevated. The patient continues to be in the same condition as of yesterday. Chest x-ray from today and the blood gases was noted. There is obviously a concern of a superinfection as the patient has developed worsening in bilateral pulmonary infiltrates and pneumonia has involved in this patient. In addition the patient developed leukocytosis and fever and hypotension. 2 acute pulmonary embolism, suspicious areas of filling defect in the right upper lobe with elevated d-dimer of above 30 for currently on Lovenox, therapeutic doses note that the patient d-dimer is improved and the patient remains on IV heparin. 3 ARDS with diffuse bilateral pulmonary infiltrates secondary to COVID-19 related to pneumonia 4 Elevated inflammatory marker secondary to coronavirus infection. 5 acute bilateral pneumonia with interval worsening in the pulmonary consolidat ion, consider superinfection on a ventilator associated pneumonia. The patient has become hypotensive, he has developed leukocytosis and fever and worsening in the bilateral pulmonary infiltrates and the patient was covered empirically with IV cefepime. The blood culture was positive for staph epidermidis. His pro- calcitonin level was higher at 2.38. The patient is currently running at a lower 6 hypertension currently hypotensive secondary to sepsis 7 acute leukocytosis goes pressors., Secondary to above, sepsis 8 fever 9 staph epidermidis in the blood, likely contaminant 10 acute kidney injury, and the creatinine is up to 6.08, in addition to potassium of 5.7 and the patient will need hemodialysis and he has been in a positive fluid balance of 4 L over the past 24 hours Plan: Continue ventilator support, drop PEEP to 18 and VC plus mode, TV 375, Fio2 80 Sputum Gram stain and culture , pending Repeat another set of blood cultures, pending IV he will be discontinued and the patient will placed on a combination of meropenem and vancomycin on empiric basis for now. Wean off pressors if possible. Proceed with hemodialysis today. Monitor renal function Keep the patient Decadron 6 mg IV every 24 hours Continue IV heparin Keep the patient sedated with propofol, off fentanul and continue Nimbex for now and keep the patient's paralyzed IV fluids will be cut down to KVO Enteral feeding for nutritional support Monitor inflammatory markers and repeat levels in a.m. Condition is critical and this critically care evaluation was done more than 30 minutes Time with Patient: Greater than 30 Time with Patient: Greater than 30
[2021-06-21] MEDS ORDERED: VANCOMYCIN 2,000 MG in SODIUM CHLORIDE 0.9% 500 ML 500 ML IVPB ONE (11:00)
[2021-06-21] MEDS: MEROPENEM 1 GM in SODIUM CHLORIDE 0.9% 100 ML IVPB SCH ×2 (11:14→21:33)
[2021-06-21 11:37] LABS: Glucose,Whole Blood 189 mg/dL (75-99)
[2021-06-21 14:09] LABS: Hepatitis B Surface Antibody Reactive (Nonreactive); Hepatitis B Surface Antigen Nonreactive (Nonreactive)
[2021-06-21] MEDS ORDERED: MEROPENEM 2 GM in SODIUM CHLORIDE 0.9% 100 ML IVPB SCH (16:00)
[2021-06-21] MEDS: CISATRACURIUM 200 MG in SODIUM CHLORIDE 0.9% 180 ML IV SCH (17:08)
[2021-06-21 17:32] LABS: Glucose,Whole Blood 169 mg/dL (75-99)
--- NOTE | 2021-06-21 18:27 | PN ---
PROGRESS NOTE The patient is seen for followup for acute kidney injury. The patient's renal function has deteriorated with significantly poor urine output and serum creatinine up to 6.0 this morning. His potassium was also elevated at 5.7. He is scheduled for hemodialysis today. The dialysis catheter was placed by Dr. Gaxiola yesterday. On examination today, the patient's case is discussed with nursing staff. Blood pressure this morning was 125/58, heart rate of 105 per minute. he is afebrile. Patient remains on the vent. FiO2 is at 80%. O2 sats about 94-95%. ASSESSMENT: 1. Acute kidney injury, acute tubular necrosis, associated with hypotension, COVID pneumonia, started on hemodialysis today secondary to worsening renal failure, poor urine output and hyperkalemia. 2. Hyperkalemia associated with acute kidney injury. 3. Acute hypoxic respiratory failure secondary to COVID pneumonia. 4. COVID pneumonia maintained on the vent and on steroids. 5. Hypertension. The patient was on Cleviprex drip, currently off. PLAN: Hemodialysis today and then repeat in a.m. MMODL / IJN: [id number] /
[2021-06-21 23:22] LABS: Glucose,Whole Blood 126 mg/dL (75-99)
[2021-06-21] MEDS: SODIUM CHLORIDE 0.9% 1,000 ML IV SCH (23:45)
[2021-06-22] MEDS: INSULIN ASPART (NovoLOG) 100 UNIT/ML VIAL SQ SCH ×5 (01:31→23:53)
[2021-06-22 03:05] LABS: Basophils # (A) 0.1 k/uL (0-0.2); Basophils % (A) 1 %; Eosinophils # (A) 0.1 k/uL (0-0.7); Eosinophils % (A) 0 %; HCT 33.6 % (39.0-53.0); HGB 10.5 gm/dL (13.0-17.5); Hypochromasia Slight; Lymphocytes # (A) 0.8 k/uL (1.0-4.8); Lymphocytes % (A) 3 %; MCH 29.6 pg (25.0-35.0); MCHC 31.3 g/dL (31.0-37.0); MCV 94.7 fL (80.0-100.0); Monocytes # (A) 0.9 k/uL (0-1.0); Monocytes % (A) 3 %; Neutrophils # (A) 25.6 k/uL (1.3-7.7); Neutrophils % (A) 92 %; Platelet Count 317 k/uL (150-450); RBC 3.55 m/uL (4.30-5.90); RDW 13.9 % (11.5-15.5); WBC 27.8 k/uL (3.8-10.6)
[2021-06-22 03:15] LABS: Albumin 2.8 g/dL (3.5-5.0); Calcium 8.2 mg/dL (8.4-10.2); Potassium 5.5 mmol/L (3.5-5.1); Total Bilirubin 0.4 mg/dL (0.2-1.3); Total Protein 6.3 g/dL (6.3-8.2)
[2021-06-22 03:20] LABS: Vancomycin,Random 33.9 ug/mL
[2021-06-22 05:34] LABS: ABG Base Excess -5.4 mmol/L; ABG HCO3 24 mmol/L (21-25); ABG Oxygen Saturation 96.8 % (94-97); ABG PO2 105 mmHg (83-108); ABG TCO2 27 mmol/L (19-24); Allen Test Performed? Yes
[2021-06-22 05:37] LABS: ABG PCO2 80 mmHg (35-45); ABG PH 7.09 (7.35-7.45)
[2021-06-22 06:12] LABS: Glucose,Whole Blood 143 mg/dL (75-99)
--- NOTE | 2021-06-22 07:29 | XR ---
EXAMINATION TYPE: XR chest 1V DATE OF EXAM: 06/22/2021 COMPARISON: 06/21/2021 HISTORY: Covid TECHNIQUE: Single frontal view of the chest is obtained. FINDINGS: There is an ET tube 4.7 cm above the felix. There is a central venous catheter terminatin g in the SVC/R junction. An NG tube within stomach. Diffuse partially consolidative infiltrates are unchanged. There is a probable small left pleural eff usion. There is no pneumothorax. IMPRESSION: Acute cardiopulmonary disease with no significant interval change.
[2021-06-22] MEDS: fentaNYL (PF) 2,500 MCG in SODIUM CHLORIDE 0.9% 200 ML IV SCH ×2 (08:15→15:19)
[2021-06-22] MEDS: ARTIFICIAL TEARS-HYPROMELLOSE DROPS 15 ML BTL BOTH EYES SCH ×6 (08:17→23:40)
[2021-06-22] MEDS: CHLORHEXIDINE GLUCONATE 15 ML CUP MUCOUS MEM SCH ×2 (08:39→21:08)
[2021-06-22] MEDS: PANTOPRAZOLE 40 MG/10 ML VIAL IVP SCH (08:39)
[2021-06-22] MEDS: HEPARIN SOD,PORK IN 0.45% NACL 25,000 UNIT in 0.45% NACL 1 250ML.BAG IV SCH ×2 (08:40→15:43)
[2021-06-22] MEDS: ZINC SULFATE 220 MG CAP PO SCH (08:40)
[2021-06-22] MEDS: CHOLECALCIFEROL 25 MCG (1000 IU) TABLET PO SCH (08:40)
[2021-06-22] MEDS: ASCORBIC ACID 500 MG TAB PO SCH (08:40)
[2021-06-22] MEDS: NOREPINEPHRINE 32 MG in SODIUM CHLORIDE 0.9% 218 ML IV SCH (08:51)
[2021-06-22] MEDS: MEROPENEM 1 GM in SODIUM CHLORIDE 0.9% 100 ML IVPB SCH ×2 (08:51→21:08)
[2021-06-22] MEDS: DEXAMETHASONE SOD PHOSPHATE 10 MG/ML 1 ML VIAL IVP SCH (08:52)
[2021-06-22] MEDS ORDERED: SODIUM BICARB 8.4% 50 ML SYR (1 MEQ/ML) IV STA (10:07)
--- NOTE | 2021-06-22 10:16 | P.PN ---
Subjective Progress Note Date: 06/22/21 50-year-old male patient presented to the ED for worsening shortness of breath of 2 weeks' duration and the patient was found to be quite hypoxic. Confirmed to be COVID-19 positive with secondary pneumonia. 06/20/2021, the patient is being seen for a follow-up. This is a topical with activities pneumonia with pulmonary embolism and secondary respiratory failure. For now, the patient is off paralytics. The patient was also taken off the fentanyl drip this morning. Propofol still running at the rate of 50 mcg/kg per minute. Patient remains on a mechanical ventilator. On today's evaluation, he remains on a PEEP of 20 with an FiO2 of 50% tidal volume of 400 with refills any 6. PH is at 7.3 with a pCO2 of 58 and pO2 of 89. Peak airway pressure was around 34. I dropped his PEEP down to 18. The chest x-ray still showing bilateral lower lobe pulmonary infiltrates, stable, probably slightly improved compared to yesterday. He is afebrile. The blood cultures resulted in to staph epidermidis and the patient is currently hemodynamically stable on no pressors. Urine output is in order of 30 mL an hour. Creatinine today is at 5.66 and the potassium level is currently at 5.2. As such, no plans for dialysis at this point in time. The patient is on no pressors for now. Afebrile. He is on enteral feeding with the vital AF at the rate of 28 mL an hour which is goal. He remains on Decadron. Blood work from today shows a white cell count of 23 with a hemoglobin of 10.3 and a platelet count of 253. Rest of the blood work shows a d-dimer level of 1.76, PTT therapeutic at 40.8 while being on IV heparin. BUN of 84 with a creatinine of 5.6. Serum bicarb is a 27. As far as inflammatory markers, the LDH level is at 1406 and a CRP level is at 18.9. He remains on IV cefepime and this is an empiric antibiotic coverage due to concern of superinfection. 06/21/2021, the patient is being seen for follow-up. The patient's condition is progressively deteriorating and this worsening occurred over the past 24-48 hours. I do suspect that the patient is getting a superinfection with bilateral pneumonia development of tolerance overnight he related pneumonia. For now, the patient is on a combination of sedation and paralytics. The patient is on propofol running at 50 mcg/kg per minute and the patient is also Nimbex at 1.5 mcg/kg per minute. He is adequately sedated and paralyzed. He remains on a mechanical ventilator. He is an assist-control mode of mechanical ventilation with a tidal volume of 375, FiO2 of 80%, PEEP of 18 with a respiratory rate of 28. Peak airway pressure is 34. Static pressure is 31. Chest x-ray showing diffuse bilateral pulmonary infiltrates and consolidation consistent with pneumonia and there is progressive interval worsening in his chest x-ray findings. This was noted and the patient was getting progressively more septic. His white cell count was on the rise and the white cell count is currently up to 41. The patient has already received 2 sets of blood cultures both negative. He was placed on IV cefepime on 06/19/2021. This sputum cultures still pending. The blood culture on 06/16/2021 showed staph epidermidis. At the same time, the patient has become hypotensive. He was given IV fluids yesterday and the patient is currently on pressors with confusion running 0.08 mcg/kg per minute. At the same time, the patient has developed an acute kidney injury. Urine output is low and order of 5 mL an hour and the patient is having a rise in the creatinine. Creatinine is up to 6.08. Potassium level is up to 5.7. His dialysis catheter was inserted yesterday and it will be started today and the patient will receive his first session of hemodialysis. At the same time, the patient remains on IV heparin for inflammatory markers, the patient's LDH level was 1416 from yesterday with a CRP level of 18.6. His overall net fluid balance over the past 24 hours has been in the order of 4 L positive. The patient is receiving enteral feeding for nutritional support. Currently is on vital AF at the rate of 21 mL an hour which is goal. Note that the Doppler of the lower extremities were negative. He has a dialysis catheter currently in his right femoral vein. He also has a triple catheter in the left subclavian t hat was inserted on 06/12/2021. 4. On , the patient remains sedated and paralyzed on a mechanical ventilator. On today's evaluation, the patient remains on propofol which is running at 50 mcg/kg per minute and the patient is also on Nimbex at 1.5 mcg/kg per minute. He is adequately sedated and paralyzed. Active issues for now is as hypoxic respiratory failure and renal failure. Hypoxic respiratory failure is related to COVID 19 related pneumonia with a superinfection with gram-negative and aureus is these microorganisms are being cultured in his sputum. He remains also on IV heparin for a suspected pulmonary embolism. He is currently on IV meropenem. Hemodynamically, the patient is on norepinephrine which is currently running at 0.11 mcg/kg/m. His white cell count is improved compared to yesterday. His white cell count was at as high as 41 and currently is down to 27. The blood cultures are still negative for now. He did have one blood culture that came back positive staph epidermidis. Meanwhile, the patient remains on a mechanical ventilator. On today's evaluation, he is an assist- control mode at the rate of 28 with a tidal volume of 375 and his FiO2 is currently at 80% with a PEEP of 13. The blood gases from today showing significant respiratory acidosis, he states is at 7.09 with a pCO2 of 80 and pO2 of 109. His peak airway pressure is 36. Chest x-ray from today is showing adequate positioning of the ET tube. There is obvious right lower lobe consolidation which is improved and there is also left lower lobe consolidation which remains essentially stable probably somewhat improved. The ET tube is sitting approximately 4 cm above the felix. The position is adequate for now. The patient also has a left subclavian triple-lumen catheter in place. In terms of his blood work, the patient's LDH was as high as 1416, on today's blood work, his inflammatory markers have not been checked. Nevertheless, his potassium level is at 5.5, creatinine is at 5.6, liver function tests are within normal limits. As mentioned, his white cell count is improving. The patient is receiving vital AF for enteral feeding and nutritional support. Doppler of the lower extremities have been negative. Objective - Vital Signs Vital signs: Vital Signs Temp 98.1 F 06/22/21 04:00 Pulse 115 H 06/22/21 07:00 Resp 26 H 06/22/21 07:00 BP 91/56 06/22/21 03:15 Pulse Ox 96 06/22/21 07:00 Intake & Output 1206/22/21 06/22/21 18:59 06:59 18:59 Intake Total 2186.267 1536.436 312 Output Total 35 1030 0 Balance 2151.267 506.436 312 Weight 123 kg Intake: IV 826.99 156 13 Cefepime 1 gm In Sodium 50.0 Chloride 0.9% 50 ml @ 12. 5 mls/hr IVPB Q12HR [facility] Rx#:[id number] Meropenem 1 gm In Sodium 99.99 Chloride 0.9% 100 ml @ 33 .333 mls/hr IVPB Q12HR [facility] Rx#:[id number] Pressure bags 36 36 3 Sodium Chloride 0.9% 1, 140 120 10 000 ml @ 20 mls/hr IV . Q24H [facility] Rx#:[id number] Vancomycin 2,000 mg In 501 Sodium Chloride 0.9% 500 ml 500 ml @ 167 mls/hr IVPB ONCE ONE Rx#: [id number] Intake, IV Titration 941.277 852.436 270 Amount Cisatracurium 200 mg In 163.836 Sodium Chloride 0.9% 180 ml @ 1 MCG/KG/MIN 7.38 mls/hr IV .Q24H [facility] Rx#: [id number] Heparin Sod,Pork in 0.45% 243.812 220.917 250 NaCl 25,000 unit In 0.45 % NaCl 1 250ml.bag @ 18 UNITS/KG/HR 21.69 mls/hr IV .[id number] [facility] Rx#: [id number] Norepinephrine 8 mg In 127.727 118.333 Sodium Chloride 0.9% 250 ml @ 0.05 MCG/KG/MIN 11.9 mls/hr IV .[id number] [facility] Rx#:[id number] Sodium Chloride 0.9% 1, 220 20 000 ml @ 20 mls/hr IV . Q24H [facility] Rx#:[id number] propofoL 1,000 mg In 405.902 293.186 Empty Bag 1 bag @ Titrate IV .Q0M [facility] Rx#: [id number] Oral 100 Tube Feeding 258 348 29 Other 60 180 Output: Urine 35 30 0 Hemodialysis 1000 Other: Voiding Method Indwelling Catheter Indwelling Catheter ABP, PAP, CO, CI - Last Documented Arterial Blood Pressure 131/51 - Exam Gen. appearance No acute distress, sedated and paralyzed. The patient has an orally placed endotracheal tube and NG tube. HEENT examination is grossly unremarkable. Neck supple. Full range of motion. No adenopathy thyromegaly or neck vein distention. Cardiovascular examination reveals regular rhythm rate. S1-S2 normal. No S3 or S4. No discernible murmur noted. Heart sounds are distant. Lungs reveal diffuse bilateral rhonchi. No wheezes or crackles. Breath sounds are equal bilaterally. Abdominal exam revealed normal bowel sounds. The abdomen was soft, non-tender, and without masses, organomegaly, or appreciable enlargement of the abdominal aorta. Extremities are intact. No cyanosis clubbing The patient has a right femoral dialysis catheter in place. He has developed some increased edema and third spacing in all 4 extremities. Examination of the skin revealed no evidence of significant rashes, suspicious appearing nevi or other concerning lesions. Neurologic examination cannot be assessed at this time given the sedation and paralysis. - Labs CBC & Chem 7: 06/22/21 02:50 06/22/21 02:50 Labs: Abnormal Lab Results - Last 24 Hours (Table) 06/20/21 06/21/21 06/21/21 Range/Units 11:44 03:49 11:35 WBC (3.8-10.6) k/uL RBC (4.30-5.90) m/uL Hgb (13.0-17.5) gm/dL Hct (39.0-53.0) % Neutrophils # (1.3-7.7) k/uL Lymphocytes # (1.0-4.8) k/uL APTT (22.0-30.0) sec ABG pH (7.35-7.45) ABG pCO2 (35-45) mmHg ABG Total CO2 (19-24) mmol/L Potassium (3.5-5.1) mmol/L BUN (9-20) mg/dL Creatinine (0.66-1.25) mg/dL Glucose (74-99) mg/dL POC Glucose (mg/dL) 189 H (75-99) mg/dL Calcium (8.4-10.2) mg/dL Albumin (3.5-5.0) g/dL Procalcitonin 4.96 H (0.02-0.09) ng/mL Hep Bs Antibody Reactive A (Nonreactive) 12/10/0706/21/21 06/22/21 Range/Units 17:31 23:19 02:50 WBC (3.8-10.6) k/uL RBC (4.30-5.90) m/uL Hgb (13.0-17.5) gm/dL Hct (39.0-53.0) % Neutrophils # (1.3-7.7) k/uL Lymphocytes # (1.0-4.8) k/uL APTT (22.0-30.0) sec ABG pH (7.35-7.45) ABG pCO2 (35-45) mmHg ABG Total CO2 (19-24) mmol/L Potassium 5.5 H (3.5-5.1) mmol/L BUN 78 H (9-20) mg/dL Creatinine 5.66 H (0.66-1.25) mg/dL Glucose 119 H (74-99) mg/dL POC Glucose (mg/dL) 169 H 126 H (75-99) mg/dL Calcium 8.2 L (8.4-10.2) mg/dL Albumin 2.8 L (3.5-5.0) g/dL Procalcitonin (0.02-0.09) ng/mL Hep Bs Antibody (Nonreactive) 06/22/21 06/22/21 06/22/21 Range/Units 02:50 03:00 05:29 WBC 27.8 H (3.8-10.6) k/uL RBC 3.55 L (4.30-5.90) m/uL Hgb 10.5 L (13.0-17.5) gm/dL Hct 33.6 L (39.0-53.0) % Neutrophils # 25.6 H (1.3-7.7) k/uL Lymphocytes # 0.8 L (1.0-4.8) k/uL APTT 49.4 H (22.0-30.0) sec ABG pH 7.09 L* (7.35-7.45) ABG pCO2 80 H* (35-45) mmHg ABG Total CO2 27 H (19-24) mmol/L Potassium (3.5-5.1) mmol/L BUN (9-20) mg/dL Creatinine (0.66-1.25) mg/dL Glucose (74-99) mg/dL POC Glucose (mg/dL) (75-99) mg/dL Calcium (8.4-10.2) mg/dL Albumin (3.5-5.0) g/dL Procalcitonin (0.02-0.09) ng/mL Hep Bs Antibody (Nonreactive) 06/22/21 Range/Units 06:11 WBC (3.8-10.6) k/uL RBC (4.30-5.90) m/uL Hgb (13.0-17.5) gm/dL Hct (39.0-53.0) % Neutrophils # (1.3-7.7) k/uL Lymphocytes # (1.0-4.8) k/uL APTT (22.0-30.0) sec ABG pH (7.35-7.45) ABG pCO2 (35-45) mmHg ABG Total CO2 (19-24) mmol/L Potassium (3.5-5.1) mmol/L BUN (9-20) mg/dL Creatinine (0.66-1.25) mg/dL Glucose (74-99) mg/dL POC Glucose (mg/dL) 143 H (75-99) mg/dL Calcium (8.4-10.2) mg/dL Albumin (3.5-5.0) g/dL Procalcitonin (0.02-0.09) ng/mL Hep Bs Antibody (Nonreactive) Microbiology - Last 24 Hours (Table) 06/18/21 13:00 Blood Culture - Preliminary Blood No Growth after 72 hours 06/20/21 03:38 Gram Stain - Preliminary Sputum Sputum Culture - Preliminary Presumptive Staph aureus Gram Neg Bacilli 06/19/21 09:31 Blood Culture - Preliminary Blood No Growth after 48 hours 06/19/21 09:31 Blood Culture - Preliminary Blood No Growth after 48 hours Assessment and Plan Plan: 1 Acute hypoxemic respiratory failure secondary to coronavirus associated pneumonia, with worsening hypoxemic respiratory failure, and need for intubation and mechanical ventilation on the morning of 06/12/2021 and the patient has been intubated and sedated and paralyzed since. The patient that she has bilateral pulmonary infiltrates with a CT angiogram that was done showed a suspicious area pulmonary artery embolism in the right upper lobe and for that reason the pat ient is currently on therapeutic dose of Lovenox. The patient remains on Decadron. The chest x-ray was noted. The patient's remains on Decadron and therapeutic dose of Lovenox. Peak/ static pressure remains quite elevated. The patient continues to be in the same condition as of yesterday. Chest x-ray from today and the blood gases was noted. There is an obvious consented for a superinfection and pneumonia. The patient developed worsening in consolidation of the lung bases and the patient was becoming hypotensive at one point with increased leukocytosis all indicating bilateral pneumonia and sepsis. The sputum Gram stain and cultures showing staph aureus and gram-negative bacteria. The patient is currently on IV meropenem. Vancomycin will be added. The blood gases from today showing respiratory acidosis. Will continue with permissive hypercapnia. We had bicarb. His pro-calcitonin level is at 4.9. 2 acute pulmonary embolism, suspicious areas of filling defect in the right upper lobe with elevated d-dimer of above 30 for currently on Lovenox, therapeutic doses note that the patient d-dimer is improved and the patient remains on IV heparin. 3 ARDS with diffuse bilateral pulmonary infiltrates secondary to COVID-19 related to pneumonia 4 Elevated inflammatory marker secondary to coronavirus infection. 5 acute bilateral pneumonia with interval worsening in the pulmonary consolidation, consider superinfection on a ventilator associated pneumonia. The patient has become hypotensive, he has developed leukocytosis and fever and worsening in the bilateral pulmonary infiltrates and the patient was covered empirically with IV cefepime. The blood culture was positive for staph epidermidis. His pro-calcitonin level was higher at 4.9 and the patient is growing staph aureus in his sputum in addition to gram-negative bacillus. 6 hypertension currently hypotensive secondary to sepsis 7 acute leukocytosis goes pressors., Secondary to above, sepsis, improving 8 fever 9 staph epidermidis in the blood, likely contaminant 10 acute kidney injury, and the creatinine is up to 6.08, in addition to potassium of 5.5 and the patient will need hemodialysis and he has been in a positive fluid balance of 2.6 L over the past 24 hours Plan: Continue ventilator support, drop PEEP to 18 and VC plus mode, TV 375, Fio2 80 Continue permissive hypercapnia and add bicarb. Give a total of 100 mEq of bicarb IV push and start maintenance with 100 mEq at the rate of 50 finalized the sputum cultures Continue IV meropenem and vancomycin Wean off pressors Proceed with hemodialysis today. Monitor renal function Keep the patient Decadron 6 mg IV every 24 hours Continue IV heparin Keep the patient sedated with propofol, off fentanul and continue Nimbex for now and keep the patient's paralyzed IV fluids will be cut down to KVO Enteral feeding for nutritional support Monitor inflammatory markers and repeat levels in a.m. Condition is critical and this critically care evaluation was done more than 30 minutes Time with Patient: Greater than 30 Time with Patient: Greater than 30
[2021-06-22] MEDS ORDERED: SODIUM BICARB 8.4% 50 ML SYR (1 MEQ/ML) ONE (11:23)
[2021-06-22 11:24] LABS: Glucose,Whole Blood 142 mg/dL (75-99)
[2021-06-22] MEDS: DEXTROSE 5% IN WATER 1,000 ML with SODIUM BICARB (1 MEQ/ML) 150 ML IV SCH ×2 (11:27→23:41)
--- NOTE | 2021-06-22 12:17 | P.PN ---
Subjective Progress Note Date: 06/22/21 Patient currently on FiO2 of 80% and PEEP of 18. He is also on Levothroid. He is also on Nimbex drip. Patient's WBC trended down from 41-27. His sputum culture is growing staph aureus and gram-negative bacilli. Patient was started on meropenem and vancomycin yesterday. Objective - Vital Signs Vital signs: Vital Signs Temp 99.2 F 06/22/21 12:00 Pulse 112 H 06/22/21 12:00 Resp 26 H 06/22/21 12:00 BP 91/56 06/22/21 03:15 Pulse Ox 92 L 06/22/21 12:00 Intake & Output 06/21/21 06/22/21 06/22/21 18:59 06:59 18:59 Intake Total 2186.267 1536.436 312 Output Total 35 1030 0 Balance 2151.267 506.436 312 Weight 123 kg Intake: IV 826.99 156 13 Cefepime 1 gm In Sodium 50.0 Chloride 0.9% 50 ml @ 12. 5 mls/hr IVPB Q12HR [facility] Rx#:[id number] Meropenem 1 gm In Sodium 99.99 Chloride 0.9% 100 ml @ 33 .333 mls/hr IVPB Q12HR [facility] Rx#:[id number] Pressure bags 36 36 3 Sodium Chloride 0.9% 1, 140 120 10 000 ml @ 20 mls/hr IV . Q24H [facility] Rx#:[id number] Vancomycin 2,000 mg In 501 Sodium Chloride 0.9% 500 ml 500 ml @ 167 mls/hr IVPB ONCE ONE Rx#: [id number] Intake, IV Titration 941.277 852.436 270 Amount Cisatracurium 200 mg In 163.836 Sodium Chloride 0.9% 180 ml @ 1 MCG/KG/MIN 7.38 mls/hr IV .Q24H [facility] Rx#: [id number] Heparin Sod,Pork in 0.45% 243.812 220.917 250 NaCl 25,000 unit In 0.45 % NaCl 1 250ml.bag @ 18 UNITS/KG/HR 21.69 mls/hr IV .[id number] [facility] Rx#: [id number] Norepinephrine 8 mg In 127.727 118.333 Sodium Chloride 0.9% 250 ml @ 0.05 MCG/KG/MIN 11.9 mls/hr IV .[id number] [facility] Rx#:[id number] Sodium Chloride 0.9% 1, 220 20 000 ml @ 20 mls/hr IV . Q24H [facility] Rx#:[id number] propofoL 1,000 mg In 405.902 293.186 Empty Bag 1 bag @ Titrate IV .Q0M [facility] Rx#: [id number] Oral 100 Tube Feeding 258 348 29 Other 60 180 Output: Urine 35 30 0 Hemodialysis 1000 Other: Voiding Method Indwelling Catheter Indwelling Catheter ABP, PAP, CO, CI - Last Documented Arterial Blood Pressure 100/37 - Exam General examination - intubated and sedated Heart - + S1S2 no murmurs Lungs - diminished breath sounds Abdomen soft NT ND +ve BS Extremities - +2 pitting edema in bilateral lower extremities DISCOVERY GUIDE - unable to assess Psych - unable to assess - Labs CBC & Chem 7: 06/22/21 02:50 06/22/21 02:50 Labs: Abnormal Lab Results - Last 24 Hours (Table) 06/20/21 06/21/21 06/21/21 Range/Units 11:44 03:49 17:31 WBC (3.8-10.6) k/uL RBC (4.30-5.90) m/uL Hgb (13.0-17.5) gm/dL Hct (39.0-53.0) % Neutrophils # (1.3-7.7) k/uL Lymphocytes # (1.0-4.8) k/uL APTT (22.0-30.0) sec ABG pH (7.35-7.45) ABG pCO2 (35-45) mmHg ABG Total CO2 (19-24) mmol/L Potassium (3.5-5.1) mmol/L BUN (9-20) mg/dL Creatinine (0.66-1.25) mg/dL Glucose (74-99) mg/dL POC Glucose (mg/dL) 169 H (75-99) mg/dL Calcium (8.4-10.2) mg/dL Albumin (3.5-5.0) g/dL Procalcitonin 4.96 H (0.02-0.09) ng/mL Hep Bs Antibody Reactive A (Nonreactive) 06/21/21 06/22/2106/22/21 Range/Units 23:19 02:50 02:50 WBC 27.8 H (3.8-10.6) k/uL RBC 3.55 L (4.30-5.90) m/uL Hgb 10.5 L (13.0-17.5) gm/dL Hct 33.6 L (39.0-53.0) % Neutrophils # 25.6 H (1.3-7.7) k/uL Lymphocytes # 0.8 L (1.0-4.8) k/uL APTT (22.0-30.0) sec ABG pH (7.35-7.45) ABG pCO2 (35-45) mmHg ABG Total CO2 (19-24) mmol/L Potassium 5.5 H (3.5-5.1) mmol/L BUN 78 H (9-20) mg/dL Creatinine 5.66 H (0.66-1.25) mg/dL Glucose 119 H (74-99) mg/dL POC Glucose (mg/dL) 126 H (75-99) mg/dL Calcium 8.2 L (8.4-10.2) mg/dL Albumin 2.8 L (3.5-5.0) g/dL Procalcitonin (0.02-0.09) ng/mL Hep Bs Antibody (Nonreactive) 06/22/21 06/22/21 06/22/21 Range/Units 03:00 05:29 06:11 WBC (3.8-10.6) k/uL RBC (4.30-5.90) m/uL Hgb (13.0-17.5) gm/dL Hct (39.0-53.0) % Neutrophils # (1.3-7.7) k/uL Lymphocytes # (1.0-4.8) k/uL APTT 49.4 H (22.0-30.0) sec ABG pH 7.09 L* (7.35-7.45) ABG pCO2 80 H* (35-45) mmHg ABG Total CO2 27 H (19-24) mmol/L Potassium (3.5-5.1) mmol/L BUN (9-20) mg/dL Creatinine (0.66-1.25) mg/dL Glucose (74-99) mg/dL POC Glucose (mg/dL) 143 H (75-99) mg/dL Calcium (8.4-10.2) mg/dL Albumin (3.5-5.0) g/dL Procalcitonin (0.02-0.09) ng/mL Hep Bs Antibody (Nonreactive) 06/22/21 Range/Units 11:23 WBC (3.8-10.6) k/uL RBC (4.30-5.90) m/uL Hgb (13.0-17.5) gm/dL Hct (39.0-53.0) % Neutrophils # (1.3-7.7) k/uL Lymphocytes # (1.0-4.8) k/uL APTT (22.0-30.0) sec ABG pH (7.35-7.45) ABG pCO2 (35-45) mmHg ABG Total CO2 (19-24) mmol/L Potassium (3.5-5.1) mmol/L BUN (9-20) mg/dL Creatinine (0.66-1.25) mg/dL Glucose (74-99) mg/dL POC Glucose (mg/dL) 142 H (75-99) mg/dL Calcium (8.4-10.2) mg/dL Albumin (3.5-5.0) g/dL Procalcitonin (0.02-0.09) ng/mL Hep Bs Antibody (Nonreactive) Microbiology - Last 24 Hours (Table) 06/19/21 09:31 Blood Culture - Preliminary Blood No Growth after 72 hours 06/19/21 09:31 Blood Culture - Preliminary Blood No Growth after 72 hours 06/18/21 13:00 Blood Culture - Preliminary Blood No Growth after 72 hours 06/20/21 03:38 Gram Stain - Preliminary Sputum Sputum Culture - Preliminary Presumptive Staph aureus Gram Neg Bacilli Assessment and Plan Assessment: COVID-19 pneumonitis in an unvaccinated individual Acute hypoxic respiratory failure/ventilator dependent respiratory failure Toxic encephalopthy due to hypoxia Right upper lobe pulmonary embolism Staph aureus and gram-negative pneumonia - decadron - Vit D, Vit C, Zinc - Follow inflammatory labs - pulm hygiene - pulm recs - Heparin drip -Technical Photographer to manage vent -Resume vancomycin and meropenem -Trend CBC-> trending down Acute kidney injury -Nephrology consult -Nephrology to manage dialysis Staph epi on blood culture - likely contaminant - repeat blood cultures -> blood cultures from 06/18 are negative to date to date HTN - cleveprix off 06/14 - follow BP obesity with BMI 38.4 - structured outpatient weight loss Hyponatremia, resolved Lactic acidosis, resolved Hypokalemia, resolved Prognosis is guarded DVT prophylaxis: Lovenox Discussed with: nursing Anticipated discharge date: undetermined Anticipated discharge place: undetermined
--- NOTE | 2021-06-22 12:22 | PN ---
PROGRESS NOTE The patient is seen for followup for acute kidney injury. Patient has been started on dialysis. Today is his second treatment. Renal function has worsened quite progressively and rapidly with creatinine up to 6.0 yesterday before dialysis. This morning, potassium is 5.5. The patient is maintained on a bicarb drip, which is running at 50 mL an hour. He had been on Cleviprex, which is now off. On examination today, blood pressure 116/51, heart rate 112 per minute. Patient is afebrile. The patient is not examined. Case discussed with nursing staff. LAB: Show sodium 139, potassium 5.5, chloride 103, BUN 78, serum creatinine 5.6. ASSESSMENT: 1. Acute kidney injury acute tubular necrosis associated with Covid infection, currently oliguric with no urine output, maintained on dialysis. We will reevaluate for need for dialysis again tomorrow. 2. Hyperkalemia associated with acute kidney injury. 3. Metabolic acidosis associated with renal failure, maintained on bicarb drip which we can discontinue. PLAN: DC vancomycin. Hemodialysis today. DC bicarb drip. Plan for possible dialysis again tomorrow based on labs. MMODL / IJN: [id number] /
[2021-06-22] MEDS: SODIUM CHLORIDE 0.9% 1,000 ML IV SCH (15:19)
[2021-06-22] MEDS: CISATRACURIUM 200 MG in SODIUM CHLORIDE 0.9% 180 ML IV SCH ×2 (16:06→23:42)
[2021-06-22 16:56] LABS: Glucose,Whole Blood 121 mg/dL (75-99)
[2021-06-22 23:51] LABS: Glucose,Whole Blood 137 mg/dL (75-99)
[2021-06-23] MEDS ORDERED: EPINEPHrine 10 ML SYRINGE (0.1 MG/ML) ONE (01:00)
[2021-06-23] MEDS ORDERED: SODIUM BICARB 8.4% 50 ML SYR (1 MEQ/ML) ONE (01:00)
--- NOTE | 2021-06-23 01:51 | XR ---
EXAMINATION TYPE: XR chest 1V portable DATE OF EXAM: 06/23/2021 COMPARISON: Yesterday HISTORY: Respiratory failure TECHNIQUE: Single view FINDINGS: Endotracheal tube is 3.5 cm from the felix. There is left side central venous catheter wit h tip in the right atrium. There is nasogastric tube in the stomach. There are chest leads. There is pulmonary interstitial and airspace edema. IMPRESSION: Pulmonary edema not changed compared to yesterday.
[2021-06-23 02:25] LABS: Basophils # (A) 0.4 k/uL (0-0.2); Basophils % (A) 1 %; Eosinophils # (A) 0.6 k/uL (0-0.7); Eosinophils % (A) 1 %; HCT 34.4 % (39.0-53.0); HGB 10.7 gm/dL (13.0-17.5); Hypochromasia Slight; Lymphocytes # (A) 0.4 k/uL (1.0-4.8); Lymphocytes % (A) 1 %; MCH 29.3 pg (25.0-35.0); MCHC 31.1 g/dL (31.0-37.0); MCV 94.3 fL (80.0-100.0); Mean Platelet Volume 8.7; Monocytes # (A) 1.4 k/uL (0-1.0); Monocytes % (A) 4 %; Neutrophils # (A) 36.3 k/uL (1.3-7.7); Neutrophils % (A) 92 %; Platelet Count 436 k/uL (150-450); RBC 3.65 m/uL (4.30-5.90); RDW 14.4 % (11.5-15.5); WBC 39.2 k/uL (3.8-10.6)
[2021-06-23] MEDS: HEPARIN SOD,PORK IN 0.45% NACL 25,000 UNIT in 0.45% NACL 1 250ML.BAG IV SCH ×2 (03:04→16:56)
[2021-06-23 04:07] LABS: Albumin 2.9 g/dL (3.5-5.0); Total Bilirubin 0.7 mg/dL (0.2-1.3); Total Protein 6.3 g/dL (6.3-8.2)
[2021-06-23 04:10] LABS: Vancomycin,Random 20.8 ug/mL
[2021-06-23 04:33] LABS: C Reactive Protein 17.8 mg/dL (<1.0)
[2021-06-23 05:12] LABS: Glucose,Whole Blood 150 mg/dL (75-99)
[2021-06-23] MEDS: INSULIN ASPART (NovoLOG) 100 UNIT/ML VIAL SQ SCH ×3 (05:17→17:14)
--- NOTE | 2021-06-23 05:48 | P.EN ---
Code Blue Note Activated at 1:00 AM. Arrived at the scene shortly after. The patient was undergoing CPR. Reviewed the chart and discussed the case with RN. The patient is admitted to the hospital for COVID-19 pneumonia with hypoxic respiratory failure and had developed PEA. The patient was given epinephrine IV push 1 and sodium bicarbonate IV push 1 with subsequent ROSC with sinus tachycardia at 1:05 am. The primary team was notified by the RN. Please refer to the code sheet for further details.
[2021-06-23 06:18] LABS: ABG Base Excess -4.2 mmol/L; ABG HCO3 24 mmol/L (21-25); ABG Oxygen Saturation 91.1 % (94-97); ABG PCO2 66 mmHg (35-45); ABG PO2 70 mmHg (83-108); ABG TCO2 26 mmol/L (19-24); Allen Test Performed? Yes
[2021-06-23 06:22] LABS: ABG PH 7.18 (7.35-7.45)
[2021-06-23] MEDS: ARTIFICIAL TEARS-HYPROMELLOSE DROPS 15 ML BTL BOTH EYES SCH ×6 (06:46→23:25)
[2021-06-23] MEDS: NOREPINEPHRINE 32 MG in SODIUM CHLORIDE 0.9% 218 ML IV SCH (06:47)
[2021-06-23] MEDS: fentaNYL (PF) 2,500 MCG in SODIUM CHLORIDE 0.9% 200 ML IV SCH ×3 (08:14→17:15)
[2021-06-23] MEDS: CLEVIDIPINE BUTYRATE 25 MG in EMPTY BAG 1 BAG IV SCH (08:16)
[2021-06-23] MEDS: CHOLECALCIFEROL 25 MCG (1000 IU) TABLET PO SCH (08:38)
[2021-06-23] MEDS: MEROPENEM 1 GM in SODIUM CHLORIDE 0.9% 100 ML IVPB SCH ×2 (08:38→21:25)
[2021-06-23] MEDS: DEXAMETHASONE SOD PHOSPHATE 10 MG/ML 1 ML VIAL IVP SCH (08:39)
[2021-06-23] MEDS: ASCORBIC ACID 500 MG TAB PO SCH (08:39)
[2021-06-23] MEDS: ZINC SULFATE 220 MG CAP PO SCH (08:39)
[2021-06-23] MEDS: PANTOPRAZOLE 40 MG/10 ML VIAL IVP SCH (08:39)
[2021-06-23] MEDS: CHLORHEXIDINE GLUCONATE 15 ML CUP MUCOUS MEM SCH ×2 (08:40→20:35)
--- NOTE | 2021-06-23 10:30 | P.PN ---
Subjective Progress Note Date: 06/23/21 50-year-old male patient presented to the ED for worsening shortness of breath of 2 weeks' duration and the patient was found to be quite hypoxic. Confirmed to be COVID-19 positive with secondary pneumonia. 06/20/2021, the patient is being seen for a follow-up. This is a topical with activities pneumonia with pulmonary embolism and secondary respiratory failure. For now, the patient is off paralytics. The patient was also taken off the fentanyl drip this morning. Propofol still running at the rate of 50 mcg/kg per minute. Patient remains on a mechanical ventilator. On today's evaluation, he remains on a PEEP of 20 with an FiO2 of 50% tidal volume of 400 with refills any 6. PH is at 7.3 with a pCO2 of 58 and pO2 of 89. Peak airway pressure was around 34. I dropped his PEEP down to 18. The chest x-ray still showing bilateral lower lobe pulmonary infiltrates, stable, probably slightly improved compared to yesterday. He is afebrile. The blood cultures resulted in to staph epidermidis and the patient is currently hemodynamically stable on no pressors. Urine output is in order of 30 mL an hour. Creatinine today is at 5.66 and the potassium level is currently at 5.2. As such, no plans for dialysis at this point in time. The patient is on no pressors for now. Afebrile. He is on enteral feeding with the vital AF at the rate of 28 mL an hour which is goal. He remains on Decadron. Blood work from today shows a white cell count of 23 with a hemoglobin of 10.3 and a platelet count of 253. Rest of the blood work shows a d-dimer level of 1.76, PTT therapeutic at 40.8 while being on IV heparin. BUN of 84 with a creatinine of 5.6. Serum bicarb is a 27. As far as inflammatory markers, the LDH level is at 1406 and a CRP level is at 18.9. He remains on IV cefepime and this is an empiric antibiotic coverage due to concern of superinfection. 06/21/2021, the patient is being seen for follow-up. The patient's condition is progressively deteriorating and this worsening occurred over the past 24-48 hours. I do suspect that the patient is getting a superinfection with bilateral pneumonia development of tolerance overnight he related pneumonia. For now, the patient is on a combination of sedation and paralytics. The patient is on propofol running at 50 mcg/kg per minute and the patient is also Nimbex at 1.5 mcg/kg per minute. He is adequately sedated and paralyzed. He remains on a mechanical ventilator. He is an assist-control mode of mechanical ventilation with a tidal volume of 375, FiO2 of 80%, PEEP of 18 with a respiratory rate of 28. Peak airway pressure is 34. Static pressure is 31. Chest x-ray showing diffuse bilateral pulmonary infiltrates and consolidation consistent with pneumonia and there is progressive interval worsening in his chest x-ray findings. This was noted and the patient was getting progressively more septic. His white cell count was on the rise and the white cell count is currently up to 41. The patient has already received 2 sets of blood cultures both negative. He was placed on IV cefepime on 06/19/2021. This sputum cultures still pending. The blood culture on 06/16/2021 showed staph epidermidis. At the same time, the patient has become hypotensive. He was given IV fluids yesterday and the patient is currently on pressors with confusion running 0.08 mcg/kg per minute. At the same time, the patient has developed an acute kidney injury. Urine output is low and order of 5 mL an hour and the patient is having a rise in the creatinine. Creatinine is up to 6.08. Potassium level is up to 5.7. His dialysis catheter was inserted yesterday and it will be started today and the patient will receive his first session of hemodialysis. At the same time, the patient remains on IV heparin for inflammatory markers, the patient's LDH level was 1416 from yesterday with a CRP level of 18.6. His overall net fluid balance over the past 24 hours has been in the order of 4 L positive. The patient is receiving enteral feeding for nutritional support. Currently is on vital AF at the rate of 21 mL an hour which is goal. Note that the Doppler of the lower extremities were negative. He has a dialysis catheter currently in his right femoral vein. He also has a triple catheter in the left subclavian t hat was inserted on 06/12/2021. 06/22/21, the patient remains sedated and paralyzed on a mechanical ventilator. On today's evaluation, the patient remains on propofol which is running at 50 mcg/kg per minute and the patient is also on Nimbex at 1.5 mcg/kg per minute. He is adequately sedated and paralyzed. Active issues for now is as hypoxic respiratory failure and renal failure. Hypoxic respiratory failure is related to COVID 19 related pneumonia with a superinfection with gram-negative and aureus is these microorganisms are being cultured in his sputum. He remains also on IV heparin for a suspected pulmonary embolism. He is currently on IV meropenem. Hemodynamically, the patient is on norepinephrine which is currently running at 0.11 mcg/kg/m. His white cell count is improved compared to yesterday. His white cell count was at as high as 41 and currently is down to 27. The blood cultures are still negative for now. He did have one blood culture that came back positive staph epidermidis. Meanwhile, the patient remains on a mechanical ventilator. On today's evaluation, he is an assist- control mode at the rate of 28 with a tidal volume of 375 and his FiO2 is currently at 80% with a PEEP of 13. The blood gases from today showing significant respiratory acidosis, he states is at 7.09 with a pCO2 of 80 and pO2 of 109. His peak airway pressure is 36. Chest x-ray from today is showing adequate positioning of the ET tube. There is obvious right lower lobe consolidation which is improved and there is also left lower lobe consolidation which remains essentially stable probably somewhat improved. The ET tube is sitting approximately 4 cm above the felix. The position is adequate for now. The patient also has a left subclavian triple-lumen catheter in place. In terms of his blood work, the patient's LDH was as high as 1416, on today's blood work, his inflammatory markers have not been checked. Nevertheless, his potassium level is at 5.5, creatinine is at 5.6, liver function tests are within normal limits. As mentioned, his white cell count is improving. The patient is receiving vital AF for enteral feeding and nutritional support. Doppler of the lower extremities have been negative. 06/23/2021, the patient remains intubated on a mechanical ventilator. He is critically ill. Events from yesterday was noted. The patient had a CODE BLUE at around 1 AM in the morning. He was in a PEA rhythm. At that point, CPR was initiated. He was given a dose of epinephrine and bicarb and there was return of spontaneous circulation following that. This morning, he remains sedated and paralyzed. The patient is on propofol currently running at 50 mcg/kg per minute is also on Nimbex running at 1.5 mcg/kg per minute. The patient is adequately sedated. He remains on a mechanical ventilator, he is on assist control of 26, tidal volume of 375, FiO2 is currently at 100% with a PEEP of 18. The chest x- ray from today showing worsening in the bilateral pulmonary infiltrates. ET tube is in a good location. No evidence of any pneumothorax. The blood gases from today is showing a pH of 7.18 with a pCO2 of 66 and pO2 of 70. The peak airway pressure is 44. Static pressures around 41. The patient is still being treated for COVID 19 related pneumonia. He remains on Decadron at a dose of 6 mg IV every 24 hours. He is also on IV heparin due to a suspected pulmonary embolism based on a CT angiogram that was done earlier. Meanwhile, there was a concern for pneumonia superinfection. The patient had gram-negative and staph aureus in his sputum. For that reason, the patient was covered with antibiotics and he was placed on IV meropenem. On today clock cultures, the patient was found to have Klebsiella in the sputum which has been essentially sensitive microorganism and the patient was also found to have staph aureus, MSSA. I think IV metoprolol and is adequate for now. Hemodynamically, the patient is on norepinephrine infusion which is currently running at 0.38 mcg/kg per minute. He is on IV fluids in the form of the bicarb infusion at the rate of 50 mL an hour. Urine output is minimal at this point in time. He is afebrile. His blood work is showing a white cell count of 39, hemoglobin is at 10.7, PTT is therapeutic, creatinine is at 5.3 with a BUN of 66, sodium is at 138, his LDH level is up to 4574, CRP is at 17.8, he has also a component of hepatic dysfunction and there is significant elevation in the LFTs including an AST of 355 and ALT of 281. Note that the patient was given vancomycin initially. His most recent vancomycin level was down to 20.8. His last bout of hemodialysis was yesterday and I think nephrology opted not to do any dialysis for today.. The patient is still receiving enteral feeding for nutritional support and the patient is on vital AF. Doppler of the lower extremities have been negative. Objective - Vital Signs Vital signs: Vital Signs Temp 99.8 F H 06/23/21 08:00 Pulse 122 H 06/23/21 09:15 Resp 26 H 06/23/21 09:15 BP 184/88 06/23/21 06:15 Pulse Ox 88 L 06/23/21 09:15 Intake & Output 06/22/21 06/23/21 06/23/21 18:59 06:59 18:59 Intake Total 996.094 7686.156 153.135 Output Total 0 15 Balance 669.797 3367.156 153.135 Intake: IV 49 33 Pressure bags 39 33 Sodium Chloride 0.9% 1, 10 000 ml @ 20 mls/hr IV . Q24H [facility] Rx#:[id number] Intake, IV Titration 374.329 1765.156 153.135 Amount Cisatracurium 200 mg In 200 140.22 153.135 Sodium Chloride 0.9% 180 ml @ 1 MCG/KG/MIN 7.38 mls/hr IV .Q24H [facility] Rx#: [id number] Dextrose 5% in Water 1, 550 000 ml @ 50 mls/hr IV . Q23H [facility] with Sodium Bicarb (1 Meq/ml) 150 ml Rx#:[id number] Heparin Sod,Pork in 0.45% 419.905 250 NaCl 25,000 unit In 0.45 % NaCl 1 250ml.bag @ 18 UNITS/KG/HR 21.69 mls/hr IV .[id number] [facility] Rx#: [id number] Norepinephrine 32 mg In 155.562 Sodium Chloride 0.9% 218 ml @ 0.12 MCG/KG/MIN 6. 919 mls/hr IV .Q24H [facility] Rx#:[id number] Sodium Chloride 0.9% 1, 20 000 ml @ 20 mls/hr IV . Q24H [facility] Rx#:[id number] propofoL 1,000 mg In 100 185.374 Empty Bag 1 bag @ Titrate IV .Q0M [facility] Rx#: [id number] Tube Feeding 58 232 Other 120 Output: Urine 0 15 Other: Voiding Method Indwelling Catheter Indwelling Catheter # Bowel Movements 1 ABP, PAP, CO, CI - Last Documented Arterial Blood Pressure 119/48 - Exam Gen. appearance No acute distress, sedated and paralyzed. The patient has an orally placed endotracheal tube and NG tube. HEENT examination is grossly unremarkable. Neck supple. Full range of motion. No adenopathy thyromegaly or neck vein distention. Cardiovascular examination reveals regular rhythm rate. S1-S2 normal. No S3 or S4. No discernible murmur noted. Heart sounds are distant. Lungs reveal diffuse bilateral rhonchi. No wheezes or crackles. Breath sounds are equal bilaterally. Abdominal exam revealed normal bowel sounds. The abdomen was soft, non-tender, and without masses, organomegaly, or appreciable enlargement of the abdominal aorta. Extremities are intact. No cyanosis clubbing The patient has a right femoral dialysis catheter in place. He has developed some increased edema and third spacing in all 4 extremities. Examination of the skin revealed no evidence of significant rashes, suspicious appearing nevi or other concerning lesions. Neurologic examination cannot be assessed at this time given the sedation and paralysis. - Labs CBC & Chem 7: 06/23/21 02:10 06/23/21 02:10 Labs: Abnormal Lab Results - Last 24 Hours (Table) 06/22/21 06/22/21 06/22/21 Range/Units 11:23 16:55 23:49 WBC (3.8-10.6) k/uL RBC (4.30-5.90) m/uL Hgb (13.0-17.5) gm/dL Hct (39.0-53.0) % Neutrophils # (1.3-7.7) k/uL Lymphocytes # (1.0-4.8) k/uL Monocytes # (0-1.0) k/uL Basophils # (0-0.2) k/uL APTT (22.0-30.0) sec ABG pH (7.35-7.45) ABG pCO2 (35-45) mmHg ABG pO2 (83-108) mmHg ABG Total CO2 (19-24) mmol/L ABG O2 Saturation (94-97) % BUN (9-20) mg/dL Creatinine (0.66-1.25) mg/dL Glucose (74-99) mg/dL POC Glucose (mg/dL) 142 H 121 H 137 H (75-99) mg/dL AST (17-59) U/L ALT (4-49) U/L Alkaline Phosphatase (38-126) U/L Lactate Dehydrogenase (313-618) U/L C-Reactive Protein (<1.0) mg/dL Albumin (3.5-5.0) g/dL 06/23/21 06/23/21 06/23/21 Range/Units 02:10 02:10 05:10 WBC 39.2 H (3.8-10.6) k/uL RBC 3.65 L (4.30-5.90) m/uL Hgb 10.7 L (13.0-17.5) gm/dL Hct 34.4 L (39.0-53.0) % Neutrophils # 36.3 H (1.3-7.7) k/uL Lymphocytes # 0.4 L (1.0-4.8) k/uL Monocytes # 1.4 H (0-1.0) k/uL Basophils # 0.4 H (0-0.2) k/uL APTT (22.0-30.0) sec ABG pH (7.35-7.45) ABG pCO2 (35-45) mmHg ABG pO2 (83-108) mmHg ABG Total CO2 (19-24) mmol/L ABG O2 Saturation (94-97) % BUN 66 H (9-20) mg/dL Creatinine 5.39 H (0.66-1.25) mg/dL Glucose 152 H (74-99) mg/dL POC Glucose (mg/dL) 150 H (75-99) mg/dL AST 355 H (17-59) U/L ALT 281 H (4-49) U/L Alkaline Phosphatase 201 H (38-126) U/L Lactate Dehydrogenase 4574 H (313-618) U/L C-Reactive Protein 17.8 H (<1.0) mg/dL Albumin 2.9 L (3.5-5.0) g/dL 06/23/21 06/23/21 Range/Units 05:40 06:12 WBC (3.8-10.6) k/uL RBC (4.30-5.90) m/uL Hgb (13.0-17.5) gm/dL Hct (39.0-53.0) % Neutrophils # (1.3-7.7) k/uL Lymphocytes # (1.0-4.8) k/uL Monocytes # (0-1.0) k/uL Basophils # (0-0.2) k/uL APTT 50.3 H (22.0-30.0) sec ABG pH 7.18 L* (7.35-7.45) ABG pCO2 66 H (35-45) mmHg ABG pO2 70 L (83-108) mmHg ABG Total CO2 26 H (19-24) mmol/L ABG O2 Saturation 91.1 L (94-97) % BUN (9-20) mg/dL Creatinine (0.66-1.25) mg/dL Glucose (74-99) mg/dL POC Glucose (mg/dL) (75-99) mg/dL AST (17-59) U/L ALT (4-49) U/L Alkaline Phosphatase (38-126) U/L Lactate Dehydrogenase (313-618) U/L C-Reactive Protein (<1.0) mg/dL Albumin (3.5-5.0) g/dL Microbiology - Last 24 Hours (Table) 06/18/21 13:00 Blood Culture - Preliminary Blood No Growth after 96 hours 06/20/21 03:38 Gram Stain - Final Sputum Sputum Culture - Final Staphylococcus aureus Klebsiella oxytoca 06/19/21 09:31 Blood Culture - Preliminary Blood No Growth after 72 hours 06/19/21 09:31 Blood Culture - Preliminary Blood No Growth after 72 hours Assessment and Plan Plan: 1 Acute hypoxemic respiratory failure secondary to coronavirus associated pn eum[place], with worsening hypoxemic respiratory failure, and need for intubation and mechanical ventilation on the morning of 06/12/2021 and the patient has been intubated and sedated and paralyzed since. The patient that she has bilateral pulmonary infiltrates with a CT angiogram that was done showed a suspicious area pulmonary artery embolism in the right upper lobe and for that reason the patien t is currently on therapeutic dose of Lovenox. The patient remains on Decadron. The chest x-ray was noted. The patient's remains on Decadron and therapeutic dose of Lovenox. Peak/ static pressure remains quite elevated. The patient continues to be in the same condition as of yesterday. Chest x-ray from today and the blood gases was noted. There is an obvious worsening for a superinfection and pneumonia. The patient developed worsening in consolidation of the lung bases and the patient was becoming hypotensive at one point with increased leukocytosis all indicating bilateral pneumonia and sepsis. The sputum Gram stain and cultures showing staph aureus and Klebsiella bacteria. The patient is currently on IV meropenem. Vancomycin will be DC The blood gases from today showing respiratory acidosis. Will continue with permissive hypercapnia. We had bicarb. His pro-calcitonin level is at 4.9. Unfortunately, the patient's chest x-ray from today showing interval worsening of the bilateral pulmonary infiltrates. This could be related to the pneumonia based on the above-mentioned microorganism. It could be also potentially a COVID 19 progression as the patient's LDH and CRP are quite elevated on today's blood work. I separate note, the patient also can have worsening of his ARDS seconds above-mentioned processes. 2 acute pulmonary embolism, suspicious areas of filling defect in the right upper lobe with elevated d-dimer of above 30 for currently on Lovenox, therapeu tic doses note that the patient d-dimer is improved and the patient remains on IV heparin. 3 ARDS with diffuse bilateral pulmonary infiltrates secondary to COVID-19 related to pneumonia 4 Elevated inflammatory marker secondary to coronavirus infection. 5 acute bilateral pneumonia with interval worsening in the pulmonary consolidation, consider superinfection on a ventilator associated pneumonia. The patient has become hypotensive, he has developed leukocytosis and fever and worsening in the bilateral pulmonary infiltrates and the patient was covered empirically with IV meropenem for now. The most recent culture showed Klebsiella and MSSA. 6 hypertension currently hypotensive secondary to sepsis, the patient is currently on pressors for septic shock 7 acute leukocytosis goes pressors., Secondary to above, sepsis, and a white cell count is currently up to 39 8 fever 9 staph epidermidis in the blood, likely contaminant 10 acute kidney injury, and the creatinine is still elevated and the patient is less hemodialysis was yesterday. No plans for hemodialysis today 11 brief cardiopulmonary arrest with PEA rhythm with a current occurred yesterday. The patient received resuscitation, CPR, epinephrine, bicarb and subsequently there was a tetanus with his circulation. 12 Abnormal LFTs Plan: Continue ventilator support, drop PEEP to 18 and VC plus mode, TV 375, Fio2 100, no changes for today Continue permissive hypercapnia and add bicarb. and he is on Bicarb infusion DC vanco Continue IV meropenem Wean off pressors No hemodialysis today. Repeat labs at 1600 Monitor renal function Keep the patient Decadron 6 mg IV every 24 hours Continue IV heparin Keep the patient sedated with propofol, off fentanyl and continue Nimbex for now and keep the patient's paralyzed Enteral feeding for nutritional support Monitor inflammatory markers and repeat levels in a.m. US of the RUQ in am Condition is critical and this critically care evaluation was done more than 30 minutes Time with Patient: Greater than 30 Time with Patient: Greater than 30
--- NOTE | 2021-06-23 10:58 | P.PN ---
Subjective Progress Note Date: 06/23/21 Patient had a CODE BLUE called last night. ROSC was achieved. Patient currently on FiO2 of 100% and PEEP of 18. He is also on norepinephrine, heparin drip and nimbex ggt. Patient's sputum culture finalized which grew staph aureus, MSSA and Klebsiella. Patient's antibiotics have been D escalated to me ropenem. Objective - Vital Signs Vital signs: Vital Signs Temp 99.8 F H 06/23/21 08:00 Pulse 122 H 06/23/21 09:15 Resp 26 H 06/23/21 09:15 BP 184/88 06/23/21 06:15 Pulse Ox 88 L 06/23/21 09:15 Intake & Output 06/22/21 06/23/21 06/23/21 18:59 06:59 18:59 Intake Total 739.377 8166.156 153.135 Output Total 0 15 Balance 954.109 2767.156 153.135 Intake: IV 49 33 Pressure bags 39 33 Sodium Chloride 0.9% 1, 10 000 ml @ 20 mls/hr IV . Q24H [facility] Rx#:[id number] Intake, IV Titration 398.885 4906.156 153.135 Amount Cisatracurium 200 mg In 200 140.22 153.135 Sodium Chloride 0.9% 180 ml @ 1 MCG/KG/MIN 7.38 mls/hr IV .Q24H [facility] Rx#: [id number] Dextrose 5% in Water 1, 550 000 ml @ 50 mls/hr IV . Q23H [facility] with Sodium Bicarb (1 Meq/ml) 150 ml Rx#:[id number] Heparin Sod,Pork in 0.45% 419.905 250 NaCl 25,000 unit In 0.45 % NaCl 1 250ml.bag @ 18 UNITS/KG/HR 21.69 mls/hr IV .[id number] [facility] Rx#: [id number] Norepinephrine 32 mg In 155.562 Sodium Chloride 0.9% 218 ml @ 0.12 MCG/KG/MIN 6. 919 mls/hr IV .Q24H [facility] Rx#:[id number] Sodium Chloride 0.9% 1, 20 000 ml @ 20 mls/hr IV . 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 Psych - unable to assess - Labs CBC & Chem 7: 06/23/21 02:10 06/23/21 02:10 Labs: Abnormal Lab Results - Last 24 Hours (Table) 06/22/21 06/22/21 06/22/21 Range/Units 11:23 16:55 23:49 WBC (3.8-10.6) k/uL RBC (4.30-5.90) m/uL Hgb (13.0-17.5) gm/dL Hct (39.0-53.0) % Neutrophils # (1.3-7.7) k/uL Lymphocytes # (1.0-4.8) k/uL Monocytes # (0-1.0) k/uL Basophils # (0-0.2) k/uL APTT (22.0-30.0) sec ABG pH (7.35-7.45) ABG pCO2 (35-45) mmHg ABG pO2 (83-108) mmHg ABG Total CO2 (19-24) mmol/L ABG O2 Saturation (94-97) % BUN (9-20) mg/dL Creatinine (0.66-1.25) mg/dL Glucose (74-99) mg/dL POC Glucose (mg/dL) 142 H 121 H 137 H (75-99) mg/dL AST (17-59) U/L ALT (4-49) U/L Alkaline Phosphatase (38-126) U/L Lactate Dehydrogenase (313-618) U/L C-Reactive Protein (<1.0) mg/dL Albumin (3.5-5.0) g/dL 06/23/21 06/23/21 06/23/21 Range/Units 02:10 02:10 05:10 WBC 39.2 H (3.8-10.6) k/uL RBC 3.65 L (4.30-5.90) m/uL Hgb 10.7 L (13.0-17.5) gm/dL Hct 34.4 L (39.0-53.0) % Neutrophils # 36.3 H (1.3-7.7) k/uL Lymphocytes # 0.4 L (1.0-4.8) k/uL Monocytes # 1.4 H (0-1.0) k/uL Basophils # 0.4 H (0-0.2) k/uL APTT (22.0-30.0) sec ABG pH (7.35-7.45) ABG pCO2 (35-45) mmHg ABG pO2 (83-108) mmHg ABG Total CO2 (19-24) mmol/L ABG O2 Saturation (94-97) % BUN 66 H (9-20) mg/dL Creatinine 5.39 H (0.66-1.25) mg/dL Glucose 152 H (74-99) mg/dL POC Glucose (mg/dL) 150 H (75-99) mg/dL AST 355 H (17-59) U/L ALT 281 H (4-49) U/L Alkaline Phosphatase 201 H (38-126) U/L Lactate Dehydrogenase 4574 H (313-618) U/L C-Reactive Protein 17.8 H (<1.0) mg/dL Albumin 2.9 L (3.5-5.0) g/dL 06/23/21 06/23/21 Range/Units 05:40 06:12 WBC (3.8-10.6) k/uL RBC (4.30-5.90) m/uL Hgb (13.0-17.5) gm/dL Hct (39.0-53.0) % Neutrophils # (1.3-7.7) k/uL Lymphocytes # (1.0-4.8) k/uL Monocytes # (0-1.0) k/uL Basophils # (0-0.2) k/uL APTT 50.3 H (22.0-30.0) sec ABG pH 7.18 L* (7.35-7.45) ABG pCO2 66 H (35-45) mmHg ABG pO2 70 L (83-108) mmHg ABG Total CO2 26 H (19-24) mmol/L ABG O2 Saturation 91.1 L (94-97) % BUN (9-20) mg/dL Creatinine (0.66-1.25) mg/dL Glucose (74-99) mg/dL POC Glucose (mg/dL) (75-99) mg/dL AST (17-59) U/L ALT (4-49) U/L Alkaline Phosphatase (38-126) U/L Lactate Dehydrogenase (313-618) U/L C-Reactive Protein (<1.0) mg/dL Albumin (3.5-5.0) g/dL Microbiology - Last 24 Hours (Table) 06/18/21 13:00 Blood Culture - Preliminary Blood No Growth after 96 hours 06/20/21 03:38 Gram Stain - Final Sputum Sputum Culture - Final Staphylococcus aureus Klebsiella oxytoca 06/19/21 09:31 Blood Culture - Preliminary Blood No Growth after 72 hours 06/19/21 09:31 Blood Culture - Preliminary Blood No Growth after 72 hours Assessment and Plan Assessment: PEA arrest s/p ROSC on 06/23/2021 -We'll need to continue discuss goals of care with family -Currently family wants patient to be full code. 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
--- NOTE | 2021-06-23 11:51 | PN ---
PROGRESS NOTE Patient is seen for followup for acute kidney injury associated with COVID pneumonia, hypotension. Patient also has a component of vancomycin toxicity. He has Staph aureus in his sputum and we are limited with choices for antibiotics, as Zyvox interacts with fentanyl, which is being used for sedation. Level today is down to 20. Patient has no significant urine output. He was started on dialysis on 06/21/2021. He has had two treatments thus far and will be having his third treatment tomorrow. Patient had a cardiac arrest yesterday. His FiO2 is now up to 100%. He had PEA while he was being turned and had a bowel movement. Case is discussed with nursing staff. Blood pressure 119/48, heart rate 122 per minute. He is on close to 50 mcg of Levophed with no urine output. Labs are reviewed. Sodium 138, potassium 5.0, BUN 66, creatinine 5.39, hemoglobin 10.7. ASSESSMENT: 1. Acute kidney injury, acute tubular necrosis, oliguric secondary to sepsis, hypotension, COVID pneumonia, maintained on dialysis. Will plan for a treatment tomorrow if patient is hemodynamically stable. He is currently requiring large amount of pressors. Overall prognosis is guarded. 2. Acute hypoxic respiratory failure, maintained on the vent. 3. COVID pneumonia. 4. Status post cardiac arrest yesterday. 5. Severe metabolic acidosis, status post bicarb drip. PLAN: Hemodialysis in a.m. Will discontinue bicarb drip tomorrow after dialysis. Overall prognosis is guarded. MMODL / IJN: [id number] /
[2021-06-23 13:25] LABS: Glucose,Whole Blood 159 mg/dL (75-99)
[2021-06-23] MEDS: SODIUM CHLORIDE 0.9% 1,000 ML IV SCH (16:01)
[2021-06-23 16:57] LABS: Glucose,Whole Blood 150 mg/dL (75-99)
[2021-06-23 17:42] LABS: Magnesium 2.6 mg/dL (1.6-2.3); Potassium 5.1 mmol/L (3.5-5.1)
[2021-06-23 18:08] LABS: Glucose,Whole Blood 152 mg/dL (75-99)
[2021-06-23 18:20] LABS: Phosphorus 10.7 mg/dL (2.5-4.5)
[2021-06-23 23:32] LABS: Glucose,Whole Blood 158 mg/dL (75-99)
[2021-06-24] MEDS: INSULIN ASPART (NovoLOG) 100 UNIT/ML VIAL SQ SCH ×5 (00:25→23:54)
[2021-06-24] MEDS: NOREPINEPHRINE 32 MG in SODIUM CHLORIDE 0.9% 218 ML IV SCH ×4 (01:24→20:51)
[2021-06-24] MEDS: fentaNYL (PF) 2,500 MCG in SODIUM CHLORIDE 0.9% 200 ML IV SCH ×2 (01:26→14:11)
[2021-06-24] MEDS: CISATRACURIUM 200 MG in SODIUM CHLORIDE 0.9% 180 ML IV SCH ×2 (04:14→20:51)
[2021-06-24] MEDS: HEPARIN SOD,PORK IN 0.45% NACL 25,000 UNIT in 0.45% NACL 1 250ML.BAG IV SCH ×2 (04:14→14:01)
[2021-06-24] MEDS: ARTIFICIAL TEARS-HYPROMELLOSE DROPS 15 ML BTL BOTH EYES SCH ×6 (04:15→23:54)
[2021-06-24 05:06] LABS: HCT 29.6 % (39.0-53.0); HGB 9.5 gm/dL (13.0-17.5); Hypochromasia Slight; MCV 93.7 fL (80.0-100.0); Mean Platelet Volume 9.2; Platelet Count 325 k/uL (150-450); RBC 3.16 m/uL (4.30-5.90); RDW 14.5 % (11.5-15.5); WBC 25.1 k/uL (3.8-10.6)
[2021-06-24 05:08] LABS: ABG HCO3 25 mmol/L (21-25); ABG Oxygen Saturation 95.5 % (94-97); ABG PO2 97 mmHg (83-108); ABG TCO2 28 mmol/L (19-24)
[2021-06-24 05:11] LABS: ABG PH 7.08 (7.35-7.45)
[2021-06-24 05:12] LABS: ABG PCO2 85 mmHg (35-45); Allen Test Performed? no
[2021-06-24 05:36] LABS: Partial Thromboplastin Time 69.7 sec (22.0-30.0)
[2021-06-24 06:35] LABS: Band Neutrophils % 8 %; Eosinophils # (M) 0.25 k/uL (0-0.7); Metamyelocytes # (M) 1.51 k/uL (0); Metamyelocytes % 6 %; Myelocytes % 2 %; Neutrophils % (M) 81 %; Nucleated Red Blood Cells 0 /100 WBC (0-0); Total Cells Counted 100
--- NOTE | 2021-06-24 06:38 | XR ---
EXAMINATION TYPE: XR chest 1V DATE OF EXAM: 06/24/2021 CLINICAL HISTORY: Difficulty breathing progress study. TECHNIQUE: Single AP portable semiupright view of the chest is obtained. COMPARISON: Chest x-ray from one day earlier and older studies. FINDINGS: Stable endotracheal and orogastric tubes. Stable left internal jugular central venous cath eter. Bilateral multifocal and confluent opacities greatest in the lower lungs redemonstrated. Cardiac silh ouette size stable and within normal limits. Osseous structures are intact. IMPRESSION: Bilateral multifocal and confluent opacities consistent with covid-19 infection and/or de veloping ARDS. No significant change from one day earlier.
[2021-06-24 07:17] LABS: Glucose,Whole Blood 166 mg/dL (75-99)
--- NOTE | 2021-06-24 08:11 | US ---
EXAMINATION TYPE: US gallbladder DATE OF EXAM: 06/24/2021 COMPARISON: CT abdomen and pelvis June 17, 2010. CLINICAL HISTORY: CoVID, elevated LFTs. Intubated ICU patient with elevated LFT. EXAM MEASUREMENTS: Liver Length: 25.8 cm Gallbladder Wall: 0.7 cm CBD: 0.6 cm Right Kidney: 13.1 x 7.1 x 7.2 cm Pancreas: hyperechoic Liver: Prominent at least upper limits of normal, hyperechoic and attenuated posteriorly which sugges ts fatty liver, Gallbladder: abnormally thickened wall Evidence for sonographic Pereira's sign: no CBD: Upper limits of normal. Right Kidney: No hydronephrosis or masses seen Tiny Right pleural effusion noted on images #[id number] and #[id number]. Visualized pancreas is slightly heterogeneous. Visualized liver markedly heterogeneously hyperechoic. Evaluation for focal masses suboptimal due to the heterogeneity. No surrounding ascites. Gallbladder poorly distended with nonspecific mild/moderate abnormal wall thickening up to 7 mm. No intraluminal shadowing gallstones. Sonographic Pereira sign negative. No surrounding ascites. No right-sided hydro nephrosis. IMPRESSION: Heterogeneous hyperechoic appearance of liver consistent with diffuse fatty infiltration and/or underlying hepatocellular disease. Finding likely accounts for the gallbladder wall thickening .
[2021-06-24 08:19] LABS: Albumin 2.6 g/dL (3.5-5.0); Calcium 7.7 mg/dL (8.4-10.2); Potassium 5.3 mmol/L (3.5-5.1); Total Bilirubin 0.5 mg/dL (0.2-1.3); Total Protein 5.4 g/dL (6.3-8.2)
[2021-06-24 08:49] LABS: C Reactive Protein 18.5 mg/dL (<1.0)
[2021-06-24] MEDS: ASCORBIC ACID 500 MG TAB PO SCH (09:35)
[2021-06-24] MEDS: ZINC SULFATE 220 MG CAP PO SCH (09:36)
[2021-06-24] MEDS: CHOLECALCIFEROL 25 MCG (1000 IU) TABLET PO SCH (09:36)
[2021-06-24] MEDS: PANTOPRAZOLE 40 MG/10 ML VIAL IVP SCH (09:37)
[2021-06-24] MEDS: DEXAMETHASONE SOD PHOSPHATE 10 MG/ML 1 ML VIAL IVP SCH (09:37)
[2021-06-24] MEDS: CHLORHEXIDINE GLUCONATE 15 ML CUP MUCOUS MEM SCH ×2 (09:37→20:41)
[2021-06-24] MEDS: MEROPENEM 1 GM in SODIUM CHLORIDE 0.9% 100 ML IVPB SCH ×2 (09:37→21:24)
--- NOTE | 2021-06-24 10:24 | P.PN ---
Subjective Progress Note Date: 06/24/21 Patient remains intubated and sedated. He is currently on FiO2 of 80% and PEEP of 14. He is also on propofol and Levophed. Patient also on nimbex ggt. case was discussed with ICU nurse. Objective - Vital Signs Vital signs: Vital Signs Temp 100.7 F H 06/24/21 04:00 Pulse 124 H 06/24/21 07:00 Resp 26 H 06/24/21 07:00 BP 117/59 06/24/21 07:00 Pulse Ox 93 L 06/24/21 07:00 Intake & Output 06/23/21 06/24/21 06/24/21 18:59 06:59 18:59 Intake Total 2002.900 1765.100 255.907 Output Total 0 0 0 Balance 1765.100 255.907 Weight 124 kg Intake: IV 735.9 636 53 Dextrose 5% in Water 1, 600 600 50 000 ml @ 50 mls/hr IV . Q23H [facility] with Sodium Bicarb (1 Meq/ml) 150 ml Rx#:[id number] Meropenem 1 gm In Sodium 99.9 Chloride 0.9% 100 ml @ 33 .333 mls/hr IVPB Q12HR [facility] Rx#:[id number] Pressure bags 36 36 3 Intake, IV Titration 800.000 601.100 173.907 Amount Cisatracurium 200 mg In 200.000 Sodium Chloride 0.9% 180 ml @ 1 MCG/KG/MIN 7.38 mls/hr IV .Q24H [facility] Rx#: [id number] Heparin Sod,Pork in 0.45% 250 250 73.907 NaCl 25,000 unit In 0.45 % NaCl 1 250ml.bag @ 18 UNITS/KG/HR 21.69 mls/hr IV .[id number] [facility] Rx#: [id number] Norepinephrine 32 mg In 250.000 Sodium Chloride 0.9% 218 ml @ 0.12 MCG/KG/MIN 6. 919 mls/hr IV .Q24H [facility] Rx#:[id number] propofoL 1,000 mg In 100 351.100 100 Empty Bag 1 bag @ Titrate IV .Q0M [facility] Rx#: [id number] Tube Feeding 348 348 29 Other 120 180 Output: Urine 0 0 0 Other: Voiding Method Indwelling Catheter Indwelling Catheter ABP, PAP, CO, CI - Last Documented Arterial Blood Pressure 116/48 - Exam General examination - intubated and sedated Heart - + S1S2 no murmurs Lungs - diminished breath sounds Abdomen soft NT ND +ve BS Extremities - +2 pitting edema in bilateral lower extremities [employer] - unable to assess Psych - unable to assess - Labs CBC & Chem 7: 06/24/21 04:55 06/24/21 04:55 Labs: Abnormal Lab Results - Last 24 Hours (Table) 06/23/21 06/23/21 06/23/21 Range/Units 02:10 13:23 16:55 WBC (3.8-10.6) k/uL RBC (4.30-5.90) m/uL Hgb (13.0-17.5) gm/dL Hct (39.0-53.0) % Neutrophils # (Manual) (1.3-7.7) k/uL Metamyelocytes # (Man) (0) k/uL Myelocytes # (Manual) (0) k/uL APTT (22.0-30.0) sec D-Dimer (<0.60) mg/L FEU ABG pH (7.35-7.45) ABG pCO2 (35-45) mmHg ABG Total CO2 (19-24) mmol/L Sodium (137-145) mmol/L Potassium (3.5-5.1) mmol/L Chloride 97 L (98-107) mmol/L Carbon Dioxide (22-30) mmol/L BUN 76 H (9-20) mg/dL Creatinine 6.13 H (0.66-1.25) mg/dL Glucose 139 H (74-99) mg/dL POC Glucose (mg/dL) 159 H (75-99) mg/dL Calcium 8.0 L (8.4-10.2) mg/dL Phosphorus 10.7 H* (2.5-4.5) mg/dL Magnesium 2.6 H (1.6-2.3) mg/dL AST (17-59) U/L ALT (4-49) U/L Alkaline Phosphatase (38-126) U/L Lactate Dehydrogenase (313-618) U/L C-Reactive Protein (<1.0) mg/dL Total Protein (6.3-8.2) g/dL Albumin (3.5-5.0) g/dL Procalcitonin 6.99 H (0.02-0.09) ng/mL 06/23/21 06/23/21 06/23/21 Range/Units 16:55 18:06 23:31 WBC (3.8-10.6) k/uL RBC (4.30-5.90) m/uL Hgb (13.0-17.5) gm/dL Hct (39.0-53.0) % Neutrophils # (Manual) (1.3-7.7) k/uL Metamyelocytes # (Man) (0) k/uL Myelocytes # (Manual) (0) k/uL APTT (22.0-30.0) sec D-Dimer (<0.60) mg/L FEU ABG pH (7.35-7.45) ABG pCO2 (35-45) mmHg ABG Total CO2 (19-24) mmol/L Sodium (137-145) mmol/L Potassium (3.5-5.1) mmol/L Chloride (98-107) mmol/L Carbon Dioxide (22-30) mmol/L BUN (9-20) mg/dL Creatinine (0.66-1.25) mg/dL Glucose (74-99) mg/dL POC Glucose (mg/dL) 150 H 152 H 158 H (75-99) mg/dL Calcium (8.4-10.2) mg/dL Phosphorus (2.5-4.5) mg/dL Magnesium (1.6-2.3) mg/dL AST (17-59) U/L ALT (4-49) U/L Alkaline Phosphatase (38-126) U/L Lactate Dehydrogenase (313-618) U/L C-Reactive Protein (<1.0) mg/dL Total Protein (6.3-8.2) g/dL Albumin (3.5-5.0) g/dL Procalcitonin (0.02-0.09) ng/mL 06/24/21 06/24/21 06/24/21 Range/Units 04:55 04:55 04:55 WBC 25.1 H (3.8-10.6) k/uL RBC 3.16 L (4.30-5.90) m/uL Hgb 9.5 L (13.0-17.5) gm/dL Hct 29.6 L (39.0-53.0) % Neutrophils # (Manual) 22.30 H (1.3-7.7) k/uL Metamyelocytes # (Man) 1.51 H (0) k/uL Myelocytes # (Manual) 0.50 H (0) k/uL APTT 69.7 H (22.0-30.0) sec D-Dimer 4.88 H (<0.60) mg/L FEU ABG pH (7.35-7.45) ABG pCO2 (35-45) mmHg ABG Total CO2 (19-24) mmol/L Sodium 136 L (137-145) mmol/L Potassium 5.3 H (3.5-5.1) mmol/L Chloride (98-107) mmol/L Carbon Dioxide 20 L (22-30) mmol/L BUN 79 H (9-20) mg/dL Creatinine 6.78 H (0.66-1.25) mg/dL Glucose 152 H (74-99) mg/dL POC Glucose (mg/dL) (75-99) mg/dL Calcium 7.7 L (8.4-10.2) mg/dL Phosphorus (2.5-4.5) mg/dL Magnesium (1.6-2.3) mg/dL AST 122 H (17-59) U/L ALT 169 H (4-49) U/L Alkaline Phosphatase 197 H (38-126) U/L Lactate Dehydrogenase 2864 H (313-618) U/L C-Reactive Protein 18.5 H (<1.0) mg/dL Total Protein 5.4 L (6.3-8.2) g/dL Albumin 2.6 L (3.5-5.0) g/dL Procalcitonin (0.02-0.09) ng/mL 06/24/21 06/24/21 Range/Units 05:05 07:16 WBC (3.8-10.6) k/uL RBC (4.30-5.90) m/uL Hgb (13.0-17.5) gm/dL Hct (39.0-53.0) % Neutrophils # (Manual) (1.3-7.7) k/uL Metamyelocytes # (Man) (0) k/uL Myelocytes # (Manual) (0) k/uL APTT (22.0-30.0) sec D-Dimer (<0.60) mg/L FEU ABG pH 7.08 L* (7.35-7.45) ABG pCO2 85 H* (35-45) mmHg ABG Total CO2 28 H (19-24) mmol/L Sodium (137-145) mmol/L Potassium (3.5-5.1) mmol/L Chloride (98-107) mmol/L Carbon Dioxide (22-30) mmol/L BUN (9-20) mg/dL Creatinine (0.66-1.25) mg/dL Glucose (74-99) mg/dL POC Glucose (mg/dL) 166 H (75-99) mg/dL Calcium (8.4-10.2) mg/dL Phosphorus (2.5-4.5) mg/dL Magnesium (1.6-2.3) mg/dL AST (17-59) U/L ALT (4-49) U/L Alkaline Phosphatase (38-126) U/L Lactate Dehydrogenase (313-618) U/L C-Reactive Protein (<1.0) mg/dL Total Protein (6.3-8.2) g/dL Albumin (3.5-5.0) g/dL Procalcitonin (0.02-0.09) ng/mL Microbiology - Last 24 Hours (Table) 06/18/21 13:00 Blood Culture - Preliminary Blood No Growth after 120 hours 06/19/21 09:31 Blood Culture - Preliminary Blood No Growth after 96 hours 06/19/21 09:31 Blood Culture - Preliminary Blood No Growth after 96 hours Assessment and Plan Assessment: PEA arrest s/p ROSC on 06/23/2021 -We'll need to continue discuss goals of care with family -Currently family wants patient to be full code. COVID-19 pneumonitis in an unvaccinated individual Acute hypoxic respiratory failure/ventilator dependent respiratory failure Toxic encephalopthy due to hypoxia Right upper lobe pulmonary embolism Staph aureus, MSSA and Klebsiella pneumonia - decadron - Vit D, Vit C, Zinc - Follow inflammatory labs - pulm hygiene - pulm recs - Heparin drip -Finance Admin to manage vent -Resume meropenam -Trend CBC Acute kidney injury -Nephrology to manage dialysis Staph epi on blood culture - likely contaminant - repeat blood cultures -> blood cultures from 06/18 are negative to date HTN - cleveprix off 06/14 - follow BP obesity with BMI 38.4 - structured outpatient weight loss Hyponatremia, resolved Lactic acidosis, resolved Hypokalemia, resolved Prognosis is guarded DVT prophylaxis: Lovenox Discussed with: nursing Anticipated discharge date: undetermined Anticipated discharge place: undetermined
--- NOTE | 2021-06-24 10:29 | P.PN ---
Subjective Patient is seen in follow-up for acute kidney injury. Currently hemodialysis dependent. Patient is a cardiac arrest yesterday with about 5 minute downtime. Currently maintained on bicarb drip. Also on vasopressor support. Oliguric. Receiving tube feeds. Vital signs are stable. on vasopressor support. Tachycardic. HEENT: intubated. LUNGS: Breath sounds decreased. HEART: Tachycardic. ABDOMEN: soft, no distention. EXTREMITITES: 1+ edema. Objective - Vital Signs Vital signs: Vital Signs Temp 100.7 F H 06/24/21 04:00 Pulse 124 H 06/24/21 07:00 Resp 26 H 06/24/21 07:00 BP 117/59 06/24/21 07:00 Pulse Ox 93 L 06/24/21 07:00 Intake & Output 06/23/21 06/24/21 06/24/21 18:59 06:59 18:59 Intake Total 2002.900 1765.100 255.907 Output Total 0 0 0 Balance 2002.900 1765.100 255.907 Weight 124 kg Intake: IV 735.9 636 53 Dextrose 5% in Water 1, 600 600 50 000 ml @ 50 mls/hr IV . Q23H [facility] with Sodium Bicarb (1 Meq/ml) 150 ml Rx#:[id number] Meropenem 1 gm In Sodium 99.9 Chloride 0.9% 100 ml @ 33 .333 mls/hr IVPB Q12HR [facility] Rx#:[id number] Pressure bags 36 36 3 Intake, IV Titration 800.000 601.100 173.907 Amount Cisatracurium 200 mg In 200.000 Sodium Chloride 0.9% 180 ml @ 1 MCG/KG/MIN 7.38 mls/hr IV .Q24H [facility] Rx#: [id number] Heparin Sod,Pork in 0.45% 250 250 73.907 NaCl 25,000 unit In 0.45 % NaCl 1 250ml.bag @ 18 UNITS/KG/HR 21.69 mls/hr IV .[id number] [facility] Rx#: [id number] Norepinephrine 32 mg In 250.000 Sodium Chloride 0.9% 218 ml @ 0.12 MCG/KG/MIN 6. 919 mls/hr IV .Q24H [facility] Rx#:[id number] propofoL 1,000 mg In 100 351.100 100 Empty Bag 1 bag @ Titrate IV .Q0M [facility] Rx#: [id number] Tube Feeding 348 348 29 Other 120 180 Output: Urine 0 0 0 Other: Voiding Method Indwelling Catheter Indwelling Catheter ABP, PAP, CO, CI - Last Documented Arterial Blood Pressure 116/48 - Labs CBC & Chem 7: 06/24/21 04:55 06/24/21 04:55 Labs: Abnormal Lab Results - Last 24 Hours (Table) 06/23/21 06/23/21 06/23/21 Range/Units 02:10 13:23 16:55 WBC (3.8-10.6) k/uL RBC (4.30-5.90) m/uL Hgb (13.0-17.5) gm/dL Hct (39.0-53.0) % Neutrophils # (Manual) (1.3-7.7) k/uL Metamyelocytes # (Man) (0) k/uL Myelocytes # (Manual) (0) k/uL APTT (22.0-30.0) sec D-Dimer (<0.60) mg/L FEU ABG pH (7.35-7.45) ABG pCO2 (35-45) mmHg ABG Total CO2 (19-24) mmol/L Sodium (137-145) mmol/L Potassium (3.5-5.1) mmol/L Chloride 97 L (98-107) mmol/L Carbon Dioxide (22-30) mmol/L BUN 76 H (9-20) mg/dL Creatinine 6.13 H (0.66-1.25) mg/dL Glucose 139 H (74-99) mg/dL POC Glucose (mg/dL) 159 H (75-99) mg/dL Calcium 8.0 L (8.4-10.2) mg/dL Phosphorus 10.7 H* (2.5-4.5) mg/dL Magnesium 2.6 H (1.6-2.3) mg/dL AST (17-59) U/L ALT (4-49) U/L Alkaline Phosphatase (38-126) U/L Lactate Dehydrogenase (313-618) U/L C-Reactive Protein (<1.0) mg/dL Total Protein (6.3-8.2) g/dL Albumin (3.5-5.0) g/dL Procalcitonin 6.99 H (0.02-0.09) ng/mL 06/23/21 06/23/21 06/23/21 Range/Units 16:55 18:06 23:31 WBC (3.8-10.6) k/uL RBC (4.30-5.90) m/uL Hgb (13.0-17.5) gm/dL Hct (39.0-53.0) % Neutrophils # (Manual) (1.3-7.7) k/uL Metamyelocytes # (Man) (0) k/uL Myelocytes # (Manual) (0) k/uL APTT (22.0-30.0) sec D-Dimer (<0.60) mg/L FEU ABG pH (7.35-7.45) ABG pCO2 (35-45) mmHg ABG Total CO2 (19-24) mmol/L Sodium (137-145) mmol/L Potassium (3.5-5.1) mmol/L Chloride (98-107) mmol/L Carbon Dioxide (22-30) mmol/L BUN (9-20) mg/dL Creatinine (0.66-1.25) mg/dL Glucose (74-99) mg/dL POC Glucose (mg/dL) 150 H 152 H 158 H (75-99) mg/dL Calcium (8.4-10.2) mg/dL Phosphorus (2.5-4.5) mg/dL Magnesium (1.6-2.3) mg/dL AST (17-59) U/L ALT (4-49) U/L Alkaline Phosphatase (38-126) U/L Lactate Dehydrogenase (313-618) U/L C-Reactive Protein (<1.0) mg/dL Total Protein (6.3-8.2) g/dL Albumin (3.5-5.0) g/dL Procalcitonin (0.02-0.09) ng/mL 06/24/21 06/24/21 06/24/21 Range/Units 04:55 04:55 04:55 WBC 25.1 H (3.8-10.6) k/uL RBC 3.16 L (4.30-5.90) m/uL Hgb 9.5 L (13.0-17.5) gm/dL Hct 29.6 L (39.0-53.0) % Neutrophils # (Manual) 22.30 H (1.3-7.7) k/uL Metamyelocytes # (Man) 1.51 H (0) k/uL Myelocytes # (Manual) 0.50 H (0) k/uL APTT 69.7 H (22.0-30.0) sec D-Dimer 4.88 H (<0.60) mg/L FEU ABG pH (7.35-7.45) ABG pCO2 (35-45) mmHg ABG Total CO2 (19-24) mmol/L Sodium 136 L (137-145) mmol/L Potassium 5.3 H (3.5-5.1) mmol/L Chloride (98-107) mmol/L Carbon Dioxide 20 L (22-30) mmol/L BUN 79 H (9-20) mg/dL Creatinine 6.78 H (0.66-1.25) mg/dL Glucose 152 H (74-99) mg/dL POC Glucose (mg/dL) (75-99) mg/dL Calcium 7.7 L (8.4-10.2) mg/dL Phosphorus (2.5-4.5) mg/dL Magnesium (1.6-2.3) mg/dL AST 122 H (17-59) U/L ALT 169 H (4-49) U/L Alkaline Phosphatase 197 H (38-126) U/L Lactate Dehydrogenase 2864 H (313-618) U/L C-Reactive Protein 18.5 H (<1.0) mg/dL Total Protein 5.4 L (6.3-8.2) g/dL Albumin 2.6 L (3.5-5.0) g/dL Procalcitonin (0.02-0.09) ng/mL 06/24/21 06/24/21 Range/Units 05:05 07:16 WBC (3.8-10.6) k/uL RBC (4.30-5.90) m/uL Hgb (13.0-17.5) gm/dL Hct (39.0-53.0) % Neutrophils # (Manual) (1.3-7.7) k/uL Metamyelocytes # (Man) (0) k/uL Myelocytes # (Manual) (0) k/uL APTT (22.0-30.0) sec D-Dimer (<0.60) mg/L FEU ABG pH 7.08 L* (7.35-7.45) ABG pCO2 85 H* (35-45) mmHg ABG Total CO2 28 H (19-24) mmol/L Sodium (137-145) mmol/L Potassium (3.5-5.1) mmol/L Chloride (98-107) mmol/L Carbon Dioxide (22-30) mmol/L BUN (9-20) mg/dL Creatinine (0.66-1.25) mg/dL Glucose (74-99) mg/dL POC Glucose (mg/dL) 166 H (75-99) mg/dL Calcium (8.4-10.2) mg/dL Phosphorus (2.5-4.5) mg/dL Magnesium (1.6-2.3) mg/dL AST (17-59) U/L ALT (4-49) U/L Alkaline Phosphatase (38-126) U/L Lactate Dehydrogenase (313-618) U/L C-Reactive Protein (<1.0) mg/dL Total Protein (6.3-8.2) g/dL Albumin (3.5-5.0) g/dL Procalcitonin (0.02-0.09) ng/mL Microbiology - Last 24 Hours (Table) 06/18/21 13:00 Blood Culture - Preliminary Blood No Growth after 120 hours 06/19/21 09:31 Blood Culture - Preliminary Blood No Growth after 96 hours 06/19/21 09:31 Blood Culture - Preliminary Blood No Growth after 96 hours Assessment and Plan Plan: Assessment: 1. Acute kidney injury secondary to ATN secondary to septic shock and cardiopulmonary arrest. Baseline creatinine near 1. Currently hemodialysis dependent. Oliguric. 2. Metabolic acidosis secondary to acute kidney injury. Also has respiratory acidosis. 3. Status post cardiac arrest on 06/23/2021. 4. Septic shock on vasopressors support. 5. Hyperkalemia secondary to acute kidney injury and metabolic acidosis. 6. Lower extremity edema. Plan: Hemodialysis today. Plan for another treatment tomorrow. Maintain bicarb drip. Maintain tube feeds. Wean FiO2 and vasopressors. Continue to monitor renal function and urine output. Check phosphorus level.
[2021-06-24] MEDS: DEXTROSE 5% IN WATER 1,000 ML with SODIUM BICARB (1 MEQ/ML) 150 ML IV SCH ×3 (10:52→20:50)
--- NOTE | 2021-06-24 12:33 | P.PN ---
Subjective Progress Note Date: 06/24/21 50-year-old male patient presented to the ED for worsening shortness of breath of 2 weeks' duration and the patient was found to be quite hypoxic. Confirmed to be COVID-19 positive with secondary pneumonia. The patient is not vaccinated. In the ED, the patient was placed on high flow oxygen at 60 L with an FiO2 of 90% in addition to a nonrebreather facemask. Chest x-ray showed diffuse bilateral pulmonary infiltrates right more than left. He did not have a family physician. LDH level was 2098 and a CRP level was 20. Within 24 hours, the patient developed worsening respiratory distress and hypoxemia and the patient had to be intubated and was placed on a mechanical ventilator and the patient has been on mechanical ventilator since 06/11/2021. For now, the patient remains sedated and paralyzed. For now, the patient is on Prop at 60 mics/kilogram per minute and the patient is also Nimbex at 2 mcg/kg per minute and the patient is quite successful mechanical ventilator. He remains an ass ist-control mode on a mechanical ventilator with a rate of 26, tidal volume of 450, FiO2 50% with a PEEP of 20. Chest x-ray showed diffuse breath pulmonary infiltrates. ET tube is in a good location. The patient special by the pulmonary infiltrates left more than right and his chest x-ray findings remain unchanged. The peak and static pressures were noted. The peak airway pressure currently is at 38. The static pressure is 36. The chest x-ray from today is showing by the pulmonary infiltrates. ET tube needs to be pushed in by around 1 cm. The patient has a left subclavian triple-lumen catheter in place. The chest x-ray was noted. The d-dimer was elevated at 34 and the patient underwent a CT angiogram on 06/12/2021 showing small filling defects in the right upper lobe suspicious for pulmonary embolism. There was large areas of perihilar and basilar pulmonary infiltrates consistent with pneumonia. Based on all this, the patient is currently on Decadron 6 mg IV every 24 hours, therapeutic dose of Lovenox 100 mg subcu every 12 hours in addition to normal saline at the rate of 75 mL an hour. Patient is also on clevidipine for blood pressure control. This morning, the patient is off the clevidipine drip. He is maintaining a decent blood pressure. The pH is at 7.4 with a pCO2 57 and pO2 of 79 on the above- mentioned ventilator setting. The LDH level is at 1369 with a CRP level of 5.3. There that fluid balance has been positive over the past several days and the patient is +1.8 L over the past 24 hours. His weight is up by at least 6 kg. On today's evaluation of 06/18/2021, the patient is being seen for a follow-up. The patient is a subcortical-related pneumonia with secondary respiratory failure, currently intubated on a mechanical ventilator. The patient remains sedated and paralyzed. The patient was intubated on 06/11/2021. For now, the patient is on propofol running at 60 mcg/kg per minute and the patient is also sent and are running at 4 mcg/kg/h and Nimbex running at 1 mcg/kg per minute. The patient remains on a mechanical ventilator. The patient remains on assist control mode at a rate of 26, tidal volume of 400, FiO2 of 50% with a PEEP of 20. The peak airway pressure is 36. The diet The chest x-ray from today shows right perihilar and lower lobe pulmonary infiltrate. There is also a left lower lobe pulmonary infiltrate. ET tube is in a good location. Comparing this chest x-ray to the one that was done yesterday showed interval worsening of the pulmonary infiltrates especially on the right. Meanwhile, the patient has developed some leukocytosis. White cell count is up to 29. The pro-calcitonin level was minimally elevated at 0.8 from yesterday. The patient is febrile with a temperature of 103 max and currently is running a temperature 102.7. The patient was given a dose of vancomycin for the staph epidermidis in his blood culture which is probably a contaminant. This was only present in 1 out of 2 blood cultures. Nevertheless, the concern for an infection. Infection is highly likely knowing that the patient is still afebrile and the patient is developing new infiltration of the right lower lobe. The same time, the patient developed an acute kidney injury. Creatinine is up to 1.6 which is higher compared to yesterday. Potassium level is up to 5.2 and the sodium level is at 146. Note that the patient was given Lasix yesterday for significant fluid overload. He did have a adequate urine output and his negative fluid balance as mentioned negative over the past 24 hours. Nevertheless, his overall body weight is still up and the patient continues to be edematous in all 4 extremities. The patient is receiving enteral feeding for nutritional support. Currently is on vital AF at the rate of 28 mL an hour. The inflammatory markers were not checked today. Levels from yesterday was noted. The patient remains on Decadron 6 mg IV every 24 hours. On 06/19/2021 patient seen in follow-up in the intensive care unit. He remains sedated and paralyzed and intubated on mechanical ventilator, current vent settings are assist control with a rate of 26, tidal 400, FiO2 of 50% and PEEP of 20, this morning's blood gas shows pO2 of 81, pCO2 of 73, and pH is 7.27, this was done on above-mentioned vent settings and FiO2 of 50%, O2 saturations are at 93%. Peak airway pressure is 33, and plateau pressure is 32. Hemodynamically patient is stable, not requiring any vasopressor support, he is currently on Diprivan at 40 mics per kilo per minute, sentinel is at 3 mics per kilo per minute, Nimbex is at 2 mics per kilo per minute, and maintenance IV fluids with D5W at 75 ML per hour, in sinus mechanism, slightly tachycardic with a rate of 107 BPM. Patient is tolerating tube feedings, currently on vital AF at a rate of 21 with a goal of 21, and standard water flushes with 30 mL every 4 hours, his labs 7 reviewed, white blood cell count slightly improved and is down to 24.3, hemoglobin is 10.5, d-dimer is 1.76, patient was found to have a new acute pulmonary embolism in the right upper lobe, and is currently on therapeutic doses of Lovenox at 100 mg twice daily, serum sodium has normalized and is down to 144, potassium is 5.8, chloride is 108, CO2 is 31, renal function has worsened, BUN is 70 and creatinine is up to 3.9 to LFTs are within normal limits, inflammatory markers are relatively stable, LDH is 1335, not if, changed since yesterday his last CRP was improving couple days ago and was down to 24.9, his pro-calcitonin level on yesterday's labs was at 1.48, and there was a susp icion for underlying bacterial infection and patient was covered with a combination of cefepime and vancomycin. In addition patient was developing a new airspace disease in the right lower lobe with the possibility of bacterial infection. Baricitinib was discontinued. Patient continues on Decadron 6 mg daily Blood culture from 06/18/2021 showed Staphylococcus epidermidis, urine culture was sent and is pending, urinalysis showed no clear evidence of infection. Sputum culture is yet to be sent. Overnight patient's urine output has dropped to 10-15 ML per hour, nephrology has been consulted. On 06/24/2021 patient seen in follow-up in the intensive care unit, he remains intubated, sedated, and paralyzed, on VC plus mode of ventilation with a rate of 26, tidal vital 375, FiO2 100% and PEEP of 18, this might blood gas shows pO2 of 97, pCO2 of 85, and pH of 7.08, this was done on the above-mentioned vent settings. His peak pressure was 38, and plateau pressure was 36. He is currently on D5 W with 3 A of bicarbonate at a rate of 50 ML per hour, heparin infusion per weight-based protocol, Nimbex is at 1.5 mics per kilo per minute, Diprivan is currently at 50 mics per kilo per minute, and Levophed is at 0.43 mics per kilo per minute. 2 feedings are with vital AF at 28 with a goal of 28 and standard water flushes. Patient has been intubated since 06/13/2021, he has suffered a cardiac arrest on 06/23/2021 with PEA arrest requiring ACLS intervention, and the total estimated down time per nursing report was around 5 minutes. Today's chest x-ray with bilateral multifocal confluent opacities consistent with COVID-19 infection and/or developing ARDS, without significant change from the day before. His labs have been reviewed, his morbid cell count is improving and is down to 25.1, hemoglobin is 9.5, his d-dimer is 4.88 which is an increase from 1.78 from his previous value, sodium is 136, potassium is 5.3, chloride is 98, BUN of 79, creatinine 6.78, AST is improving and is down to 122, ALT is down to 169, alk phos is 197, also improved, his LDH from today is 2864, improving, and CRP is relatively stable at 18.5. His pro-calcitonin level on yesterday's labs was elevated at 6.99 suggesting underlying bacterial infection, and his sputum culture was positive for MSSA, and Klebsiella oxytoca, his blood culture from 06/08/2021 was positive for Staphylococcus epidermidis and coagulase-negative staph. Current antibiotic coverage meropenem and vancomycin. Patient has been febrile overnight, with a T-max of 101F. Urine output has been 0, and patient received hemodialysis on 06/21/2021 with removal of 1 L of fluid Objective - Vital Signs Vital signs: Vital Signs Temp 100.7 F H 06/24/21 04:00 Pulse 110 H 06/24/21 11:45 Resp 26 H 06/24/21 11:45 BP 113/57 06/24/21 11:15 Pulse Ox 99 06/24/21 11:45 Intake & Output 06/23/21 06/24/21 06/24/21 18:59 06:59 18:59 Intake Total 2002.900 1765.100 805.246 Output Total 0 0 0 Balance 2002.900 1765.100 805.246 Weight 124 kg 124 kg Intake: IV 735.9 636 303 Dextrose 5% in Water 1, 600 600 300 000 ml @ 75 mls/hr IV . [id number] APPLE with Sodium Bicarb (1 Meq/ml) 150 ml Rx#:[id number] Meropenem 1 gm In Sodium 99.9 Chloride 0.9% 100 ml @ 33 .333 mls/hr IVPB Q12HR [facility] Rx#:[id number] Pressure bags 36 36 3 Intake, IV Titration 800.000 601.100 473.246 Amount Cisatracurium 200 mg In 200.000 Sodium Chloride 0.9% 180 ml @ 1 MCG/KG/MIN 7.38 mls/hr IV .Q24H [facility] Rx#: [id number] Heparin Sod,Pork in 0.45% 250 250 73.907 NaCl 25,000 unit In 0.45 % NaCl 1 250ml.bag @ 18 UNITS/KG/HR 21.69 mls/hr IV .[id number] [facility] Rx#: [id number] Norepinephrine 32 mg In 250.000 215.639 Sodium Chloride 0.9% 218 ml @ 0.12 MCG/KG/MIN 6. 919 mls/hr IV .Q24H [facility] Rx#:[id number] propofoL 1,000 mg In 100 351.100 183.7 Empty Bag 1 bag @ Titrate IV .Q0M AP[facility] Rx#: [id number] Tube Feeding 348 348 29 Other 120 180 Output: Urine 0 0 0 Other: Voiding Method Indwelling Catheter Indwelling Catheter Indwelling Catheter ABP, PAP, CO, CI - Last Documented Arterial Blood Pressure 110/52 - Exam GENERAL EXAM: Sedated, intubated, paralyzed, obese 50-year-old white male, on volume plus mode of ventilation with FiO2 of 100% and PEEP of 18, comfortable in no apparent distress. HEAD: Normocephalic/atraumatic. EYES: Normal reaction of pupils, equal size. Conjunctiva pink, sclera white. NOSE: Clear with pink turbinates. THROAT: No erythema or exudates. NECK: No masses, no JVD, no thyroid enlargement, no adenopathy. CHEST: No chest wall deformity. Symmetrical expansion. LUNGS: Equal air entry with no crackles, wheeze, rhonchi or dullness. CVS: Regular rate and rhythm, normal S1 and S2, no gallops, no murmurs, no rubs ABDOMEN: Soft, obese, nontender. No hepatosplenomegaly, normal bowel sounds, no guarding or rigidity. EXTREMITIES: No clubbing, no edema, no cyanosis, 2+ pulses and upper and lower extremities. MUSCULOSKELETAL: Muscle strength and tone normal. SPINE: No scoliosis or deformity SKIN: No rashes CENTRAL NERVOUS SYSTEM: Sedated, paralyzed and intubated No focal deficits, tone is normal in all 4 extremities. - Labs CBC & Chem 7: 06/24/21 04:55 06/24/21 04:55 Labs: Abnormal Lab Results - Last 24 Hours (Table) 06/23/21 06/23/21 06/23/21 Range/Units 02:10 13:23 16:55 WBC (3.8-10.6) k/uL RBC (4.30-5.90) m/uL Hgb (13.0-17.5) gm/dL Hct (39.0-53.0) % Neutrophils # (Manual) (1.3-7.7) k/uL Metamyelocytes # (Man) (0) k/uL Myelocytes # (Manual) (0) k/uL APTT (22.0-30.0) sec D-Dimer (<0.60) mg/L FEU ABG pH (7.35-7.45) ABG pCO2 (35-45) mmHg ABG Total CO2 (19-24) mmol/L Sodium (137-145) mmol/L Potassium (3.5-5.1) mmol/L Chloride 97 L (98-107) mmol/L Carbon Dioxide (22-30) mmol/L BUN 76 H (9-20) mg/dL Creatinine 6.13 H (0.66-1.25) mg/dL Glucose 139 H (74-99) mg/dL POC Glucose (mg/dL) 159 H (75-99) mg/dL Calcium 8.0 L (8.4-10.2) mg/dL Phosphorus 10.7 H* (2.5-4.5) mg/dL Magnesium 2.6 H (1.6-2.3) mg/dL AST (17-59) U/L ALT (4-49) U/L Alkaline Phosphatase (38-126) U/L Lactate Dehydrogenase (313-618) U/L C-Reactive Protein (<1.0) mg/dL Total Protein (6.3-8.2) g/dL Albumin (3.5-5.0) g/dL Procalcitonin 6.99 H (0.02-0.09) ng/mL 06/23/21 06/23/21 06/23/21 Range/Units 16:55 18:06 23:31 WBC (3.8-10.6) k/uL RBC (4.30-5.90) m/uL Hgb (13.0-17.5) gm/dL Hct (39.0-53.0) % Neutrophils # (Manual) (1.3-7.7) k/uL Metamyelocytes # (Man) (0) k/uL Myelocytes # (Manual) (0) k/uL APTT (22.0-30.0) sec D-Dimer (<0.60) mg/L FEU ABG pH (7.35-7.45) ABG pCO2 (35-45) mmHg ABG Total CO2 (19-24) mmol/L Sodium (137-145) mmol/L Potassium (3.5-5.1) mmol/L Chloride (98-107) mmol/L Carbon Dioxide (22-30) mmol/L BUN (9-20) mg/dL Creatinine (0.66-1.25) mg/dL Glucose (74-99) mg/dL POC Glucose (mg/dL) 150 H 152 H 158 H (75-99) mg/dL Calcium (8.4-10.2) mg/dL Phosphorus (2.5-4.5) mg/dL Magnesium (1.6-2.3) mg/dL AST (17-59) U/L ALT (4-49) U/L Alkaline Phosphatase (38-126) U/L Lactate Dehydrogenase (313-618) U/L C-Reactive Protein (<1.0) mg/dL Total Protein (6.3-8.2) g/dL Albumin (3.5-5.0) g/dL Procalcitonin (0.02-0.09) ng/mL 06/24/21 06/24/21 06/24/21 Range/Units 04:55 04:55 04:55 WBC 25.1 H (3.8-10.6) k/uL RBC 3.16 L (4.30-5.90) m/uL Hgb 9.5 L (13.0-17.5) gm/dL Hct 29.6 L (39.0-53.0) % Neutrophils # (Manual) 22.30 H (1.3-7.7) k/uL Metamyelocytes # (Man) 1.51 H (0) k/uL Myelocytes # (Manual) 0.50 H (0) k/uL APTT 69.7 H (22.0-30.0) sec D-Dimer 4.88 H (<0.60) mg/L FEU ABG pH (7.35-7.45) ABG pCO2 (35-45) mmHg ABG Total CO2 (19-24) mmol/L Sodium 136 L (137-145) mmol/L Potassium 5.3 H (3.5-5.1) mmol/L Chloride (98-107) mmol/L Carbon Dioxide 20 L (22-30) mmol/L BUN 79 H (9-20) mg/dL Creatinine 6.78 H (0.66-1.25) mg/dL Glucose 152 H (74-99) mg/dL POC Glucose (mg/dL) (75-99) mg/dL Calcium 7.7 L (8.4-10.2) mg/dL Phosphorus (2.5-4.5) mg/dL Magnesium (1.6-2.3) mg/dL AST 122 H (17-59) U/L ALT 169 H (4-49) U/L Alkaline Phosphatase 197 H (38-126) U/L Lactate Dehydrogenase 2864 H (313-618) U/L C-Reactive Protein 18.5 H (<1.0) mg/dL Total Protein 5.4 L (6.3-8.2) g/dL Albumin 2.6 L (3.5-5.0) g/dL Procalcitonin (0.02-0.09) ng/mL 06/24/21 06/24/21 Range/Units 05:05 07:16 WBC (3.8-10.6) k/uL RBC (4.30-5.90) m/uL Hgb (13.0-17.5) gm/dL Hct (39.0-53.0) % Neutrophils # (Manual) (1.3-7.7) k/uL Metamyelocytes # (Man) (0) k/uL Myelocytes # (Manual) (0) k/uL APTT (22.0-30.0) sec D-Dimer (<0.60) mg/L FEU ABG pH 7.08 L* (7.35-7.45) ABG pCO2 85 H* (35-45) mmHg ABG Total CO2 28 H (19-24) mmol/L Sodium (137-145) mmol/L Potassium (3.5-5.1) mmol/L Chloride (98-107) mmol/L Carbon Dioxide (22-30) mmol/L BUN (9-20) mg/dL Creatinine (0.66-1.25) mg/dL Glucose (74-99) mg/dL POC Glucose (mg/dL) 166 H (75-99) mg/dL Calcium (8.4-10.2) mg/dL Phosphorus (2.5-4.5) mg/dL Magnesium (1.6-2.3) mg/dL AST (17-59) U/L ALT (4-49) U/L Alkaline Phosphatase (38-126) U/L Lactate Dehydrogenase (313-618) U/L C-Reactive Protein (<1.0) mg/dL Total Protein (6.3-8.2) g/dL Albumin (3.5-5.0) g/dL Procalcitonin (0.02-0.09) ng/mL Microbiology - Last 24 Hours (Table) 06/19/21 09:31 Blood Culture - Preliminary Blood No Growth after 120 hours 06/19/21 09:31 Blood Culture - Preliminary Blood No Growth after 120 hours 06/18/21 13:00 Blood Culture - Preliminary Blood No Growth after 120 hours Assessment and Plan Plan: #1. Acute hypoxemic respiratory failure secondary to coronavirus associated pneumonia, with worsening hypoxemic respiratory failure, and need for intubation and mechanical ventilation on the morning of 06/12/2021 and the patient has been intubated and sedated and paralyzed since. Peak/ static pressure remains quite elevated. Patient is currently on VC plus mode of ventilation with a FiO2 of 100% and PEEP of 18. #2. Acute cardiac arrest on 06/23/2021, with PEA arrest requiring CPR, ACLS intervention with epinephrine and bicarbonate with return of spontaneous circulation #3. MSSA and Klebsiella pneumonia as evidenced by the sputum culture, patient is currently on combination of meropenem and vancomycin #4. Acute septic shock #5. Acute pulmonary embolism, currently on heparin infusion #6. ARDS with diffuse bilateral pulmonary infiltrates secondary to COVID-19 related to pneumonia #7. Elevated inflammatory marker secondary to coronavirus infection. #5. Obesity #6. Acute leukocytosis, improved on today's labs #8. Fever, related to emesis and Klebsiella pneumonia #9. Staph epidermidis in the blood, likely contaminant #10. Acute kidney injury, worsened #11. Hypernatremia, resolved #12. Acute metabolic and respiratory acidosis, multifactorial, related to acute COVID-19 pneumonia, bacterial superinfection, and acute kidney injury and ATN Plan: Increase respiratory rate 30 Increase the bicarbonate infusion to 75 ML per hour Continue sedation and paralytics Today's chest x-ray has been reviewed, labs and blood gas reviewed Patient is requiring high dose vasopressors, high oxygen concentration and high PEEP He is critically ill, his condition has continued to worsen despite maximmizing medical treatment Prognosis is poor He has suffered cardiac arrest yesterday Kidney function further worsened he will be dialyzed today Overall prognosis is extremely poor We'll discuss CODE STATUS with the patient's family regarding considering patient a DNR and possibly even comfort care I performed a history & physical examination of the patient and discussed their management with my nurse practitioner, Robyn Luciano. I reviewed the nurse practitioner's note and agree with the documented findings and plan of care. Lung sounds are positive for diminished breath sounds throughout the lung loredo. The findings and the impression was discussed with the patient. I attest to the documentation by the nurse practitioner. Time with Patient: Greater than 30
[2021-06-24 13:12] LABS: Glucose,Whole Blood 148 mg/dL (75-99)
[2021-06-24] MEDS: SODIUM CHLORIDE 0.9% 1,000 ML IV SCH (16:41)
[2021-06-24 17:44] LABS: Glucose,Whole Blood 198 mg/dL (75-99)
[2021-06-24 23:35] LABS: Glucose,Whole Blood 158 mg/dL (75-99)
[2021-06-25] MEDS: ARTIFICIAL TEARS-HYPROMELLOSE DROPS 15 ML BTL BOTH EYES SCH ×6 (03:33→22:51)
[2021-06-25 05:26] VITALS: RESP 30
[2021-06-25] MEDS: SODIUM CHLORIDE 0.9% 50 ML with VASOPRESSIN 20 UNIT IVPB SCH ×8 (05:35→18:43)
[2021-06-25] MEDS: DEXTROSE 5% IN WATER 1,000 ML with SODIUM BICARB (1 MEQ/ML) 150 ML IV SCH ×3 (05:49→20:25)
[2021-06-25 05:57] LABS: Glucose,Whole Blood 153 mg/dL (75-99)
[2021-06-25] MEDS: INSULIN ASPART (NovoLOG) 100 UNIT/ML VIAL SQ SCH ×4 (05:59→22:50)
[2021-06-25 06:08] LABS: ABG Base Excess -0.1 mmol/L; ABG HCO3 29 mmol/L (21-25); ABG PO2 140 mmHg (83-108); ABG TCO2 31 mmol/L (19-24)
[2021-06-25 06:26] LABS: ABG PH 7.17 (7.35-7.45)
[2021-06-25 06:27] LABS: ABG PCO2 79 mmHg (35-45); Allen Test Performed? No
[2021-06-25 06:31] LABS: HCT 27.2 % (39.0-53.0); HGB 8.8 gm/dL (13.0-17.5); MCHC 32.3 g/dL (31.0-37.0); MCV 93.1 fL (80.0-100.0); Mean Platelet Volume 9.2; Platelet Count 294 k/uL (150-450); RBC 2.92 m/uL (4.30-5.90); RDW 15.1 % (11.5-15.5); WBC 20.6 k/uL (3.8-10.6)
[2021-06-25] MEDS: fentaNYL (PF) 2,500 MCG in SODIUM CHLORIDE 0.9% 200 ML IV SCH (07:07)
[2021-06-25] MEDS: NOREPINEPHRINE 8 MG in SODIUM CHLORIDE 0.9% 250 ML IV SCH (07:08)
[2021-06-25 07:11] LABS: Albumin 2.6 g/dL (3.5-5.0); Calcium 7.7 mg/dL (8.4-10.2); Phosphorus 8.5 mg/dL (2.5-4.5); Potassium 4.4 mmol/L (3.5-5.1); Total Bilirubin 0.5 mg/dL (0.2-1.3); Total Protein 5.6 g/dL (6.3-8.2)
--- NOTE | 2021-06-25 07:48 | XR ---
EXAMINATION TYPE: XR chest 1V DATE OF EXAM: 06/25/2021 COMPARISON: 06/24/2021 INDICATION: Pneumonia TECHNIQUE: Single frontal view of the chest is obtained. FINDINGS: The heart size is normal. The pulmonary vasculature is normal. Patchy diffuse infiltrate is present in the compatible with atypical pneumonia. There is partial silh ouetting the left diaphragm. Endotracheal tube tip is above the felix. Nasogastric tube transverses the thorax. Left central veno us catheter tips in proximal right atrium IMPRESSION: 1. Patchy diffuse infiltrates bilaterally can be compatible with atypical pneumonia. 2. Lines and catheters discussed above.
[2021-06-25 08:47] LABS: C Reactive Protein 15.5 mg/dL (<1.0)
[2021-06-25] MEDS: MEROPENEM 1 GM in SODIUM CHLORIDE 0.9% 100 ML IVPB SCH (09:10)
[2021-06-25] MEDS: CHLORHEXIDINE GLUCONATE 15 ML CUP MUCOUS MEM SCH ×2 (09:10→20:27)
[2021-06-25] MEDS: PANTOPRAZOLE 40 MG/10 ML VIAL IVP SCH (09:10)
[2021-06-25] MEDS: DEXAMETHASONE SOD PHOSPHATE 10 MG/ML 1 ML VIAL IVP SCH (09:10)
[2021-06-25] MEDS: ZINC SULFATE 220 MG CAP PO SCH (09:11)
[2021-06-25] MEDS: CHOLECALCIFEROL 25 MCG (1000 IU) TABLET PO SCH (09:11)
[2021-06-25] MEDS: ASCORBIC ACID 500 MG TAB PO SCH (09:11)
--- NOTE | 2021-06-25 09:21 | P.PN ---
Subjective Patient is seen in follow-up for acute kidney injury. Currently hemodialysis dependent. Patient is a cardiac arrest on 06/23/2021. Currently maintained on bicarb drip. Also on vasopressor support. Oliguric. Receiving tube feeds. Vital signs are stable. on vasopressor support. HEENT: Intubated. LUNGS: Breath sounds decreased. HEART: Tachycardic. ABDOMEN: soft, no distention. EXTREMITITES: 1+ edema. Objective - Vital Signs Vital signs: Vital Signs Temp 99.8 F H 06/25/21 04:00 Pulse 112 H 06/25/21 07:00 Resp 30 H 06/25/21 07:00 BP 117/58 06/25/21 07:00 Pulse Ox 89 L 06/25/21 07:00 Intake & Output 06/24/21 06/25/21 06/25/21 18:59 06:59 18:59 Intake Total 4305.783 9945.227 354.951 Output Total 725 20 0 Balance 1054.745 6780.227 354.951 Weight 124 kg 130 kg Intake: IV 828 1033 78 Dextrose 5% in Water 1, 825 900 75 000 ml @ 75 mls/hr IV . [id number] [facility] with Sodium Bicarb (1 Meq/ml) 150 ml Rx#:[id number] Meropenem 1 gm In Sodium 100 Chloride 0.9% 100 ml @ 33 .333 mls/hr IVPB Q12HR [facility] Rx#:[id number] Pressure bags 3 33 3 Intake, IV Titration 632.618 0847.227 253.951 Amount Cisatracurium 200 mg In 183.947 Sodium Chloride 0.9% 180 ml @ 1 MCG/KG/MIN 7.38 mls/hr IV .Q24H [facility] Rx#: [id number] Heparin Sod,Pork in 0.45% 219.592 216.538 155.445 NaCl 25,000 unit In 0.45 % NaCl 1 250ml.bag @ 18 UNITS/KG/HR 21.69 mls/hr IV .[id number] [facility] Rx#: [id number] Norepinephrine 32 mg In 290.594 329.710 8.668 Sodium Chloride 0.9% 218 ml @ 0.12 MCG/KG/MIN 6. 919 mls/hr IV .Q24H [facility] Rx#:[id number] propofoL 1,000 mg In 366.842 437.032 89.838 Empty Bag 1 bag @ Titrate IV .Q0M [facility] Rx#: [id number] Oral 0 Tube Feeding 29 253 23 Other 120 Output: Urine 5 20 0 Hemodialysis 720 Other: Voiding Method Indwelling Catheter Indwelling Catheter # Bowel Movements 1 ABP, PAP, CO, CI - Last Documented Arterial Blood Pressure 108/37 - Labs CBC & Chem 7: 06/25/21 05:12 06/25/21 05:12 Labs: Abnormal Lab Results - Last 24 Hours (Table) 06/24/21 06/24/21 06/24/21 Range/Units 12:05 13:10 17:43 WBC (3.8-10.6) k/uL RBC (4.30-5.90) m/uL Hgb (13.0-17.5) gm/dL Hct (39.0-53.0) % APTT 64.8 H (22.0-30.0) sec D-Dimer (<0.60) mg/L FEU ABG pH (7.35-7.45) ABG pCO2 (35-45) mmHg ABG pO2 (83-108) mmHg ABG HCO3 (21-25) mmol/L ABG Total CO2 (19-24) mmol/L ABG O2 Saturation (94-97) % Chloride (98-107) mmol/L BUN (9-20) mg/dL Creatinine (0.66-1.25) mg/dL Glucose (74-99) mg/dL POC Glucose (mg/dL) 148 H 198 H (75-99) mg/dL Calcium (8.4-10.2) mg/dL Phosphorus (2.5-4.5) mg/dL AST (17-59) U/L ALT (4-49) U/L Alkaline Phosphatase (38-126) U/L Lactate Dehydrogenase (313-618) U/L C-Reactive Protein (<1.0) mg/dL Total Protein (6.3-8.2) g/dL Albumin (3.5-5.0) g/dL 06/24/21 06/25/21 06/25/21 Range/Units 23:32 05:12 05:12 WBC (3.8-10.6) k/uL RBC (4.30-5.90) m/uL Hgb (13.0-17.5) gm/dL Hct (39.0-53.0) % APTT (22.0-30.0) sec D-Dimer 5.19 H (<0.60) mg/L FEU ABG pH (7.35-7.45) ABG pCO2 (35-45) mmHg ABG pO2 (83-108) mmHg ABG HCO3 (21-25) mmol/L ABG Total CO2 (19-24) mmol/L ABG O2 Saturation (94-97) % Chloride 97 L (98-107) mmol/L BUN 62 H (9-20) mg/dL Creatinine 5.84 H (0.66-1.25) mg/dL Glucose 149 H (74-99) mg/dL POC Glucose (mg/dL) 158 H (75-99) mg/dL Calcium 7.7 L (8.4-10.2) mg/dL Phosphorus 8.5 H (2.5-4.5) mg/dL AST 82 H (17-59) U/L ALT 124 H (4-49) U/L Alkaline Phosphatase 162 H (38-126) U/L Lactate Dehydrogenase 1872 H (313-618) U/L C-Reactive Protein 15.5 H (<1.0) mg/dL Total Protein 5.6 L (6.3-8.2) g/dL Albumin 2.6 L (3.5-5.0) g/dL 06/25/21 06/25/21 06/25/21 Range/Units 05:12 05:22 05:55 WBC 20.6 H (3.8-10.6) k/uL RBC 2.92 L (4.30-5.90) m/uL Hgb 8.8 L (13.0-17.5) gm/dL Hct 27.2 L (39.0-53.0) % APTT (22.0-30.0) sec D-Dimer (<0.60) mg/L FEU ABG pH 7.17 L* (7.35-7.45) ABG pCO2 79 H* (35-45) mmHg ABG pO2 140 H (83-108) mmHg ABG HCO3 29 H (21-25) mmol/L ABG Total CO2 31 H (19-24) mmol/L ABG O2 Saturation 99.0 H (94-97) % Chloride (98-107) mmol/L BUN (9-20) mg/dL Creatinine (0.66-1.25) mg/dL Glucose (74-99) mg/dL POC Glucose (mg/dL) 153 H (75-99) mg/dL Calcium (8.4-10.2) mg/dL Phosphorus (2.5-4.5) mg/dL AST (17-59) U/L ALT (4-49) U/L Alkaline Phosphatase (38-126) U/L Lactate Dehydrogenase (313-618) U/L C-Reactive Protein (<1.0) mg/dL Total Protein (6.3-8.2) g/dL Albumin (3.5-5.0) g/dL 06/25/21 Range/Units 06:48 WBC (3.8-10.6) k/uL RBC (4.30-5.90) m/uL Hgb (13.0-17.5) gm/dL Hct (39.0-53.0) % APTT 62.7 H (22.0-30.0) sec D-Dimer (<0.60) mg/L FEU ABG pH (7.35-7.45) ABG pCO2 (35-45) mmHg ABG pO2 (83-108) mmHg ABG HCO3 (21-25) mmol/L ABG Total CO2 (19-24) mmol/L ABG O2 Saturation (94-97) % Chloride (98-107) mmol/L BUN (9-20) mg/dL Creatinine (0.66-1.25) mg/dL Glucose (74-99) mg/dL POC Glucose (mg/dL) (75-99) mg/dL Calcium (8.4-10.2) mg/dL Phosphorus (2.5-4.5) mg/dL AST (17-59) U/L ALT (4-49) U/L Alkaline Phosphatase (38-126) U/L Lactate Dehydrogenase (313-618) U/L C-Reactive Protein (<1.0) mg/dL Total Protein (6.3-8.2) g/dL Albumin (3.5-5.0) g/dL Microbiology - Last 24 Hours (Table) 06/18/21 13:00 Blood Culture - Final Blood No Growth after 144 hours 06/19/21 09:31 Blood Culture - Preliminary Blood No Growth after 120 hours 06/19/21 09:31 Blood Culture - Preliminary Blood No Growth after 120 hours Assessment and Plan Plan: Assessment: 1. Acute kidney injury secondary to ATN secondary to septic shock and cardiopulmonary arrest. Baseline creatinine near 1. Currently hemodialysis dependent. Oliguric. 2. Metabolic acidosis secondary to acute kidney injury. Also has respiratory acidosis. 3. Status post cardiac arrest on 06/23/2021. 4. Septic shock on vasopressor support. 5. Hyperkalemia secondary to acute kidney injury and metabolic acidosis. Improved. 6. Lower extremity edema. 7. Hyperphosphatemia secondary to acute kidney injury. Plan: Hold hemodialysis today as patient is hemodynamically unstable. Potassium level is normal. Maintain bicarb drip. Maintain tube feeds. Wean FiO2 and vasopressors. Continue to monitor renal function and urine output. Add PhosLo.
[2021-06-25 10:46] LABS: Band Neutrophils % 4 %; Eosinophils # (M) 0.62 k/uL (0-0.7); Lymphocytes # (M) 0.41 k/uL (1.0-4.8); Metamyelocytes # (M) 0.21 k/uL (0); Metamyelocytes % 1 %; Monocytes # (M) 1.24 k/uL (0-1.0); Myelocytes # (M) 0.82 k/uL (0); Myelocytes % 4 %; Neutrophils % (M) 82 %; Nucleated Red Blood Cells 0 /100 WBC (0-0); Total Cells Counted 200
[2021-06-25 10:47] LABS: Toxic Granulation Present
[2021-06-25 10:48] LABS: Polychromasia Present; Toxic Vacuolation Present
[2021-06-25 10:49] LABS: Anisocytosis (M) Present; Poikilocytosis (M) Present
[2021-06-25] MEDS: CISATRACURIUM 200 MG in SODIUM CHLORIDE 0.9% 180 ML IV SCH ×3 (11:17→20:25)
[2021-06-25] MEDS: HEPARIN SOD,PORK IN 0.45% NACL 25,000 UNIT in 0.45% NACL 1 250ML.BAG IV SCH ×3 (12:24→21:14)
[2021-06-25 13:40] LABS: Glucose,Whole Blood 176 mg/dL (75-99)
--- NOTE | 2021-06-25 15:15 | P.PN ---
Subjective Progress Note Date: 06/25/21 (delayed charting seen at 1030) Principal diagnosis: shortness of breath Patient is a 50-year-old male who presented with confusion and low oxygen status, was found to be by EMS to have an oxygen saturation of 50%. On arrival to the ER he had a temperature of 100.5, pulse 125, respirations 36, and he was satting 77% on a 15 L nonrebreather. In the ER he was found to have a white blood cell count of 17.4, sodium 130, glucose 208, lactic acid 3.4, LDH 2098, and CRP 20. His COVID test came back positive. Chest x-ray showed lateral multifocal opacities right greater than left is reviewed by myself. He was started on AirVo and NRB. He was given 1 L bolus and 10 mg of Decadron. He was seen by pulmonary critical care and arrangements were made for admission to the ICU. His breathing worsening overnight and he required intubation on 06/12. His d-dimer was >34 and he was started on full dose lovenox. He was taken for CT chest which could not rule out right upper lobe PE. He did require paralytic. His FiO2 was able to be decreased to 90%. His peep was increased and his FiO2 was weaned. He spiked fevers on 06/16 and cultures were sent Procalcitonin remained low. His blood cultures became positive on 06/17 and he was started on vanco, culture came back staph epi and vanco was discontinued. He continued to spike fevers and was started on cefepime and hensley culture was ordered X 2 on 06/16 and 06/18 when fevers had not abated. His creatinine worsened. Nephrology was consulted. Allises catheter was inserted on 06/20 the patient was started on dialysis on 06/21. Overnight on 06/22 patient had a CODE BLUE with a PEA arrest. History of appendectomy and bicarbonate had broth. Patient was found to have staph aureus and Klebsiella pneumonia. He was on antibiotics. He also developed some worsening liver function. Patient seen and examined at bedside. He continues to do poorly but no acute overt beds overnight. He is paralyzed and sedated. Dr. Alexander updated family patient continues to be a full code. General: Ill-appearing, moderate distress, appears at stated age Derm: warm, dry Head: atraumatic, normocephalic, symmetric Eyes: No lid lesion, pupils pinpoint and nonreactive, anicteric sclera Mouth: no lip lesion, mucus membranesdry Cardiovascular: S1S2 reg, no murmur, positive posterior tibial pulse bilateral, Lungs: Course sounds bilaterally, on vent Abdominal: soft, nontender to palpation, no guarding, no appreciable org anomegaly, dark urine in Rodriguez catheter Ext: no gross muscle atrophy, no edema, no contractures Neuro: Patient does appear to grimace when pressure is applied to bilateral hands and feet though he is on Nimbex Psych: Sedated on vent COVID-19 pneumonitis in an unvaccinated individual Acute hypoxic respiratory failure Toxic encephalopthy due to hypoxia Right upper lobe pulmonary embolism Staph Aureus and Klebsiella PNA PEA arrest with ROSC Transaminitis - decadron - Vit D, Vit C, Zinc - Follow inflammatory labs - pulm hygiene - pulm recs - lovenox - on paralytics - Heparin gtt - follow LFTs - vanco and merrem JABARI requiring HD Respiraotry and metabolic acidosis - on bicard gtt - nephrology recs - avoid nephrotoxic agents Staph epi on blood culture - likely contaminant - repeat blood cultures HTN - cleveprix off 06/14 - follow BP Leukocytosis with pyrexia - UA neg on 06/16, repeat - Sputum culture ordered 06/16 and unable to collect due to no secretions. - Cefepime - Less likely MH- check UA and CPK obesity with BMI 38.4 - structured outpatient weight loss Hyponatremia, resolved Lactic acidosis, resolved Hypokalemia, resolved Prognosis poor DVT prophylaxis: Heparin gtt Discussed with: patient, nursing Anticipated discharge: unknown Anticipated discharge place: unknown A total of 32 minutes was spent on the care of this complex patient more than 50% of the time was spent in counseling and care coordination. Objective - Vital Signs Vital signs: Vital Signs Temp 99.8 F H 06/25/21 04:00 Pulse 110 H 06/25/21 14:45 Resp 30 H 06/25/21 14:45 BP 117/61 06/25/21 14:45 Pulse Ox 91 L 06/25/21 14:45 Intake & Output 06/24/21 06/25/21 06/25/21 18:59 06:59 18:59 Intake Total 7950.948 6717.227 1327.995 Output Total 725 20 10 Balance 2277.235 1217.227 1317.995 Weight 124 kg 130 kg Intake: IV 828 1033 603 Dextrose 5% in Water 1, 825 900 600 000 ml @ 75 mls/hr IV . [id number] [facility] with Sodium Bicarb (1 Meq/ml) 150 ml Rx#:[id number] Meropenem 1 gm In Sodium 100 Chloride 0.9% 100 ml @ 33 .333 mls/hr IVPB Q12HR [facility] Rx#:[id number] Pressure bags 3 33 3 Intake, IV Titration 687.729 6913.227 701.995 Amount Cisatracurium 200 mg In 183.947 172.139 Sodium Chloride 0.9% 180 ml @ 1 MCG/KG/MIN 7.38 mls/hr IV .Q24H [facility] Rx#: [id number] Heparin Sod,Pork in 0.45% 219.592 216.538 250.000 NaCl 25,000 unit In 0.45 % NaCl 1 250ml.bag @ 18 UNITS/KG/HR 21.69 mls/hr IV .[id number] [facility] Rx#: [id number] Norepinephrine 32 mg In 290.594 329.710 8.668 Sodium Chloride 0.9% 218 ml @ 0.12 MCG/KG/MIN 6. 919 mls/hr IV .Q24H [facility] Rx#:[id number] propofoL 1,000 mg In 366.842 437.032 271.188 Empty Bag 1 bag @ Titrate IV .Q0M [facility] Rx#: [id number] Oral 0 Tube Feeding 29 253 23 Other 120 Output: Urine 5 20 10 Hemodialysis 720 Other: Voiding Method Indwelling Catheter Indwelling Catheter Indwelling Catheter # Bowel Movements 1 ABP, PAP, CO, CI - Last Documented Arterial Blood Pressure 99/48 - Labs CBC & Chem 7: 06/25/21 05:12 06/25/21 05:12 Labs: Abnormal Lab Results - Last 24 Hours (Table) 06/24/21 06/24/21 06/25/21 Range/Units 17:43 23:32 05:12 WBC (3.8-10.6) k/uL RBC (4.30-5.90) m/uL Hgb (13.0-17.5) gm/dL Hct (39.0-53.0) % Neutrophils # (Manual) (1.3-7.7) k/uL Lymphocytes # (Manual) (1.0-4.8) k/uL Monocytes # (Manual) (0-1.0) k/uL Metamyelocytes # (Man) (0) k/uL Myelocytes # (Manual) (0) k/uL APTT (22.0-30.0) sec D-Dimer 5.19 H (<0.60) mg/L FEU ABG pH (7.35-7.45) ABG pCO2 (35-45) mmHg ABG pO2 (83-108) mmHg ABG HCO3 (21-25) mmol/L ABG Total CO2 (19-24) mmol/L ABG O2 Saturation (94-97) % Chloride (98-107) mmol/L BUN (9-20) mg/dL Creatinine (0.66-1.25) mg/dL Glucose (74-99) mg/dL POC Glucose (mg/dL) 198 H 158 H (75-99) mg/dL Calcium (8.4-10.2) mg/dL Phosphorus (2.5-4.5) mg/dL AST (17-59) U/L ALT (4-49) U/L Alkaline Phosphatase (38-126) U/L Lactate Dehydrogenase (313-618) U/L C-Reactive Protein (<1.0) mg/dL Total Protein (6.3-8.2) g/dL Albumin (3.5-5.0) g/dL 06/25/21 06/25/21 06/25/21 Range/Units 05:12 05:12 05:22 WBC 20.6 H (3.8-10.6) k/uL RBC 2.92 L (4.30-5.90) m/uL Hgb 8.8 L (13.0-17.5) gm/dL Hct 27.2 L (39.0-53.0) % Neutrophils # (Manual) 17.70 H (1.3-7.7) k/uL Lymphocytes # (Manual) 0.41 L (1.0-4.8) k/uL Monocytes # (Manual) 1.24 H (0-1.0) k/uL Metamyelocytes # (Man) 0.21 H (0) k/uL Myelocytes # (Manual) 0.82 H (0) k/uL APTT (22.0-30.0) sec D-Dimer (<0.60) mg/L FEU ABG pH 7.17 L* (7.35-7.45) ABG pCO2 79 H* (35-45) mmHg ABG pO2 140 H (83-108) mmHg ABG HCO3 29 H (21-25) mmol/L ABG Total CO2 31 H (19-24) mmol/L ABG O2 Saturation 99.0 H (94-97) % Chloride 97 L (98-107) mmol/L BUN 62 H (9-20) mg/dL Creatinine 5.84 H (0.66-1.25) mg/dL Glucose 149 H (74-99) mg/dL POC Glucose (mg/dL) (75-99) mg/dL Calcium 7.7 L (8.4-10.2) mg/dL Phosphorus 8.5 H (2.5-4.5) mg/dL AST 82 H (17-59) U/L ALT 124 H (4-49) U/L Alkaline Phosphatase 162 H (38-126) U/L Lactate Dehydrogenase 1872 H (313-618) U/L C-Reactive Protein 15.5 H (<1.0) mg/dL Total Protein 5.6 L (6.3-8.2) g/dL Albumin 2.6 L (3.5-5.0) g/dL 06/25/21 06/25/21 06/25/21 Range/Units 05:55 06:48 13:37 WBC (3.8-10.6) k/uL RBC (4.30-5.90) m/uL Hgb (13.0-17.5) gm/dL Hct (39.0-53.0) % Neutrophils # (Manual) (1.3-7.7) k/uL Lymphocytes # (Manual) (1.0-4.8) k/uL Monocytes # (Manual) (0-1.0) k/uL Metamyelocytes # (Man) (0) k/uL Myelocytes # (Manual) (0) k/uL APTT 62.7 H (22.0-30.0) sec D-Dimer (<0.60) mg/L FEU ABG pH (7.35-7.45) ABG pCO2 (35-45) mmHg ABG pO2 (83-108) mmHg ABG HCO3 (21-25) mmol/L ABG Total CO2 (19-24) mmol/L ABG O2 Saturation (94-97) % Chloride (98-107) mmol/L BUN (9-20) mg/dL Creatinine (0.66-1.25) mg/dL Glucose (74-99) mg/dL POC Glucose (mg/dL) 153 H 176 H (75-99) mg/dL Calcium (8.4-10.2) mg/dL Phosphorus (2.5-4.5) mg/dL AST (17-59) U/L ALT (4-49) U/L Alkaline Phosphatase (38-126) U/L Lactate Dehydrogenase (313-618) U/L C-Reactive Protein (<1.0) mg/dL Total Protein (6.3-8.2) g/dL Albumin (3.5-5.0) g/dL Microbiology - Last 24 Hours (Table) 06/19/21 09:31 Blood Culture - Final Blood No Growth after 144 hours 06/19/21 09:31 Blood Culture - Final Blood No Growth after 144 hours 06/18/21 13:00 Blood Culture - Final Blood No Growth after 144 hours
--- NOTE | 2021-06-25 15:19 | P.PN ---
Subjective Progress Note Date: 06/25/21 Principal diagnosis: Acute hypoxic respiratory failure secondary to COVID-19 pneumonia 50-year-old male patient presented to the ED for worsening shortness of breath of 2 weeks' duration and the patient was found to be quite hypoxic. Confirmed to be COVID-19 positive with secondary pneumonia. The patient is not vaccinated. In the ED, the patient was placed on high flow oxygen at 60 L with an FiO2 of 90% in addition to a nonrebreather facemask. Chest x-ray showed diffuse bilateral pulmonary infiltrates right more than left. He did not have a family physician. LDH level was 2098 and a CRP level was 20. Within 24 hours, the patient developed worsening respiratory distress and hypoxemia and the patient had to be intubated and was placed on a mechanical ventilator and the patient has been on mechanical ventilator since 06/11/2021. For now, the patient remains sedated and paralyzed. For now, the patient is on Prop at 60 mics/kilogram per minute and the patient is also Nimbex at 2 mcg/kg per minute and the patient is quite successful mechanical ventilator. He remains an assist-control mode on a mechanical ventilator with a rate of 26, tidal volume of 450, FiO2 50% with a PEEP of 20. Chest x-ray showed diffuse breath pulmonary infiltrates. ET tube is in a good location. The patient special by the pulmonary infiltrates left more than right and his chest x-ray findings remain unchanged. The peak and static pressures were noted. The peak airway pressure currently is at 38. The static pressure is 36. The chest x-ray from today is showing by the pulmonary infiltrates. ET tube needs to be pushed in by around 1 cm. The patient has a left subclavian triple-lumen catheter in place. The chest x-ray was noted. The d-dimer was elevated at 34 and the patient underwent a CT angiogram on 06/12/2021 showing small filling defects in the right upper lobe suspicious for pulmonary embolism. There was large areas of perihilar and basilar pulmonary infiltrates consistent with pneumonia. Based on all this, the patient is currently on Decadron 6 mg IV every 24 hours, therapeutic dose of Lovenox 100 mg subcu every 12 hours in addition to normal saline at the rate of 75 mL an hour. Patient is also on clevidipine for blood pressure control. This morning, the patient is off the clevidipine drip. He is maintaining a decent blood pressure. The pH is at 7.4 with a pCO2 57 and pO2 of 79 on the above- mentioned ventilator setting. The LDH level is at 1369 with a CRP level of 5.3. There that fluid balance has been positive over the past several days and the patient is +1.8 L over the past 24 hours. His weight is up by at least 6 kg. On today's evaluation of 06/18/2021, the patient is being seen for a follow-up. The patient is a subcortical-related pneumonia with secondary respiratory failure, currently intubated on a mechanical ventilator. The patient remains sedated and paralyzed. The patient was intubated on 06/11/2021. For now, the patient is on propofol running at 60 mcg/kg per minute and the patient is also sent and are running at 4 mcg/kg/h and Nimbex running at 1 mcg/kg per minute. The patient remains on a mechanical ventilator. The patient remains on assist control mode at a rate of 26, tidal volume of 400, FiO2 of 50% with a PEEP of 20. The peak airway pressure is 36. The diet The chest x-ray from today shows right perihilar and lower lobe pulmonary infiltrate. There is also a left lower lobe pulmonary infiltrate. ET tube is in a good location. Comparing this chest x-ray to the one that was done yesterday showed interval worsening of the pulmonary infiltrates especially on the right. Meanwhile, the patient has developed some leukocytosis. White cell count is up to 29. The pro-calcitonin level was minimally elevated at 0.8 from yesterday. The patient is febrile with a temperature of 103 max and currently is running a temperature 102.7. The patient was given a dose of vancomycin for the staph epidermidis in his blood culture which is probably a contaminant. This was only present in 1 out of 2 blood cultures. Nevertheless, the concern for an infection. Infection is highly likely knowing that the patient is still afebrile and the patient is developing new infiltration of the right lower lobe. The same time, the patient developed an acute kidney injury. Creatinine is up to 1.6 which is higher compared to yesterday. Potassium level is up to 5.2 and the sodium level is at 146. Note that the patient was given Lasix yesterday for significant fluid overload. He did have a adequate urine output and his negative fluid balance as mentioned negative over the past 24 hours. Nevertheless, his overall body weight is still up and the patient continues to be edematous in all 4 extremities. The patient is receiving enteral feeding for nutritional support. Currently is on vital AF at the rate of 28 mL an hour. The inflammatory markers were not checked today. Levels from yesterday was noted. The patient remains on Decadron 6 mg IV every 24 hours. On 06/19/2021 patient seen in follow-up in the intensive care unit. He remains sedated and paralyzed and intubated on mechanical ventilator, current vent settings are assist control with a rate of 26, tidal 400, FiO2 of 50% and PEEP of 20, this morning's blood gas shows pO2 of 81, pCO2 of 73, and pH is 7.27, this was done on above-mentioned vent settings and FiO2 of 50%, O2 saturations are at 93%. Peak airway pressure is 33, and plateau pressure is 32. Hemodynamically patient is stable, not requiring any vasopressor support, he is currently on Diprivan at 40 mics per kilo per minute, sentinel is at 3 mics per kilo per minute, Nimbex is at 2 mics per kilo per minute, and maintenance IV fluids with D5W at 75 ML per hour, in sinus mechanism, slightly tachycardic with a rate of 107 BPM. Patient is tolerating tube feedings, currently on vital AF at a rate of 21 with a goal of 21, and standard water flushes with 30 mL every 4 hours, his labs 7 reviewed, white blood cell count slightly improved and is down to 24.3, hemoglobin is 10.5, d-dimer is 1.76, patient was found to have a new acute pulmonary embolism in the right upper lobe, and is currently on therapeutic doses of Lovenox at 100 mg twice daily, serum sodium has normalized and is down to 144, potassium is 5.8, chloride is 108, CO2 is 31, renal function has worsened, BUN is 70 and creatinine is up to 3.9 to LFTs are within normal limits, inflammatory markers are relatively stable, LDH is 1335, not if, changed since yesterday his last CRP was improving couple days ago and was down to 24.9, his pro-calcitonin level on yesterday's labs was at 1.48, and there was a suspicion for underlying bacterial infection and patient was covered with a combination of cefepime and vancomycin. In addition patient was developing a new airspace disease in the right lower lobe with the possibility of bacterial infection. Baricitinib was discontinued. Patient continues on Decadron 6 mg daily Blood culture from 06/18/2021 showed Staphylococcus epidermidis, urine cul ture was sent and is pending, urinalysis showed no clear evidence of infection. Sputum culture is yet to be sent. Overnight patient's urine output has dropped to 10-15 ML per hour, nephrology has been consulted. On 06/24/2021 patient seen in follow-up in the intensive care unit, he remains intubated, sedated, and paralyzed, on VC plus mode of ventilation with a rate of 26, tidal vital 375, FiO2 100% and PEEP of 18, this might blood gas shows pO2 of 97, pCO2 of 85, and pH of 7.08, this was done on the above-mentioned vent settings. His peak pressure was 38, and plateau pressure was 36. He is currently on D5 W with 3 A of bicarbonate at a rate of 50 ML per hour, heparin infusion per weight-based protocol, Nimbex is at 1.5 mics per kilo per minute, Diprivan is currently at 50 mics per kilo per minute, and Levophed is at 0.43 mics per kilo per minute. 2 feedings are with vital AF at 28 with a goal of 28 and standard water flushes. Patient has been intubated since 06/13/2021, he has suffered a cardiac arrest on 06/23/2021 with PEA arrest requiring ACLS intervention, and the total estimated down time per nursing report was around 5 minutes. Today's chest x-ray with bilateral multifocal confluent opacities consistent with COVID-19 infection and/or developing ARDS, without significant change from the day before. His labs have been reviewed, his morbid cell count is improving and is down to 25.1, hemoglobin is 9.5, his d-dimer is 4.88 which is an increase from 1.78 from his previous value, sodium is 136, potassium is 5.3, chloride is 98, BUN of 79, creatinine 6.78, AST is improving and is down to 122, ALT is down to 169, alk phos is 197, also improved, his LDH from today is 2864, improving, and CRP is relatively stable at 18.5. His pro-calcitonin level on yesterday's labs was elevated at 6.99 suggesting underlying bacterial infection, and his sputum culture was positive for MSSA, and Klebsiella oxytoca, his blood culture from 06/08/2021 was positive for Staphylococcus epidermidis and coagulase-negative staph. Current antibiotic coverage meropenem and vancomycin. Patient has been febrile overnight, with a T-max of 101F. Urine output has been 0, and patient received hemodialysis on 06/21/2021 with removal of 1 L of fluid Reevaluated today on 06/25/2021, patient remains in the ICU, intubated and mechanically ventilated. Patient is on volume control plus mode of mechanical ventilation 375 FiO2 80%, rate of 30, PEEP is 18 patient remains on propofol, norepinephrine, heparin and Nimbex 1.5 mcg/kg/m. Patient is on enteral feeding via orogastric tube. Continues to have high peak airway pressure in the high 30s and high plateau pressure. Remains on bicarb drip. He is also on heparin infusion, sedated and paralyzed. Requiring norepinephrine at 0.38 mcg/kg/m. His blood pressure is fluctuating and extremely labile. Patient has been intubated since 06/13, he sustained a cardiac arrest/PEA on 06/23, patient required ACLS intervention. And his code lasted about 5 minutes. Chest x-ray continues to show bilateral infiltrates. Patient is obviously developing ARDS in addition to his COVID-19 pneumonia. PTT today is 62.7 WBC count is 20.6 hemoglobin 8.8 ABG showed a pO2 of 140 pCO2 79 pH of 7.19 hence am recommending that we titrate his FiO2 down accordingly. Patient is on 100%, but FiO2 will be titrated down to maintain O2 saturation above 90%. Patient remains on hemodialysis, his BUN today is 62 creatinine 5.84 LDH is 1872 C-reactive protein 15.5 Objective - Vital Signs Vital signs: Vital Signs Temp 99.8 F H 06/25/21 04:00 Pulse 110 H 06/25/21 14:45 Resp 30 H 06/25/21 14:45 BP 117/61 06/25/21 14:45 Pulse Ox 91 L 06/25/21 14:45 Intake & Output 06/24/21 06/25/21 06/25/21 18:59 06:59 18:59 Intake Total 7376.493 8640.227 1327.995 Output Total 725 20 10 Balance 6750.613 2343.227 1317.995 Weight 124 kg 130 kg Intake: IV 828 1033 603 Dextrose 5% in Water 1, 825 900 600 000 ml @ 75 mls/hr IV . [id number] [facility] with Sodium Bicarb (1 Meq/ml) 150 ml Rx#:[id number] Meropenem 1 gm In Sodium 100 Chloride 0.9% 100 ml @ 33 .333 mls/hr IVPB Q12HR [facility] Rx#:[id number] Pressure bags 3 33 3 Intake, IV Titration 198.124 0361.227 701.995 Amount Cisatracurium 200 mg In 183.947 172.139 Sodium Chloride 0.9% 180 ml @ 1 MCG/KG/MIN 7.38 mls/hr IV .Q24H [facility] Rx#: [id number] Heparin Sod,Pork in 0.45% 219.592 216.538 250.000 NaCl 25,000 unit In 0.45 % NaCl 1 250ml.bag @ 18 UNITS/KG/HR 21.69 mls/hr IV .[id number] [facility] Rx#: [id number] Norepinephrine 32 mg In 290.594 329.710 8.668 Sodium Chloride 0.9% 218 ml @ 0.12 MCG/KG/MIN 6. 919 mls/hr IV .Q24H [facility] Rx#:[id number] propofoL 1,000 mg In 366.842 437.032 271.188 Empty Bag 1 bag @ Titrate IV .Q0M [facility] Rx#: [id number] Oral 0 Tube Feeding 29 253 23 Other 120 Output: Urine 5 20 10 Hemodialysis 720 Other: Voiding Method Indwelling Catheter Indwelling Catheter Indwelling Catheter # Bowel Movements 1 ABP, PAP, CO, CI - Last Documented Arterial Blood Pressure 99/48 - Exam GENERAL EXAM: Revealed a 50-year-old white male intubated, mechanically ventilated, sedated, and paralyzed. HEAD: Normocephalic/atraumatic. EENT: PERRLA, EOMI, nonicteric, no neck masses, no JVD. No stridor. Endotracheal tube and orogastric tube are intact. CHEST: No chest wall deformity. Symmetrical expansion. LUNGS: Crackles bilaterally at the bases. CVS: Regular rate and rhythm, normal S1 and S2, no gallops, no murmurs, no rubs ABDOMEN: Obese soft nontender no megaly no rebound. EXTREMITIES: No clubbing, no edema, no cyanosis, 2+ pulses and upper and lower extremities. SKIN: No rashes CENTRAL NERVOUS SYSTEM: Could not assess, patient is sedated and paralyzed. - Labs CBC & Chem 7: 06/25/21 05:12 06/25/21 05:12 Labs: Abnormal Lab Results - Last 24 Hours (Table) 06/24/21 06/24/21 06/25/21 Range/Units 17:43 23:32 05:12 WBC (3.8-10.6) k/uL RBC (4.30-5.90) m/uL Hgb (13.0-17.5) gm/dL Hct (39.0-53.0) % Neutrophils # (Manual) (1.3-7.7) k/uL Lymphocytes # (Manual) (1.0-4.8) k/uL Monocytes # (Manual) (0-1.0) k/uL Metamyelocytes # (Man) (0) k/uL Myelocytes # (Manual) (0) k/uL APTT (22.0-30.0) sec D-Dimer 5.19 H (<0.60) mg/L FEU ABG pH (7.35-7.45) ABG pCO2 (35-45) mmHg ABG pO2 (83-108) mmHg ABG HCO3 (21-25) mmol/L ABG Total CO2 (19-24) mmol/L ABG O2 Saturation (94-97) % Chloride (98-107) mmol/L BUN (9-20) mg/dL Creatinine (0.66-1.25) mg/dL Glucose (74-99) mg/dL POC Glucose (mg/dL) 198 H 158 H (75-99) mg/dL Calcium (8.4-10.2) mg/dL Phosphorus (2.5-4.5) mg/dL AST (17-59) U/L ALT (4-49) U/L Alkaline Phosphatase (38-126) U/L Lactate Dehydrogenase (313-618) U/L C-Reactive Protein (<1.0) mg/dL Total Protein (6.3-8.2) g/dL Albumin (3.5-5.0) g/dL 06/25/21 06/25/21 06/25/21 Range/Units 05:12 05:12 05:22 WBC 20.6 H (3.8-10.6) k/uL RBC 2.92 L (4.30-5.90) m/uL Hgb 8.8 L (13.0-17.5) gm/dL Hct 27.2 L (39.0-53.0) % Neutrophils # (Manual) 17.70 H (1.3-7.7) k/uL Lymphocytes # (Manual) 0.41 L (1.0-4.8) k/uL Monocytes # (Manual) 1.24 H (0-1.0) k/uL Metamyelocytes # (Man) 0.21 H (0) k/uL Myelocytes # (Manual) 0.82 H (0) k/uL APTT (22.0-30.0) sec D-Dimer (<0.60) mg/L FEU ABG pH 7.17 L* (7.35-7.45) ABG pCO2 79 H* (35-45) mmHg ABG pO2 140 H (83-108) mmHg ABG HCO3 29 H (21-25) mmol/L ABG Total CO2 31 H (19-24) mmol/L ABG O2 Saturation 99.0 H (94-97) % Chloride 97 L (98-107) mmol/L BUN 62 H (9-20) mg/dL Creatinine 5.84 H (0.66-1.25) mg/dL Glucose 149 H (74-99) mg/dL POC Glucose (mg/dL) (75-99) mg/dL Calcium 7.7 L (8.4-10.2) mg/dL Phosphorus 8.5 H (2.5-4.5) mg/dL AST 82 H (17-59) U/L ALT 124 H (4-49) U/L Alkaline Phosphatase 162 H (38-126) U/L Lactate Dehydrogenase 1872 H (313-618) U/L C-Reactive Protein 15.5 H (<1.0) mg/dL Total Protein 5.6 L (6.3-8.2) g/dL Albumin 2.6 L (3.5-5.0) g/dL 06/25/21 06/25/21 06/25/21 Range/Units 05:55 06:48 13:37 WBC (3.8-10.6) k/uL RBC (4.30-5.90) m/uL Hgb (13.0-17.5) gm/dL Hct (39.0-53.0) % Neutrophils # (Manual) (1.3-7.7) k/uL Lymphocytes # (Manual) (1.0-4.8) k/uL Monocytes # (Manual) (0-1.0) k/uL Metamyelocytes # (Man) (0) k/uL Myelocytes # (Manual) (0) k/uL APTT 62.7 H (22.0-30.0) sec D-Dimer (<0.60) mg/L FEU ABG pH (7.35-7.45) ABG pCO2 (35-45) mmHg ABG pO2 (83-108) mmHg ABG HCO3 (21-25) mmol/L ABG Total CO2 (19-24) mmol/L ABG O2 Saturation (94-97) % Chloride (98-107) mmol/L BUN (9-20) mg/dL Creatinine (0.66-1.25) mg/dL Glucose (74-99) mg/dL POC Glucose (mg/dL) 153 H 176 H (75-99) mg/dL Calcium (8.4-10.2) mg/dL Phosphorus (2.5-4.5) mg/dL AST (17-59) U/L ALT (4-49) U/L Alkaline Phosphatase (38-126) U/L Lactate Dehydrogenase (313-618) U/L C-Reactive Protein (<1.0) mg/dL Total Protein (6.3-8.2) g/dL Albumin (3.5-5.0) g/dL Microbiology - Last 24 Hours (Table) 06/19/21 09:31 Blood Culture - Final Blood No Growth after 144 hours 06/19/21 09:31 Blood Culture - Final Blood No Growth after 144 hours 06/18/21 13:00 Blood Culture - Final Blood No Growth after 144 hours Assessment and Plan Assessment: Impression: Acute hypoxic respiratory failure secondary to COVID-19 pneumonia, intubated since 06/12 ARDS secondary to COVID-19 pneumonia Cardiac arrest secondary to COVID-19 pneumonia, patient had PEA requiring CPR, and ACLS intervention, down time was less than 5 minutes. MSSA and Klebsiella pneumonia with positive cultures in the sputum. Acute septic shock. Acute pulmonary embolism and DVT requiring heparin infusion. Elevated inflammatory markers Acute kidney injury and renal failure requiring hemodialysis Recommendation: Continue ventilatory support Continue hemodialysis Continue hemodynamic support Continue enteral feeding and nutritional support Continue assessment of ventilatory settings and titrate oxygen accordingly. Continue antibiotics. Overall picture seems to be very poor hence the was updated today on his condition, would like to keep the patient full code for the time being. She is very well aware of her poor prognostic picture. Patient is critically ill. Critical care time is over 30 minutes Time with Patient: Greater than 30
[2021-06-25 17:06] LABS: Glucose,Whole Blood 71 mg/dL (75-99)
[2021-06-25 17:48] LABS: Albumin 2.7 g/dL (3.5-5.0); Calcium 7.4 mg/dL (8.4-10.2); Potassium 4.6 mmol/L (3.5-5.1); Total Bilirubin 0.5 mg/dL (0.2-1.3); Total Protein 5.9 g/dL (6.3-8.2)
[2021-06-25] MEDS: SODIUM CHLORIDE 0.9% 1,000 ML IV SCH ×2 (18:13→21:53)
[2021-06-25] MEDS: CALCIUM ACETATE 667 MG TAB PO SCH ×2 (18:40→18:42)
[2021-06-25] MEDS: NOREPINEPHRINE 32 MG in SODIUM CHLORIDE 0.9% 218 ML IV SCH (20:25)
[2021-06-25] MEDS: ENOXAPARIN 100 MG/ML SYRINGE SQ SCH (21:52)
[2021-06-26 02:16] LABS: Glucose,Whole Blood 164 mg/dL (75-99)
[2021-06-26] MEDS: ARTIFICIAL TEARS-HYPROMELLOSE DROPS 15 ML BTL BOTH EYES SCH ×2 (03:22→09:33)
[2021-06-26] MEDS: SODIUM CHLORIDE 0.9% 50 ML with VASOPRESSIN 20 UNIT IVPB SCH ×2 (03:29)
[2021-06-26 04:25] VITALS: TEMP 98.8
[2021-06-26 04:43] LABS: HCT 26.1 % (39.0-53.0); HGB 8.4 gm/dL (13.0-17.5); Hypochromasia Moderate; MCH 31.2 pg (25.0-35.0); MCHC 32.2 g/dL (31.0-37.0); MCV 96.9 fL (80.0-100.0); Mean Platelet Volume 8.7; Platelet Count 274 k/uL (150-450); RDW 14.9 % (11.5-15.5); WBC 23.9 k/uL (3.8-10.6)
[2021-06-26 05:03] LABS: Partial Thromboplastin Time 54.5 sec (22.0-30.0)
[2021-06-26 05:48] LABS: ABG Base Excess -0.3 mmol/L; ABG HCO3 28 mmol/L (21-25); ABG PO2 80 mmHg (83-108); ABG TCO2 31 mmol/L (19-24); Allen Test Performed? Yes
[2021-06-26 05:58] LABS: ABG PCO2 81 mmHg (35-45); ABG PH 7.16 (7.35-7.45)
[2021-06-26 06:00] LABS: Glucose,Whole Blood 155 mg/dL (75-99)
[2021-06-26] MEDS: INSULIN ASPART (NovoLOG) 100 UNIT/ML VIAL SQ SCH (06:30)
--- NOTE | 2021-06-26 06:32 | XR ---
EXAMINATION TYPE: XR chest 1V portable DATE OF EXAM: 06/26/2021 COMPARISON: Yesterday HISTORY: Respiratory failure TECHNIQUE: FINDINGS: Endotracheal tube is 5 cm from the felix. There is moderate pulmonary interstitial and air space edema. Gastric tube in the stomach. There is left-sided central venous catheter with tip in the right atrium. There are chest leads. Heart size is normal. IMPRESSION: Pulmonary edema without change.
[2021-06-26 06:37] LABS: Albumin 2.7 g/dL (3.5-5.0); Calcium 8.1 mg/dL (8.4-10.2); Total Bilirubin 0.5 mg/dL (0.2-1.3); Total Protein 5.8 g/dL (6.3-8.2)
[2021-06-26] MEDS ORDERED: MEROPENEM 1 GM in SODIUM CHLORIDE 0.9% 100 ML IVPB SCH (09:00)
[2021-06-26 09:04] LABS: C Reactive Protein 6.7 mg/dL (<1.0)
[2021-06-26] MEDS: DEXAMETHASONE SOD PHOSPHATE 10 MG/ML 1 ML VIAL IVP SCH (09:31)
[2021-06-26] MEDS: CALCIUM ACETATE 667 MG TAB PO SCH (09:31)
[2021-06-26] MEDS: CHLORHEXIDINE GLUCONATE 15 ML CUP MUCOUS MEM SCH (09:31)
[2021-06-26] MEDS: CHOLECALCIFEROL 25 MCG (1000 IU) TABLET PO SCH (09:31)
[2021-06-26] MEDS: ASCORBIC ACID 500 MG TAB PO SCH (09:32)
[2021-06-26] MEDS: ZINC SULFATE 220 MG CAP PO SCH (09:32)
[2021-06-26] MEDS: PANTOPRAZOLE 40 MG/10 ML VIAL IVP SCH (09:33)
[2021-06-26] MEDS: HEPARIN SOD,PORK IN 0.45% NACL 25,000 UNIT in 0.45% NACL 1 250ML.BAG IV SCH (10:03)
[2021-06-26 11:11] VITALS: BMI 43.9
--- NOTE | 2021-06-26 11:20 | P.PN ---
Subjective Patient is seen in follow-up for acute kidney injury. Currently hemodialysis dependent. Patient is a cardiac arrest on 06/23/2021. Currently maintained on bicarb drip. Also on vasopressor support. Oliguric. Receiving tube feeds. Vital signs are stable. on vasopressor support. HEENT: Intubated. LUNGS: Breath sounds decreased. HEART: Tachycardic. ABDOMEN: soft, no distention. EXTREMITITES: 1+ edema. Objective - Vital Signs Vital signs: Vital Signs Temp 98.8 F 06/26/21 04:00 Pulse 110 H 06/26/21 07:00 Resp 30 H 06/26/21 07:00 BP 128/67 06/26/21 07:00 Pulse Ox 84 L 06/26/21 07:00 Intake & Output 06/25/21 06/26/21 06/26/21 18:59 06:59 18:59 Intake Total 9966.769 3157.319 258.380 Output Total 10 10 0 Balance 0667.226 0994.319 258.380 Weight 135 kg 135 kg Intake: IV 903 936 78 Dextrose 5% in Water 1, 900 900 75 000 ml @ 75 mls/hr IV . [id number] [facility] with Sodium Bicarb (1 Meq/ml) 150 ml Rx#:[id number] Pressure bags 3 36 3 Intake, IV Titration 891.702 693.319 157.380 Amount Cisatracurium 200 mg In 211.991 48.893 Sodium Chloride 0.9% 180 ml @ 1 MCG/KG/MIN 7.38 mls/hr IV .Q24H [facility] Rx#: [id number] Heparin Sod,Pork in 0.45% 250.000 362.223 79.372 NaCl 25,000 unit In 0.45 % NaCl 1 250ml.bag @ 18 UNITS/KG/HR 21.69 mls/hr IV .[id number] [facility] Rx#: [id number] Norepinephrine 32 mg In 58.523 182.203 Sodium Chloride 0.9% 218 ml @ 0.12 MCG/KG/MIN 6. 919 mls/hr IV .Q24H [facility] Rx#:[id number] propofoL 1,000 mg In 371.188 100 78.008 Empty Bag 1 bag @ Titrate IV .Q0M [facility] Rx#: [id number] Tube Feeding 23 276 23 Other 180 Output: Urine 10 10 0 Other: Voiding Method Indwelling Catheter Indwelling Catheter ABP, PAP, CO, CI - Last Documented Arterial Blood Pressure 126/42 - Labs CBC & Chem 7: 06/26/21 04:12 06/26/21 04:12 Labs: Abnormal Lab Results - Last 24 Hours (Table) 06/25/21 06/25/21 06/25/21 Range/Units 13:37 17:01 17:04 WBC (3.8-10.6) k/uL RBC (4.30-5.90) m/uL Hgb (13.0-17.5) gm/dL Hct (39.0-53.0) % APTT (22.0-30.0) sec D-Dimer (<0.60) mg/L FEU ABG pH (7.35-7.45) ABG pCO2 (35-45) mmHg ABG pO2 (83-108) mmHg ABG HCO3 (21-25) mmol/L ABG Total CO2 (19-24) mmol/L ABG O2 Saturation (94-97) % Sodium 134 L (137-145) mmol/L Chloride 93 L (98-107) mmol/L BUN 69 H (9-20) mg/dL Creatinine 5.90 H (0.66-1.25) mg/dL Glucose 159 H (74-99) mg/dL POC Glucose (mg/dL) 176 H 71 L (75-99) mg/dL Calcium 7.4 L (8.4-10.2) mg/dL AST 79 H (17-59) U/L ALT 110 H (4-49) U/L Alkaline Phosphatase 152 H (38-126) U/L Lactate Dehydrogenase (313-618) U/L Creatine Kinase (55-170) U/L C-Reactive Protein (<1.0) mg/dL Total Protein 5.9 L (6.3-8.2) g/dL Albumin 2.7 L (3.5-5.0) g/dL 06/25/21 06/26/21 06/26/21 Range/Units 22:49 04:12 04:12 WBC (3.8-10.6) k/uL RBC (4.30-5.90) m/uL Hgb (13.0-17.5) gm/dL Hct (39.0-53.0) % APTT 54.5 H (22.0-30.0) sec D-Dimer 7.38 H (<0.60) mg/L FEU ABG pH (7.35-7.45) ABG pCO2 (35-45) mmHg ABG pO2 (83-108) mmHg ABG HCO3 (21-25) mmol/L ABG Total CO2 (19-24) mmol/L ABG O2 Saturation (94-97) % Sodium 135 L (137-145) mmol/L Chloride 92 L (98-107) mmol/L BUN 73 H (9-20) mg/dL Creatinine 6.65 H (0.66-1.25) mg/dL Glucose 142 H (74-99) mg/dL POC Glucose (mg/dL) 164 H (75-99) mg/dL Calcium 8.1 L (8.4-10.2) mg/dL AST 79 H (17-59) U/L ALT 114 H (4-49) U/L Alkaline Phosphatase 164 H (38-126) U/L Lactate Dehydrogenase 2051 H (313-618) U/L Creatine Kinase 664 H (55-170) U/L C-Reactive Protein 6.7 H (<1.0) mg/dL Total Protein 5.8 L (6.3-8.2) g/dL Albumin 2.7 L (3.5-5.0) g/dL 06/26/21 06/26/21 06/26/21 Range/Units 04:12 05:44 05:59 WBC 23.9 H (3.8-10.6) k/uL RBC 2.70 L (4.30-5.90) m/uL Hgb 8.4 L (13.0-17.5) gm/dL Hct 26.1 L (39.0-53.0) % APTT (22.0-30.0) sec D-Dimer (<0.60) mg/L FEU ABG pH 7.16 L* (7.35-7.45) ABG pCO2 81 H* (35-45) mmHg ABG pO2 80 L (83-108) mmHg ABG HCO3 28 H (21-25) mmol/L ABG Total CO2 31 H (19-24) mmol/L ABG O2 Saturation 93.0 L (94-97) % Sodium (137-145) mmol/L Chloride (98-107) mmol/L BUN (9-20) mg/dL Creatinine (0.66-1.25) mg/dL Glucose (74-99) mg/dL POC Glucose (mg/dL) 155 H (75-99) mg/dL Calcium (8.4-10.2) mg/dL AST (17-59) U/L ALT (4-49) U/L Alkaline Phosphatase (38-126) U/L Lactate Dehydrogenase (313-618) U/L Creatine Kinase (55-170) U/L C-Reactive Protein (<1.0) mg/dL Total Protein (6.3-8.2) g/dL Albumin (3.5-5.0) g/dL Microbiology - Last 24 Hours (Table) 06/19/21 09:31 Blood Culture - Final Blood No Growth after 144 hours 06/19/21 09:31 Blood Culture - Final Blood No Growth after 144 hours Assessment and Plan Plan: Assessment: 1. Acute kidney injury secondary to ATN secondary to septic shock and cardiopulmonary arrest. Baseline creatinine near 1. Currently hemodialysis dependent. Oliguric. 2. Metabolic acidosis secondary to acute kidney injury. Also has respiratory acidosis. 3. Status post cardiac arrest on 06/23/2021. 4. Septic shock on vasopressor support. 5. Hyperkalemia secondary to acute kidney injury and metabolic acidosis. Improved. 6. Lower extremity edema. 7. Hyperphosphatemia secondary to acute kidney injury. On PhosLo. 8. Pulmonary embolism. Plan: Attempt hemodialysis today with ultrafiltration is able to tolerate. Maintain bicarb drip. Maintain tube feeds. Wean FiO2 and vasopressors. Continue to monitor renal function and urine output. Prognosis guarded.
[2021-06-26] MEDS ORDERED: MORPHINE SULFATE 4 MG/ML SYRINGE IVP PRN (12:46)
[2021-06-26] MEDS ORDERED: LORazepam 2 MG/ML INJ IV STA (12:46)
[2021-06-26] MEDS ORDERED: MORPHINE SULFATE 4 MG/ML SYRINGE IVP STA (12:46)
[2021-06-26] MEDS ORDERED: LORazepam 2 MG/ML INJ IV PRN (12:47)
[2021-06-26 13:46] VITALS: BP 141/62; PULSE 108
--- NOTE | 2021-06-26 13:47 | P.PN ---
Subjective Progress Note Date: 06/26/21 Principal diagnosis: Acute hypoxic respiratory failure secondary to COVID-19 pneumonia 50-year-old male patient presented to the ED for worsening shortness of breath of 2 weeks' duration and the patient was found to be quite hypoxic. Confirmed to be COVID-19 positive with secondary pneumonia. The patient is not vaccinated. In the ED, the patient was placed on high flow oxygen at 60 L with an FiO2 of 90% in addition to a nonrebreather facemask. Chest x-ray showed diffuse bilateral pulmonary infiltrates right more than left. He did not have a family physician. LDH level was 2098 and a CRP level was 20. Within 24 hours, the patient developed worsening respiratory distress and hypoxemia and the patient had to be intubated and was placed on a mechanical ventilator and the patient has been on mechanical ventilator since 06/11/2021. For now, the patient remains sedated and paralyzed. For now, the patient is on Prop at 60 mics/kilogram per minute and the patient is also Nimbex at 2 mcg/kg per minute and the patient is quite successful mechanical ventilator. He remains an assist-control mode on a mechanical ventilator with a rate of 26, tidal volume of 450, FiO2 50% with a PEEP of 20. Chest x-ray showed diffuse breath pulmonary infiltrates. ET tube is in a good location. The patient special by the pulmonary infiltrates left more than right and his chest x-ray findings remain unchanged. The peak and static pressures were noted. The peak airway pressure currently is at 38. The static pressure is 36. The chest x-ray from today is showing by the pulmonary infiltrates. ET tube needs to be pushed in by around 1 cm. The patient has a left subclavian triple-lumen catheter in place. The chest x-ray was noted. The d-dimer was elevated at 34 and the patient underwent a CT angiogram on 06/12/2021 showing small filling defects in the right upper lobe suspicious for pulmonary embolism. There was large areas of perihilar and basilar pulmonary infiltrates consistent with pneumonia. Based on all this, the patient is currently on Decadron 6 mg IV every 24 hours, therapeutic dose of Lovenox 100 mg subcu every 12 hours in addition to normal saline at the rate of 75 mL an hour. Patient is also on clevidipine for blood pressure control. This morning, the patient is off the clevidipine drip. He is maintaining a decent blood pressure. The pH is at 7.4 with a pCO2 57 and pO2 of 79 on the above- mentioned ventilator setting. The LDH level is at 1369 with a CRP level of 5.3. There that fluid balance has been positive over the past several days and the patient is +1.8 L over the past 24 hours. His weight is up by at least 6 kg. On today's evaluation of 06/18/2021, the patient is being seen for a follow-up. The patient is a subcortical-related pneumonia with secondary respiratory failure, currently intubated on a mechanical ventilator. The patient remains sedated and paralyzed. The patient was intubated on 06/11/2021. For now, the patient is on propofol running at 60 mcg/kg per minute and the patient is also sent and are running at 4 mcg/kg/h and Nimbex running at 1 mcg/kg per minute. The patient remains on a mechanical ventilator. The patient remains on assist control mode at a rate of 26, tidal volume of 400, FiO2 of 50% with a PEEP of 20. The peak airway pressure is 36. The diet The chest x-ray from today shows right perihilar and lower lobe pulmonary infiltrate. There is also a left lower lobe pulmonary infiltrate. ET tube is in a good location. Comparing this chest x-ray to the one that was done yesterday showed interval worsening of the pulmonary infiltrates especially on the right. Meanwhile, the patient has developed some leukocytosis. White cell count is up to 29. The pro-calcitonin level was minimally elevated at 0.8 from yesterday. The patient is febrile with a temperature of 103 max and currently is running a temperature 102.7. The patient was given a dose of vancomycin for the staph epidermidis in his blood culture which is probably a contaminant. This was only present in 1 out of 2 blood cultures. Nevertheless, the concern for an infection. Infection is highly likely knowing that the patient is still afebrile and the patient is developing new infiltration of the right lower lobe. The same time, the patient developed an acute kidney injury. Creatinine is up to 1.6 which is higher compared to yesterday. Potassium level is up to 5.2 and the sodium level is at 146. Note that the patient was given Lasix yesterday for significant fluid overload. He did have a adequate urine output and his negative fluid balance as mentioned negative over the past 24 hours. Nevertheless, his overall body weight is still up and the patient continues to be edematous in all 4 extremities. The patient is receiving enteral feeding for nutritional support. Currently is on vital AF at the rate of 28 mL an hour. The inflammatory markers were not checked today. Levels from yesterday was noted. The patient remains on Decadron 6 mg IV every 24 hours. On 06/19/2021 patient seen in follow-up in the intensive care unit. He remains sedated and paralyzed and intubated on mechanical ventilator, current vent settings are assist control with a rate of 26, tidal 400, FiO2 of 50% and PEEP of 20, this morning's blood gas shows pO2 of 81, pCO2 of 73, and pH is 7.27, this was done on above-mentioned vent settings and FiO2 of 50%, O2 saturations are at 93%. Peak airway pressure is 33, and plateau pressure is 32. Hemodynamically patient is stable, not requiring any vasopressor support, he is currently on Diprivan at 40 mics per kilo per minute, sentinel is at 3 mics per kilo per minute, Nimbex is at 2 mics per kilo per minute, and maintenance IV fluids with D5W at 75 ML per hour, in sinus mechanism, slightly tachycardic with a rate of 107 BPM. Patient is tolerating tube feedings, currently on vital AF at a rate of 21 with a goal of 21, and standard water flushes with 30 mL every 4 hours, his labs 7 reviewed, white blood cell count slightly improved and is down to 24.3, hemoglobin is 10.5, d-dimer is 1.76, patient was found to have a new acute pulmonary embolism in the right upper lobe, and is currently on therapeutic doses of Lovenox at 100 mg twice daily, serum sodium has normalized and is down to 144, potassium is 5.8, chloride is 108, CO2 is 31, renal function has worsened, BUN is 70 and creatinine is up to 3.9 to LFTs are within normal limits, inflammatory markers are relatively stable, LDH is 1335, not if, changed since yesterday his last CRP was improving couple days ago and was down to 24.9, his pro-calcitonin level on yesterday's labs was at 1.48, and there was a suspicion for underlying bacterial infection and patient was covered with a combination of cefepime and vancomycin. In addition patient was developing a new airspace disease in the right lower lobe with the possibility of bacterial infection. Baricitinib was discontinued. Patient continues on Decadron 6 mg daily Blood culture from 06/18/2021 showed Staphylococcus epidermidis, urine cul ture was sent and is pending, urinalysis showed no clear evidence of infection. Sputum culture is yet to be sent. Overnight patient's urine output has dropped to 10-15 ML per hour, nephrology has been consulted. On 06/24/2021 patient seen in follow-up in the intensive care unit, he remains intubated, sedated, and paralyzed, on VC plus mode of ventilation with a rate of 26, tidal vital 375, FiO2 100% and PEEP of 18, this might blood gas shows pO2 of 97, pCO2 of 85, and pH of 7.08, this was done on the above-mentioned vent settings. His peak pressure was 38, and plateau pressure was 36. He is currently on D5 W with 3 A of bicarbonate at a rate of 50 ML per hour, heparin infusion per weight-based protocol, Nimbex is at 1.5 mics per kilo per minute, Diprivan is currently at 50 mics per kilo per minute, and Levophed is at 0.43 mics per kilo per minute. 2 feedings are with vital AF at 28 with a goal of 28 and standard water flushes. Patient has been intubated since 06/13/2021, he has suffered a cardiac arrest on 06/23/2021 with PEA arrest requiring ACLS intervention, and the total estimated down time per nursing report was around 5 minutes. Today's chest x-ray with bilateral multifocal confluent opacities consistent with COVID-19 infection and/or developing ARDS, without significant change from the day before. His labs have been reviewed, his morbid cell count is improving and is down to 25.1, hemoglobin is 9.5, his d-dimer is 4.88 which is an increase from 1.78 from his previous value, sodium is 136, potassium is 5.3, chloride is 98, BUN of 79, creatinine 6.78, AST is improving and is down to 122, ALT is down to 169, alk phos is 197, also improved, his LDH from today is 2864, improving, and CRP is relatively stable at 18.5. His pro-calcitonin level on yesterday's labs was elevated at 6.99 suggesting underlying bacterial infection, and his sputum culture was positive for MSSA, and Klebsiella oxytoca, his blood culture from 06/08/2021 was positive for Staphylococcus epidermidis and coagulase-negative staph. Current antibiotic coverage meropenem and vancomycin. Patient has been febrile overnight, with a T-max of 101F. Urine output has been 0, and patient received hemodialysis on 06/21/2021 with removal of 1 L of fluid Reevaluated today on 06/25/2021, patient remains in the ICU, intubated and mechanically ventilated. Patient is on volume control plus mode of mechanical ventilation 375 FiO2 80%, rate of 30, PEEP is 18 patient remains on propofol, norepinephrine, heparin and Nimbex 1.5 mcg/kg/m. Patient is on enteral feeding via orogastric tube. Continues to have high peak airway pressure in the high 30s and high plateau pressure. Remains on bicarb drip. He is also on heparin infusion, sedated and paralyzed. Requiring norepinephrine at 0.38 mcg/kg/m. His blood pressure is fluctuating and extremely labile. Patient has been intubated since 06/13, he sustained a cardiac arrest/PEA on 06/23, patient required ACLS intervention. And his code lasted about 5 minutes. Chest x-ray continues to show bilateral infiltrates. Patient is obviously developing ARDS in addition to his COVID-19 pneumonia. PTT today is 62.7 WBC count is 20.6 hemoglobin 8.8 ABG showed a pO2 of 140 pCO2 79 pH of 7.19 hence am recommending that we titrate his FiO2 down accordingly. Patient is on 100%, but FiO2 will be titrated down to maintain O2 saturation above 90%. Patient remains on hemodialysis, his BUN today is 62 creatinine 5.84 LDH is 1872 C-reactive protein 15.5 Reevaluated today on 06/26/2021, patient remains in the ICU, intubated and mechanically ventilated. Patient is on assist control rate of 30, volume control +375 PEEP 18 FiO2 70%. ABG showed a pO2 of 80 pCO2 81 pH of 7.16. Electrolytes are normal BUN is 73 creatinine 6.65. Remains on hemodialysis. LDH is 2050 C-reactive protein is 6.7. CBC count is 23.9 hemoglobin is 8.4 patient remains sedated, and paralyzed. He is maintained on norepinephrine at 0.36 mcg/kg/m is also on Nimbex 1.5 propofol at 30 and patient is also on fentanyl. Asked x-ray is not showing much of any improvement. Objective - Vital Signs Vital signs: Vital Signs Temp 98.8 F 06/26/21 04:00 Pulse 105 H 06/26/21 11:45 Resp 30 H 06/26/21 11:45 BP 134/69 06/26/21 11:45 Pulse Ox 85 L 06/26/21 11:45 Intake & Output 06/25/21 06/26/21 06/26/21 18:59 06:59 18:59 Intake Total 1406.090 8260.319 558.380 Output Total 10 10 0 Balance 5195.264 2920.319 558.380 Weight 135 kg 135 kg Intake: IV 903 936 378 Dextrose 5% in Water 1, 900 900 375 000 ml @ 75 mls/hr IV . [id number] APPLE with Sodium Bicarb (1 Meq/ml) 150 ml Rx#:[id number] Pressure bags 3 36 3 Intake, IV Titration 891.702 693.319 157.380 Amount Cisatracurium 200 mg In 211.991 48.893 Sodium Chloride 0.9% 180 ml @ 1 MCG/KG/MIN 7.38 mls/hr IV .Q24H [facility] Rx#: [id number] Heparin Sod,Pork in 0.45% 250.000 362.223 79.372 NaCl 25,000 unit In 0.45 % NaCl 1 250ml.bag @ 18 UNITS/KG/HR 21.69 mls/hr IV .[id number] [facility] Rx#: [id number] Norepinephrine 32 mg In 58.523 182.203 Sodium Chloride 0.9% 218 ml @ 0.12 MCG/KG/MIN 6. 919 mls/hr IV .Q24H [facility] Rx#:[id number] propofoL 1,000 mg In 371.188 100 78.008 Empty Bag 1 bag @ Titrate IV .Q0M [facility] Rx#: [id number] Tube Feeding 23 276 23 Other 180 Output: Urine 10 10 0 Other: Voiding Method Indwelling Catheter Indwelling Catheter ABP, PAP, CO, CI - Last Documented Arterial Blood Pressure 132/46 - Exam GENERAL EXAM: Revealed a 50-year-old white male intubated, mechanically ventilated, sedated, and paralyzed. HEAD: Normocephalic/atraumatic. EENT: PERRLA, EOMI, nonicteric, no neck masses, no JVD. No stridor. Endotracheal tube and orogastric tube are intact. CHEST: No chest wall deformity. Symmetrical expansion. LUNGS: Crackles bilaterally at the bases. CVS: Regular rate and rhythm, normal S1 and S2, no gallops, no murmurs, no rubs ABDOMEN: Obese soft nontender no megaly no rebound. EXTREMITIES: No clubbing, no edema, no cyanosis, 2+ pulses and upper and lower extremities. SKIN: No rashes CENTRAL NERVOUS SYSTEM: Could not assess, patient is sedated and paralyzed. - Labs CBC & Chem 7: 06/26/21 04:12 06/26/21 04:12 Labs: Abnormal Lab Results - Last 24 Hours (Table) 06/25/21 06/25/21 06/25/21 Range/Units 17:01 17:04 22:49 WBC (3.8-10.6) k/uL RBC (4.30-5.90) m/uL Hgb (13.0-17.5) gm/dL Hct (39.0-53.0) % APTT (22.0-30.0) sec D-Dimer (<0.60) mg/L FEU ABG pH (7.35-7.45) ABG pCO2 (35-45) mmHg ABG pO2 (83-108) mmHg ABG HCO3 (21-25) mmol/L ABG Total CO2 (19-24) mmol/L ABG O2 Saturation (94-97) % Sodium 134 L (137-145) mmol/L Chloride 93 L (98-107) mmol/L BUN 69 H (9-20) mg/dL Creatinine 5.90 H (0.66-1.25) mg/dL Glucose 159 H (74-99) mg/dL POC Glucose (mg/dL) 71 L 164 H (75-99) mg/dL Calcium 7.4 L (8.4-10.2) mg/dL AST 79 H (17-59) U/L ALT 110 H (4-49) U/L Alkaline Phosphatase 152 H (38-126) U/L Lactate Dehydrogenase (313-618) U/L Creatine Kinase (55-170) U/L C-Reactive Protein (<1.0) mg/dL Total Protein 5.9 L (6.3-8.2) g/dL Albumin 2.7 L (3.5-5.0) g/dL Triglycerides (0.00-149.00) mg/dL 06/26/21 06/26/21 06/26/21 Range/Units 04:12 04:12 04:12 WBC 23.9 H (3.8-10.6) k/uL RBC 2.70 L (4.30-5.90) m/uL Hgb 8.4 L (13.0-17.5) gm/dL Hct 26.1 L (39.0-53.0) % APTT 54.5 H (22.0-30.0) sec D-Dimer 7.38 H (<0.60) mg/L FEU ABG pH (7.35-7.45) ABG pCO2 (35-45) mmHg ABG pO2 (83-108) mmHg ABG HCO3 (21-25) mmol/L ABG Total CO2 (19-24) mmol/L ABG O2 Saturation (94-97) % Sodium 135 L (137-145) mmol/L Chloride 92 L (98-107) mmol/L BUN 73 H (9-20) mg/dL Creatinine 6.65 H (0.66-1.25) mg/dL Glucose 142 H (74-99) mg/dL POC Glucose (mg/dL) (75-99) mg/dL Calcium 8.1 L (8.4-10.2) mg/dL AST 79 H (17-59) U/L ALT 114 H (4-49) U/L Alkaline Phosphatase 164 H (38-126) U/L Lactate Dehydrogenase 2051 H (313-618) U/L Creatine Kinase 664 H (55-170) U/L C-Reactive Protein 6.7 H (<1.0) mg/dL Total Protein 5.8 L (6.3-8.2) g/dL Albumin 2.7 L (3.5-5.0) g/dL Triglycerides 361.00 H (0.00-149.00) mg/dL 06/26/21 06/26/21 Range/Units 05:44 05:59 WBC (3.8-10.6) k/uL RBC (4.30-5.90) m/uL Hgb (13.0-17.5) gm/dL Hct (39.0-53.0) % APTT (22.0-30.0) sec D-Dimer (<0.60) mg/L FEU ABG pH 7.16 L* (7.35-7.45) ABG pCO2 81 H* (35-45) mmHg ABG pO2 80 L (83-108) mmHg ABG HCO3 28 H (21-25) mmol/L ABG Total CO2 31 H (19-24) mmol/L ABG O2 Saturation 93.0 L (94-97) % Sodium (137-145) mmol/L Chloride (98-107) mmol/L BUN (9-20) mg/dL Creatinine (0.66-1.25) mg/dL Glucose (74-99) mg/dL POC Glucose (mg/dL) 155 H (75-99) mg/dL Calcium (8.4-10.2) mg/dL AST (17-59) U/L ALT (4-49) U/L Alkaline Phosphatase (38-126) U/L Lactate Dehydrogenase (313-618) U/L Creatine Kinase (55-170) U/L C-Reactive Protein (<1.0) mg/dL Total Protein (6.3-8.2) g/dL Albumin (3.5-5.0) g/dL Triglycerides (0.00-149.00) mg/dL Microbiology - Last 24 Hours (Table) 06/19/21 09:31 Blood Culture - Final Blood No Growth after 144 hours 06/19/21 09:31 Blood Culture - Final Blood No Growth after 144 hours Assessment and Plan Assessment: Impression: Acute hypoxic respiratory failure secondary to COVID-19 pneumonia, intubated since 06/12 ARDS secondary to COVID-19 pneumonia Cardiac arrest secondary to COVID-19 pneumonia, patient had PEA requiring CPR, and ACLS intervention, down time was less than 5 minutes. MSSA and Klebsiella pneumonia with positive cultures in the sputum. Acute septic shock. Acute pulmonary embolism and DVT requiring heparin infusion. Elevated inflammatory markers Acute kidney injury and renal failure requiring hemodialysis Possible anoxic brain injury related to his recent cardiac arrest requiring CPR. Recommendation: Continue ventilatory support Continue hemodialysis Continue hemodynamic support Continue enteral feeding and nutritional support Continue assessment of ventilatory settings and titrate oxygen accordingly. Continue antibiotics. Yesterday his was updated on his condition. And she is very well aware of his poor prognosis and futile condition. Discussed his condition with the admitting physician, and she will try to reach the family again regarding CODE STATUS and possibly consider comfort care measures on this patient. Patient is critically ill. Critical care time is over 30 minutes Time with Patient: Greater than 30
--- NOTE | 2021-06-26 15:11 | P.DS ---
Providers Date of admission: 06/11/21 12:33 Expected date of discharge: 06/26/21 Attending physician: Tamir Rodriguez MD Consults: 06/11/21 12:33 Consult Physician Stat Consulting Provider: Facundo Amezcua Consult Reason/Comments: COVID Do you want consulting provider notified?: Already Contacted 06/18/21 23:13 Consult Physician Routine Consulting Provider: Nancy Wylie Consult Reason/Comments: elevated BUN and creat, low urine output Do you want consulting provider notified?: Yes, Notify in am 06/20/21 12:53 Consult Physician Routine Consulting Provider: Adal Gaxiola Consult Reason/Comments: Dialysis Catheter Placement Do you want consulting provider notified?: Yes Primary care physician: Glenn Khoury [facility] Course: Discharge Diagnosis: COVID-19 pneumonitis in an unvaccinated individual Acute hypoxic respiratory failure Toxic encephalopthy due to hypoxia Right upper lobe pulmonary embolism Staph Aureus and Klebsiella PNA PEA arrest with ROSC Transaminitis JABARI requiring HD Respiraotry and metabolic acidosis Staph epi on blood culture, ocntaminent HTN Obesity with BMI 38.4 on admission Hyponatremia, resolved Lactic acidosis, resolved Hypokalemia, resolved Hospital Course: Patient is a 50-year-old male who presented with confusion and low oxygen status, was found to be by EMS to have an oxygen saturation of 50%. On arrival to the ER he had a temperature of 100.5, pulse 125, respirations 36, and he was satting 77% on a 15 L nonrebreather. In the ER he was found to have a white blood cell count of 17.4, sodium 130, glucose 208, lactic acid 3.4, LDH 2098, and CRP 20. His COVID test came back positive. Chest x-ray showed lateral multifocal opacities right greater than left is reviewed by myself. He was started on AirVo and NRB. He was given 1 L bolus and 10 mg of Decadron. He was seen by pulmonary critical care and arrangements were made for admission to the ICU. His breathing worsening overnight and he required intubation on 06/12. His d-dimer was >34 and he was started on full dose lovenox. He was taken for CT chest which could not rule out right upper lobe PE. He did require paralytic. His FiO2 was able to be decreased to 90%. His peep was increased and his FiO2 was weaned. He spiked fevers on 06/16 and cultures were sent Procalcitonin remained low. His blood cultures became positive on 06/17 and he was started on vanco, culture came back staph epi and vanco was discontinued. He continued to spike fevers and was started on cefepime and hensley culture was ordered X 2 on 06/16 and 06/18 when fevers had not abated. His creatinine worsened. Nephrology was consulted. Dialysis catheter was inserted on 06/20 the patient was started on dialysis on 06/21. Overnight on 06/22 patient had a CODE BLUE with a PEA arrest. History of appendectomy and bicarbonate had broth. Patient was found to have staph aureus and Klebsiella pneumonia. He was on antibiotics. He also developed some worsening liver function. He continued to decline and levo requirements were increasing, he was having difficulty tolerating HD due to hypotension. Extremities patient was moved her stimulated his blood pressure and heart rate went down. Patient started having loose stools requiring fecal management system on 06/25. Met with the on the morning of 06/26 and after discussion with myself and the nurse she elected to proceed with comfort measures as there is no hope of meaningful recovery. Patient was subsequently taken off Nimbex drip, given IV push morphine and Ativan to ensure comfort and subsequently taken off the ventilator. He passed peacefully at 1333. Patient seen and examined at bedside. Prior to comfort measures. Vital signs reviewed and stable. General: Ill-appearing, moderate distress, appears at stated age Derm: warm, dry Head: atraumatic, normocephalic, symmetric Eyes: No lid lesion, pupils large and sluggishly reactive, anicteric sclera Mouth: no lip lesion, mucus membranes dry Cardiovascular: S1S2 tachy, no murmur, positive posterior tibial pulse bilateral, Lungs: Course sounds bilaterally, on vent Abdominal: soft, distended, nontender to palpation, no guarding, no appreciable organomegaly, dark urine in Rodriguez catheter Ext: no gross muscle atrophy, no edema, no contractures Neuro: no movement or withdrawal to pain on nimbex Psych: Sedated on vent A total of 35 minutes of time were spent preparing this complex discharge summary . Plan - Discharge Summary New Discharge Prescriptions: No Action No Known Home Medications Discharge Medication List No Known Home Medications 06/11/21 [History]
== END 2021-06-26 17:00 | disposition expired | DRG 207 ==
LOC: EC 11:45 → 2SICU 12:33
PROVIDERS: ADMIT Internal Medicine; ATTEND Internal Medicine
PROC: 5A1D70Z Performance of Urinary Filtration, Intermittent, Less than 6 Hours Per Day (ICD-10-PCS; 2021-06-11)
PROC: 3E0333Z Introduction of Anti-inflammatory into Peripheral Vein, Percutaneous Approach (ICD-10-PCS; 2021-06-11)
PROC: 5A0935A Assistance with Respiratory Ventilation, Less than 24 Consecutive Hours, High Flow/Velocity Cannula (ICD-10-PCS; 2021-06-11)
PROC: 5A1955Z Respiratory Ventilation, Greater than 96 Consecutive Hours (ICD-10-PCS; principal; 2021-06-12)
PROC: 03HY32Z Insertion of Monitoring Device into Upper Artery, Percutaneous Approach (ICD-10-PCS; 2021-06-12)
PROC: 4A133B1 Monitoring of Arterial Pressure, Peripheral, Percutaneous Approach (ICD-10-PCS; 2021-06-12)
PROC: 4A133J1 Monitoring of Arterial Pulse, Peripheral, Percutaneous Approach (ICD-10-PCS; 2021-06-12)
PROC: 02H633Z Insertion of Infusion Device into Right Atrium, Percutaneous Approach (ICD-10-PCS; 2021-06-12)
PROC: 5A09357 Assistance with Respiratory Ventilation, Less than 24 Consecutive Hours, Continuous Positive Airway Pressure (ICD-10-PCS; 2021-06-12)
PROC: 0BH17EZ Insertion of Endotracheal Airway into Trachea, Via Natural or Artificial Opening (ICD-10-PCS; 2021-06-12)
PROC: 06HM33Z Insertion of Infusion Device into Right Femoral Vein, Percutaneous Approach (ICD-10-PCS; 2021-06-20)
PROC: 3E033XZ Introduction of Vasopressor into Peripheral Vein, Percutaneous Approach (ICD-10-PCS; 2021-06-21)
PROC: 5A12012 Performance of Cardiac Output, Single, Manual (ICD-10-PCS; 2021-06-23)
DX: U07.1 COVID-19 (principal); A41.9 Sepsis, unspecified organism; I26.99 Other pulmonary embolism without acute cor pulmonale; J12.82 Pneumonia due to coronavirus disease 2019; J15.0 Pneumonia due to Klebsiella pneumoniae; J15.6 Pneumonia due to other Gram-negative bacteria; N17.0 Acute kidney failure with tubular necrosis; R65.21 Severe sepsis with septic shock; J80 Acute respiratory distress syndrome; E87.1 Hypo-osmolality and hyponatremia; E87.2 Acidosis; Z99.11 Dependence on respirator [ventilator] status; G93.1 Anoxic brain damage, not elsewhere classified; E66.9 Obesity, unspecified; Z68.38 Body mass index [BMI] 38.0-38.9, adult; E83.39 Other disorders of phosphorus metabolism; E86.0 Dehydration; E87.5 Hyperkalemia; E87.6 Hypokalemia; E87.70 Fluid overload, unspecified; I10 Essential (primary) hypertension; Z51.5 Encounter for palliative care; I46.9 Cardiac arrest, cause unspecified; Z66 Do not resuscitate; K59.00 Constipation, unspecified; K76.89 Other specified diseases of liver; T36.8X5A Adverse effect of other systemic antibiotics, initial encounter; T38.0X5A Adverse effect of glucocorticoids and synthetic analogues, initial encounter; Z90.49 Acquired absence of other specified parts of digestive tract
CPT/HCPCS: 36415; 36600; 71045; 71275; 76705; 80048; 80053; 80202; 81001; 82550; 82728; 82805; 83605; 83615; 83690; 83735; 84100; 84132; 84145; 84478; 85025; 85027; 85379; 85610; 85730; 86140; 86704; 86706; 87040; 87070; 87077; 87086; 87186; 87205; 87340; 87502; 87635; 90935; 93005; 93970; 94002; 94003; 94660; 96361; 96374; 99291